=== PATIENT | female | born 1930 | race Caucasian/White ===

== ENCOUNTER → 2016-07-25 | Outpatient (REF) | payer MEDICARE, OTHER ==
[~2016-07-25] MED LIST: ASPI1TAB PO; ATOR40TA PO; CENTTAB16 PO; COUM2.5T11 PO; FISH100049 PO; FLEEENE4 PR; FURO20TA2 PO; LEVO125T3 PO; MILKSUS PO; MIRA3350 PO; OSTETAB3 PO; SENO8.6T2 PO; SERT-138 PO; SYMB16INH INH; TYLE325T5 PO; ULTR50TA PO; VALS160T PO; ZOFR20TA PO
[2016-07-25 12:08] LABS: MEAN CORPUSCULAR HEMOGLOBIN 32.8 pg (27.0-33.0); MEAN CORPUSCULAR HGB CONC 33.1 g/dl (32.0-36.5); MEAN CORPUSCULAR VOLUME 99.1 fl (80.0-96.0); RED CELL DISTRIBUTION WIDTH 11.5 % (11.5-14.5); WHITE BLOOD COUNT 5.9 K/mm3 (4.0-10.0)
[2016-07-25 12:58] LABS: ALBUMIN 3.6 GM/DL (3.2-5.2); ALBUMIN/GLOBULIN RATIO 1.24 (1.00-1.93); BILIRUBIN,TOTAL 0.5 MG/DL (0.2-1.0); CREATININE FOR GFR 1.46 MG/DL (0.55-1.02); GLOMERULAR FILTRATION RATE 36.2 (>32); POTASSIUM SERUM 4.8 MEQ/L (3.5-5.1); TOTAL PROTEIN 6.5 GM/DL (6.4-8.2)
== END ==
LOC: M SFHCPLAZ 08:04
PROVIDERS: ATTEND Internal Medicine
DX: R73.01 Impaired fasting glucose (principal); I10 Essential (primary) hypertension; Z51.81 Encounter for therapeutic drug level monitoring; Z79.899 Other long term (current) drug therapy

== ENCOUNTER → 2016-12-06 | Outpatient (REF) | payer MEDICARE, OTHER | LOC: M SFHCPLAZ 12:23 | PROVIDERS: ATTEND Nurse Practitioner Adult Health | DX: E03.9 Hypothyroidism, unspecified (principal) | CPT/HCPCS: 84443; G0463 ==

== ENCOUNTER → 2017-01-24 | Outpatient (REF) | payer MEDICARE, OTHER ==
[~2017-01-24] MED LIST changes: -ATOR40TA PO; +ATOR40TA75 PO; -COUM2.5T11 PO; +COUM2.5T17 PO; -LEVO125T3 PO; +LEVO125T4 PO; -SENO8.6T2 PO; +SENO8.6T5 PO; -ULTR50TA PO; +ULTR50TA8 PO
[2017-01-24 11:07] LABS: MEAN CORPUSCULAR VOLUME 99.9 fl (80.0-96.0)
[2017-01-24 11:41] LABS: ALBUMIN 3.6 GM/DL (3.2-5.2); ALBUMIN/GLOBULIN RATIO 1.16 (1.00-1.93); BILIRUBIN,TOTAL 0.7 MG/DL (0.2-1.0); CALCIUM LEVEL 9.1 MG/DL (8.8-10.2); CREATININE FOR GFR 1.47 MG/DL (0.55-1.02); POTASSIUM SERUM 4.6 MEQ/L (3.5-5.1); TOTAL PROTEIN 6.7 GM/DL (6.4-8.2)
== END ==
LOC: M SFHCPLAZ 08:14
PROVIDERS: ATTEND Internal Medicine
DX: Z86.718 Personal history of other venous thrombosis and embolism (principal); I10 Essential (primary) hypertension; E78.00 Pure hypercholesterolemia, unspecified; E03.9 Hypothyroidism, unspecified

== ENCOUNTER → 2017-07-25 | Outpatient (REF) | payer MEDICARE, OTHER ==
[2017-07-25 14:16] LABS: ALBUMIN 3.7 GM/DL (3.2-5.2); ALBUMIN/GLOBULIN RATIO 1.23 (1.00-1.93); ALKALINE PHOSPHATASE 73 U/L (45-117); ALT/SGPT 20 U/L (12-78); ANION GAP 6 MEQ/L (8-16); AST/SGOT 20 U/L (7-37); BILIRUBIN,TOTAL 0.5 MG/DL (0.2-1.0); BLOOD UREA NITROGEN 25 MG/DL (7-18); CALCIUM LEVEL 8.9 MG/DL (8.8-10.2); CARBON DIOXIDE LEVEL 28 MEQ/L (21-32); CHLORIDE LEVEL 109 MEQ/L (98-107); CREATININE FOR GFR 1.41 MG/DL (0.55-1.02); GLOMERULAR FILTRATION RATE 37.6 (>32); GLUCOSE, FASTING 93 MG/DL (83-110); MAGNESIUM LEVEL 1.8 MG/DL (1.8-2.4); POTASSIUM SERUM 4.5 MEQ/L (3.5-5.1); SODIUM LEVEL 143 MEQ/L (136-145); THYROID STIMULATING HORMONE 0.758 uIU/ML (0.358-3.740); TOTAL PROTEIN 6.7 GM/DL (6.4-8.2)
[2017-07-25 14:17] LABS: PTH INTACT 58.1 PG/ML (14.0-72.0)
== END ==
LOC: M SFHCPLAZ 10:06
DX: N18.3 Chronic kidney disease, stage 3 (moderate) (principal); E03.9 Hypothyroidism, unspecified
CPT/HCPCS: 83735

== ENCOUNTER → 2017-11-19 | Outpatient (CLI) | payer MEDICARE, OTHER | LOC: M WHC 10:37 | DX: R93.5 Abnormal findings on diagnostic imaging of other abdominal regions, including retroperitoneum (principal) | CPT/HCPCS: 76700 ==

== ENCOUNTER → 2018-01-24 | Outpatient (REF) | payer MEDICARE, OTHER ==
[2018-01-24 11:59] LABS: HEMATOCRIT 35.3 % (36.0-47.0); HEMOGLOBIN 11.7 g/dl (12.0-15.5); MEAN CORPUSCULAR HEMOGLOBIN 32.8 pg (27.0-33.0); MEAN CORPUSCULAR HGB CONC 33.1 g/dl (32.0-36.5); MEAN CORPUSCULAR VOLUME 98.9 fl (80.0-96.0); PLATELET COUNT, AUTOMATED 227 10^3/uL (150-450); RED BLOOD COUNT 3.57 10^6/uL (4.00-5.40); RED CELL DISTRIBUTION WIDTH 12.4 % (11.5-14.5); WHITE BLOOD COUNT 6.4 10^3/uL (4.0-10.0)
[2018-01-24 12:19] LABS: PTH INTACT 89.3 PG/ML (18.5-88.0)
[2018-01-24 12:26] LABS: ALBUMIN 3.5 GM/DL (3.2-5.2); ALBUMIN/GLOBULIN RATIO 1.09 (1.00-1.93); ALKALINE PHOSPHATASE 76 U/L (45-117); ALT/SGPT 20 U/L (12-78); ANION GAP 10 MEQ/L (8-16); AST/SGOT 17 U/L (7-37); BILIRUBIN,TOTAL 0.8 MG/DL (0.2-1.0); BLOOD UREA NITROGEN 41 MG/DL (7-18); CALCIUM LEVEL 8.8 MG/DL (8.8-10.2); CARBON DIOXIDE LEVEL 26 MEQ/L (21-32); CHLORIDE LEVEL 110 MEQ/L (98-107); CHOLESTEROL LEVEL 147 MG/DL (<200); CHOLESTEROL RISK RATIO 3.418 (<5); CREATININE FOR GFR 2.04 MG/DL (0.55-1.30); GLOMERULAR FILTRATION RATE 24.6 (>32); GLUCOSE, FASTING 96 MG/DL (70-100); HDL CHOLESTEROL 43 MG/DL (>40); LDL CHOLESTEROL 77.8 MG/DL (<100); MAGNESIUM LEVEL 1.9 MG/DL (1.8-2.4); NON-HDL-C 104 MG/DL; POTASSIUM SERUM 4.7 MEQ/L (3.5-5.1); SODIUM LEVEL 146 MEQ/L (136-145); TOTAL PROTEIN 6.7 GM/DL (6.4-8.2); TRIGLYCERIDES LEVEL 131 MG/DL (<150)
== END ==
LOC: M SFHCPLAZ 08:55
DX: Z00.00 Encounter for general adult medical examination without abnormal findings (principal); N18.3 Chronic kidney disease, stage 3 (moderate); I12.9 Hypertensive chronic kidney disease with stage 1 through stage 4 chronic kidney disease, or unspecified chronic kidney disease; E78.00 Pure hypercholesterolemia, unspecified
CPT/HCPCS: 83735

== ENCOUNTER → 2018-02-11 | Outpatient (CLI) | payer MEDICARE, OTHER ==
[2018-02-11 19:06] LABS: ANION GAP 9 MEQ/L (8-16); BLOOD UREA NITROGEN 24 MG/DL (7-18); CALCIUM LEVEL 8.7 MG/DL (8.8-10.2); CARBON DIOXIDE LEVEL 27 MEQ/L (21-32); CHLORIDE LEVEL 111 MEQ/L (98-107); CREATININE FOR GFR 1.65 MG/DL (0.55-1.30); GLOMERULAR FILTRATION RATE 31.4 (>32); GLUCOSE, FASTING 98 MG/DL (70-100); POTASSIUM SERUM 4.3 MEQ/L (3.5-5.1); SODIUM LEVEL 147 MEQ/L (136-145)
== END ==
LOC: M SMT 11:38
DX: I10 Essential (primary) hypertension (principal)
CPT/HCPCS: 80048

== ENCOUNTER → 2018-07-31 | Outpatient (REF) | payer MEDICARE, OTHER ==
[~2018-07-31] MED LIST changes: +MILK120011 PO; -MILKSUS PO; -ZOFR20TA PO; +ZOFR4TAB16 PO
[2018-07-31 12:19] LABS: HEMATOCRIT 36.1 % (36.0-47.0); HEMOGLOBIN 11.5 g/dl (12.0-15.5); MEAN CORPUSCULAR HEMOGLOBIN 31.7 pg (27.0-33.0); MEAN CORPUSCULAR HGB CONC 31.9 g/dl (32.0-36.5); MEAN CORPUSCULAR VOLUME 99.4 fl (80.0-96.0); PLATELET COUNT, AUTOMATED 216 10^3/uL (150-450); RED BLOOD COUNT 3.63 10^6/uL (4.00-5.40); WHITE BLOOD COUNT 5.9 10^3/uL (4.0-10.0)
[2018-07-31 13:01] LABS: ALBUMIN 3.5 GM/DL (3.2-5.2); BILIRUBIN,TOTAL 0.6 MG/DL (0.2-1.0); CREATININE FOR GFR 1.62 MG/DL (0.55-1.30); MAGNESIUM LEVEL 1.6 MG/DL (1.8-2.4); POTASSIUM SERUM 4.6 MEQ/L (3.5-5.1); PTH INTACT 73.2 PG/ML (18.5-88.0); THYROID STIMULATING HORMONE 1.84 uIU/ML (0.358-3.740); TOTAL PROTEIN 6.3 GM/DL (6.4-8.2)
== END ==
LOC: M SFHCPLAZ 08:54
PROVIDERS: ATTEND Internal Medicine
DX: N18.3 Chronic kidney disease, stage 3 (moderate) (principal); I12.9 Hypertensive chronic kidney disease with stage 1 through stage 4 chronic kidney disease, or unspecified chronic kidney disease; E03.9 Hypothyroidism, unspecified

== ENCOUNTER → 2019-02-12 | Outpatient (REF) | payer MEDICARE, OTHER ==
[~2019-02-12] MED LIST changes: -ASPI1TAB PO; +ASPI81TA26 PO
== END ==
LOC: M SFHCPLAZ 10:24
PROVIDERS: ATTEND Internal Medicine
DX: Z53.9 Procedure and treatment not carried out, unspecified reason (principal); N18.3 Chronic kidney disease, stage 3 (moderate); I12.9 Hypertensive chronic kidney disease with stage 1 through stage 4 chronic kidney disease, or unspecified chronic kidney disease; E78.00 Pure hypercholesterolemia, unspecified

== ENCOUNTER 2019-05-16 08:50 | Inpatient (IN) | payer MEDICARE, OTHER ==
[~2019-05-16] VITALS: Ht 162.6 cm; Wt 75.4 kg
[2019-05-16] MEDS: PANTOPRAZOLE 40MG TAB (PROTONIX) PO SCH (09:00)
[2019-05-16] MEDS: ATORVASTATIN 20 MG TAB PO SCH (09:00)
[2019-05-16] MEDS: ENOXAPARIN 30 MG/0.3 ML SYR (J1650) SC SCH (09:00)
[2019-05-16] MEDS: ARIPiprazole 10 MG TAB PO SCH (09:00)
[2019-05-16] MEDS ORDERED: ARIP1TAB PO (09:03)
[2019-05-16] MEDS ORDERED: CARB25TA9 PO (09:03)
[2019-05-16] MEDS ORDERED: ZOLO100T PO (09:03)
[2019-05-16] MEDS ORDERED: PANT40TA3 PO (09:03)
[2019-05-16 09:29] LABS: VENOUS BASE EXCESS -2.2 (-2.0-2.0); VENOUS HCO3 24.3 MEQ/L (23.0-27.0); VENOUS O2 SATURATION 79.8 % (60.0-80.0); VENOUS PARTIAL PRESSURE CO2 48.1 mmHg (38.0-50.0); VENOUS PARTIAL PRESSURE O2 47.2 mmHg (30.0-50.0); VENOUS PH 7.321 UNITS (7.330-7.430); VENOUS STANDARD HCO3 22.3 MEQ/L; VENOUS TOTAL CO2 25.8 MEQ/L (24.0-28.0)
[2019-05-16 09:35] LABS: BASO % 0.1 % (0.0-1.0); EOS # 0.1 10^3/uL (0.0-0.5); EOS % 0.5 % (0.0-3.0); HEMATOCRIT 38.6 % (36.0-47.0); HEMOGLOBIN 12.2 g/dl (12.0-15.5); LYMPH # 3.9 10^3/uL (1.5-5.0); LYMPH % 24.8 % (24.0-44.0); MEAN CORPUSCULAR HEMOGLOBIN 32.4 pg (27.0-33.0); MEAN CORPUSCULAR HGB CONC 31.6 g/dl (32.0-36.5); MEAN CORPUSCULAR VOLUME 102.7 fl (80.0-96.0); MONO # 0.3 10^3/uL (0.0-0.8); MONO % 1.7 % (0.0-5.0); NEUTROPHILS # 11.3 10^3/uL (1.5-8.5); NEUTROPHILS % 72.5 % (36.0-66.0); PLATELET COUNT, AUTOMATED 246 10^3/uL (150-450); RED BLOOD COUNT 3.76 10^6/uL (4.00-5.40); WHITE BLOOD COUNT 15.5 10^3/uL (4.0-10.0)
--- NOTE | 2019-05-16 09:54 | REP ---
CT brain: 05/16/2019. New indication: Syncope. Comparison: None. Technique: Unenhanced axial images of the brain were obtained from skull base to vertex. Findings: There is no acute intracranial hemorrhage, acute cortical infarction, mass effect or hydrocephalous. Visualized paranasal sinuses and mastoid air cells are clear. Diffuse age-related volume loss is present. There are a few patchy areas of hypoattenuation within the cerebral hemisphere white matter most consistent with chronic small vessel disease. Impression: No acute intracranial process. Electronically Signed by Ajith Mcbride DO 05/16/2019 09:46 A
[2019-05-16] MEDS ORDERED: NS 2,270 ML in IV 1 EA IV ONE (10:00)
[2019-05-16] MEDS ORDERED: cefTRIAXone SOD 2 GM in D5W MINI-BAG PLUS 50 ML IV ONE (10:00)
[2019-05-16 10:08] LABS: BLOOD UREA NITROGEN 24 MG/DL (7-18); CALCIUM LEVEL 9.2 MG/DL (8.8-10.2); CARBON DIOXIDE LEVEL 26 MEQ/L (21-32); CHLORIDE LEVEL 107 MEQ/L (98-107); CK-MB VALUE MASS 4.4 NG/ML (<3.6); CPK CREATINE PHOSPHOKINASE 432 U/L (26-192); CREATININE FOR GFR 1.71 MG/DL (0.55-1.30); FREE T4 1.43 NG/DL (0.76-1.46); GLUCOSE, FASTING 155 MG/DL (70-100); MAGNESIUM LEVEL 1.4 MG/DL (1.8-2.4); MB/CK RELATIVE INDEX 1.02 (< OR =4); POTASSIUM SERUM 4.1 MEQ/L (3.5-5.1); SODIUM LEVEL 144 MEQ/L (136-145); TROPONIN I < 0.02 NG/ML (< 0.10)
--- NOTE | 2019-05-16 10:14 | REP ---
CHEST, SINGLE VIEW: There is no evidence of acute infiltrate. No pleural effusion is seen. The heart is normal in size. The mediastinal silhouette is unremarkable. The visualized osseous structures are intact. Calcified granulomas seen in the right base. There are degenerative changes of the spine. IMPRESSION: No acute pulmonary disease. Electronically Signed by Doemnic Deluca MD 05/17/2019 11:04 A
[2019-05-16] MEDS ORDERED: MAG SULF 1GM/100ML (MAG RUN) 1 GM in IV 1 EA IV ONE (11:15)
[2019-05-16] MEDS ORDERED: SYMB80INH INH (11:21)
[2019-05-16] MEDS ORDERED: LEVO112T25 PO (11:21)
[2019-05-16] MEDS ORDERED: [UNRECOGNIZED DRUG - CODE] PO (11:21)
[2019-05-16] MEDS ORDERED: VENTAER INH (11:21)
[2019-05-16] MEDS ORDERED: FLUC200T2 PO (11:21)
--- NOTE | 2019-05-16 11:40 | HPEPDOC ---
[facility] Medical History & Physical Date of Admission May 16, 2019 Date of Service: May 16, 2019 History and Physical CHIEF COMPLAINT: Not feeling well HISTORY OF PRESENT ILLNESS: Patient is 89F with PMH Hypothyroidism, HTN, Depression brought in by family to the ER with complaints of near-syncope vs. syncope this morning. Patient is somewhat difficult of hearing, history is obtained with help of family members. Patient reports that she did not feel well briefly this morning and reported appeared to pass out very briefly and appeared nauseous and diaphoretic but returned back to normal quickly. She states that she have been feeling fine and only experienced that brief episode this morning. She currently denies any c omplaints including chest pain, SOB, dizziness, dysuria, abdominal pain, fever, chills. Patient was found to have leukocytosis WBC 15.5, tachycardic 102 and lactic acidosis 3.8. PAST MEDICAL HISTORY: Refer to [facility] PAST SURGICAL HISTORY: R. knee surgery Back surgery SOCIAL HISTORY: Denies tobacco, alcohol or illicit drug use. FAMILY HISTORY: Mother- CAD Daughter- melanoma ALLERGIES: Please see below. REVIEW OF SYSTEMS: 10 point review of system negative except as stated in [facility] HOME MEDICATIONS: Please see below. PHYSICAL EXAMINATION: General: No acute distress, Alert, elderly/weak Eyes: Normal sclera, EOMI, JONY HENT: Atraumatic, neck supple] Cardiovascular: Normal rate, normal rhythm. Pulmonary: Clear to auscultation b/l, no wheezing GI: Soft, nontender, nondistended Skin: Warm and dry Neuro: CN grossly intact. No focal deficits. Generalized weakness Psych: oriented x 3 LABORATORY DATA: See below. IMAGING: CT head- Findings: There is no acute intracranial hemorrhage, acute cortical infarction, mass effect or hydrocephalous. Visualized paranasal sinuses and mastoid air cells are clear. Diffuse age-related volume loss is present. There are a few patchy areas of hypoattenuation within the cerebral hemisphere white matter most consistent with chronic small vessel disease. Impression: No acute intracranial process. CXR- IMPRESSION: No acute pulmonary disease. MICROBIOLOGY: Please see below. ASSESSMENT AND PLAN: 1. Near syncope vs. syncope - Suspect 2/2 viral illness. - CT head with no acute changes, no focal deficits and patient appeared to be at her baseline. - No chest pain. troponin negative. TSH and T4 WNL. 2. SIRS w/ no known source - Presented with leukocytosis, tachycardia and lactic acidosis. - UA not suggestive of infection and patient has no urinary symptoms. - s/p 30 cc/kg IVF bolus and Rocephin in ER. - Clinically improved with resolution of tachycardia. - Continue to monitor and f/u blood cultures. - Low suspicion for bacterial infection. CXR clear, no abdominal pain suggestive of infectious process. 3. Hypothyroidism - c/w synthroid 4. HTN - Hold home medication in caution for possible development of hypotension from infection. - Unlikely but will resume tomorrow if BP remained stable overnight. 5. hx depression - resume home med Code status: Full code Dispo: Likely home once stable. PT eval and treat. Vital Signs Vital Signs Date Time Temp Pulse Resp B/P (MAP) Pulse Ox O2 Delivery O2 Flow Rate FiO2 05/16/19 10:20 90 95 05/16/19 09:28 120/58 (78) 05/16/19 09:15 97.5 16 Room Air Laboratory Data Labs 24H Laboratory Tests 2 05/16/19 09:18: Immature Granulocyte % (Auto) 0.4, Neutrophils (%) (Auto) 72.5H, Lymphocytes (%) (Auto) 24.8, Monocytes (%) (Auto) 1.7, Eosinophils (%) (Auto) 0.5, Basophils (%) (Auto) 0.1, Neutrophils # (Auto) 11.3H, Lymphocytes # (Auto) 3.9, Monocytes # (Auto) 0.3, Eosinophils # (Auto) 0.1, Basophils # (Auto) 0.0, Nucleated Red Blood Cells % (auto) 0.0, Blood Gas Bicarbonate Standard 22.3, Venous Blood pH 7 .321L, Venous Blood Partial Pressure CO2 48.1, Venous Blood Partial Pressure O2 47.2, Venous Blood Total Carbon Dioxide 25.8, Venous Blood HCO3 24.3, Venous Blood Oxygen Saturation 79.8, Venous Blood Base Excess -2.2L, Anion Gap 11, Glomerular Filtration Rate 30.0L, Lactic Acid Level 3.8*H, Calcium Level 9.2, Magnesium Level 1.4L, Total Creatine Kinase 432H, Creatine Kinase MB 4.4H, Creatine Kinase MB Relative Index 1.02, Troponin I < 0.02, Thyroid Stimulating Hormone (TSH) 1.170, Free Thyroxine 1.43 10/25/19 10:14: Urine Color YELLOW, Urine Appearance CLEAR, Urine pH 6.0, Urine Specific [place] 1.012, Urine Protein NEGATIVE, Urine Glucose (UA) NEGATIVE, Urine Ketones N EGATIVE, Urine Blood 1+H, Urine Nitrite NEGATIVE, Urine Bilirubin NEGATIVE, Urine Urobilinogen 0.2, Urine Leukocyte Esterase NEGATIVE, Urine WBC (Auto) 2, Urine RBC (Auto) 4H, Urine Hyaline Casts (Auto) 58, Urine Bacteria (Auto) NEGATIVE, Urine Squamous Epithelial Cells 0, Urine Mucus (Auto) SMALL, Urine Sperm (Auto) CBC/BMP Laboratory Tests 05/16/19 09:18 Microbiology Microbiology 05/16/19 Respiratory Virus Panel (PCR) ([facility]), Received Pending 05/16/19 Blood Culture, Received Pending 05/16/19 Blood Culture, Received Pending Home Medications Scheduled Aripiprazole (Aripiprazole) 10 Mg Tablet, 10 MG PO DAILY Atorvastatin Calcium (Atorvastatin Calcium) 40 Mg Tab, 40 MG PO DAILY Budesonide/Formoterol (Symbicort 80-4.5 Mcg Inhaler) 6.9 Gm Hfa.aer.ad, 2 PUFF INH BID Carbidopa/Levodopa (Sinemet 10-100 mg Tablet) 1 Each Tablet, 1 TAB PO TID TAKES AT 0800, 1400, AND 2000 Fluconazole (Fluconazole) 200 Mg Tablet, 200 MG PO QMONTH Levothyroxine Sodium (Levoxyl) 112 Mcg Tablet, 112 MCG PO DAILY Pantoprazole Sodium (Pantoprazole Sodium) 40 Mg Tablet.dr, 40 MG PO DAILY Sertraline Hcl (Zoloft) 100 Mg Tablet, 100 MG PO DAILY Valsartan/Hydrochlorothiazide (Valsartan-Hctz 160-12.5 mg Tab) 1 Tab Tab, 1 TAB PO DAILY Scheduled PRN Albuterol Sulfate (Ventolin Hfa) 18 Gm Hfa.aer.ad, 2 PUFF INH Q6H PRN for SHORTNESS OF BREATH Allergies Coded Allergies: No Known Allergies (Verified , 01/26/03) A-FIB/CHADSVASC A-FIB History Current/History of A-Fib/PAF?: No WILMER RODRIGUES MD May 16, 2019 11:40
[2019-05-16] MEDS ORDERED: ACETAMINOPHEN TAB 650MG DOSE (2X325MG) PO PRN (11:45)
[2019-05-16] MEDS ORDERED: VALSARTAN 80 MG TAB (DIOVAN) PO ONE (12:00)
[2019-05-16] MEDS ORDERED: ALBUTEROL 90 MCG/ACT 8GM HFA INHALER INH PRN (12:00)
[2019-05-16 13:26] LABS: HEMOGLOBIN A1c 5.5 %
[2019-05-16 14:15] VITALS: BP 148/67
[2019-05-16] MEDS ORDERED: SLF 3 ML SYR IV PRN (14:45)
[2019-05-16 16:00] VITALS: BP 157/71
[2019-05-16 20:00] VITALS: BP 144/80
[2019-05-16] MEDS: SINEMET 10-100 MG TAB PO SCH (21:11)
[2019-05-16] MEDS: SLF 3 ML SYR IV SCH (21:11)
--- NOTE | 2019-05-16 21:28 | ECGEPIP ---
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
[2019-05-17] VITALS: BP 146/68
[2019-05-17 04:00] VITALS: BP 146/70
[2019-05-17 06:01] LABS: HEMATOCRIT 32.2 % (36.0-47.0); HEMOGLOBIN 10.3 g/dl (12.0-15.5); MEAN CORPUSCULAR HEMOGLOBIN 32.5 pg (27.0-33.0); MEAN CORPUSCULAR VOLUME 101.6 fl (80.0-96.0); PLATELET COUNT, AUTOMATED 188 10^3/uL (150-450); RED BLOOD COUNT 3.17 10^6/uL (4.00-5.40); WHITE BLOOD COUNT 9.4 10^3/uL (4.0-10.0)
[2019-05-17] MEDS: LEVOTHYROXINE 112MCG TABLET (0.112MG) PO SCH (06:12)
[2019-05-17] MEDS: SLF 3 ML SYR IV SCH ×3 (06:12→21:51)
[2019-05-17 06:27] LABS: CALCIUM LEVEL 8.6 MG/DL (8.8-10.2); CREATININE FOR GFR 1.34 MG/DL (0.55-1.30); GLOMERULAR FILTRATION RATE 39.7 (>32); POTASSIUM SERUM 4.2 MEQ/L (3.5-5.1)
[2019-05-17 07:24] LABS: MAGNESIUM LEVEL 1.7 MG/DL (1.8-2.4)
[2019-05-17 08:00] VITALS: BP 165/70
[2019-05-17] MEDS: PANTOPRAZOLE 40MG TAB (PROTONIX) PO SCH (08:24)
[2019-05-17] MEDS: SINEMET 10-100 MG TAB PO SCH ×3 (08:24→20:10)
[2019-05-17] MEDS: ARIPiprazole 10 MG TAB PO SCH (08:24)
[2019-05-17] MEDS: ATORVASTATIN 20 MG TAB PO SCH (08:25)
[2019-05-17] MEDS: SERTRALINE 100 MG TAB PO SCH (08:25)
[2019-05-17] MEDS: ENOXAPARIN 30 MG/0.3 ML SYR (J1650) SC SCH (08:25)
[2019-05-17] MEDS ORDERED: MAG SULF 1GM/100ML (MAG RUN) 1 GM in IV 1 EA IV ONE (10:00)
--- NOTE | 2019-05-17 11:45 | IPNPDOC ---
Date Seen The patient was seen on 05/17/19. Progress Note SUBJECTIVE: Patient offered no complaints this morning and stated she feels well. However, had an episode of nausea and threw up some of her food after breakfast but reported feeling well after that. Afebrile overnight. Leukocytosis resolved WBC 15->9.4. There was a concern for R. facial swelling yesterday but noted very slight asymmetry but no tenderness or significant erythema on exam. OBJECTIVE PHYSICAL EXAMINATION: VITAL SIGNS: Please see below. General: No acute distress, Alert, elderly/weak Eyes: Normal sclera, EOMI, JONY HENT: Atraumatic, neck supple Cardiovascular: Normal rate, normal rhythm. Pulmonary: Clear to auscultation b/l, no wheezing GI: Soft, nontender, nondistended Skin: Warm and dry Neuro: CN grossly intact. No focal deficits. Generalized weakness Psych: oriented x 3 LABORATORY DATA, IMAGING STUDIES, MICROBIOLOGY: Please see below. ASSESSMENT AND PLAN: 1. Near syncope vs. syncope - Suspect 2/2 viral illness. - CT head with no acute changes, no focal deficits and patient appeared to be at her baseline. - No chest pain. troponin negative. TSH and T4 WNL. 2. SIRS w/ no known source - Presented with leukocytosis, tachycardia and lactic acidosis. resolved. - UA not suggestive of infection and patient has no urinary symptoms. - s/p 30 cc/kg IVF bolus and Rocephin in ER. - Clinically improved with resolution of tachycardia. - Continue to monitor today. f/u blood cultures, currently NTD. If becomes positive, will need to look for occult source of infection. - Low suspicion for bacterial infection. CXR clear, no abdominal pain suggestive of infectious process. Keep a low threshold for broad spectrum antibiotic initiation. - Would keep patient until blood cultures 3. Hypothyroidism - c/w synthroid 4. HTN - Hold home medication in caution for possible development of hypotension from infection. - Unlikely but will resume tomorrow if BP remained stable overnight. 5. hx depression - resume home med Code status: Full code Dispo: Likely home once stable. PT eval and treat. VS, I&O, 24H, Fishbone Vital Signs/I&O Vital Signs Date Time Temp Pulse Resp B/P (MAP) Pulse Ox O2 Delivery O2 Flow Rate FiO2 05/17/19 08:00 97.8 78 18 165/70 (101) 92 Room Air I&O- Last 24 Hours up to 6 AM 05/17/19 06:00 Intake Total 2600 ml Output Total 0 ml Balance 2600 ml Laboratory Data 24H LABS Laboratory Tests 2 05/16/19 14:06: Lactic Acid Followup at 4 Hours 2.3*H 05/17/19 05:25: Nucleated Red Blood Cells % (auto) 0.0, Anion Gap 6L, Glomerular Filtration Rate 39.7, Calcium Level 8.6L, Magnesium Level 1.7L 05/17/19 07:23: Lactic Acid Level 1.7 CBC/BMP Laboratory Tests 05/17/19 05:25 Microbiology Microbiology 05/16/19 Respiratory Virus Panel (PCR) ([facility]) - Final, Complete 05/16/19 Blood Culture - Preliminary, Resulted No growth after 24 hours . All specim... 05/16/19 Blood Culture - Preliminary, Resulted No growth after 24 hours . All specim... WILMER RODRIGUES MD May 17, 2019 11:45
[2019-05-17 12:00] VITALS: BP 155/69
[2019-05-17 16:00] VITALS: BP 135/60
[2019-05-17 20:00] VITALS: BP 130/62
[2019-05-18] VITALS: BP 128/68
[2019-05-18 04:00] VITALS: BP 150/86
[2019-05-18 05:48] LABS: HEMATOCRIT 30.5 % (36.0-47.0); HEMOGLOBIN 9.8 g/dl (12.0-15.5); MEAN CORPUSCULAR HEMOGLOBIN 32.7 pg (27.0-33.0); MEAN CORPUSCULAR HGB CONC 32.1 g/dl (32.0-36.5); MEAN CORPUSCULAR VOLUME 101.7 fl (80.0-96.0); PLATELET COUNT, AUTOMATED 176 10^3/uL (150-450); WHITE BLOOD COUNT 8.5 10^3/uL (4.0-10.0)
[2019-05-18] MEDS: SLF 3 ML SYR IV SCH ×2 (06:00→13:25)
[2019-05-18 06:11] LABS: CALCIUM LEVEL 8.6 MG/DL (8.8-10.2); CREATININE FOR GFR 1.39 MG/DL (0.55-1.30); GLOMERULAR FILTRATION RATE 38.1 (>32); MAGNESIUM LEVEL 1.8 MG/DL (1.8-2.4); POTASSIUM SERUM 4.5 MEQ/L (3.5-5.1)
[2019-05-18] MEDS: LEVOTHYROXINE 112MCG TABLET (0.112MG) PO SCH (06:21)
[2019-05-18 08:00] VITALS: BP 124/58
[2019-05-18 08:46] VITALS: BP 124/58
[2019-05-18] MEDS: ENOXAPARIN 30 MG/0.3 ML SYR (J1650) SC SCH (08:46)
[2019-05-18] MEDS: ARIPiprazole 10 MG TAB PO SCH (08:46)
[2019-05-18] MEDS: SINEMET 10-100 MG TAB PO SCH ×2 (08:46→13:24)
[2019-05-18] MEDS: ATORVASTATIN 20 MG TAB PO SCH (08:47)
[2019-05-18] MEDS: SERTRALINE 100 MG TAB PO SCH (08:47)
[2019-05-18] MEDS: PANTOPRAZOLE 40MG TAB (PROTONIX) PO SCH (08:47)
[2019-05-18] MEDS ORDERED: VALSARTAN 80 MG TAB (DIOVAN) PO SCH (09:00)
[2019-05-18] MEDS ORDERED: MAG SULF 1GM/100ML (MAG RUN) 1 GM in IV 1 EA IV ONE (09:00)
[2019-05-18] MEDS ORDERED: hydroCHLOROthiazide 12.5 MG CAPSULE PO SCH (09:00)
[2019-05-18 12:00] VITALS: BP 138/68
[2019-05-18] MEDS ORDERED: MAGNESIUM OXIDE 400 MG TAB (MAG-OX) PO ONE (12:00)
--- NOTE | 2019-05-18 12:36 | DS.PDOC ---
Discharge Summary General Date of Admission May 16, 2019 at 11:33 Date of Discharge 05/18/2019 Attending Physician: ISAIAH CALERO MD Discharge Summary PROCEDURES PERFORMED DURING STAY: None. ADMITTING DIAGNOSES: 1. Acute kidney injury on chronic kidney disease. DISCHARGE DIAGNOSES: 1. Acute kidney injury on chronic kidney disease. COMPLICATIONS/CHIEF COMPLAINT: Lactic Acidosis Syncope. HISTORY OF PRESENT ILLNESS: 89-year-old female with past medical history of CK D hypertension and hypothyroidism was admitted for presyncope and acute kidney injury. Upon presentation to the emergency department, she had elevated lactate levels, and a jump and creatinine from her baseline. She was treated with IV hydration with significant improvement in her symptoms, along with renal function and lactate. She reports feeling well today, tolerating diet, was evaluated by physical therapy who recommended home services, reports has private services at home 5 days a week. She is clinically stable and back to baseline, stable for discharge home. Patient is agreeable with discharge planning, family also able to help the patient.. HOSPITAL COURSE: As above. DISCHARGE MEDICATIONS: Please see below. ALLERGIES: Please see below. PHYSICAL EXAMINATION: VITAL SIGNS: Please see below. GENERAL: No distress, frail HEENT: Normocephalic, atraumatic, moist mucous membranes NECK: Supple CARDIOVASCULAR EXAMINATION: S1, S2, no murmurs RESPIRATORY EXAMINATION: Clear to auscultation, no wheezing ABDOMINAL EXAMINATION: Soft, nontender, nondistended, positive bowel sounds EXTREMITIES: Range of motion intact SKIN: No rash NEUROLOGICAL EXAMINATION: Alert and oriented 3, no focal deficits PSYCHIATRIC EXAMINATION: Calm and cooperative LABORATORY DATA: Please see below. PROGNOSIS: Guarded ACTIVITY: As tolerated. DIET: Cardiac DISCHARGE PLAN: Patient will follow with PCP in 1-2 weeks DISPOSITION: . DISCHARGE INSTRUCTIONS: 1. As above. DISCHARGE CONDITION: Stable. TIME SPENT ON DISCHARGE: Greater than 32 minutes. Vital Signs/I&Os Vital Signs Date Time Temp Pulse Resp B/P (MAP) Pulse Ox O2 Delivery O2 Flow Rate FiO2 05/18/19 08:46 124/58 05/18/19 08:00 98.2 74 16 90 Room Air I&O- Last 24 Hours up to 6 AM 05/18/19 06:00 Intake Total 300 ml Output Total 100 ml Balance 200 ml Laboratory Data Labs 24H Laboratory Tests 2 05/18/19 05:10: Nucleated Red Blood Cells % (auto) 0.0, Anion Gap 4L, Glomerular Filtration Rate 38.1, Calcium Level 8.6L, Magnesium Level 1.8 CBC/BMP Laboratory Tests 05/18/19 05:10 Microbiology Microbiology 05/16/19 Respiratory Virus Panel (PCR) ([facility]) - Final, Complete 05/16/19 Blood Culture - Preliminary, Resulted No Growth after 48 hours. All Specime... 05/16/19 Blood Culture - Preliminary, Resulted No Growth after 48 hours. All Specime... Discharge Medications Scheduled Aripiprazole (Aripiprazole) 10 Mg Tablet, 10 MG PO DAILY, (Reported) Atorvastatin Calcium (Atorvastatin Calcium) 40 Mg Tab, 40 MG PO DAILY, (Reported) Budesonide/Formoterol (Symbicort 80-4.5 Mcg Inhaler) 6.9 Gm Hfa.aer.ad, 2 PUFF INH BID, (Reported) Carbidopa/Levodopa (Sinemet 10-100 mg Tablet) 1 Each Tablet, 1 TAB PO TID, (Reported) TAKES AT 0800, 1400, AND 2000 Fluconazole (Fluconazole) 200 Mg Tablet, 200 MG PO QMONTH, (Reported) Levothyroxine Sodium (Levoxyl) 112 Mcg Tablet, 112 MCG PO DAILY, (Reported) Pantoprazole Sodium (Pantoprazole Sodium) 40 Mg Tablet.dr, 40 MG PO DAILY, (Reported) Sertraline Hcl (Zoloft) 100 Mg Tablet, 100 MG PO DAILY, (Reported) Valsartan/Hydrochlorothiazide (Valsartan-Hctz 160-12.5 mg Tab) 1 Tab Tab, 1 TAB PO DAILY, (Reported) Scheduled PRN Albuterol Sulfate (Ventolin Hfa) 18 Gm Hfa.aer.ad, 2 PUFF INH Q6H PRN for SHORTNESS OF BREATH, (Reported) Allergies Coded Allergies: No Known Allergies (Verified , 01/26/03) ISAIAH CALERO MD May 18, 2019 12:36
== END 2019-05-18 13:37 | disposition home or self-care (01) | DRG 683 ==
LOC: EDBD 08:50 → M ED 08:50 → M ED INP 11:33 → M PCU 13:54
PROVIDERS: ADMIT Student in an Organized Health Care Education/Training Program; ATTEND Student in an Organized Health Care Education/Training Program
DX: N17.9 Acute kidney failure, unspecified (principal); E87.2 Acidosis; E03.9 Hypothyroidism, unspecified; Z79.899 Other long term (current) drug therapy; F32.9 Major depressive disorder, single episode, unspecified; D72.829 Elevated white blood cell count, unspecified; I10 Essential (primary) hypertension

== ENCOUNTER → 2019-10-29 | Outpatient (REF) | payer MEDICARE, OTHER ==
[~2019-10-29] MED LIST changes: +ARIP1TAB PO; +CARB25TA9 PO; +FLUC200T2 PO; +LEVO112T25 PO; +PANT40TA3 PO; +SYMB80INH INH; -VALS160T PO; +VALS160T2 PO; +VENTAER INH; +ZOLO100T PO; +[UNRECOGNIZED DRUG - CODE] PO
[2019-10-29 10:10] LABS: BASO % 0.3 % (0.0-1.0); EOS # 0.2 10^3/uL (0.0-0.5); EOS % 3.8 % (0.0-3.0); HEMOGLOBIN 10.3 g/dl (12.0-15.5); LYMPH # 2.4 10^3/uL (1.5-5.0); LYMPH % 41.9 % (24.0-44.0); MEAN CORPUSCULAR HEMOGLOBIN 32.8 pg (27.0-33.0); MEAN CORPUSCULAR HGB CONC 32.2 g/dl (32.0-36.5); MEAN CORPUSCULAR VOLUME 101.9 fl (80.0-96.0); MONO # 0.5 10^3/uL (0.0-0.8); MONO % 8.2 % (0.0-5.0); NEUTROPHILS # 2.6 10^3/uL (1.5-8.5); NEUTROPHILS % 45.6 % (36.0-66.0); PLATELET COUNT, AUTOMATED 216 10^3/uL (150-450); RED BLOOD COUNT 3.14 10^6/uL (4.00-5.40); WHITE BLOOD COUNT 5.7 10^3/uL (4.0-10.0)
[2019-10-29 10:40] LABS: BILIRUBIN,TOTAL 0.4 MG/DL (0.2-1.0); CALCIUM LEVEL 8.6 MG/DL (8.8-10.2); CREATININE FOR GFR 1.54 MG/DL (0.55-1.30); GLOMERULAR FILTRATION RATE 33.8 (>32); POTASSIUM SERUM 5.4 MEQ/L (3.5-5.1); THYROID STIMULATING HORMONE 3.25 uIU/ML (0.358-3.740); TOTAL PROTEIN 5.9 GM/DL (6.4-8.2)
[2019-10-29 10:43] LABS: PTH INTACT 58.3 PG/ML (18.5-88.0)
== END ==
PROVIDERS: ATTEND Internal Medicine
DX: N18.3 Chronic kidney disease, stage 3 (moderate) (principal); E03.9 Hypothyroidism, unspecified; I12.9 Hypertensive chronic kidney disease with stage 1 through stage 4 chronic kidney disease, or unspecified chronic kidney disease; M81.0 Age-related osteoporosis without current pathological fracture

== ENCOUNTER → 2020-02-23 | Outpatient (REF) | payer MEDICARE, OTHER ==
[~2020-02-23] MED LIST changes: +PANT40TA29 PO; -PANT40TA3 PO
[2020-05-05 13:13] LABS: HEMATOCRIT 33.1 % (36.0-47.0); HEMOGLOBIN 10.7 g/dl (12.0-15.5); MEAN CORPUSCULAR HGB CONC 32.3 g/dl (32.0-36.5); MEAN CORPUSCULAR VOLUME 102.2 fl (80.0-96.0); PLATELET COUNT, AUTOMATED 230 10^3/uL (150-450); RED BLOOD COUNT 3.24 10^6/uL (4.00-5.40); WHITE BLOOD COUNT 6.8 10^3/uL (4.0-10.0)
[2020-05-18 09:31] LABS: ALBUMIN 3.4 GM/DL (3.2-5.2); BILIRUBIN,TOTAL 0.6 MG/DL (0.2-1.0); CALCIUM LEVEL 9.1 MG/DL (8.8-10.2); CREATININE FOR GFR 1.62 MG/DL (0.55-1.30); GLOMERULAR FILTRATION RATE 31.8 (>32); MAGNESIUM LEVEL 2.1 MG/DL (1.8-2.4); POTASSIUM SERUM 5.2 MEQ/L (3.5-5.1); TOTAL PROTEIN 6.3 GM/DL (6.4-8.2)
== END ==
PROVIDERS: ATTEND Internal Medicine
DX: I12.9 Hypertensive chronic kidney disease with stage 1 through stage 4 chronic kidney disease, or unspecified chronic kidney disease (principal); N18.3 Chronic kidney disease, stage 3 (moderate); Z86.718 Personal history of other venous thrombosis and embolism

== ENCOUNTER → 2020-07-02 | Outpatient (REF) | payer MEDICARE, OTHER, MEDICAID ==
[~2020-07-02] MED LIST changes: +ACET650T15 PO; +DICL1GEL3 TOP; +MAGN1TAB39 PO; +OMEG10002 PO
== END ==
PROVIDERS: ATTEND Internal Medicine
DX: Z20.828 Contact with and (suspected) exposure to other viral communicable diseases (principal)

== ENCOUNTER → 2020-07-07 | Outpatient (REF) | payer MEDICARE, OTHER, MEDICAID ==
[2020-07-07 16:42] LABS: INFLUENZA A AMPLIFICATION NEGATIVE (NEGATIVE); INFLUENZA B AMPLIFICATION NEGATIVE (NEGATIVE)
== END ==
PROVIDERS: ATTEND Internal Medicine
DX: Z20.828 Contact with and (suspected) exposure to other viral communicable diseases (principal)

== ENCOUNTER 2020-07-09 12:17 | Inpatient (IN) | payer MEDICARE, OTHER, MEDICAID ==
[~2020-07-09] VITALS: Ht 162.6 cm; Wt 81.9 kg
[~2020-07-09 12:17] MED LIST changes: -ACET650T15 PO; -DICL1GEL3 TOP; -MAGN1TAB39 PO; -OMEG10002 PO
--- NOTE | 2020-07-09 14:01 | REP ---
INDICATION: Coronavirus workup. COMPARISON: 05/16/2019. TECHNIQUE: Single AP view of the chest performed portably with the patient upright. FINDINGS: The lung dawson are clear. Cardiac size is normal. The darby, mediastinum and skeletal structures are unremarkable. IMPRESSION: Essentially negative portable chest <Electronically signed by Domenic Whittaker > 07/09/20 [id number]
[2020-07-09 15:04] LABS: BASO % 0.2 % (0.0-1.0); HEMATOCRIT 34.8 % (36.0-47.0); HEMOGLOBIN 10.8 g/dl (12.0-15.5); LYMPH # 1.6 10^3/uL (1.5-5.0); LYMPH % 25.3 % (24.0-44.0); MEAN CORPUSCULAR HEMOGLOBIN 32.8 pg (27.0-33.0); MEAN CORPUSCULAR VOLUME 105.8 fl (80.0-96.0); MONO # 0.9 10^3/uL (0.0-0.8); MONO % 13.9 % (0.0-5.0); NEUTROPHILS # 3.8 10^3/uL (1.5-8.5); NEUTROPHILS % 60.3 % (36.0-66.0); PLATELET COUNT, AUTOMATED 199 10^3/uL (150-450); RED BLOOD COUNT 3.29 10^6/uL (4.00-5.40); WHITE BLOOD COUNT 6.3 10^3/uL (4.0-10.0)
[2020-07-09 15:25] LABS: ALBUMIN 3.3 GM/DL (3.2-5.2); ALT/SGPT 14 U/L (12-78); BILIRUBIN,TOTAL 0.2 MG/DL (0.2-1.0); BLOOD UREA NITROGEN 34 MG/DL (7-18); C REACTIVE PROTEIN QUANTITATIV 2.95 MG/DL (0.00-0.30); CALCIUM LEVEL 8.6 MG/DL (8.8-10.2); CARBON DIOXIDE LEVEL 25 MEQ/L (21-32); CHLORIDE LEVEL 106 MEQ/L (98-107); CPK CREATINE PHOSPHOKINASE 880 U/L (26-192); CREATININE FOR GFR 2.01 MG/DL (0.55-1.30); FERRITIN 116 NG/ML (8-252); GLOMERULAR FILTRATION RATE 24.8 (>32); GLUCOSE, FASTING 85 MG/DL (70-100); LDH LACTATE DEHYDROGENASE 191 U/L (84-246); MB/CK RELATIVE INDEX 0.91 (< OR =4); POTASSIUM SERUM 5.7 MEQ/L (3.5-5.1); SODIUM LEVEL 136 MEQ/L (136-145); TOTAL PROTEIN 6.6 GM/DL (6.4-8.2); TROPONIN I < 0.02 NG/ML (< 0.10)
[2020-07-09 15:28] LABS: D-DIMER QUANT 713.56 ng/ml (<500)
[2020-07-09] MEDS ORDERED: PATIROMER SORBITEX CALCIUM 8.4 GM POWDER PACKET (VELTASSA) PO ONE (17:15)
[2020-07-09] MEDS ORDERED: IPRATROPIUM 0.5MG/ALBUTEROL 2.5MG INH SOL UD 3ML (DUONEB) NEB PRN (17:30)
[2020-07-09] MEDS ORDERED: DICL1GEL3 TOP (17:38)
[2020-07-09] MEDS ORDERED: ASPI81TA26 PO (17:38)
[2020-07-09] MEDS ORDERED: ACET650T15 PO (17:38)
[2020-07-09] MEDS ORDERED: MAGN1TAB39 PO (17:38)
[2020-07-09] MEDS ORDERED: OMEG10002 PO (17:38)
[2020-07-09 17:50] LABS: INR 1.01; PROTHROMBIN TIME 13.5 SECONDS (12.5-14.3)
[2020-07-09 17:51] LABS: PARTIAL THROMBOPLASTIN TIME 37.2 SECONDS (24.2-38.5)
[2020-07-09] MEDS: NS 1,000 ML IV SCH (17:59)
[2020-07-09] MEDS: dexameTHASONE 4 MG/ML 1ML VIAL (J1100 PER 1MG) IV SCH (18:00)
[2020-07-09] MEDS ORDERED: PILL CUTTER 1 EACH XX PRN (18:00)
--- NOTE | 2020-07-09 19:40 | HPEPDOC ---
General Date of Admission Jul 09, 2020 at 17:02 Date of Service: Jul 09, 2020 Attending Physician: MEREDITH FERRELL DO Chief Complaint The patient is a 89-year-old female admitted with a reason for visit of Covid- 19/Hypoxia. Source: Patient History of Present Illness Mrs. Hooper is an 89 year old female from [facility] assisted living who is here for fatigue and exertional dyspnea. For the past few days, she and her have not felt well. On 07/07/2020, both her and her tested positive for COVID. Since then, her symptoms of cough and dyspnea have not improved. Dyspnea is worse with exertion. Today, she tried to walk, but rapidly got short of breath. In the ED, she saturated at 92% at room air at rest. With activity, she desaturates down to the low 80s. Vitals have been stable here and no documented fevers. CXR negative. No leukocytosis, but D-dimer and CRP are elevated. She also has acute renal failure which may be secondary to poor oral intake. Patient will be admitted for COVID PNA and MARISSA Home Medications Scheduled Acetaminophen (Acetaminophen ER) 650 Mg Tablet.er, 1,300 MG PO BID, (Reported) Aripiprazole (Aripiprazole) 10 Mg Tablet, 10 MG PO DAILY, (Reported) Aspirin (Aspirin EC) 81 Mg Tablet.dr, 81 MG PO DAILY, (Reported) Atorvastatin Calcium (Atorvastatin Calcium) 40 Mg Tab, 40 MG PO DAILY, (Reported) Budesonide/Formoterol (Symbicort 80-4.5 Mcg Inhaler) 6.9 Gm Hfa.aer.ad, 2 PUFF INH BID, (Reported) Carbidopa/Levodopa (Sinemet 10-100 mg Tablet) 1 Each Tablet, 1.5 TAB PO TID, (Reported) TAKES AT 0800, 1400, AND 2000 Levothyroxine Sodium (Levoxyl) 112 Mcg Tablet, 112 MCG PO DAILY, (Reported) Magnesium Chloride (Magnesium Chloride) 64 Mg Tablet.dr, 64 MG PO DAILY, (Reported) [place]-3/Dha/Epa/Fish Oil (Fish Oil 1,000 mg Softgel) 1 Each Capsule, 2,000 M PO DAILY, (Reported) Sertraline Hcl (Zoloft) 100 Mg Tablet, 100 MG PO DAILY, (Reported) Valsartan/Hydrochlorothiazide (Valsartan-Hctz 160-12.5 mg Tab) 1 Tab Tab, 1 TAB PO DAILY, (Reported) Scheduled PRN Albuterol Sulfate (Ventolin Hfa) 18 Gm Hfa.aer.ad, 2 PUFF INH Q6H PRN for SHORTNESS OF BREATH, (Reported) Diclofenac Sodium (Diclofenac Sodium) 1% 100GM Gel..gram., 1 APPLIC TOP BID PRN for PAIN, (Reported) APPLY TO AFFCETED AREAS Allergies Coded Allergies: No Known Allergies (Verified , 01/26/03) Past Medical History Medical History 1. Hypothyroidism 2. Hypertension 3. CKD stage 3 4. Hypercholesterolemia 5. Osteoporosis 6. Osteoarthritis 7. Depression 8. Glaucoma 9. Asthma Surgical History 1. Rectovaginal fistula repair 2. MARTY with BSO for fibroids 3. Lumbar laminectomy 4. Right cataract extraction 5. Left cataract extraction 6. ORIF, left hip fracture 7. Right total knee replacement Family History Father: Past away at 65, [place] Mother: Past away at 96, had dementia, DM, prior CVA, CAD, HTN Social History * Smoker: Denies Alcohol: Denies Drugs: denies A-FIB/CHADSVASC A-FIB History Current/History of A-Fib/PAF?: No Review of Systems Constitutional: Reports: Malaise, Weakness Eyes: Denies: Vision change ENT: Denies: Sore Throat Skin: Denies: Rash Pulmonary: Reports: Dyspnea, Cough Cardiovascular: Denies: Chest Pain Gastrointestinal: Denies: Nausea, Abdominal Pain, Diarrhea Genitourinary: Denies: Dysuria Hematologic: Denies: Bruising Neurological: Reports: Weakness Physical Examination General Exam: Positive: Cooperative, Mild Distress Eye Exam: Positive: EOMI; Negative: Sclera icteric ENT Exam: Positive: Tongue Midline Neck Exam: Positive: Supple Chest Exam: Positive: Diminished Heart Exam: Positive: Rate Normal, Regular Rhythm Abdomen Exam: Positive: Normal bowel sounds, Soft; Negative: Tenderness Extremity Exam: Positive: Edema (mild bilateral) Neuro Exam: Positive: Cranial Nerves 3-12 NL Psych Exam: Positive: Mood NL Vital Signs Vital Signs Date Time Temp Pulse Resp B/P (MAP) Pulse Ox O2 Delivery O2 Flow Rate FiO2 07/09/20 18:15 86 18 148/71 (96) 91 Room Air 07/09/20 12:38 2.0 07/09/20 12:29 99.0 Laboratory Data Labs 24H Laboratory Tests 2 07/09/20 14:43: Prothrombin Time 13.5, Prothromb Time International Ratio 1.01, Activated P artial Thromboplast Time 37.2, D-Dimer, Quantitative 713.56H, Anion Gap 5L, Glomerular Filtration Rate 24.8L, Lactic Acid Level 1.4, Calcium Level 8.6L, Ferritin 116, Total Bilirubin 0.2, Aspartate Amino Transf (AST/SGOT) 54H, Alanine Aminotransferase (ALT/SGPT) 14, Alkaline Phosphatase 56, Lactate Dehydrogenase 191, Total Creatine Kinase 880H, Creatine Kinase MB 8.0H, Creatine Kinase MB Relative Index 0.91, Troponin I < 0.02, C-Reactive Protein, Quantitative 2.95H, Total Protein 6.6, Albumin 3.3, Albumin/Globulin Ratio 1.0L 07/09/20 14:52: Immature Granulocyte % (Auto) 0.3, Neutrophils (%) (Auto) 60.3, Lymphocytes (%) (Auto) 25.3, Monocytes (%) (Auto) 13.9H, Eosinophils (%) (Auto) 0.0, Basophils (%) (Auto) 0.2, Neutrophils # (Auto) 3.8, Lymphocytes # (Auto) 1.6, Monocytes # (Auto) 0.9H, Eosinophils # (Auto) 0.0, Basophils # (Auto) 0.0, Nucleated Red Blood Cells % (auto) 0.0 CBC/BMP Laboratory Tests 07/09/20 14:43 07/09/20 14:52 Assessment/Plan Mrs. Hooper is an 89 year old female from [facility] assisted living who is here with COVID PNA and MARISSA on CKD. She does not require oxygen at rest. With exertion, she desaturates to the low 80s. She is not a candidate for remdesivir. Will follow inflammatory markers while here. Otherwise, she has MARISSA on CKD. This most likely secondary to poor oral intake. Will start patient on IVF and provide supportive care. Monitor creatinine level Plan / VTE VTE Prophylaxis Ordered?: Yes Plan Plan 1. COVID PNA -Oxygen required with ambulation -Supportive care -Decadron 2. MARISSA on CKD -Last creatinine 1.62 -Creatinine on admission 2.01 -Most likely pre-renal in nature -Avoid nephrotoxins -IVF 3. COPD -Stable -Continue Budesonide/Formoterol -Duonebs PRN 4. Hypertension -Continue HCTZ and Valsartan 5. DVT ppx -Heparin MEREDITH FERRELL DO Jul 09, 2020 19:40
[2020-07-09 19:49] VITALS: BP 155/67
[2020-07-09] MEDS: ATORVASTATIN 20 MG TAB PO SCH (20:32)
[2020-07-09 21:03] LABS: C REACTIVE PROTEIN QUANTITATIV 3.14 MG/DL (0.00-0.30); CALCIUM LEVEL 8.9 MG/DL (8.8-10.2); CREATININE FOR GFR 1.87 MG/DL (0.55-1.30); POTASSIUM SERUM 5.5 MEQ/L (3.5-5.1)
[2020-07-09] MEDS: SINEMET 25-100 MG TAB PO SCH (21:32)
[2020-07-09] MEDS: SYMBICORT 160/4.5MCG INHALER 6GM INH SCH (21:33)
[2020-07-10 04:00] VITALS: BP 133/64
[2020-07-10] MEDS: LEVOTHYROXINE 112MCG TABLET (0.112MG) PO SCH (05:48)
[2020-07-10] MEDS: NS 1,000 ML IV SCH ×2 (05:49→21:02)
[2020-07-10 07:34] LABS: HEMOGLOBIN 10.3 g/dl (12.0-15.5); LYMPH % 23.6 % (24.0-44.0); MEAN CORPUSCULAR HEMOGLOBIN 33.1 pg (27.0-33.0); MEAN CORPUSCULAR HGB CONC 31.2 g/dl (32.0-36.5); MEAN CORPUSCULAR VOLUME 106.1 fl (80.0-96.0); MONO # 0.3 10^3/uL (0.0-0.8); MONO % 7.5 % (0.0-5.0); NEUTROPHILS % 68.4 % (36.0-66.0); PLATELET COUNT, AUTOMATED 197 10^3/uL (150-450); RED BLOOD COUNT 3.11 10^6/uL (4.00-5.40); WHITE BLOOD COUNT 4.4 10^3/uL (4.0-10.0)
[2020-07-10 08:03] LABS: CALCIUM LEVEL 8.3 MG/DL (8.8-10.2); CREATININE FOR GFR 1.53 MG/DL (0.55-1.30); POTASSIUM SERUM 5.7 MEQ/L (3.5-5.1)
[2020-07-10] MEDS: SYMBICORT 160/4.5MCG INHALER 6GM INH SCH ×2 (08:45→21:08)
[2020-07-10] MEDS: ARIPiprazole 10 MG TAB PO SCH (09:28)
[2020-07-10] MEDS: SINEMET 25-100 MG TAB PO SCH ×3 (09:28→21:03)
[2020-07-10] MEDS: SERTRALINE 100 MG TAB PO SCH (09:29)
[2020-07-10] MEDS: ASPIRIN 81 MG ENTERIC TAB PO SCH (09:29)
[2020-07-10] MEDS: hydroCHLOROthiazide 12.5 MG CAPSULE PO SCH (09:29)
[2020-07-10] MEDS: dexameTHASONE 4 MG/ML 1ML VIAL (J1100 PER 1MG) IV SCH (09:29)
[2020-07-10] MEDS: VALSARTAN 80 MG TAB (DIOVAN) PO SCH (09:29)
[2020-07-10] MEDS: HEPARIN SOD (PORCINE) 5000UNITS/ML 1ML VIAL/SYRINGE SQ SCH ×2 (09:30→21:02)
[2020-07-10 12:00] VITALS: BP 128/59
[2020-07-10] MEDS ORDERED: PATIROMER SORBITEX CALCIUM 8.4 GM POWDER PACKET (VELTASSA) PO ONE (13:00)
--- NOTE | 2020-07-10 17:44 | IPNPDOC ---
Subjective Date Seen The patient was seen on 07/10/20. Subjective Chief Complaint/HPI Mrs. Hooper is an 89 year old female from [facility] assisted living who is here for fatigue and exertional dyspnea. Early this morning, she started to require 1L of NC. Otherwise, she did not do well with physical therapy. She stood from bed with 2 person assist and was not able to take steps. Otherwise, when I saw the patient, she was resting in bed. Denies chest pain or abdominal pain. Has dyspnea and cough. Objective Physical Examination General Exam: Positive: Cooperative, Mild Distress Eye Exam: Positive: EOMI; Negative: Sclera icteric ENT Exam: Positive: Tongue Midline Neck Exam: Positive: Supple Chest Exam: Positive: Diminished Heart Exam: Positive: Rate Normal, Regular Rhythm Abdomen Exam: Positive: Normal bowel sounds, Soft; Negative: Tenderness Extremity Exam: Positive: Edema (mild bilateral) Neuro Exam: Positive: Cranial Nerves 3-12 NL Psych Exam: Positive: Mood NL Assessment /Plan Assessment Mrs. Hooper is an 89 year old female from [facility] assisted living who is here with COVID PNA and MARISSA on CKD. She does not require oxygen at rest. With exertion, she desaturates to the low 80s. She is not a candidate for remdesivir. Will follow inflammatory markers while here. Otherwise, she has MARISSA on CKD. This most likely secondary to poor oral intake. Will start patient on IVF and provide supportive care. Monitor creatinine level Plan/VTE VTE Prophylaxis Ordered?: Yes Plan 1. COVID PNA -1L of NC now required at rest -Too weak to ambulate at this time -Supportive care -Decadron 2. MARISSA on CKD -Last creatinine 1.62 -Creatinine on admission 2.01 -Most likely pre-renal in nature -Avoid nephrotoxins -IVF 3. Hyperkalemia -May be secondary to MARISSA -Will give Patiromer and recheck later in the day 4. COPD -Stable -Continue Budesonide/Formoterol -Duonebs PRN 5. Hypertension -Continue HCTZ and Valsartan 6. DVT ppx -Heparin VS, I&O, 24H, Fishbone Vital Signs/I&O Vital Signs Date Time Temp Pulse Resp B/P (MAP) Pulse Ox O2 Delivery O2 Flow Rate FiO2 07/10/20 12:00 98.1 58 17 128/59 (82) 95 Nasal Cannula 1.0 I&O- Last 24 Hours up to 6 AM 07/10/20 06:00 Intake Total 840 ml Balance 840 ml Laboratory Data 24H LABS Laboratory Tests 2 07/09/20 20:12: Anion Gap 7L, Glomerular Filtration Rate 27.0L, Calcium Level 8.9, Lactate De hydrogenase 182, C-Reactive Protein, Quantitative 3.14H, EC-Qxj-B-Type Natriuretic Peptide 351, Procalcitonin 0.18 07/10/20 06:42: Anion Gap 6L, Glomerular Filtration Rate 34.0, Calcium Level 8.3L, Immature Granulocyte % (Auto) 0.5, Neutrophils (%) (Auto) 68.4H, Lymphocytes (%) (Auto) 23.6L, Monocytes (%) (Auto) 7.5H, Eosinophils (%) (Auto) 0.0, Basophils (%) (Auto) 0.0, Neutrophils # (Auto) 3.0, Lymphocytes # (Auto) 1.0L, Monocytes # (Auto) 0.3, Eosinophils # (Auto) 0.0, Basophils # (Auto) 0.0, Nucleated Red Blood Cells % (auto) 0.0, Fibrinogen 353, Ferritin 127 CBC/BMP Laboratory Tests 07/09/20 20:12 07/10/20 06:42 MEREDITH FERRELL DO Jul 10, 2020 17:44
[2020-07-10 20:00] VITALS: BP 136/69
[2020-07-10 21:02] LABS: CALCIUM LEVEL 8.5 MG/DL (8.8-10.2); CREATININE FOR GFR 1.56 MG/DL (0.55-1.30); GLOMERULAR FILTRATION RATE 33.3 (>32); POTASSIUM SERUM 5.2 MEQ/L (3.5-5.1)
[2020-07-10] MEDS: ATORVASTATIN 20 MG TAB PO SCH (21:03)
[2020-07-11] MEDS: ACETAMINOPHEN TAB 650MG DOSE (2X325MG) PO PRN ×3 (03:09→22:00)
[2020-07-11] MEDS: LEVOTHYROXINE 112MCG TABLET (0.112MG) PO SCH (05:47)
[2020-07-11] MEDS: SYMBICORT 160/4.5MCG INHALER 6GM INH SCH ×2 (08:00→19:48)
[2020-07-11] MEDS: ARIPiprazole 10 MG TAB PO SCH (09:05)
[2020-07-11] MEDS: dexameTHASONE 4 MG/ML 1ML VIAL (J1100 PER 1MG) IV SCH (09:05)
[2020-07-11] MEDS: SERTRALINE 100 MG TAB PO SCH (09:05)
[2020-07-11] MEDS: SINEMET 25-100 MG TAB PO SCH ×3 (09:06→20:40)
[2020-07-11] MEDS: hydroCHLOROthiazide 12.5 MG CAPSULE PO SCH (09:09)
[2020-07-11] MEDS: ASPIRIN 81 MG ENTERIC TAB PO SCH (09:09)
[2020-07-11] MEDS: VALSARTAN 80 MG TAB (DIOVAN) PO SCH (09:09)
[2020-07-11] MEDS: HEPARIN SOD (PORCINE) 5000UNITS/ML 1ML VIAL/SYRINGE SQ SCH ×2 (09:09→20:40)
[2020-07-11] MEDS: NS 1,000 ML IV SCH (09:10)
[2020-07-11 09:30] LABS: BASO % 0.1 % (0.0-1.0); HEMATOCRIT 31.9 % (36.0-47.0); HEMOGLOBIN 9.9 g/dl (12.0-15.5); LYMPH # 2.1 10^3/uL (1.5-5.0); MEAN CORPUSCULAR HEMOGLOBIN 32.7 pg (27.0-33.0); MEAN CORPUSCULAR VOLUME 105.3 fl (80.0-96.0); MONO # 0.6 10^3/uL (0.0-0.8); MONO % 7.5 % (0.0-5.0); NEUTROPHILS # 4.6 10^3/uL (1.5-8.5); PLATELET COUNT, AUTOMATED 203 10^3/uL (150-450); RED BLOOD COUNT 3.03 10^6/uL (4.00-5.40); WHITE BLOOD COUNT 7.3 10^3/uL (4.0-10.0)
[2020-07-11 10:02] LABS: CALCIUM LEVEL 8.3 MG/DL (8.8-10.2); CREATININE FOR GFR 1.54 MG/DL (0.55-1.30); GLOMERULAR FILTRATION RATE 33.8 (>32)
--- NOTE | 2020-07-11 12:32 | IPNPDOC ---
Subjective Date Seen The patient was seen on 07/11/20. Subjective Chief Complaint/HPI Mrs. Hooper is an 89 year old female from [facility] assisted living who is here for fatigue and exertional dyspnea. No events overnight. She was weaned off of oxygen today. In the room, she told me she was feeing better. Denies chest pain, or abdominal pain. Objective Physical Examination General Exam: Positive: Cooperative, Mild Distress Eye Exam: Positive: EOMI; Negative: Sclera icteric ENT Exam: Positive: Tongue Midline Neck Exam: Positive: Supple Chest Exam: Positive: Diminished Heart Exam: Positive: Rate Normal, Regular Rhythm Abdomen Exam: Positive: Normal bowel sounds, Soft; Negative: Tenderness Extremity Exam: Positive: Edema (mild bilateral) Neuro Exam: Positive: Cranial Nerves 3-12 NL Psych Exam: Positive: Mood NL Assessment /Plan Assessment Mrs. Hooper is an 89 year old female from [facility] assisted living who is here with COVID PNA and MARISSA on CKD. She does not require oxygen at rest. With exertion, she desaturates to the low 80s. She is not a candidate for remdesivir. Otherwise, she has MARISSA on CKD secondary to poor oral intake. Renal function back at baseline now. She may need rehab as she need to be independent at assisted living. Plan/VTE VTE Prophylaxis Ordered?: Yes Plan 1. COVID PNA -Weaned off of oxygen -Supportive care -Taper down steroids. Prednisone 40 tomorrow, then Prednisone 20 the day after. 2. MARISSA on CKD -Last creatinine 1.62 -Creatinine on admission 2.01 -Most likely pre-renal in nature -Avoid nephrotoxins -Resolved and at baseline 3. Hyperkalemia -May be secondary to MARISSA -At baseline, mildly elevated 4. COPD -Stable -Continue Budesonide/Formoterol -Duonebs PRN 5. Hypertension -Continue HCTZ and Valsartan 6. DVT ppx -Heparin Disposition: May need rehab before returning to [facility] assisted living. Made ALC today VS, I&O, 24H, Fishbone Vital Signs/I&O Vital Signs Date Time Temp Pulse Resp B/P (MAP) Pulse Ox O2 Delivery O2 Flow Rate FiO2 07/11/20 09:09 146/66 07/11/20 04:00 98.2 57 18 96 Nasal Cannula 1.0 I&O- Last 24 Hours up to 6 AM 07/11/20 06:00 Intake Total 920 ml Balance 920 ml Laboratory Data 24H LABS Laboratory Tests 2 07/10/20 20:30: Anion Gap 10, Glomerular Filtration Rate 33.3, Calcium Level 8.5L 07/11/20 08:23: Anion Gap 7L, Glomerular Filtration Rate 33.8, Calcium Level 8.3L, Immature Granulocyte % (Auto) 0.4, Neutrophils (%) (Auto) 63.0, Lymphocytes (%) (Auto) 29.0, Monocytes (%) (Auto) 7.5H, Eosinophils (%) (Auto) 0.0, Basophils (%) (Aut o) 0.1, Neutrophils # (Auto) 4.6, Lymphocytes # (Auto) 2.1, Monocytes # (Auto) 0.6, Eosinophils # (Auto) 0.0, Basophils # (Auto) 0.0, Nucleated Red Blood Cells % (auto) 0.0, Fibrinogen 353, Ferritin 132 CBC/BMP Laboratory Tests 07/10/20 20:30 07/11/20 08:23 MEREDITH FERRELL DO Jul 11, 2020 12:32
[2020-07-11] MEDS: ATORVASTATIN 20 MG TAB PO SCH (20:40)
[2020-07-12 04:00] VITALS: BP 110/64
[2020-07-12] MEDS: LEVOTHYROXINE 112MCG TABLET (0.112MG) PO SCH (05:18)
[2020-07-12 06:56] LABS: HEMATOCRIT 31.9 % (36.0-47.0); HEMOGLOBIN 9.9 g/dl (12.0-15.5); LYMPH % 26.3 % (24.0-44.0); MEAN CORPUSCULAR HEMOGLOBIN 32.8 pg (27.0-33.0); MEAN CORPUSCULAR VOLUME 105.6 fl (80.0-96.0); MONO # 0.5 10^3/uL (0.0-0.8); MONO % 6.5 % (0.0-5.0); NEUTROPHILS # 5.1 10^3/uL (1.5-8.5); NEUTROPHILS % 66.9 % (36.0-66.0); PLATELET COUNT, AUTOMATED 205 10^3/uL (150-450); RED BLOOD COUNT 3.02 10^6/uL (4.00-5.40); WHITE BLOOD COUNT 7.6 10^3/uL (4.0-10.0)
[2020-07-12 07:13] LABS: D-DIMER QUANT 325.13 ng/ml (<500)
[2020-07-12 07:18] LABS: C REACTIVE PROTEIN QUANTITATIV 0.87 MG/DL (0.00-0.30); CALCIUM LEVEL 8.7 MG/DL (8.8-10.2); CREATININE FOR GFR 1.54 MG/DL (0.55-1.30); GLOMERULAR FILTRATION RATE 33.8 (>32); POTASSIUM SERUM 5.1 MEQ/L (3.5-5.1)
[2020-07-12] MEDS: SYMBICORT 160/4.5MCG INHALER 6GM INH SCH ×2 (07:50→20:01)
[2020-07-12 08:51] VITALS: BP 139/62
[2020-07-12] MEDS: ASPIRIN 81 MG ENTERIC TAB PO SCH (08:54)
[2020-07-12] MEDS: SINEMET 25-100 MG TAB PO SCH ×3 (08:54→20:00)
[2020-07-12] MEDS: ARIPiprazole 10 MG TAB PO SCH (08:54)
[2020-07-12] MEDS: HEPARIN SOD (PORCINE) 5000UNITS/ML 1ML VIAL/SYRINGE SQ SCH ×2 (08:54→20:00)
[2020-07-12] MEDS: SERTRALINE 100 MG TAB PO SCH (08:55)
[2020-07-12] MEDS: hydroCHLOROthiazide 12.5 MG CAPSULE PO SCH (08:55)
[2020-07-12] MEDS ORDERED: predniSONE 20 MG TAB PO SCH (09:00)
[2020-07-12] MEDS: VALSARTAN 80 MG TAB (DIOVAN) PO SCH (09:02)
[2020-07-12 15:11] VITALS: BP 139/94
[2020-07-12] MEDS: ATORVASTATIN 20 MG TAB PO SCH (20:00)
[2020-07-12] MEDS: ACETAMINOPHEN TAB 650MG DOSE (2X325MG) PO PRN (20:14)
[2020-07-13 03:57] VITALS: BP 131/88
[2020-07-13] MEDS: LEVOTHYROXINE 112MCG TABLET (0.112MG) PO SCH (05:40)
[2020-07-13] MEDS: SYMBICORT 160/4.5MCG INHALER 6GM INH SCH ×2 (07:54→21:20)
[2020-07-13] MEDS: SERTRALINE 100 MG TAB PO SCH (08:42)
[2020-07-13] MEDS: SINEMET 25-100 MG TAB PO SCH ×3 (08:42→20:44)
[2020-07-13] MEDS: ARIPiprazole 10 MG TAB PO SCH (08:42)
[2020-07-13] MEDS: hydroCHLOROthiazide 12.5 MG CAPSULE PO SCH (08:43)
[2020-07-13] MEDS: ASPIRIN 81 MG ENTERIC TAB PO SCH (08:43)
[2020-07-13] MEDS: VALSARTAN 80 MG TAB (DIOVAN) PO SCH (08:43)
[2020-07-13] MEDS: HEPARIN SOD (PORCINE) 5000UNITS/ML 1ML VIAL/SYRINGE SQ SCH ×2 (08:43→20:41)
[2020-07-13 08:44] VITALS: BP 138/64
[2020-07-13] MEDS ORDERED: predniSONE 20 MG TAB PO ONE (09:00)
--- NOTE | 2020-07-13 19:46 | IPNPDOC ---
Date Seen The patient was seen on 07/13/20. Progress Note SUBJECTIVE: 89-year-old female with a history of COPD, hypertension, CKD, admitted from [facility] for management of covid-19 pneumonia. Presently saturating well on RA. ALC status, pending return to [facility]. SpO2 remains appropriate at rest. OBJECTIVE PHYSICAL EXAMINATION: VITAL SIGNS: please see below General: NAD, comfortable HEENT: PERRLA, EOMI, sclerae clear Neck: supple, normal ROM, no JVD Respiratory: lungs CTAB, no wheeze, no rales, no crackles CVS: RRR, normal S1, S2, no murmurs Abdo: soft, no masses, no hepatosplenomegaly, BS+, no rebound tenderness Extremities: no edema, pulses 2+ MSK: no joint deformities, normal ROM Neuro: no focal neuro deficits, moving all 4 extremities, CN2-12 intact. Strength 5/5 in all 4 extremities. No nystagmus. Psych: calm, cooperative, AAO x 3 LABORATORY DATA, IMAGING STUDIES, MICROBIOLOGY: Please see below. DVT prophylaxis ordered?: Y 1. COVID PNA -Weaned off of oxygen, now 93% on RA. -Supportive care -Taper down steroids 2. MARISSA on CKD -Last creatinine 1.52 -Creatinine on admission 2.01 -Most likely pre-renal in nature -Avoid nephrotoxins -Resolved and at baseline 3. Hyperkalemia -May be secondary to MARISSA -At baseline, mildly elevated 4. COPD -Stable -Continue Budesonide/Formoterol -Duonebs PRN 5. Hypertension -Continue HCTZ and Valsartan 6. DVT ppx -Heparin Disposition: May need rehab before returning to [facility] assisted living per PT assessment. ALC status. VS, I&O, 24H, Fishbone Vital Signs/I&O Vital Signs Date Time Temp Pulse Resp B/P (MAP) Pulse Ox O2 Delivery O2 Flow Rate FiO2 07/13/20 08:44 84 19 138/64 (88) 93 Room Air 07/13/20 03:57 96.5 07/12/20 04:00 2.0 I&O- Last 24 Hours up to 6 AM 07/13/20 06:00 Intake Total 960 ml Balance 960 ml KAMI KHANNA MD Jul 13, 2020 19:46
[2020-07-13] MEDS: ATORVASTATIN 20 MG TAB PO SCH (20:42)
[2020-07-13] MEDS: ACETAMINOPHEN TAB 650MG DOSE (2X325MG) PO PRN (21:59)
[2020-07-13 22:00] VITALS: BP 145/73
[2020-07-14 04:13] VITALS: BP 139/71
[2020-07-14] MEDS: LEVOTHYROXINE 112MCG TABLET (0.112MG) PO SCH (05:49)
[2020-07-14] MEDS: SYMBICORT 160/4.5MCG INHALER 6GM INH SCH ×2 (08:20→20:00)
[2020-07-14] MEDS ORDERED: predniSONE 10 MG TAB PO ONE (09:00)
[2020-07-14] MEDS: ASPIRIN 81 MG ENTERIC TAB PO SCH (09:52)
[2020-07-14] MEDS: SERTRALINE 100 MG TAB PO SCH (09:52)
[2020-07-14] MEDS: SINEMET 25-100 MG TAB PO SCH ×3 (09:52→21:08)
[2020-07-14] MEDS: ARIPiprazole 10 MG TAB PO SCH (09:52)
[2020-07-14] MEDS: VALSARTAN 80 MG TAB (DIOVAN) PO SCH (09:53)
[2020-07-14] MEDS: hydroCHLOROthiazide 12.5 MG CAPSULE PO SCH (09:53)
[2020-07-14] MEDS: HEPARIN SOD (PORCINE) 5000UNITS/ML 1ML VIAL/SYRINGE SQ SCH ×2 (09:53→21:08)
[2020-07-14] MEDS: ATORVASTATIN 20 MG TAB PO SCH (21:08)
[2020-07-15 05:00] VITALS: BP 130/58
[2020-07-15] MEDS: LEVOTHYROXINE 112MCG TABLET (0.112MG) PO SCH (06:04)
[2020-07-15] MEDS: SYMBICORT 160/4.5MCG INHALER 6GM INH SCH ×2 (07:41→20:09)
[2020-07-15] MEDS: ARIPiprazole 10 MG TAB PO SCH (09:17)
[2020-07-15] MEDS: SINEMET 25-100 MG TAB PO SCH ×3 (09:17→20:59)
[2020-07-15] MEDS: ASPIRIN 81 MG ENTERIC TAB PO SCH (09:17)
[2020-07-15] MEDS: hydroCHLOROthiazide 12.5 MG CAPSULE PO SCH (09:17)
[2020-07-15] MEDS: VALSARTAN 80 MG TAB (DIOVAN) PO SCH (09:17)
[2020-07-15] MEDS: SERTRALINE 100 MG TAB PO SCH (09:17)
[2020-07-15] MEDS: HEPARIN SOD (PORCINE) 5000UNITS/ML 1ML VIAL/SYRINGE SQ SCH ×2 (09:17→20:59)
--- NOTE | 2020-07-15 15:12 | IPNPDOC ---
Date Seen The patient was seen on 07/15/20. Progress Note SUBJECTIVE: 89-year-old female with a history of COPD, hypertension, CKD, admitted from [facility] for management of covid-19 pneumonia. Presently saturating well on RA. ALC status, pending return to [facility]. SpO2 remains appropriate at rest. Appears tired, ongoing PT. OBJECTIVE PHYSICAL EXAMINATION: VITAL SIGNS: please see below General: NAD, comfortable HEENT: PERRLA, EOMI, sclerae clear Neck: supple, normal ROM, no JVD Respiratory: lungs CTAB, no wheeze, no rales, no crackles CVS: RRR, normal S1, S2, no murmurs Abdo: soft, no masses, no hepatosplenomegaly, BS+, no rebound tenderness Extremities: no edema, pulses 2+ MSK: no joint deformities, normal ROM Neuro: no focal neuro deficits, moving all 4 extremities, CN2-12 intact. Strength 5/5 in all 4 extremities. No nystagmus. Psych: calm, cooperative, AAO x 3 LABORATORY DATA, IMAGING STUDIES, MICROBIOLOGY: Please see below. DVT prophylaxis ordered?: Y 1. COVID PNA -Weaned off of oxygen, now 93% on RA. -Supportive care -Tapered down steroids 2. MARISSA on CKD -Last creatinine 1.52 -Creatinine on admission 2.01 -Most likely pre-renal in nature -Avoid nephrotoxins -Resolved and at baseline 3. Hyperkalemia -May be secondary to MARISSA -At baseline, mildly elevated 4. COPD -Stable -Continue Budesonide/Formoterol -Duonebs PRN 5. Hypertension -Continue HCTZ and Valsartan 6. DVT ppx -Heparin Disposition: May need rehab before returning to [facility] assisted living per PT assessment. PT ongoing. ALC status. VS, I&O, 24H, Fishbone Vital Signs/I&O Vital Signs Date Time Temp Pulse Resp B/P (MAP) Pulse Ox O2 Delivery O2 Flow Rate FiO2 07/15/20 05:00 98.7 83 19 130/58 (82) 90 Room Air 07/12/20 04:00 2.0 I&O- Last 24 Hours up to 6 AM 07/15/20 06:00 Intake Total 200 ml Output Total 0 ml Balance 200 ml KAMI KHANNA MD Jul 15, 2020 15:12
[2020-07-15] MEDS: ATORVASTATIN 20 MG TAB PO SCH (20:59)
[2020-07-16] MEDS: LEVOTHYROXINE 112MCG TABLET (0.112MG) PO SCH (06:19)
[2020-07-16] MEDS: FUROSEMIDE 20MG/2ML VIAL (J1940) IV SCH ×2 (09:00→11:18)
[2020-07-16] MEDS: SYMBICORT 160/4.5MCG INHALER 6GM INH SCH ×2 (09:01→20:38)
[2020-07-16] MEDS: ARIPiprazole 10 MG TAB PO SCH (09:34)
[2020-07-16] MEDS: HEPARIN SOD (PORCINE) 5000UNITS/ML 1ML VIAL/SYRINGE SQ SCH ×2 (09:34→19:44)
[2020-07-16] MEDS: SERTRALINE 100 MG TAB PO SCH (09:34)
[2020-07-16] MEDS: VALSARTAN 80 MG TAB (DIOVAN) PO SCH (09:35)
[2020-07-16] MEDS: hydroCHLOROthiazide 12.5 MG CAPSULE PO SCH (09:35)
[2020-07-16] MEDS: ASPIRIN 81 MG ENTERIC TAB PO SCH (09:35)
[2020-07-16] MEDS: SINEMET 25-100 MG TAB PO SCH ×3 (09:35→19:44)
--- NOTE | 2020-07-16 10:35 | IPNPDOC ---
Date Seen The patient was seen on 07/16/20. Progress Note SUBJECTIVE: 89-year-old female with a history of COPD, hypertension, CKD, admitted from [facility] for management of covid-19 pneumonia. Presently saturating borderline appropriately on RA, 90%. Appears tired, deconditioned. Somewhat confused although I suspect reduced hearing plays a component. ALC status, pending return to [facility]. OBJECTIVE PHYSICAL EXAMINATION: VITAL SIGNS: please see below General: NAD, comfortable HEENT: PERRLA, EOMI, sclerae clear Neck: supple, normal ROM, no JVD Respiratory: crackles at lung bases, L > R. Poor inspiratory effort. CVS: RRR, normal S1, S2, no murmurs Abdo: soft, no masses, no hepatosplenomegaly, BS+, no rebound tenderness Extremities: no edema, pulses 2+ MSK: no joint deformities, normal ROM Neuro: no focal neuro deficits, moving all 4 extremities, CN2-12 intact. Strength 5/5 in all 4 extremities. No nystagmus. Psych: calm, cooperative, AAO x 2 LABORATORY DATA, IMAGING STUDIES, MICROBIOLOGY: Please see below. DVT prophylaxis ordered?: Y 1. COVID PNA - Weaned off of oxygen, now 90 on RA. - Supportive care - incentive spirometer, acapella - given crackles, will provide gentle diuresis lasix 20 mg BID IV. - combivent - Tapered down steroids 2. MARISSA on CKD -Last creatinine 1.52 -Creatinine on admission 2.01 -Most likely pre-renal in nature -Avoid nephrotoxins -Resolved and at baseline 3. Hyperkalemia -May be secondary to MARISSA -At baseline, mildly elevated 4. COPD -Stable -Continue Budesonide/Formoterol -Duonebs PRN 5. Hypertension -Continue HCTZ and Valsartan 6. DVT ppx -Heparin Disposition: May need rehab before returning to [facility] assisted living per PT assessment. PT ongoing. ALC status. VS, I&O, 24H, Fishbone Vital Signs/I&O Vital Signs Date Time Temp Pulse Resp B/P (MAP) Pulse Ox O2 Delivery O2 Flow Rate FiO2 07/16/20 09:35 130/58 07/16/20 04:00 96.0 92 20 88 Room Air 07/12/20 04:00 2.0 I&O- Last 24 Hours up to 6 AM 07/16/20 05:59 Intake Total 240 ml Output Total 0 ml Balance 240 ml KAMI KHANNA MD Jul 16, 2020 10:35
[2020-07-16] MEDS: FUROSEMIDE 40 MG TAB PO SCH ×2 (12:31→15:38)
[2020-07-16] MEDS: ATORVASTATIN 20 MG TAB PO SCH (19:44)
[2020-07-17 04:00] VITALS: BP 146/78
[2020-07-17] MEDS: LEVOTHYROXINE 112MCG TABLET (0.112MG) PO SCH (06:32)
[2020-07-17] MEDS: SYMBICORT 160/4.5MCG INHALER 6GM INH SCH ×2 (08:00→20:18)
[2020-07-17] MEDS: HEPARIN SOD (PORCINE) 5000UNITS/ML 1ML VIAL/SYRINGE SQ SCH ×2 (10:16→20:54)
[2020-07-17] MEDS: ARIPiprazole 10 MG TAB PO SCH (10:16)
[2020-07-17] MEDS: ASPIRIN 81 MG ENTERIC TAB PO SCH (10:16)
[2020-07-17] MEDS: SERTRALINE 100 MG TAB PO SCH (10:16)
[2020-07-17] MEDS: hydroCHLOROthiazide 12.5 MG CAPSULE PO SCH (10:16)
[2020-07-17] MEDS: VALSARTAN 80 MG TAB (DIOVAN) PO SCH (10:17)
[2020-07-17] MEDS: FUROSEMIDE 40 MG TAB PO SCH ×2 (10:17→17:32)
[2020-07-17] MEDS: SINEMET 25-100 MG TAB PO SCH ×3 (10:19→20:55)
[2020-07-17 20:00] VITALS: BP 125/96
[2020-07-17] MEDS: ATORVASTATIN 20 MG TAB PO SCH (20:54)
[2020-07-18] VITALS (9 sets, daily range): BP systolic 100–126; BP diastolic 51–60
[2020-07-18] MEDS: LEVOTHYROXINE 112MCG TABLET (0.112MG) PO SCH (05:49)
[2020-07-18] MEDS: SYMBICORT 160/4.5MCG INHALER 6GM INH SCH ×2 (07:47→20:05)
[2020-07-18] MEDS: SINEMET 25-100 MG TAB PO SCH ×3 (08:15→20:25)
[2020-07-18] MEDS: FUROSEMIDE 40 MG TAB PO SCH (08:16)
[2020-07-18] MEDS: VALSARTAN 80 MG TAB (DIOVAN) PO SCH (08:16)
[2020-07-18] MEDS: ASPIRIN 81 MG ENTERIC TAB PO SCH (08:16)
[2020-07-18] MEDS: ARIPiprazole 10 MG TAB PO SCH (08:16)
[2020-07-18] MEDS: SERTRALINE 100 MG TAB PO SCH (08:16)
[2020-07-18] MEDS: hydroCHLOROthiazide 12.5 MG CAPSULE PO SCH (08:16)
[2020-07-18] MEDS: HEPARIN SOD (PORCINE) 5000UNITS/ML 1ML VIAL/SYRINGE SQ SCH (08:17)
[2020-07-18] MEDS: ACETAMINOPHEN TAB 650MG DOSE (2X325MG) PO PRN (08:17)
[2020-07-18 08:58] LABS: BASO % 0.2 % (0.0-1.0); HEMATOCRIT 34.4 % (36.0-47.0); HEMOGLOBIN 10.9 g/dl (12.0-15.5); LYMPH # 0.9 10^3/uL (1.5-5.0); LYMPH % 13.7 % (24.0-44.0); MEAN CORPUSCULAR HEMOGLOBIN 32.2 pg (27.0-33.0); MEAN CORPUSCULAR HGB CONC 31.7 g/dl (32.0-36.5); MEAN CORPUSCULAR VOLUME 101.8 fl (80.0-96.0); MONO # 0.5 10^3/uL (0.0-0.8); MONO % 7.1 % (0.0-5.0); NEUTROPHILS % 77.6 % (36.0-66.0); PLATELET COUNT, AUTOMATED 215 10^3/uL (150-450); RED BLOOD COUNT 3.38 10^6/uL (4.00-5.40); WHITE BLOOD COUNT 6.4 10^3/uL (4.0-10.0)
[2020-07-18 09:20] LABS: INR 1.07; PARTIAL THROMBOPLASTIN TIME 33.3 SECONDS (24.2-38.5); PROTHROMBIN TIME 14.1 SECONDS (12.5-14.3)
[2020-07-18 09:22] LABS: ALBUMIN 2.8 GM/DL (3.2-5.2); ALT/SGPT 11 U/L (12-78); BILIRUBIN,TOTAL 0.5 MG/DL (0.2-1.0); BLOOD UREA NITROGEN 73 MG/DL (7-18); C REACTIVE PROTEIN QUANTITATIV 7.03 MG/DL (0.00-0.30); CALCIUM LEVEL 8.1 MG/DL (8.8-10.2); CARBON DIOXIDE LEVEL 24 MEQ/L (21-32); CHLORIDE LEVEL 101 MEQ/L (98-107); CREATININE FOR GFR 2.52 MG/DL (0.55-1.30); GLOMERULAR FILTRATION RATE 19.1 (>32); GLUCOSE, FASTING 103 MG/DL (70-100); LDH LACTATE DEHYDROGENASE 307 U/L (84-246); MAGNESIUM LEVEL 1.8 MG/DL (1.8-2.4); NT-PRO BNP 322 PG/ML (<450); POTASSIUM SERUM 4.3 MEQ/L (3.5-5.1); SODIUM LEVEL 136 MEQ/L (136-145); TOTAL PROTEIN 6.3 GM/DL (6.4-8.2)
[2020-07-18 09:25] LABS: D-DIMER QUANT 899.36 ng/ml (<500)
[2020-07-18] MEDS: NS 1,000 ML IV SCH ×2 (11:30→20:25)
--- NOTE | 2020-07-18 11:43 | IPNPDOC ---
Date Seen The patient was seen on 07/18/20. Progress Note SUBJECTIVE: 89-year-old female with a history of COPD, hypertension, CKD, admitted from [facility] for management of covid-19 pneumonia. Overnight became more hypoxic to 80s, placed on 5L NC now 90%. Patient is more lethargic today. Answers yes/no questions. Oriented to person and place. Febrile overnight T 100.7. OBJECTIVE PHYSICAL EXAMINATION: VITAL SIGNS: please see below General: NAD, comfortable HEENT: PERRLA, EOMI, sclerae clear Neck: supple, normal ROM, no JVD Respiratory: crackles at lung bases, L > R. Poor inspiratory effort. CVS: RRR, normal S1, S2, no murmurs Abdo: soft, no masses, no hepatosplenomegaly, BS+, no rebound tenderness Extremities: no edema, pulses 2+ MSK: no joint deformities, normal ROM Neuro: no focal neuro deficits, moving all 4 extremities, CN2-12 intact. Stre ngth 5/5 in all 4 extremities. No nystagmus. Psych: calm, cooperative, AAO x 2 LABORATORY DATA, IMAGING STUDIES, MICROBIOLOGY: Please see below. DVT prophylaxis ordered?: Y #. COVID PNA - hypoxic, 90% on 5L - Febrile 100.7 - D dimer, CRP elevated. Suspect PE - resume dexamethasone 6 mg IV daily - obtain CXR to assess for consolidation. - d/w Dr. Ramos, full dose (renal) AC with lovenox, started 1mg/kg q24h - Transfer to ICU, start CPAP for improved lung recruitment - monitor inflammatory markers #. MARISSA on CKD - Cr Cl 20. - Cr 2.6 - stop lasix, HCTZ - insert IV, NS 70 cc/hr #. Hyperkalemia - resolved -May be secondary to MARISSA -At baseline, mildly elevated #. COPD -Stable -Continue Budesonide/Formoterol -Duonebs PRN #. Hypertension -Continue HCTZ and Valsartan #. DVT ppx - on therapeutic lovenox Disposition: change back from ALC to inpatient given worsening renal function, suspected onset of PE. I spoke to her son and [id number] Kalpesh and Haydee Noel and updated them as to the change in Mrs. Hooper's status. I answered all questions in detail. Will continue to update family. Haydee Hooper cell [phone] if Kalpesh is unavailable. VS, I&O, 24H, Fishbone Vital Signs/I&O Vital Signs Date Time Temp Pulse Resp B/P (MAP) Pulse Ox O2 Delivery O2 Flow Rate FiO2 07/18/20 08:16 120/59 07/18/20 08:00 100.7 89 118 90 Nasal Cannula 5.0 I&O- Last 24 Hours up to 6 AM 07/18/20 06:00 Intake Total 150 ml Output Total 600 ml Balance -450 ml Laboratory Data 24H LABS Laboratory Tests 2 07/18/20 07:52: Immature Granulocyte % (Auto) 1.4, Neutrophils (%) (Auto) 77.6H, Lymphocytes (%) (Auto) 13.7L, Monocytes (%) (Auto) 7.1H, Eosinophils (%) (Auto) 0.0, Basophils (%) (Auto) 0.2, Neutrophils # (Auto) 5.0, Lymphocytes # (Auto) 0.9L, Monocytes # (Auto) 0.5, Eosinophils # (Auto) 0.0, Basophils # (Auto) 0.0, Nucleated Red Blood Cells % (auto) 0.0, Prothrombin Time 14.1H, Prothromb Time International Ratio 1.07, Activated Partial Thromboplast Time 33.3, Fibrinogen 593H, D-Dimer, Quantitative 899.36H, Anion Gap 11, Glomerular Filtration Rate 19.1L, Calcium Level 8.1L, Magnesium Level 1.8, Total Bilirubin 0.5, Aspartate Amino Transf (AST/SGOT) 37, Alanine Aminotransferase (ALT/SGPT) 11L, Alkaline Phosphatase 53, Lactate Dehydrogenase 307H, C-Reactive Protein, Quantitative 7.03H, YS-Aoy-M-Type Natriuretic Peptide 322, Total Protein 6.3L, Albumin 2.8L, Albumin/Globulin Ratio 0.8L CBC/BMP Laboratory Tests 07/18/20 07:52 KAMI KHANNA MD Jul 18, 2020 11:43
[2020-07-18 12:20] LABS: TROPONIN I < 0.02 NG/ML (< 0.10)
[2020-07-18] MEDS: dexameTHASONE 4 MG/ML 1ML VIAL (J1100 PER 1MG) IV SCH (12:40)
[2020-07-18] MEDS: ENOXAPARIN 80MG/0.8ML SYRINGE (J1650 PER 10MG) SC SCH (12:40)
--- NOTE | 2020-07-18 14:08 | REP ---
INDICATION: hypoxia COMPARISON: 07/09/2020 TECHNIQUE: Portable AP view of the chest FINDINGS: The mediastinum and cardiac silhouette are stable and within normal limits for portable technique. Subtle left basilar airspace disease cannot be excluded and should be correlated with auscultation and physical examination. IMPRESSION: Subtle left basilar airspace disease cannot be excluded. <Electronically signed by Demetrio Coburn > 07/18/20 1401
[2020-07-18] MEDS: ATORVASTATIN 20 MG TAB PO SCH (20:25)
[2020-07-19] VITALS (24 sets, daily range): BP systolic 98–150; BP diastolic 48–88
[2020-07-19 05:10] LABS: BASO % 0.1 % (0.0-1.0); HEMATOCRIT 32.2 % (36.0-47.0); HEMOGLOBIN 10.8 g/dl (12.0-15.5); LYMPH % 9.1 % (24.0-44.0); MEAN CORPUSCULAR HEMOGLOBIN 33.9 pg (27.0-33.0); MEAN CORPUSCULAR HGB CONC 33.5 g/dl (32.0-36.5); MEAN CORPUSCULAR VOLUME 100.9 fl (80.0-96.0); MONO # 0.5 10^3/uL (0.0-0.8); MONO % 4.5 % (0.0-5.0); NEUTROPHILS # 9.2 10^3/uL (1.5-8.5); NEUTROPHILS % 85.4 % (36.0-66.0); PLATELET COUNT, AUTOMATED 210 10^3/uL (150-450); RED BLOOD COUNT 3.19 10^6/uL (4.00-5.40); WHITE BLOOD COUNT 10.8 10^3/uL (4.0-10.0)
[2020-07-19] MEDS: LEVOTHYROXINE 112MCG TABLET (0.112MG) PO SCH (05:13)
[2020-07-19 05:22] LABS: INR 1.03; PROTHROMBIN TIME 13.7 SECONDS (12.5-14.3)
[2020-07-19 05:37] LABS: D-DIMER QUANT 970.53 ng/ml (<500)
[2020-07-19 05:48] LABS: ALBUMIN 2.5 GM/DL (3.2-5.2); BILIRUBIN,TOTAL 0.4 MG/DL (0.2-1.0); C REACTIVE PROTEIN QUANTITATIV 7.07 MG/DL (0.00-0.30); CALCIUM LEVEL 7.8 MG/DL (8.8-10.2); CREATININE FOR GFR 2.43 MG/DL (0.55-1.30); GLOMERULAR FILTRATION RATE 19.9 (>32); MAGNESIUM LEVEL 1.8 MG/DL (1.8-2.4); POTASSIUM SERUM 4.6 MEQ/L (3.5-5.1)
[2020-07-19] MEDS: SINEMET 25-100 MG TAB PO SCH ×3 (08:30→20:48)
[2020-07-19] MEDS: dexameTHASONE 4 MG/ML 1ML VIAL (J1100 PER 1MG) IV SCH (08:30)
[2020-07-19] MEDS: ENOXAPARIN 80MG/0.8ML SYRINGE (J1650 PER 10MG) SC SCH (08:30)
[2020-07-19] MEDS: ASPIRIN 81 MG ENTERIC TAB PO SCH (08:30)
[2020-07-19] MEDS: NS 1,000 ML IV SCH ×2 (08:31→20:48)
[2020-07-19] MEDS: ARIPiprazole 10 MG TAB PO SCH (08:31)
[2020-07-19] MEDS: SERTRALINE 100 MG TAB PO SCH (08:31)
[2020-07-19] MEDS: SYMBICORT 160/4.5MCG INHALER 6GM INH SCH ×2 (08:35→19:33)
--- NOTE | 2020-07-19 08:49 | IPNPDOC ---
Date Seen The patient was seen on 07/19/20. Progress Note SUBJECTIVE: 89-year-old female with a history of COPD, hypertension, CKD, admitted from [facility] for management of covid-19 pneumonia. Transfered to ICU for CPAP to assist with lung aeration. Tolerated CPAP well. Satting at 94% on 3LPM. Patient appears slightly more alert today, she is alert to person place and time, and is able to recall to me her son's name. She denies any chest pain, SOB, fevers, chills, n/v/d. OBJECTIVE PHYSICAL EXAMINATION: VITAL SIGNS: please see below General: NAD, comfortable HEENT: PERRLA, EOMI, sclerae clear Neck: supple, normal ROM, no JVD Respiratory: crackles at lung bases, L > R. Poor inspiratory effort. CVS: RRR, normal S1, S2, no murmurs Abdo: soft, no masses, no hepatosplenomegaly, BS+, no rebound tenderness Skin: no evidence for skin breakdown on lower back/sacrum. Otherwise warm, dry. Extremities: no edema, pulses 2+ MSK: no joint deformities, normal ROM Neuro: no focal neuro deficits, moving all 4 extremities, CN2-12 intact. Strength 5/5 in all 4 extremities. No nystagmus. Psych: calm, cooperative, AAO x 2 LABORATORY DATA, IMAGING STUDIES, MICROBIOLOGY: Please see below. DVT prophylaxis ordered?: Y #. COVID PNA - oxygenation improved on CPAP - D dimer, CRP elevated. Suspect PE - resume dexamethasone 6 mg IV daily - obtain CXR to assess for consolidation. - d/w Dr. Ramos, full dose (renal) AC with lovenox, started 1mg/kg q24h - Transfer to ICU, tolerating CPAP well - monitor inflammatory markers #. MARISSA on CKD - Cr Cl 20. - Cr 2.6 - stop lasix, HCTZ - insert IV, NS 70 cc/hr - Cr slowly improving #. Hyperkalemia - resolved -May be secondary to MARISSA -At baseline, mildly elevated #. COPD -Stable -Continue Budesonide/Formoterol -Duonebs PRN #. Hypertension -Continue HCTZ and Valsartan #. DVT ppx - on therapeutic lovenox Disposition: change back from ALC to inpatient given worsening renal function, suspected onset of PE. I spoke to her son and [id number] Kalpesh and Haydee Noel and updated them as to the change in Mrs. Hooper's status. I answered all questions in detail. Will continue to update family. Haydee Hooper cell [phone] if Kalpesh is unavailable. VS, I&O, 24H, Fishbone Vital Signs/I&O Vital Signs Date Time Temp Pulse Resp B/P (MAP) Pulse Ox O2 Delivery O2 Flow Rate FiO2 07/19/20 04:00 40 07/19/20 04:00 98.1 66 18 137/64 (88) 94 NIPPV (BIPAP/CPAP) 07/18/20 17:01 3.0 I&O- Last 24 Hours up to 6 AM 07/19/20 05:59 Intake Total 1585 ml Output Total 1000 ml Balance 585 ml Laboratory Data 24H LABS Laboratory Tests 2 07/18/20 13:03: Urine Color YELLOW, Urine Appearance CLEAR, Urine pH 5.0, Urine Specific [place] 1.009, Urine Protein NEGATIVE, Urine Glucose (UA) NEGATIVE, Urine Ketones NEGATIVE, Urine Blood NEGATIVE, Urine Nitrite NEGATIVE, Urine Bilirubin NEGATIVE, Urine Urobilinogen 0.2, Urine Leukocyte Esterase NEGATIVE, Urine WBC (Auto) 0, Urine RBC (Auto) 0, Urine Hyaline Casts (Auto) 0, Urine Bacteria (Auto) NEGATIVE, Urine Squamous Epithelial Cells 0, Urine Sperm (Auto) 07/19/20 05:02: Immature Granulocyte % (Auto) 0.9, Neutrophils (%) (Auto) 85.4H, Lymphocytes (%) (Auto) 9.1L, Monocytes (%) (Auto) 4.5, Eosinophils (%) (Auto) 0.0, Basophils (%) (Auto) 0.1, Neutrophils # (Auto) 9.2H, Lymphocytes # (Auto) 1.0L, Monocytes # (Auto) 0.5, Eosinophils # (Auto) 0.0, Basophils # (Auto) 0.0, Nucleated Red Blood Cells % (auto) 0.4H, Prothrombin Time 13.7, Prothromb Time International Ratio 1.03, Activated Partial Thromboplast Time 200.0*H, Fibrinogen 546H, D- Dimer, Quantitative 970.53H, Anion Gap 11, Glomerular Filtration Rate 19.9L, Calcium Level 7.8L, Magnesium Level 1.8, Ferritin 582H, Total Bilirubin 0.4, Aspartate Amino Transf (AST/SGOT) 63H, Alanine Aminotransferase (ALT/SGPT) 11L, Alkaline Phosphatase 45, C-Reactive Protein, Quantitative 7.07H, Total Protein 6.0L, Albumin 2.5L, Albumin/Globulin Ratio 0.7L 07/19/20 06:35: Activated Partial Thromboplast Time 48.3H CBC/BMP Laboratory Tests 07/19/20 05:02 Microbiology Microbiology 07/18/20 Blood Culture, Received Pending 07/18/20 Blood Culture, Received Pending KAMI KHANNA MD Jul 19, 2020 08:49
[2020-07-19] MEDS: ACETAMINOPHEN TAB 650MG DOSE (2X325MG) PO PRN ×2 (12:43→20:49)
[2020-07-19] MEDS: ATORVASTATIN 20 MG TAB PO SCH (20:49)
[2020-07-20] VITALS (12 sets, daily range): BP systolic 97–143; BP diastolic 46–62
[2020-07-20] MEDS: LEVOTHYROXINE 112MCG TABLET (0.112MG) PO SCH (05:01)
[2020-07-20 05:18] LABS: HEMATOCRIT 26.9 % (36.0-47.0); LYMPH # 0.9 10^3/uL (1.5-5.0); LYMPH % 9.6 % (24.0-44.0); MEAN CORPUSCULAR HEMOGLOBIN 32.9 pg (27.0-33.0); MEAN CORPUSCULAR HGB CONC 31.2 g/dl (32.0-36.5); MEAN CORPUSCULAR VOLUME 105.5 fl (80.0-96.0); MONO # 0.2 10^3/uL (0.0-0.8); MONO % 2.7 % (0.0-5.0); NEUTROPHILS # 7.7 10^3/uL (1.5-8.5); NEUTROPHILS % 86.8 % (36.0-66.0); PLATELET COUNT, AUTOMATED 204 10^3/uL (150-450); RED BLOOD COUNT 2.55 10^6/uL (4.00-5.40); WHITE BLOOD COUNT 8.9 10^3/uL (4.0-10.0)
[2020-07-20 05:23] LABS: HEMOGLOBIN 8.4 g/dl (12.0-15.5)
[2020-07-20 05:50] LABS: ALBUMIN 2.1 GM/DL (3.2-5.2); BILIRUBIN,TOTAL 0.4 MG/DL (0.2-1.0); CALCIUM LEVEL 7.4 MG/DL (8.8-10.2); CREATININE FOR GFR 1.73 MG/DL (0.55-1.30); GLOMERULAR FILTRATION RATE 29.5 (>32); MAGNESIUM LEVEL 1.7 MG/DL (1.8-2.4); POTASSIUM SERUM 4.2 MEQ/L (3.5-5.1); TOTAL PROTEIN 4.9 GM/DL (6.4-8.2)
[2020-07-20] MEDS: NS 1,000 ML IV SCH ×2 (08:57→20:30)
[2020-07-20 08:58] LABS: C REACTIVE PROTEIN QUANTITATIV 7.24 MG/DL (0.00-0.30)
[2020-07-20] MEDS: SYMBICORT 160/4.5MCG INHALER 6GM INH SCH ×2 (09:00→20:27)
[2020-07-20] MEDS: VALSARTAN 80 MG TAB (DIOVAN) PO SCH (09:00)
[2020-07-20] MEDS: ARIPiprazole 10 MG TAB PO SCH (09:05)
[2020-07-20] MEDS: ASPIRIN 81 MG ENTERIC TAB PO SCH (09:05)
[2020-07-20] MEDS: ENOXAPARIN 80MG/0.8ML SYRINGE (J1650 PER 10MG) SC SCH (09:05)
[2020-07-20] MEDS: SINEMET 25-100 MG TAB PO SCH ×3 (09:05→20:27)
[2020-07-20] MEDS: SERTRALINE 100 MG TAB PO SCH (09:05)
[2020-07-20] MEDS: dexameTHASONE 4 MG/ML 1ML VIAL (J1100 PER 1MG) IV SCH (09:06)
[2020-07-20] MEDS ORDERED: BISACODYL 10 MG SUPP PR PRN (09:45)
[2020-07-20] MEDS ORDERED: MOM 30ML SUSPENSION UDC PO PRN (09:45)
[2020-07-20] MEDS ORDERED: MIRALAX *UNIT DOSE* 17GM PACKET PO PRN (09:45)
[2020-07-20] MEDS ORDERED: PANTOPRAZOLE 40MG TAB (PROTONIX) PO ONE (11:00)
--- NOTE | 2020-07-20 11:00 | IPNPDOC ---
Text Note Date of Service The patient was seen on 07/20/20. NOTE Subjective: Patient is an 89-year-old female with a PMHx of COPD, HTN, CKD3, who presented from [facility] for shortness of breath after she was found to have tested positive for COVID19. Patient was originally admitted on 07/09 and will decompensated on 07/18, requiring CPAP. Patient was seen and examined at the bedside. Currently patient is oriented to person and place but not to time. She denies any chest pain, palpitations, vomiting, abdominal pain, diarrhea, or urinary discomfort. Objective: Vitals (See below) General: Lying in bed, appears comfortable, Awake / Alert, Oriented to person / place HEENT: NC, AT CVS: +S1S2 Lungs: Poor inspiratory effort bilaterally, no appreciable wheezing, rhonchi or crackles Abdomen: Soft, ND, NT Extremities: - Edema, - Calf tenderness Assessment and plan: Acute hypoxic respiratory failure - likely 2/2 COVID19 - Patient appears to be clinically improved - Patient is still on supplemental oxygen via nasal cannula at 3 L; s/p CPAP use while in ICU - has remained off for >24 hours - COVID19 positive on 07/12 - Inflammatory markers continue to remain elevated; will continue to trend - CXR 07/18: Subtle left basilar airspace disease cannot be excluded. - Will check procalcitonin - c/w Dexamethasone (Day#3) - s/p CPAP; c/w supplemental oxygen MARISSA on CKD - possibly 2/2 dehydration / urinary retention - Cr baseline of 1.3-1.5 - Cr has been trending down - Will hold Lasix / HCTZ - c/w gentle IV fluid hydration Urinary retention - Patient had Vigil catheter placed yesterday with 1000 cc of urine output - c/w Bladder scans - Will start bowel regimen s/p Hyperkalemia Chronic COPD - c/w Dexamethasone; will transition to Prednisone taper within 24-48 hours - c/w inhaled therapy ordered HTN - BP well controlled - Will hold Furosemide / HCTZ - Will c/w Valsartan (with holding parameters) Parkinsonism - c/w Carbidopa / Levodopa Hypothyroidism - c/w Levothyroxine DLP - c/w Atorvastatin Mood disorder - c/w Aripiprazole and Sertraline GI prophylaxis - Will start Protonix DVT prophylaxis - c/w Lovenox (therapeutic dosing) Disposition: - Awaiting clinical improvement - Family: Haydee Hooper; VS,Fishbone, I+O VS, Fishbone, I+O Laboratory Tests 07/20/20 04:52 Vital Signs Date Time Temp Pulse Resp B/P (MAP) Pulse Ox O2 Delivery O2 Flow Rate FiO2 07/20/20 09:00 110/56 07/20/20 08:00 100.0 55 18 94 Nasal Cannula 3.0 07/19/20 15:00 40 I&O- Last 24 Hours up to 6 AM 07/20/20 06:00 Intake Total 2340 ml Output Total 2200 ml Balance 140 ml PAVEL PEGUERO MD Jul 20, 2020 11:00
[2020-07-20] MEDS: SENOKOT S TAB PO PRN (20:27)
[2020-07-20] MEDS: ACETAMINOPHEN TAB 650MG DOSE (2X325MG) PO PRN (20:28)
[2020-07-20] MEDS: ATORVASTATIN 20 MG TAB PO SCH (20:28)
[2020-07-21] VITALS: BP 108/67
[2020-07-21 04:00] VITALS: BP 137/58
[2020-07-21] MEDS: LEVOTHYROXINE 112MCG TABLET (0.112MG) PO SCH (05:32)
[2020-07-21 05:35] LABS: BASO % 0.1 % (0.0-1.0); HEMATOCRIT 25.8 % (36.0-47.0); HEMOGLOBIN 8.2 g/dl (12.0-15.5); MEAN CORPUSCULAR HEMOGLOBIN 32.5 pg (27.0-33.0); MEAN CORPUSCULAR HGB CONC 31.8 g/dl (32.0-36.5); MEAN CORPUSCULAR VOLUME 102.4 fl (80.0-96.0); MONO # 0.3 10^3/uL (0.0-0.8); NEUTROPHILS # 5.9 10^3/uL (1.5-8.5); NEUTROPHILS % 81.1 % (36.0-66.0); PLATELET COUNT, AUTOMATED 211 10^3/uL (150-450); RED BLOOD COUNT 2.52 10^6/uL (4.00-5.40); WHITE BLOOD COUNT 7.3 10^3/uL (4.0-10.0)
[2020-07-21 06:07] LABS: BILIRUBIN,TOTAL 0.3 MG/DL (0.2-1.0); CALCIUM LEVEL 7.6 MG/DL (8.8-10.2); CREATININE FOR GFR 1.58 MG/DL (0.55-1.30); GLOMERULAR FILTRATION RATE 32.8 (>32); MAGNESIUM LEVEL 1.8 MG/DL (1.8-2.4); POTASSIUM SERUM 4.5 MEQ/L (3.5-5.1); TOTAL PROTEIN 4.9 GM/DL (6.4-8.2)
[2020-07-21 07:22] LABS: C REACTIVE PROTEIN QUANTITATIV 6.77 MG/DL (0.00-0.30)
[2020-07-21] MEDS: SYMBICORT 160/4.5MCG INHALER 6GM INH SCH ×2 (08:10→20:43)
[2020-07-21 08:11] VITALS: BP 136/57
[2020-07-21] MEDS: dexameTHASONE 4 MG/ML 1ML VIAL (J1100 PER 1MG) IV SCH (08:11)
[2020-07-21] MEDS: ENOXAPARIN 80MG/0.8ML SYRINGE (J1650 PER 10MG) SC SCH (08:11)
[2020-07-21] MEDS: PANTOPRAZOLE 40MG TAB (PROTONIX) PO SCH (08:12)
[2020-07-21] MEDS: SINEMET 25-100 MG TAB PO SCH ×3 (08:12→21:59)
[2020-07-21] MEDS: ASPIRIN 81 MG ENTERIC TAB PO SCH (08:12)
[2020-07-21] MEDS: ARIPiprazole 10 MG TAB PO SCH (08:12)
[2020-07-21] MEDS: SERTRALINE 100 MG TAB PO SCH (08:12)
[2020-07-21] MEDS: NS 1,000 ML IV SCH (08:13)
[2020-07-21 12:00] VITALS: BP 158/64
--- NOTE | 2020-07-21 12:18 | IPNPDOC ---
Text Note Date of Service The patient was seen on 07/21/20. NOTE Subjective: Patient is an 89-year-old female with a PMHx of COPD, HTN, CKD3, who presented from [facility] for shortness of breath after she was found to have tested positive for COVID19. Patient was originally admitted on 07/09 and will decompensated on 07/18, requiring CPAP. Patient was seen and examined at the bedside. Patient is oriented to person and place. Patient reports the year is 2010. Patient denies any chest pain, palpitations, nausea, vomiting, or belly pain. Patient has not yet had a bowel movement overnight. Objective: Vitals (See below) General: Patient is laying in bed, appears to be comfortable, awake and alert, oriented to person and place HEENT: NC, AT CVS: +S1S2 Lungs: Air entry is fair bilaterally without any appreciated, rhonchi, crackles or wheezing Abdomen: Soft, nondistended and nontender Extremities: Lower extremities do not reveal any pitting edema, - Calf tenderness Assessment and plan: Acute hypoxic respiratory failure - likely 2/2 COVID19 - Continues clinical improvement - Remains on very minimal oxygen; currently on 2L via NC - s/p CPAP use while in ICU - has remained off for >24 hours - COVID19 positive on 07/12 - Inflammatory markers have been improving - CXR 07/18: Subtle left basilar airspace disease cannot be excluded. - Procalcitonin remains relatively normal - c/w Dexamethasone (Day#4) - s/p CPAP; c/w supplemental oxygen MARISSA on CKD - possibly 2/2 dehydration / urinary retention - Cr baseline of 1.3-1.5 - Cr has been trending down - Will continue to hold Lasix / HCTZ - c/w gentle IV fluid hydration Urinary retention - Patient had Vigil catheter placed yesterday with 1000 cc of urine output - c/w Bladder scans - Will c/w bowel regimen; awaiting bowel movement s/p Hyperkalemia Chronic COPD - c/w Dexamethasone; will transition to Prednisone taper within 24-48 hours - c/w inhaled therapy ordered HTN - BP well controlled - Will hold Furosemide / HCTZ - c/w Valsartan (with holding parameters) Parkinsonism - c/w Carbidopa / Levodopa Hypothyroidism - c/w Levothyroxine DLP - c/w Atorvastatin Mood disorder - c/w Aripiprazole and Sertraline GI prophylaxis - Will c/w Protonix DVT prophylaxis - c/w Lovenox (therapeutic dosing) Disposition: - Will be placed at [facility] on Sunday07/26/2019 - Family: Haydee Hooper; Cell - [phone] VS,Fishbone, I+O VS, Fishbone, I+O Laboratory Tests 07/21/20 05:22 Vital Signs Date Time Temp Pulse Resp B/P (MAP) Pulse Ox O2 Delivery O2 Flow Rate FiO2 07/21/20 08:11 98.2 59 16 136/57 (83) 92 Nasal Cannula 2.0 07/19/20 15:00 40 I&O- Last 24 Hours up to 6 AM 07/21/20 05:59 Intake Total 2620 ml Output Total 1900 ml Balance 720 ml PAVEL PEGUERO MD Jul 21, 2020 12:18
[2020-07-21] MEDS: VALSARTAN 80 MG TAB (DIOVAN) PO SCH (12:30)
[2020-07-21 16:00] VITALS: BP 148/75
[2020-07-21 20:00] VITALS: BP 145/69
[2020-07-21] MEDS: ACETAMINOPHEN TAB 650MG DOSE (2X325MG) PO PRN (21:59)
[2020-07-21] MEDS: SENOKOT S TAB PO PRN (21:59)
[2020-07-21] MEDS: ATORVASTATIN 20 MG TAB PO SCH (22:00)
[2020-07-22] VITALS (8 sets, daily range): BP systolic 141–178; BP diastolic 63–73; O2SAT 93
[2020-07-22 05:00] LABS: HEMATOCRIT 26.9 % (36.0-47.0); HEMOGLOBIN 8.6 g/dl (12.0-15.5); LYMPH # 1.2 10^3/uL (1.5-5.0); LYMPH % 19.6 % (24.0-44.0); MEAN CORPUSCULAR HEMOGLOBIN 33.5 pg (27.0-33.0); MEAN CORPUSCULAR VOLUME 104.7 fl (80.0-96.0); MONO # 0.3 10^3/uL (0.0-0.8); MONO % 4.8 % (0.0-5.0); NEUTROPHILS # 4.7 10^3/uL (1.5-8.5); NEUTROPHILS % 74.3 % (36.0-66.0); PLATELET COUNT, AUTOMATED 229 10^3/uL (150-450); RED BLOOD COUNT 2.57 10^6/uL (4.00-5.40); WHITE BLOOD COUNT 6.3 10^3/uL (4.0-10.0)
[2020-07-22 05:29] LABS: ALBUMIN 2.2 GM/DL (3.2-5.2); BILIRUBIN,TOTAL 0.4 MG/DL (0.2-1.0); CALCIUM LEVEL 7.8 MG/DL (8.8-10.2); CREATININE FOR GFR 1.44 MG/DL (0.55-1.30); GLOMERULAR FILTRATION RATE 36.5 (>32); MAGNESIUM LEVEL 1.8 MG/DL (1.8-2.4); POTASSIUM SERUM 4.4 MEQ/L (3.5-5.1); TOTAL PROTEIN 4.9 GM/DL (6.4-8.2)
[2020-07-22] MEDS: SYMBICORT 160/4.5MCG INHALER 6GM INH SCH ×2 (07:15→20:01)
[2020-07-22] MEDS: LEVOTHYROXINE 112MCG TABLET (0.112MG) PO SCH (07:15)
[2020-07-22 08:14] LABS: C REACTIVE PROTEIN QUANTITATIV 3.93 MG/DL (0.00-0.30)
[2020-07-22] MEDS: SINEMET 25-100 MG TAB PO SCH ×3 (08:16→20:18)
[2020-07-22] MEDS: PANTOPRAZOLE 40MG TAB (PROTONIX) PO SCH (08:17)
[2020-07-22] MEDS: ARIPiprazole 10 MG TAB PO SCH (08:17)
[2020-07-22] MEDS: SERTRALINE 100 MG TAB PO SCH (08:17)
[2020-07-22] MEDS: VALSARTAN 80 MG TAB (DIOVAN) PO SCH (08:17)
[2020-07-22] MEDS: dexameTHASONE 4 MG/ML 1ML VIAL (J1100 PER 1MG) IV SCH (08:18)
[2020-07-22] MEDS: ENOXAPARIN 80MG/0.8ML SYRINGE (J1650 PER 10MG) SC SCH (08:18)
[2020-07-22] MEDS: ASPIRIN 81 MG ENTERIC TAB PO SCH (09:12)
--- NOTE | 2020-07-22 13:27 | IPNPDOC ---
Text Note Date of Service The patient was seen on 07/22/20. NOTE Subjective: Patient is an 89-year-old female with a PMHx of COPD, HTN, CKD3, who presented from [facility] for shortness of breath after she was found to have tested positive for COVID19. Patient was originally admitted on 07/09 and will decompensated on 07/18, requiring CPAP. Patient was seen and examined at the bedside. Patient is pleasant and cooperati ve, able to answer my questions appropriately. She denies any significant chest pain, shortness of breath or palpitations. Has not experience any nausea, vomiting, abdominal pain or diarrhea. Objective: Vitals (See below) General: Sitting up in bed, does not appear to be in any acute distress, comfortable, is awake, alert and oriented 2 HEENT: NC, AT CVS: +S1S2 Lungs: There appears to be fair air entry bilaterally without any evidence of rhonchi, crackles or wheezing Abdomen: Abdomen remains soft without any distention or tenderness Extremities: No edema noted in lower extremities, - Calf tenderness Assessment and plan: Acute hypoxic respiratory failure - likely 2/2 COVID19 - Denies any significant short of breath, cough or chest pain - Patient continues to require support with Eloxatin currently down to 1 L nasal cannula - s/p CPAP use while in ICU - has remained off for >24 hours - COVID19 positive on 07/12 - Inflammatory markers continue to be downtrending - CXR 07/18: Subtle left basilar airspace disease cannot be excluded. - Procalcitonin remains relatively normal - Will DC Dexamethasone (Day#5) and will start Prednisone taper on discharge - s/p CPAP; c/w supplemental oxygen Deconditioning - Patient lives at [facility] at baseline - Will continue with physical therapy and outpatient therapy - Patient is scheduled to go to [facility] for additional rehabilitation on Sunday s/p MARISSA on CKD - possibly 2/2 dehydration / urinary retention - Cr baseline of 1.3-1.5 - Cr has been trending down - Will continue to hold HCTZ - s/p gentle IV fluid hydration - Will resume Lasix within 24 hours Urinary retention - Patient had Vigil catheter placed yesterday with 1000 cc of urine output - c/w Bladder scans - Will c/w bowel regimen; patient has had 2 bowel movements yesterday and 2 bowel movements overnight s/p Hyperkalemia Chronic COPD - c/w inhaled therapy ordered - Will transition to Prednisone taper in AM HTN - BP well controlled - Will hold Furosemide / HCTZ today - c/w Valsartan (with holding parameters) Parkinsonism - c/w Carbidopa / Levodopa Hypothyroidism - c/w Levothyroxine DLP - c/w Atorvastatin Mood disorder - c/w Aripiprazole and Sertraline GI prophylaxis - c/w Protonix DVT prophylaxis - c/w Lovenox (therapeutic dosing) Disposition: - Will be placed at [facility] on Sunday07/26/2019 - Family: Haydee Hooper; Cell - [phone] VS,Yessi, I+O VS, Dillane, I+O Laboratory Tests 07/22/20 04:27 Vital Signs Date Time Temp Pulse Resp B/P (MAP) Pulse Ox O2 Delivery O2 Flow Rate FiO2 07/22/20 12:18 98.3 64 18 141/66 (91) 92 Nasal Cannula 1.0 07/19/20 15:00 40 I&O- Last 24 Hours up to 6 AM 07/22/20 06:00 Intake Total 1280 ml Output Total 1050 ml Balance 230 ml PAVEL PEGUERO MD Jul 22, 2020 13:27
[2020-07-22] MEDS: ATORVASTATIN 20 MG TAB PO SCH (20:18)
[2020-07-23 04:00] VITALS: BP 156/68
[2020-07-23] MEDS: LEVOTHYROXINE 112MCG TABLET (0.112MG) PO SCH (06:22)
[2020-07-23] MEDS: SYMBICORT 160/4.5MCG INHALER 6GM INH SCH ×2 (07:27→20:45)
[2020-07-23 08:08] LABS: BASO % 0.1 % (0.0-1.0); EOS % 0.1 % (0.0-3.0); HEMATOCRIT 28.2 % (36.0-47.0); LYMPH # 1.6 10^3/uL (1.5-5.0); LYMPH % 19.3 % (24.0-44.0); MEAN CORPUSCULAR HEMOGLOBIN 33.2 pg (27.0-33.0); MEAN CORPUSCULAR HGB CONC 31.9 g/dl (32.0-36.5); MEAN CORPUSCULAR VOLUME 104.1 fl (80.0-96.0); MONO # 0.3 10^3/uL (0.0-0.8); MONO % 4.1 % (0.0-5.0); NEUTROPHILS # 6.1 10^3/uL (1.5-8.5); NEUTROPHILS % 75.2 % (36.0-66.0); PLATELET COUNT, AUTOMATED 250 10^3/uL (150-450); RED BLOOD COUNT 2.71 10^6/uL (4.00-5.40); WHITE BLOOD COUNT 8.1 10^3/uL (4.0-10.0)
[2020-07-23 08:39] LABS: CREATININE FOR GFR 1.25 MG/DL (0.55-1.30); POTASSIUM SERUM 4.5 MEQ/L (3.5-5.1)
[2020-07-23 08:40] LABS: ALBUMIN 2.3 GM/DL (3.2-5.2); BILIRUBIN,TOTAL 0.4 MG/DL (0.2-1.0); C REACTIVE PROTEIN QUANTITATIV 2.13 MG/DL (0.00-0.30); CALCIUM LEVEL 8.3 MG/DL (8.8-10.2); MAGNESIUM LEVEL 1.7 MG/DL (1.8-2.4); TOTAL PROTEIN 5.1 GM/DL (6.4-8.2)
[2020-07-23 10:00] VITALS: BP 154/90
[2020-07-23] MEDS: ARIPiprazole 10 MG TAB PO SCH (10:02)
[2020-07-23] MEDS: PANTOPRAZOLE 40MG TAB (PROTONIX) PO SCH (10:02)
[2020-07-23] MEDS: ASPIRIN 81 MG ENTERIC TAB PO SCH (10:02)
[2020-07-23] MEDS: SINEMET 25-100 MG TAB PO SCH ×3 (10:03→22:35)
[2020-07-23] MEDS: SERTRALINE 100 MG TAB PO SCH (10:03)
[2020-07-23] MEDS: VALSARTAN 80 MG TAB (DIOVAN) PO SCH (10:03)
[2020-07-23] MEDS: predniSONE 10 MG TAB PO SCH (10:03)
[2020-07-23] MEDS: ENOXAPARIN 80MG/0.8ML SYRINGE (J1650 PER 10MG) SC SCH (10:04)
[2020-07-23] MEDS ORDERED: MAG SULF 1GM/100ML (MAG RUN) 1 GM in IV 1 EA IV ONE (11:00)
[2020-07-23] MEDS ORDERED: hydroCHLOROthiazide 12.5 MG CAPSULE PO ONE (11:00)
--- NOTE | 2020-07-23 12:12 | IPNPDOC ---
Text Note Date of Service The patient was seen on 07/23/20. NOTE Subjective: Patient is an 89-year-old female with a PMHx of COPD, HTN, CKD3, who presented from [facility] for shortness of breath after she was found to have tested positive for COVID19. Patient was originally admitted on 07/09 and will decompensated on 07/18, requiring CPAP. Patient was seen and examined at the bedside. She remains oriented to person and place. She denies any chest pain, shortness of breath, palpitations. Has not experience any nausea, vomiting, abdominal pain or diarrhea Objective: Vitals (See below) General: Laying in bed and appears to be comfortable without any distress, is awake, alert and oriented to person, place, not to time HEENT: NC, AT CVS: +S1S2 Lungs: Air entry is fair bilaterally without any auscultated rhonchi, crackles or wheezing Abdomen: Soft without any distention or tenderness Extremities: Lower tremors are without any edema, no calf tenderness Assessment and plan: Acute hypoxic respiratory failure - likely 2/2 COVID19 - She denies any significant shortness of breath or cough - Continue to titrate down on supplemental oxygen via nasal cannula - s/p CPAP use while in ICU - has remained off for >24 hours - COVID19 positive on 07/12 - Inflammatory markers have been improving - CXR 07/18: Subtle left basilar airspace disease cannot be excluded. - Procalcitonin remains relatively normal - c/w Prednisone taper; s/p Dexamethasone (5 day course) - s/p CPAP; c/w supplemental oxygen Deconditioning - Patient lives at [facility] at baseline - Will continue with physical therapy and outpatient therapy - Patient is scheduled to go to [facility] for additional rehabilitation on Sunday s/p MARISSA on CKD - possibly 2/2 dehydration / urinary retention - Cr baseline of 1.3-1.5 - Cr has been trending down - Will resume HCTZ - s/p gentle IV fluid hydration Urinary retention - Patient had Vigil catheter placed yesterday with 1000 cc of urine output - c/w Bladder scans - Will c/w bowel regimen; patient has had 2 bowel movements yesterday and 2 bowel movements overnight s/p Hyperkalemia Chronic COPD - c/w inhaled therapy ordered - Will transition to Prednisone taper in AM HTN - BP mildly elevated this morning - Will resume HCTZ today - c/w Valsartan (with holding parameters) Parkinsonism - c/w Carbidopa / Levodopa Hypothyroidism - c/w Levothyroxine DLP - c/w Atorvastatin Mood disorder - c/w Aripiprazole and Sertraline GI prophylaxis - c/w Protonix DVT prophylaxis - c/w Lovenox (therapeutic dosing) Disposition: - Will be placed at [facility] on Sunday07/26/2019 - Will transition to ALC status today - Family: Haydee Hooper; Cell - [phone] VS,Fishbone, I+O VS, Fishbone, I+O Laboratory Tests 07/23/20 07:56 Vital Signs Date Time Temp Pulse Resp B/P (MAP) Pulse Ox O2 Delivery O2 Flow Rate FiO2 07/23/20 10:03 156/68 07/23/20 10:00 98.4 60 16 91 Nasal Cannula 3.0 07/19/20 15:00 40 I&O- Last 24 Hours up to 6 AM 07/23/20 06:00 Intake Total 525 ml Output Total 1710 ml Balance -1185 ml PAVEL PEGUERO MD Jul 23, 2020 12:12
[2020-07-23] MEDS: ATORVASTATIN 20 MG TAB PO SCH (22:30)
[2020-07-24 06:00] VITALS: BP 136/63
[2020-07-24] MEDS: LEVOTHYROXINE 112MCG TABLET (0.112MG) PO SCH (06:54)
[2020-07-24 07:13] LABS: BASO % 0.1 % (0.0-1.0); HEMATOCRIT 28.5 % (36.0-47.0); HEMOGLOBIN 8.9 g/dl (12.0-15.5); LYMPH # 1.3 10^3/uL (1.5-5.0); LYMPH % 17.1 % (24.0-44.0); MEAN CORPUSCULAR HEMOGLOBIN 32.6 pg (27.0-33.0); MEAN CORPUSCULAR HGB CONC 31.2 g/dl (32.0-36.5); MEAN CORPUSCULAR VOLUME 104.4 fl (80.0-96.0); MONO # 0.4 10^3/uL (0.0-0.8); MONO % 5.1 % (0.0-5.0); NEUTROPHILS # 5.7 10^3/uL (1.5-8.5); NEUTROPHILS % 76.5 % (36.0-66.0); PLATELET COUNT, AUTOMATED 278 10^3/uL (150-450); RED BLOOD COUNT 2.73 10^6/uL (4.00-5.40); WHITE BLOOD COUNT 7.4 10^3/uL (4.0-10.0)
[2020-07-24 07:45] LABS: ALBUMIN 2.4 GM/DL (3.2-5.2); BILIRUBIN,TOTAL 0.5 MG/DL (0.2-1.0); CALCIUM LEVEL 8.6 MG/DL (8.8-10.2); CREATININE FOR GFR 1.3 MG/DL (0.55-1.30); GLOMERULAR FILTRATION RATE 41.1 (>32); MAGNESIUM LEVEL 1.9 MG/DL (1.8-2.4); POTASSIUM SERUM 4.6 MEQ/L (3.5-5.1); TOTAL PROTEIN 5.4 GM/DL (6.4-8.2)
[2020-07-24] MEDS: SINEMET 25-100 MG TAB PO SCH ×3 (08:00→20:57)
[2020-07-24] MEDS: SYMBICORT 160/4.5MCG INHALER 6GM INH SCH ×2 (09:11→20:25)
[2020-07-24] MEDS: PANTOPRAZOLE 40MG TAB (PROTONIX) PO SCH (11:09)
[2020-07-24] MEDS: ARIPiprazole 10 MG TAB PO SCH (11:09)
[2020-07-24] MEDS: predniSONE 10 MG TAB PO SCH (11:09)
[2020-07-24] MEDS: hydroCHLOROthiazide 12.5 MG CAPSULE PO SCH (11:09)
[2020-07-24] MEDS: SERTRALINE 100 MG TAB PO SCH (11:10)
[2020-07-24] MEDS: ENOXAPARIN 80MG/0.8ML SYRINGE (J1650 PER 10MG) SC SCH (11:10)
[2020-07-24] MEDS: ASPIRIN 81 MG ENTERIC TAB PO SCH (11:10)
[2020-07-24] MEDS: VALSARTAN 80 MG TAB (DIOVAN) PO SCH (11:10)
[2020-07-24] MEDS: ATORVASTATIN 20 MG TAB PO SCH (20:57)
[2020-07-25 06:00] VITALS: BP 116/54
[2020-07-25 06:22] LABS: BASO % 0.1 % (0.0-1.0); HEMATOCRIT 27.8 % (36.0-47.0); HEMOGLOBIN 8.9 g/dl (12.0-15.5); LYMPH # 1.3 10^3/uL (1.5-5.0); LYMPH % 16.6 % (24.0-44.0); MEAN CORPUSCULAR HEMOGLOBIN 33.2 pg (27.0-33.0); MEAN CORPUSCULAR VOLUME 103.7 fl (80.0-96.0); MONO # 0.4 10^3/uL (0.0-0.8); MONO % 5.5 % (0.0-5.0); NEUTROPHILS % 76.5 % (36.0-66.0); PLATELET COUNT, AUTOMATED 301 10^3/uL (150-450); RED BLOOD COUNT 2.68 10^6/uL (4.00-5.40); WHITE BLOOD COUNT 7.8 10^3/uL (4.0-10.0)
[2020-07-25] MEDS: LEVOTHYROXINE 112MCG TABLET (0.112MG) PO SCH (06:30)
[2020-07-25 07:00] LABS: ALBUMIN 2.4 GM/DL (3.2-5.2); BILIRUBIN,TOTAL 0.5 MG/DL (0.2-1.0); CALCIUM LEVEL 8.4 MG/DL (8.8-10.2); CREATININE FOR GFR 1.52 MG/DL (0.55-1.30); GLOMERULAR FILTRATION RATE 34.3 (>32); MAGNESIUM LEVEL 1.9 MG/DL (1.8-2.4); POTASSIUM SERUM 4.4 MEQ/L (3.5-5.1); TOTAL PROTEIN 5.6 GM/DL (6.4-8.2)
[2020-07-25] MEDS: SINEMET 25-100 MG TAB PO SCH ×3 (08:30→19:48)
[2020-07-25] MEDS: hydroCHLOROthiazide 12.5 MG CAPSULE PO SCH (09:00)
[2020-07-25] MEDS: VALSARTAN 80 MG TAB (DIOVAN) PO SCH (09:00)
[2020-07-25] MEDS: predniSONE 10 MG TAB PO SCH (09:00)
[2020-07-25] MEDS: ARIPiprazole 10 MG TAB PO SCH (09:00)
[2020-07-25] MEDS: SERTRALINE 100 MG TAB PO SCH (09:00)
[2020-07-25] MEDS: ENOXAPARIN 80MG/0.8ML SYRINGE (J1650 PER 10MG) SC SCH (09:00)
[2020-07-25] MEDS: PANTOPRAZOLE 40MG TAB (PROTONIX) PO SCH (09:00)
[2020-07-25] MEDS: ASPIRIN 81 MG ENTERIC TAB PO SCH (09:00)
[2020-07-25] MEDS: SYMBICORT 160/4.5MCG INHALER 6GM INH SCH ×2 (09:36→19:03)
[2020-07-25] MEDS: ATORVASTATIN 20 MG TAB PO SCH (19:48)
[2020-07-26 06:42] VITALS: BP 107/52
[2020-07-26] MEDS: LEVOTHYROXINE 112MCG TABLET (0.112MG) PO SCH (06:45)
[2020-07-26] MEDS: SYMBICORT 160/4.5MCG INHALER 6GM INH SCH ×2 (07:50→20:49)
[2020-07-26 07:56] LABS: BASO % 0.1 % (0.0-1.0); EOS % 0.2 % (0.0-3.0); HEMATOCRIT 28.9 % (36.0-47.0); HEMOGLOBIN 9.2 g/dl (12.0-15.5); LYMPH # 1.6 10^3/uL (1.5-5.0); LYMPH % 18.3 % (24.0-44.0); MEAN CORPUSCULAR HEMOGLOBIN 33.2 pg (27.0-33.0); MEAN CORPUSCULAR HGB CONC 31.8 g/dl (32.0-36.5); MEAN CORPUSCULAR VOLUME 104.3 fl (80.0-96.0); MONO # 0.5 10^3/uL (0.0-0.8); MONO % 5.3 % (0.0-5.0); NEUTROPHILS # 6.3 10^3/uL (1.5-8.5); NEUTROPHILS % 74.7 % (36.0-66.0); PLATELET COUNT, AUTOMATED 316 10^3/uL (150-450); RED BLOOD COUNT 2.77 10^6/uL (4.00-5.40); WHITE BLOOD COUNT 8.5 10^3/uL (4.0-10.0)
[2020-07-26 08:08] LABS: INR 1.13; PROTHROMBIN TIME 14.8 SECONDS (12.5-14.3)
[2020-07-26 08:09] LABS: PARTIAL THROMBOPLASTIN TIME 34.3 SECONDS (24.2-38.5)
[2020-07-26 08:11] LABS: D-DIMER QUANT 461.6 ng/ml (<500)
[2020-07-26 08:19] LABS: ALBUMIN 2.4 GM/DL (3.2-5.2); BILIRUBIN,DIRECT 0.1 MG/DL (0.0-0.2); BILIRUBIN,TOTAL 0.5 MG/DL (0.2-1.0); C REACTIVE PROTEIN QUANTITATIV 1.19 MG/DL (0.00-0.30); CALCIUM LEVEL 8.7 MG/DL (8.8-10.2); CREATININE FOR GFR 1.73 MG/DL (0.55-1.30); GLOMERULAR FILTRATION RATE 29.5 (>32); MAGNESIUM LEVEL 2.1 MG/DL (1.8-2.4); POTASSIUM SERUM 4.1 MEQ/L (3.5-5.1)
[2020-07-26] MEDS: ENOXAPARIN 80MG/0.8ML SYRINGE (J1650 PER 10MG) SC SCH (08:23)
[2020-07-26] MEDS: predniSONE 10 MG TAB PO SCH (08:23)
[2020-07-26] MEDS: ARIPiprazole 10 MG TAB PO SCH (08:24)
[2020-07-26] MEDS: ASPIRIN 81 MG ENTERIC TAB PO SCH (08:24)
[2020-07-26] MEDS: SINEMET 25-100 MG TAB PO SCH ×3 (08:24→20:04)
[2020-07-26 08:25] VITALS: BP 107/52
[2020-07-26] MEDS: PANTOPRAZOLE 40MG TAB (PROTONIX) PO SCH (08:25)
[2020-07-26] MEDS: SERTRALINE 100 MG TAB PO SCH (08:25)
[2020-07-26] MEDS: VALSARTAN 80 MG TAB (DIOVAN) PO SCH (08:25)
[2020-07-26] MEDS: hydroCHLOROthiazide 12.5 MG CAPSULE PO SCH (08:26)
[2020-07-26] MEDS ORDERED: NS 250 ML IV SCH (09:15)
[2020-07-26 14:41] LABS: CALCIUM LEVEL 8.7 MG/DL (8.8-10.2); CREATININE FOR GFR 1.76 MG/DL (0.55-1.30); GLOMERULAR FILTRATION RATE 28.9 (>32); POTASSIUM SERUM 4.5 MEQ/L (3.5-5.1)
--- NOTE | 2020-07-26 15:28 | REP ---
INDICATION: Leukocytosis COMPARISON: 07/18/2020 TECHNIQUE: Portable AP view of the chest FINDINGS: Mediastinum and cardiac silhouette are stable. Chronic changes are again noted with significant superimposed bilateral airspace disease. No definite effusion. No pneumothorax. Skeletal structures are stable. IMPRESSION: Superimposed bilateral airspace disease. Differential diagnosis includes multifocal pneumonia and COVID-19 pulmonary disease. <Electronically signed by Demetrio Coburn > 07/26/20 1522
--- NOTE | 2020-07-26 16:00 | IPNPDOC ---
Text Note Date of Service The patient was seen on 07/26/20. NOTE Subjective: -Stable hypoxemia, remains on 3L NC -afebrile, no new coughing, increased sputum, chest pain, palpitations Objective: Vitals: See below General: NAD, laying in bed, asking to be adjusted because she is sliding down and her current positioning hurts her back. HEENT: NC, AT, MMM, EOMI CVS: RRR, +S1S2 Lungs: Air entry is fair bilaterally without any auscultated rhonchi, wheezing at this time. has trace bibasilar crackles Abdomen: Soft without any distention or tenderness Extremities: No edema bilaterally, WWP, in pressure booties Neuro: AOx3, CN3-12 intact, speech without dysarthria Psych: AOx3 Labs: Reviewed WBC 8.3 Hgb 9.5 Cr 1.51 Imaging: CXR 07/09: Essentially negative portable chest CXR 07/18: Subtle left basilar airspace disease cannot be excluded. CXR 07/26: Superimposed bilateral airspace disease. Differential diagnosis includes multifocal pneumonia and COVID-19 pulmonary disease. Assessment and plan: Acute hypoxic respiratory failure -2/2 recent COVID19 PNA, unlikely to have bacterial PNA at this time - Continue to titrate down on supplemental oxygen via nasal cannula - s/p CPAP use while in ICU - has remained off for >24 hours - COVID19 positive on 07/12 - Inflammatory markers continue to improve - Imaging noted - Procalcitonin wnl --> will trend - c/w Prednisone taper as scheduled; s/p Dexamethasone 5 days - continue supplemental O2 - DC Levaquin given negative procal, no leukocytosis and no worsening hypoxemia at this time, with imaging c/w recent covid without interval imaging since 07/18 which is the day she decompensated - incentive spirometry Deconditioning - Patient lives at [facility] at baseline - PT and OT - Patient was scheduled to go to [facility] for additional rehabilitation but declined for complexity of medical history by accepting provider MARISSA on CKD - possibly 2/2 dehydration / urinary retention. Resolved after gentle hydration - Cr baseline of 1.3-1.5 - Cont holding home HCTZ Urinary retention - Patient had Byrne catheter placed with 1000 cc of urine output on 07/25 --> will start flomax now an d will plan to dc byrne tomorrow w/ PVRs Chronic COPD - c/w inhaled therapy ordered - on pred taper (See above for corticosteroids) HTN - c/w Valsartan (with holding parameters) Parkinsonism - c/w Carbidopa / Levodopa Hypothyroidism - c/w Levothyroxine DLP - c/w Atorvastatin Mood disorder - c/w Aripiprazole and Sertraline GI prophylaxis - c/w Protonix DVT prophylaxis - c/w Lovenox (therapeutic dosing) Disposition: - Transfer to regular med/surg floor - Family: Haydee Hooper; Cell - [phone] VS,Luis Manuelbone, I+O VS, Luis Manuelbone, I+O Laboratory Tests 07/26/20 07:31 07/26/20 12:53 Vital Signs Date Time Temp Pulse Resp B/P (MAP) Pulse Ox O2 Delivery O2 Flow Rate FiO2 07/26/20 08:25 107/52 07/26/20 06:42 96.0 71 16 94 Nasal Cannula 3.0 I&O- Last 24 Hours up to 6 AM 07/26/20 06:00 Intake Total 240 ml Output Total 750 ml Balance -510 ml PAVEL PEGUERO MD Jul 26, 2020 16:00 ARJUN MOREL MD Jul 27, 2020 14:12
[2020-07-26] MEDS ORDERED: NS 1,000 ML IV ONE (16:15)
[2020-07-26] MEDS ORDERED: LevoFLOXacin IV 500 MG in IV 1 EA IV SCH (18:00)
[2020-07-26 19:36] VITALS: BP 117/63
[2020-07-26] MEDS: ATORVASTATIN 20 MG TAB PO SCH (20:04)
[2020-07-27 03:43] VITALS: BP 120/62
[2020-07-27] MEDS: LEVOTHYROXINE 112MCG TABLET (0.112MG) PO SCH (06:39)
[2020-07-27 07:47] LABS: BASO % 0.1 % (0.0-1.0); EOS % 0.4 % (0.0-3.0); HEMATOCRIT 29.1 % (36.0-47.0); HEMOGLOBIN 9.5 g/dl (12.0-15.5); LYMPH # 1.7 10^3/uL (1.5-5.0); LYMPH % 20.2 % (24.0-44.0); MEAN CORPUSCULAR HEMOGLOBIN 33.9 pg (27.0-33.0); MEAN CORPUSCULAR HGB CONC 32.6 g/dl (32.0-36.5); MEAN CORPUSCULAR VOLUME 103.9 fl (80.0-96.0); MONO # 0.5 10^3/uL (0.0-0.8); MONO % 6.2 % (0.0-5.0); PLATELET COUNT, AUTOMATED 312 10^3/uL (150-450); WHITE BLOOD COUNT 8.3 10^3/uL (4.0-10.0)
[2020-07-27 07:55] LABS: INR 1.12; PROTHROMBIN TIME 14.7 SECONDS (12.5-14.3)
[2020-07-27 07:56] LABS: ALBUMIN 2.5 GM/DL (3.2-5.2); BILIRUBIN,DIRECT 0.1 MG/DL (0.0-0.2); BILIRUBIN,TOTAL 0.5 MG/DL (0.2-1.0); C REACTIVE PROTEIN QUANTITATIV 0.97 MG/DL (0.00-0.30); CREATININE FOR GFR 1.51 MG/DL (0.55-1.30); GLOMERULAR FILTRATION RATE 34.5 (>32); MAGNESIUM LEVEL 2.1 MG/DL (1.8-2.4); PARTIAL THROMBOPLASTIN TIME 33.5 SECONDS (24.2-38.5); POTASSIUM SERUM 4.3 MEQ/L (3.5-5.1); TOTAL PROTEIN 5.5 GM/DL (6.4-8.2)
[2020-07-27 07:59] LABS: D-DIMER QUANT 408.15 ng/ml (<500)
[2020-07-27] MEDS: SYMBICORT 160/4.5MCG INHALER 6GM INH SCH ×2 (08:40→20:57)
[2020-07-27] MEDS: SERTRALINE 100 MG TAB PO SCH (09:47)
[2020-07-27] MEDS: predniSONE 10 MG TAB PO SCH (09:47)
[2020-07-27] MEDS: PANTOPRAZOLE 40MG TAB (PROTONIX) PO SCH (09:47)
[2020-07-27] MEDS: ASPIRIN 81 MG ENTERIC TAB PO SCH (09:47)
[2020-07-27] MEDS: ARIPiprazole 10 MG TAB PO SCH (09:47)
[2020-07-27] MEDS: SINEMET 25-100 MG TAB PO SCH ×3 (09:47→20:56)
[2020-07-27] MEDS: ENOXAPARIN 80MG/0.8ML SYRINGE (J1650 PER 10MG) SC SCH (09:47)
[2020-07-27] MEDS: TAMSULOSIN 0.4 MG CAP PO SCH (14:34)
--- NOTE | 2020-07-27 15:23 | IPNPDOC ---
Text Note Date of Service The patient was seen on 07/27/20. NOTE Subjective: -Stable hypoxemia, remains on 3L NC -afebrile, no new coughing, increased sputum, chest pain, palpitations Objective: Vitals: See below General: NAD, laying in bed, asking to be adjusted because she is sliding down and her current positioning hurts her back. HEENT: NC, AT, MMM, EOMI CVS: RRR, +S1S2 Lungs: Air entry is fair bilaterally without any auscultated rhonchi, wheezing at this time. has trace bibasilar crackles Abdomen: Soft without any distention or tenderness Extremities: No edema bilaterally, WWP, in pressure booties Neuro: AOx3, CN3-12 intact, speech without dysarthria Psych: AOx3 Labs: Reviewed WBC 8.3 Hgb 9.5 Cr 1.51 Imaging: CXR 07/09: Essentially negative portable chest CXR 07/18: Subtle left basilar airspace disease cannot be excluded. CXR 07/26: Superimposed bilateral airspace disease. Differential diagnosis includes multifocal pneumonia and COVID-19 pulmonary disease. Assessment and plan: Acute hypoxic respiratory failure -2/2 recent COVID19 PNA, unlikely to have bacterial PNA at this time - Continue to titrate down on supplemental oxygen via nasal cannula - s/p CPAP use while in ICU - has remained off for >24 hours - COVID19 positive on 07/12 - Inflammatory markers continue to improve - Imaging noted - Procalcitonin wnl --> will trend - c/w Prednisone taper as scheduled; s/p Dexamethasone 5 days - continue supplemental O2 - DC Levaquin given negative procal, no leukocytosis and no worsening hypoxemia at this time, with imaging c/w recent covid without interval imaging since 07/18 which is the day she decompensated - incentive spirometry Deconditioning - Patient lives at [facility] at baseline - PT and OT - Patient was scheduled to go to [facility] for additional rehabilitation but declined for complexity of medical history by accepting provider MARISSA on CKD - possibly 2/2 dehydration / urinary retention. Resolved after gentle hydration - Cr baseline of 1.3-1.5 - Cont holding home HCTZ Urinary retention - Patient had Byrne catheter placed with 1000 cc of urine output on 07/25 --> will start flomax now an d will plan to dc byrne tomorrow w/ PVRs Chronic COPD - c/w inhaled therapy ordered - on pred taper (See above for corticosteroids) HTN - c/w Valsartan (with holding parameters) Parkinsonism - c/w Carbidopa / Levodopa Hypothyroidism - c/w Levothyroxine DLP - c/w Atorvastatin Mood disorder - c/w Aripiprazole and Sertraline GI prophylaxis - c/w Protonix DVT prophylaxis - c/w Lovenox (therapeutic dosing) Disposition: - Transfer to regular med/surg floor - Family: Haydee Hooper; Cell - [phone] VS,Yessi, I+O VS, Dillane, I+O Laboratory Tests 07/27/20 06:39 Vital Signs Date Time Temp Pulse Resp B/P (MAP) Pulse Ox O2 Delivery O2 Flow Rate FiO2 07/27/20 09:00 3.0 07/27/20 03:43 96.9 75 18 120/62 (81) 93 Nasal Cannula I&O- Last 24 Hours up to 6 AM 07/27/20 06:00 Intake Total 360 ml Output Total 700 ml Balance -340 ml ARJUN MOREL MD Jul 27, 2020 15:23
[2020-07-27] MEDS ORDERED: FLOM0.4C39 PO (15:30)
[2020-07-27 16:00] VITALS: BP 105/59
[2020-07-27] MEDS: ACETAMINOPHEN TAB 650MG DOSE (2X325MG) PO PRN ×2 (16:33→20:57)
[2020-07-27 20:09] VITALS: BP 119/64
[2020-07-27] MEDS: ATORVASTATIN 20 MG TAB PO SCH (20:56)
[2020-07-28] MEDS: LEVOTHYROXINE 112MCG TABLET (0.112MG) PO SCH (06:16)
[2020-07-28 06:20] VITALS: BP 128/61
[2020-07-28] MEDS: SYMBICORT 160/4.5MCG INHALER 6GM INH SCH (07:17)
[2020-07-28 07:46] LABS: BASO % 0.1 % (0.0-1.0); EOS % 0.1 % (0.0-3.0); HEMATOCRIT 29.8 % (36.0-47.0); LYMPH # 1.4 10^3/uL (1.5-5.0); LYMPH % 18.8 % (24.0-44.0); MEAN CORPUSCULAR HEMOGLOBIN 32.3 pg (27.0-33.0); MEAN CORPUSCULAR HGB CONC 30.2 g/dl (32.0-36.5); MEAN CORPUSCULAR VOLUME 106.8 fl (80.0-96.0); MONO # 0.5 10^3/uL (0.0-0.8); MONO % 6.1 % (0.0-5.0); NEUTROPHILS # 5.4 10^3/uL (1.5-8.5); NEUTROPHILS % 73.7 % (36.0-66.0); PLATELET COUNT, AUTOMATED 340 10^3/uL (150-450); RED BLOOD COUNT 2.79 10^6/uL (4.00-5.40); WHITE BLOOD COUNT 7.4 10^3/uL (4.0-10.0)
--- NOTE | 2020-07-28 07:47 | DS.PDOC ---
Discharge Summary General Date of Admission Jul 09, 2020 at 17:02 Date of Discharge 07/28/2020 Attending Physician: ARJUN MOREL MD Discharge Summary PROCEDURES PERFORMED DURING STAY: None ADMITTING DIAGNOSES: 1. Covid-19 PNA 2. Hypoxemic respiratory failure DISCHARGE DIAGNOSES: Covid-19 PNA Hypoxemic respiratory failure MARISSA on CKD3 Hypothyroidism Hypertension CKD stage 3 Hypercholesterolemia Osteoporosis Osteoarthritis Depression Glaucoma Asthma COMPLICATIONS/CHIEF COMPLAINT: Covid-19/Hypoxia. HISTORY OF PRESENT ILLNESS: 89 year old W resident of [facility] assisted living who was brought into the [facility] ED for fatigue and exertional dyspnea over a few days. On 07/07/2020, both her and her tested positive for COVID. Since then, her symptoms of cough and dyspnea had not improved and actually worsened. On the day of admission, she tried to walk, but rapidly got short of breath. HOSPITAL COURSE: In the ED, she saturated at 92% at room air at rest. With activity, she desaturates down to the low 80s. Vitals were otherwise stable without documented fevers. CXR was stable from prior without acute pathology at presentation, without leukocytosis, but D-dimer and CRP were elevated. She also had acute on chronic renal failure likely secondary to poor oral intake. She was admitted for COVID PNA and MARISSA. She did relatively well but clinically decompensated with worsening hypoxemia on 07/18 08/24 and required CPAP, dexamethasone that was eventually transitioned to prednisone and she stabilized on 2-3L nasal canula. By 07/23/2020 she was clinically stable and placed on ALC. Her course was further c/b MARISSA returning her to an acute patient that was noted on that resolved with gentle hydration and urinary retention after discontinuation of a byrne catheter that had been placed during acute illness. The byrne was replaced and she was started on flomax on 07/27 with goal to trial discontinuation on 07/29/2020. Of note, on 07/26/2020 she had an interval CXR that showed patchy multifocal patchy consolidations that are characteristic of covid-PNA, without new leukocytosis, stable hypoxemia and negative procalcitonin so all antibiotics that were empirically started on 07/26/2020 were discontinued on 07/27/2020 and she remained stable. Given the recent illness, her course was also c/b physical deconditioning and she is now being discharged to [facility] for rehabilitation. DISCHARGE MEDICATIONS: Please see below. ALLERGIES: Please see below. PHYSICAL EXAMINATION ON DISCHARGE: VITAL SIGNS: Please see below. General: NAD HEENT: NC, AT, MMM, EOMI CVS: RRR, +S1S2 Lungs: Bibasilar posterior lower lung field crackles, without any auscultated rhonchi, wheezing at this time. Abdomen: Obese, normoactive bowel sounds, soft without any distention or tenderness Extremities: No edema bilaterally, WWP, in pressure booties Neuro: AOx3, CN3-12 intact, speech without dysarthria Psych: AOx3 LABORATORY DATA: Please see below. IMAGING: Imaging: CXR 07/09: Essentially negative portable chest CXR 07/18: Subtle left basilar airspace disease cannot be excluded. CXR 07/26: Superimposed bilateral airspace disease. Differential diagnosis includes multifocal pneumonia and COVID-19 pulmonary disease. PROGNOSIS: Good ACTIVITY: As tolerated DIET: 2g sodium, renal diet DISCHARGE PLAN: Anatoliy Fine DISPOSITION: [facility] DISCHARGE INSTRUCTIONS: 1. Has byrne --> started on flomax on 07/27/2020 --> would discontinue on 07/29/2020 with trial of void with PVRs 2. Has pressure blisters at heels --> using pressure booties while supine ITEMS TO FOLLOWUP ON ON OUTPATIENT: PCP per [facility] discharge instructions DISCHARGE CONDITION: Stable TIME SPENT ON DISCHARGE: 50 minutes. Vital Signs/I&Os Vital Signs Date Time Temp Pulse Resp B/P (MAP) Pulse Ox O2 Delivery O2 Flow Rate FiO2 07/28/20 06:20 98.2 72 17 128/61 (83) 92 Nasal Cannula 3.0 I&O- Last 24 Hours up to 6 AM 07/28/20 06:00 Intake Total 660 ml Output Total 800 ml Balance -140 ml Microbiology Microbiology 07/18/20 Blood Culture - Final, Complete NO GROWTH AFTER 5 DAYS 07/18/20 Blood Culture - Final, Complete NO GROWTH AFTER 5 DAYS Discharge Medications Scheduled Acetaminophen (Acetaminophen ER) 650 Mg Tablet.er, 1,300 MG PO BID, (Reported) Aripiprazole (Aripiprazole) 10 Mg Tablet, 10 MG PO DAILY, (Reported) Aspirin (Aspirin EC) 81 Mg Tablet.dr, 81 MG PO DAILY, (Reported) Atorvastatin Calcium (Atorvastatin Calcium) 40 Mg Tab, 40 MG PO DAILY, (Reported) Budesonide/Formoterol (Symbicort 80-4.5 Mcg Inhaler) 6.9 Gm Hfa.aer.ad, 2 PUFF INH BID, (Reported) Carbidopa/Levodopa (Sinemet 10-100 mg Tablet) 1 Each Tablet, 1.5 TAB PO TID, (Reported) TAKES AT 0800, 1400, AND 2000 Levothyroxine Sodium (Levoxyl) 112 Mcg Tablet, 112 MCG PO DAILY, (Reported) Magnesium Chloride (Magnesium Chloride) 64 Mg Tablet.dr, 64 MG PO DAILY, (Reported) [employer]-3/Dha/Epa/Fish Oil (Fish Oil 1,000 mg Softgel) 1 Each Capsule, 2,000 M PO DAILY, (Reported) Sertraline Hcl (Zoloft) 100 Mg Tablet, 100 MG PO DAILY, (Reported) Tamsulosin HCl (Flomax) 0.4 Mg Capsule, 0.4 MG PO DAILY Valsartan/Hydrochlorothiazide (Valsartan-Hctz 160-12.5 mg Tab) 1 Tab Tab, 1 TAB PO DAILY, (Reported) Scheduled PRN Albuterol Sulfate (Ventolin Hfa) 18 Gm Hfa.aer.ad, 2 PUFF INH Q6H PRN for SHORTNESS OF BREATH, (Reported) Diclofenac Sodium (Diclofenac Sodium) 1% 100GM Gel..gram., 1 APPLIC TOP BID PRN for PAIN, (Reported) APPLY TO AFFCETED AREAS Allergies Coded Allergies: No Known Allergies (Verified , 01/26/03) ARJUN MOREL MD Jul 28, 2020 07:47
[2020-07-28] MEDS: PANTOPRAZOLE 40MG TAB (PROTONIX) PO SCH (08:02)
[2020-07-28] MEDS: SERTRALINE 100 MG TAB PO SCH (08:02)
[2020-07-28] MEDS: TAMSULOSIN 0.4 MG CAP PO SCH (08:02)
[2020-07-28] MEDS: ASPIRIN 81 MG ENTERIC TAB PO SCH (08:02)
[2020-07-28] MEDS: SINEMET 25-100 MG TAB PO SCH (08:02)
[2020-07-28] MEDS: ARIPiprazole 10 MG TAB PO SCH (08:03)
[2020-07-28] MEDS: ENOXAPARIN 80MG/0.8ML SYRINGE (J1650 PER 10MG) SC SCH (08:03)
[2020-07-28 08:11] LABS: INR 1.2; PROTHROMBIN TIME 15.5 SECONDS (12.5-14.3)
[2020-07-28 08:12] LABS: PARTIAL THROMBOPLASTIN TIME 34.9 SECONDS (24.2-38.5)
[2020-07-28 08:15] LABS: ALBUMIN 2.6 GM/DL (3.2-5.2); BILIRUBIN,DIRECT 0.1 MG/DL (0.0-0.2); BILIRUBIN,TOTAL 0.5 MG/DL (0.2-1.0); C REACTIVE PROTEIN QUANTITATIV 0.91 MG/DL (0.00-0.30); CALCIUM LEVEL 8.6 MG/DL (8.8-10.2); CREATININE FOR GFR 1.48 MG/DL (0.55-1.30); GLOMERULAR FILTRATION RATE 35.4 (>32); MAGNESIUM LEVEL 2.1 MG/DL (1.8-2.4); POTASSIUM SERUM 4.7 MEQ/L (3.5-5.1); TOTAL PROTEIN 5.6 GM/DL (6.4-8.2)
[2020-07-28 08:16] LABS: D-DIMER QUANT 305.13 ng/ml (<500)
== END 2020-07-28 13:54 | DRG 177 ==
LOC: M ED 12:17 → M ED INP 17:02 → ENRESERV 19:20 → M 4MAIN 19:48 → M ICU 07-18 14:05 → M 4MAIN 07-22 23:37
PROVIDERS: ADMIT Internal Medicine; ATTEND Internal Medicine
DX: U07.1 COVID-19 (principal); I26.99 Other pulmonary embolism without acute cor pulmonale; J96.01 Acute respiratory failure with hypoxia; J44.0 Chronic obstructive pulmonary disease with (acute) lower respiratory infection; N17.9 Acute kidney failure, unspecified; N18.30 Chronic kidney disease, stage 3 unspecified; E03.9 Hypothyroidism, unspecified; I12.9 Hypertensive chronic kidney disease with stage 1 through stage 4 chronic kidney disease, or unspecified chronic kidney disease; E78.00 Pure hypercholesterolemia, unspecified; M81.0 Age-related osteoporosis without current pathological fracture; F32.9 Major depressive disorder, single episode, unspecified; Z79.82 Long term (current) use of aspirin; Z79.899 Other long term (current) drug therapy; E87.5 Hyperkalemia; R31.9 Hematuria, unspecified; G20 Parkinson's disease

== ENCOUNTER → 2020-08-23 | Outpatient (REF) ==
[~2020-08-23] MED LIST changes: +ACET650T15 PO; +DICL1GEL3 TOP; +FLOM0.4C39 PO; +MAGN1TAB39 PO; +OMEG10002 PO
[2020-08-23 21:29] LABS: APPEARANCE, URINE CLEAR (CLEAR); BACTERIA, URINE AUTO NEGATIVE (NEGATIVE); BILIRUBIN, URINE AUTO NEGATIVE (NEGATIVE); BLOOD, URINE BLOOD NEGATIVE (NEGATIVE); COLOR, URINE COLORLESS (YELLOW); GLUCOSE, URINE (UA) AUTO NEGATIVE (NEGATIVE); KETONE, URINE AUTO NEGATIVE (NEGATIVE); LEUKOCYTE ESTERASE, URINE AUTO NEGATIVE (NEGATIVE); NITRITE, URINE AUTO NEGATIVE (NEGATIVE); PROTEIN, URINE AUTO NEGATIVE (NEGATIVE); RBC, URINE AUTO 0 /HPF (0-3); SQUAMOUS EPITHELIAL CELL UR AU 0 /HPF (0-6); UROBILINOGEN, URINE AUTO 0.2 mg/dL (0.0-2.0); WBC, URINE AUTO 0 /HPF (0-3)
== END ==
PROVIDERS: ATTEND Internal Medicine
DX: R31.9 Hematuria, unspecified (principal)

== ENCOUNTER → 2020-08-24 | Outpatient (REF) | PROVIDERS: ATTEND Internal Medicine | DX: K92.2 Gastrointestinal hemorrhage, unspecified (principal) ==

== ENCOUNTER → 2020-08-24 | Outpatient (REF) ==
[2020-08-24 08:37] LABS: HEMOGLOBIN 9.2 g/dl (12.0-15.5); MEAN CORPUSCULAR HGB CONC 30.7 g/dl (32.0-36.5); PLATELET COUNT, AUTOMATED 260 10^3/uL (150-450); RED BLOOD COUNT 2.97 10^6/uL (4.00-5.40); WHITE BLOOD COUNT 7.1 10^3/uL (4.0-10.0)
[2020-08-24 08:57] LABS: CALCIUM LEVEL 8.7 MG/DL (8.8-10.2); CREATININE FOR GFR 1.59 MG/DL (0.55-1.30); GLOMERULAR FILTRATION RATE 32.5 (>32); POTASSIUM SERUM 4.7 MEQ/L (3.5-5.1)
== END ==
PROVIDERS: ATTEND Internal Medicine
DX: R31.9 Hematuria, unspecified (principal)

== ENCOUNTER → 2020-08-25 | Outpatient (REF) | PROVIDERS: ATTEND Internal Medicine | DX: Z20.822 Contact with and (suspected) exposure to COVID-19 (principal) ==

== ENCOUNTER → 2020-09-01 | Outpatient (REF) | payer MEDICAID, MEDICARE, OTHER ==
[2020-09-01 09:39] LABS: HEMATOCRIT 31.7 % (36.0-47.0); HEMOGLOBIN 9.9 g/dl (12.0-15.5); MEAN CORPUSCULAR HEMOGLOBIN 31.7 pg (27.0-33.0); MEAN CORPUSCULAR HGB CONC 31.2 g/dl (32.0-36.5); MEAN CORPUSCULAR VOLUME 101.6 fl (80.0-96.0); PLATELET COUNT, AUTOMATED 304 10^3/uL (150-450); RED BLOOD COUNT 3.12 10^6/uL (4.00-5.40)
[2020-09-01 10:23] LABS: CALCIUM LEVEL 9.4 MG/DL (8.8-10.2); CREATININE FOR GFR 1.48 MG/DL (0.55-1.30); GLOMERULAR FILTRATION RATE 35.4 (>32); POTASSIUM SERUM 4.2 MEQ/L (3.5-5.1)
== END ==
PROVIDERS: ATTEND Internal Medicine
DX: Z20.822 Contact with and (suspected) exposure to COVID-19 (principal)

== ENCOUNTER → 2020-09-07 | Outpatient (REF) ==
[2020-09-07 11:27] LABS: HEMATOCRIT 32.3 % (36.0-47.0); MEAN CORPUSCULAR HEMOGLOBIN 30.9 pg (27.0-33.0); MEAN CORPUSCULAR VOLUME 99.7 fl (80.0-96.0); PLATELET COUNT, AUTOMATED 301 10^3/uL (150-450); RED BLOOD COUNT 3.24 10^6/uL (4.00-5.40); WHITE BLOOD COUNT 8.3 10^3/uL (4.0-10.0)
[2020-09-07 12:03] LABS: CALCIUM LEVEL 10.9 MG/DL (8.8-10.2); CREATININE FOR GFR 1.71 MG/DL (0.55-1.30); GLOMERULAR FILTRATION RATE 29.9 (>32); POTASSIUM SERUM 3.9 MEQ/L (3.5-5.1)
== END ==
PROVIDERS: ATTEND Internal Medicine
DX: K92.2 Gastrointestinal hemorrhage, unspecified (principal)

== ENCOUNTER → 2020-09-08 | Outpatient (REF) ==
[2020-09-08 11:51] LABS: CALCIUM LEVEL 10.6 MG/DL (8.8-10.2); CREATININE FOR GFR 1.73 MG/DL (0.55-1.30); GLOMERULAR FILTRATION RATE 29.5 (>32); POTASSIUM SERUM 3.9 MEQ/L (3.5-5.1)
== END ==
PROVIDERS: ATTEND Internal Medicine
DX: N18.30 Chronic kidney disease, stage 3 unspecified (principal)

== ENCOUNTER → 2020-09-08 | Outpatient (REF) | PROVIDERS: ATTEND Internal Medicine | DX: Z20.822 Contact with and (suspected) exposure to COVID-19 (principal) ==

== ENCOUNTER → 2020-09-09 | Outpatient (CLI) | payer MEDICARE, OTHER, MEDICAID ==
[~2020-09-09] MED LIST changes: +ACET-907 PO; +ASPI81CH33 PO; +BISA10SU4 PR; +CARA1TAB6 PO; +ENEMENE PR; +MOM30SS PO; +PANT-23 PO
--- NOTE | 2020-09-09 13:44 | REP ---
INDICATION: CKD IV. COMPARISON: None. TECHNIQUE: Urinary tract sonography. FINDINGS: Vigil catheter is visualized within the empty urinary bladder. Exam quality is inhibited in general by patient body habitus and relative immobility issues.. Renal cortical echogenicity pattern is isoechoic with liver consistent with some degree of medical renal disease. No mass, hydronephrosis, cyst or calculus is seen on either side.. . The right kidney measures 9.0 x 4.4 x 4.9 cm. Left renal dimensions are 8.0 x 3.6 x 4.4 cm. IMPRESSION: Increased renal cortical echogenicity consistent with some degree of medical renal disease. No evidence of hydronephrosis or mass. Exam quality inhibited some degree by patient body habitus and immobility.. <Electronically signed by Steven Cole > 09/09/20 [id number]
== END ==
LOC: M WHC 12:01
PROVIDERS: ATTEND Physician Assistant
DX: N18.4 Chronic kidney disease, stage 4 (severe) (principal)

== ENCOUNTER → 2020-09-09 | Outpatient (REF) ==
[~2020-09-09] MED LIST changes: -ACET-907 PO; -ASPI81CH33 PO; -BISA10SU4 PR; -CARA1TAB6 PO; -ENEMENE PR; -MOM30SS PO; -PANT-23 PO
[2020-09-09 09:57] LABS: CALCIUM LEVEL 9.8 MG/DL (8.8-10.2); CREATININE FOR GFR 1.68 MG/DL (0.55-1.30); GLOMERULAR FILTRATION RATE 30.5 (>32); POTASSIUM SERUM 4.2 MEQ/L (3.5-5.1)
== END ==
PROVIDERS: ATTEND Internal Medicine
DX: N18.9 Chronic kidney disease, unspecified (principal)

== ENCOUNTER → 2020-09-13 | Outpatient (REF) ==
[~2020-09-13] MED LIST changes: +ACET-907 PO; +ASPI81CH33 PO; +BISA10SU4 PR; +ENEMENE PR; +MOM30SS PO; +PANT-23 PO
[2020-09-13 12:19] LABS: CALCIUM LEVEL 10.8 MG/DL (8.8-10.2); CREATININE FOR GFR 2.03 MG/DL (0.55-1.30); GLOMERULAR FILTRATION RATE 24.5 (>32); POTASSIUM SERUM 4.4 MEQ/L (3.5-5.1)
== END ==
PROVIDERS: ATTEND Internal Medicine
DX: N18.9 Chronic kidney disease, unspecified (principal)

== ENCOUNTER 2020-09-14 13:29 | Inpatient (IN) | payer MEDICARE, OTHER, MEDICAID ==
[~2020-09-14 13:29] MED LIST changes: -ACET-907 PO; -ASPI81CH33 PO; -BISA10SU4 PR; -ENEMENE PR; -MOM30SS PO; -PANT-23 PO
--- OUTSIDE RECORDS SUMMARY | 2020-09-14 14:05 | CCD ---
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 This was most recently checked in 10/2019 and was 84 mg/dL. It has been higher in the past. No pharmacotherapy is indicated. 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 She is no longer on Lasix therapy; the latter was added in June 2012 because of edema and because an echocardiogram in December 2011 revealed some diastolic dysfunction and elevated CVP. However, because of the decline in her renal function as of December 2014, she had been taken off daily Lasix unless she develops significant edema or a weight gain. Problem Osteoporosis M81.0 Active 68829104 She had a hip fracture on August 01, 2012 which was surgically repaired. She had been on Actonel since 2012 but apparently is no longer taking that. Her most recent bone density study in September 2016 was unremarkable except for a T score -1.5 in the right femur. Vitamin D level was 28 in 10/2019. Problem Personal history of venous thrombosis and embolism Z86.718 Active 700849547 Postoperative to her hip repair, she was noted to have pulmonary emboli and she was therapeutically anticoagulated for 6 months. She stopped Coumadin in about January 2013. She did take Coumadin again for DVT prophylaxis after her right knee replacement but is off that now. Problem Depression F32.9 Active 402032609 She remains on Zoloft 100 mg daily, and Abilify 10 mg daily (latter started in 2017). Her symptoms are palliated. Problem Dyspnea on exertion R06.09 Active 64598236 Pul monary emboli were identified on a CT scan of her chest after orthopedic surgery in July 2012, and followup CT scans in October and February 2013 demonstrated calcified granulomas. She had stable PFTs as recently as April 2019; she was last seen by her industrial tech instructor in 10/2019. Her industrial tech instructor feels that she probably has mild asthma. She is on Symbicort therapy. I am sure that some of her dyspnea is related to deconditioning. Problem Chronic kidney disease, stage 3 (moderate) N18.3 Active 626427020 Her baseline GFR is in the 30 to 40 range since June 2015. In January 2018 her creatinine had risen to 2.04 with a GFR 25, but it has since improved; her creatinine was 1.41 with a GFR of 33 in May 2019, 1.54 with a GFR of 34 in 10/2019. She had acute kidney injury with mild lactic acidosis in April 2019 and this resolved with hydration. PTH level remains within acceptable as of 10/2019, at 58, without cacitriol. Problem Osteoarthritis M19.90 Active 019323920 Arthrit is is reasonably controlled with glucosamine, fish oil, and scheduled Tylenol, except for left knee pain; she has degenerative arthritis of her left knee which is treated with intermittent cortisone injections. She had her right knee replaced in January 2015 and is really a poor candidate for left knee replacement. She has not required resumption of a nonsteroidal anti-inflammatory drug and I would discourage that she take any nonsteroidals. Problem Glaucoma H40.9 Active 07129220 She is no long er on Lumigan. Problem Pain in left knee M25.562 Active 06683132 This is an ongoing complaint and has been treated by orthopedics. I do not feel she is a candidate for left knee replacement surgery at this time, given her comorbidities. 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 daily. Problem Hypercholesterolemia E78.00 Active 40965579 Li pids are reasonably controlled on her Lipitor and fish oil therapy, when last assessed in January 2019. Problem Uncomplicated asthma, unspecified asthma severity J45.909 Active 187737855 Treated by the industrial tech instructor. Problem Nausea R11.0 Active 937934837 Her complaint of nausea is not associated with any alarm symptoms such as weight loss, vomiting. I do agree that probably anxiety is playing a role. We adjusted her antidepressant therapy as of January 2018. Perhaps her SSRI is playing a role and the dose was reduced; she is encouraged to take her Abilify. Problem Parkinsonism, unspecified Parkinsonism type G20 Active 22793604 She has features of parkinsonism, and is losing mobility, is more unsteady, has more tremors. She was started on low-dose Sinemet therapy in January 2019 and had a dose increase as of May 2019, and again in July 2019 at which time it was recommended she take 25/100, 1-1/2 pills 3 times a day. ALLERGIES No Known Allergies ENCOUNTERS from 1930 to 2020-07-12 Encounter Location Date Provider Diagnosis [address] [address] Jun, [facility] IMMUNIZATIONS Vaccine Route Administration Date Status Influenza (Pharmacy Given) Unknown May 01, 2018 Admin istered Influenza (18 yrs & older) Flublok Unknown Apr 19, 2020 Administered Influenza (High Dose 65 & up) Unknown Apr 26, 2017 Ad ministered Influenza (High Dose 65 & up) Unknown May 09, 2016 Ad ministered Zoster 0.65mL (Zostavax) Unknown Jun 12, 2016 Adminis tered Pneumococcal Adult 0.5mL (Pneumovax 23) Unknown December 28, 1999 Administered Pneumococcal 0.5mL (Prevnar 13) IM Intramuscular Jul 13, 2015 Administered TD Adult 0.5mL (Tetanus) Unknown Jul 08, 2004 Adminis tered Influenza (6mo & up) Fluzone Unknown Apr 15, 2014 Adm inistered SOCIAL HISTORY Tobacco Use: Social History Observation Description Date Details (start date - stop date) Never Smoker Sex Assigned At : Social History Observation Description Sex Assigned At Unknown Audit Question Answer Notes Total Score: 0 Interpretation: Alcohol Education Domestic Violence: Question Answer Notes Status: Sexual Hx: Question Answer Notes Had sex in the last 12 months (vaginal, oral, or anal)? No Have you ever had an STD? No Drug and Alcohol Question Answer Notes Total Score: 0 Interpretation: No problems reported Alcohol Screening: Question Answer Notes Did you have a drink containing alcohol in the past year? No Points 0 Interpretation Negative BMI Care Goal Follow-Up Question Answer Notes Above Normal BMI Follow-Up Weight monitoring Tobacco Use: Question Answer Notes Are you a: never smoker never smoker REASON FOR REFERRAL No Information VITAL SIGNS No information MEDICATIONS Medication SIG (Take, Route, Frequency, Duration) Notes Start Da te End Date Status Sinemet 25-100 MG 1 and 1/2 tablet Orally Thre e times a day at 8AM, 2PM, 8PM for 30 day(s) Jan, Active Nystatin 174033 UNIT/GM 1 application under breasts and abdominal folds Externally Twice a day and as needed for excoriation for 30 days May, Active Nizoral 2 % 5 ml Externally Shampoo hair three times a week for 30 Days Oct, Active Multivitamin Adults 50+ 1 1 tab Orally once daily for 30 Days Active Lipitor 40 MG 1 tablet Orally Once a day for 30 Days Active Nystatin 469934 UNIT/GM 1 application under breasts and abdominal folds Externally Three times a day until healed for 15 days Jul, Active Magnesium Chloride-Calcium 64-112 MG 1 tab Orally once daily for 30 D ays Active Lift Chair as directed DX: M19.90 Daily Use for 365 days 2 Jun, Active Fluconazole 200 MG 1 tablet Orally once daily for 2 days for 2 d ays Jul, Active ProAir HFA 108 (90 Base) MCG/ACT 2 puffs Inhalation ev selina 6 hours as needed for cough Aug, Active Zoloft 100 mg 1 tablet Orally Once a day for 30 Days Active Diovan HCT 160-12.5 MG 1 tablet Orally Once a day for 30 Days Active Rolling Walker 1 with seat and brakes DX: M19 .90, R06.09 Daily use for 99 months Apr, Active Fish Oil 1000 MG 2 capsule Orally Once a day for 30 Days Active Synthroid 112 MCG 1 tablet on an empty stomach in the morning Orally Once a day for 30 Days Active Aspirin 81 MG 1 tablet Orally Once a day for 30 Days Active Diflucan 200 MG 1 tablet Orally monthly for 2 days Feb, Active Symbicort 160-4.5 MCG/ACT 2 puffs Inhalation Twice a day Active Abilify 10 MG 1 tablet Orally Once a day for 30 Days Active PROCEDURES No Information RESULTS No Results REASON FOR VISIT Low O2, COVID + MEDICAL (GENERAL) HISTORY Type Description Date Medical History Hypothyroidism Medical History Hypertension with renal disease Medical History Elevated fasting glucose Medical History Hypercholesterolemia Medical History Personal history of venous thrombosis an d embolism Medical History Osteoporosis Medical History Osteoarthritis Medical History Depression Medical History Chronic kidney disease, stage 3 (moderat e) Medical History Dyspnea on exertion Medical History Glaucoma Medical History Uncomplicated asthma, unspecified asthma severity Surgical History rectovaginal fistula repair 1954 Surgical History MARTY with BSO for fibroids 1975 Surgical History lumbar laminectomy 1992 Surgical History colonoscopy 10/2004 Surgical History right cataract extraction 03/2005 Surgical History left cataract extraction 01/2005 Surgical History ORIF, left hip fracture 07/2012 Surgical History right total knee replacement 01/2015 Hospitalization History for reasons above 02/23/15 Hospitalization History [facility], syncope, kidney injury? 9 Goals Section No Information Health Concerns No Information MEDICAL EQUIPMENT No Information MENTAL STATUS No Information FUNCTIONAL STATUS No Information ASSESSMENTS No Information PLAN OF TREATMENT Medication Medication Name Sig Start Date Stop Date Multivitamin Adults 50+ 1 1 tab Orally once daily for 30 Days Synthroid 112 MCG 1 tablet on an empty stomach in the morning Orally Once a day for 30 Days Zoloft 100 mg 1 tablet Orally Once a day for 30 Days Magnesium Chloride-Calcium 64-112 MG 1 tab Orally once daily for 30 Days Diovan HCT 160-12.5 MG 1 tablet Orally Once a day for 30 Days Lipitor 40 MG 1 tablet Orally Once a day for 30 Days Sinemet 25-100 MG 1 and 1/2 tablet Orally Thre e times a day at 8AM, 2PM, 8PM for 30 day(s) Jan, Fish Oil 1000 MG 2 capsule Orally Once a day for 30 Days Aspirin 81 MG 1 tablet Orally Once a day for 30 Days Nystatin 844147 UNIT/GM 1 application under breasts and abdominal folds Externally Twice a day and as needed for excoriation for 30 days May, Abilify 10 MG 1 tablet Orally Once a day for 30 Days Next Appt Details Provider Name:Magdy Mukherjee, 2020-11-10 02 :30:00 PM, [address] [place], [address], Insurance Providers Payer Name Payer Address Payer Phone Insured Name Patient Relati onship to Insured Coverage Start Date Coverage End Date [facility] [address] [id number] [facility] [id number] PAWEL HOOPER self MEDICARE Part A and B [address] [facility] [id number] PAWEL HOOPER self MEDICAID [facility] [address] [facility] [id number] [phone] PAWEL HOOPER self
--- OUTSIDE RECORDS SUMMARY | 2020-09-14 14:06 | CCD ---
Author Author [facility] Organization [facility] Address Unknown Phone Unavailable Care Team Providers Care Meter Installer Name Role Phone Mike THOMAS MD Unavailable Unavailable Mike THOMAS MD Unavailable Unavailable Mike THOMAS MD Unavailable Unavailable Mike THOMAS MD Unavailable Unavailable Mike THOMAS MD Unavailable Unavailable Mike THOMAS MD Unavailable Unavailable FEDOROW, CHRISTIANO Unavailable Unavailable RAY, LILI Unavailable Unavailable RAY, LILI Unavailable Unavailable RAY, LILI Unavailable Unavailable RAY, LILI Unavailable Unavailable RAY, LILI Unavailable Unavailable RAY, LILI Unavailable Unavailable RAY, LILI Unavailable Unavailable RAY, LILI Unavailable Unavailable RAY, LILI Unavailable Unavailable RAY, LILI Unavailable Unavailable RAY, LILI Unavailable Unavailable RAY, LILI Unavailable Unavailable RAY, LILI Unavailable Unavailable Erich Fernández MD Unavailable Unavailable Erich Fernández MD Unavailable Unavailable Erich Fernández MD Unavailable Unavailable Erich Fernández MD Unavailable Unavailable Erich Fernández MD Unavailable Unavailable Erich Fernández MD Unavailable Unavailable Erich Fernández MD Unavailable Unavailable Erich Fernández MD Unavailable Unavailable Erich Fernández MD Unavailable Unavailable Vaneenenaam, Erich Mcfarland MD Unavailable Unavailable Vaneenenaam, Erich Mcfarland MD Unavailable Unavailable Vaneenenaam, Erich Mcfarland MD Unavailable Unavailable Vaneenenaam, Erich Mcfarland MD Unavailable Unavailable Vaneenenaam, Erich Mcfarland MD Unavailable Unavailable Vaneenenaam, Erich Mcfarland MD Unavailable Unavailable Vaneenenaam, Erich Mcfarland MD Unavailable Unavailable Vaneenenaam, Erich Mcfarland MD Unavailable Unavailable Vaneenenaam, Erich Mcfarland MD Unavailable Unavailable Vaneenenaam, Erich Mcfarland MD Unavailable Unavailable Vaneenenaam, Erich Mcfarland MD Unavailable Unavailable Vaneenenaam, Erich Mcfarland MD Unavailable Unavailable Vaneenenaam, Erich Mcfarland MD Unavailable Unavailable Vaneenenaam, Erich Mcfarland MD Unavailable Unavailable Vaneenenaam, Erich Mcfarland MD Unavailable Unavailable Vaneenenaam, Erich Mcfarland MD Unavailable Unavailable Vaneenenaam, Erich Mcfarland MD Unavailable Unavailable Vaneenenaam, Erich Mcfarland MD Unavailable Unavailable Vaneenenaam, Erich Mcfarland MD Unavailable Unavailable Vaneenenaam, Erich Mcfarland MD Unavailable Unavailable Vaneenenaam, Erich Mcfarland MD Unavailable Unavailable Vaneenenaam, Erich Mcfarland MD Unavailable Unavailable Vaneenenaam, Erich Mcfarland MD Unavailable Unavailable Vaneenenaam, Erich Mcfarland MD Unavailable Unavailable Vaneenenaam, Erich Mcfarland MD Unavailable Unavailable Vaneenenaam, Erich Mcfarland MD Unavailable Unavailable Vaneenenaam, Erich Mcfarland MD Unavailable Unavailable Vaneenenaam, Erich Mcfarland MD Unavailable Unavailable Vaneenenaam, Erich Mcfarland MD Unavailable Unavailable Vaneenenaam, Erich Mcfarland MD Unavailable Unavailable Vaneenenaam, Erich Mcfarland MD Unavailable Unavailable Vaneenenaam, Erich Mcfarland MD Unavailable Unavailable Vaneenenaam, Erich Mcfarland MD Unavailable Unavailable PAM, ANY TEMPLE MEAT CUTTER-R Unavailable Unavailable DR BRIELLE RODRIGUES [facility] Unavailable Unavailable Re-disclosure Warning The records that you are about to access may contain information from federally-assisted alcohol or drug abuse programs. If such information is present, then the following federally mandated warning applies: This information has been disclosed to you from records protected by federal confidentiality rules (42 CFR part 2). The federal rules prohibit you from making any further disclosure of this information unless further disclosure is expressly permitted by the written consent of the person to whom it pertains or as otherwise permitted by 42 CFR part 2. A general authorization for the release of medical or other information is NOT sufficient for this purpose. The Federal rules restrict any use of the information to criminally investigate or prosecute any alcohol or drug abuse patient.The records that you are about to access may contain highly sensitive health information, the redisclosure of which is protected by Article 27-F of the [facility] Public Health law. If you continue you may have access to information: Regarding HIV / AIDS; Provided by facilities licensed or operated by the [facility] Office of Mental Health; or Provided by the [facility] Office for People With Developmental Disabilities. If such information is present, then the following [facility] mandated warning applies: This information has been disclosed to you from confidential records which are protected by state law. State law prohibits you from making any further disclosure of this information without the specific written consent of the person to whom it pertains, or as otherwise permitted by law. Any unauthorized further disclosure in violation of state law may result in a fine or mcfp sentence or both. A general authorization for the release of medical or other information is NOT sufficient authorization for further disc losure. Allergies and Adverse Reactions Type Description Substance Reaction Status Data Source(s ) Miscellaneous allergy No Known Drug Allergies No Known Drug Allergies [facility] Miscellaneous allergy No Known Environmental Allergies No Kn own Environmental Allergies [facility] Miscellaneous allergy No Known Food Allergies No Known Food Allergies [facility] Family History Family Member Name Family Member Gender Family Member Status Date o f Status Description Data Source(s) Unknown Male Problem [facility] ([facility] () Unknown Female Problem MEDENT ([facility]) Unknown Female Problem MEDENT ([facility]) Unknown Female Problem MEDENT ([facility]) Encounters Encounter Providers Location Date Indications Data Source(s ) Outpatient Attender: CHRISTIANO Pitts tter: CHRISTIANO Partidaerrer: ANY OROZCO TEMPLE MEAT CUTTER-RConsultant: LILI PLATA 08/13/2020 04:43:00 PM EST - 08/13/2020 05:43:00 PM EST Consultation [facility] Consultation Patient discharged. Inpatient Attender: DR WILMER Gamboa er: DR GUILLEN TRANReferrer: DR GUILLEN TRANConsultant: DR GUILLEN TRANConsultant: LILI PLATA [id number] 07/23 01:56:00 PM EST - 08/18/2020 01:25:00 PM EST SWING BED [facility] SWING BED Patient discharged. Inpatient Attender: DR WILMER RODRIGUESAdmcaden er: DR GUILLEN TRANReferrer: DR GUILLEN TRANConsultant: LILI PLATA [id number] 08/06/2020 03:02:00 PM EST - 08/09/2020 02:07:00 PM EST GI BLEED [facility] GI BLEED Patient discharged. Inpatient Attender: DR WILMER Randolph er: JUANJO THOAMS MDAdmitter: DR GUILLEN TRANReferrer: DR GUILLEN TRANConsultant: LILI PLATA [id number] 2020 03:17:00 PM EST - 08/06/2020 03:00:00 PM EST SWING BED [facility] SWING BED Patient discharged. Unknown [address] [facility] [address] 07/09/2020 12:00:00 AM EST eCW1 ([facility]) Unknown [address] [facility] [place] [address] 06/28/2020 12:00:00 AM EST eCW1 ([facility]) Unknown [address] [facility] [place] [address] 05/31/2020 12:00:00 AM EST eCW1 ([facility]) Unknown [address] [facility] [address] 05/31/2020 12:00:00 AM EST eCW1 ([facility]) Outpatient [address] [facility] [place] [address] 05/10/2020 12:00:00 AM EDT eCW1 ([facility]) Outpatient Attender: Erich Fernández MD Physical Therap y 05/07/2020 02:00:00 PM EDT MEDENT ([facility]) Unknown [address] [facility] [place] [address] 04/26/2020 12:00:00 AM EDT eCW1 ([facility]) [facility] [place] [address] [facility] [place] [address] 02/24/2020 12:00:00 AM EDT eCW1 ([facility]) [facility] [address] [facility] [address] 12/18/2019 12:00:00 AM EDT eCW1 ([facility]) [facility] [address] [place] [address], [place] [address] 11/14/2019 12:00:00 AM EDT eCW1 ([facility]) [facility] [address] [place] [address], [place] [address] 11/12/2019 12:00:00 AM EDT eCW1 ([facility]) [facility] [address] [place] [address], [place] [address] 08/06/2019 12:00:00 AM EST eCW1 ([facility]) [facility] [address] [place] [address], [place] [address] 07/30/2019 12:00:00 AM EST eCW1 ([facility]) [address] [address] 07/30/2019 12:00:00 AM EST eCW1 ([facility]) Immunizations Vaccine Date Status Description Data Source(s) INFLUENZA VIRUS VACCINE QUADRIVAL SPLIT 2019-(65 YR UP)/PF 05/06/2020 12:00:00 AM EDT completed [facility] influenza, recombinant, quadrIvalent,injectable, prese rvative free 04/19/2020 04:04:00 PM EDT completed eCW1 ([facility]) influenza, recombinant, quadrIvalent,injectable, prese rvative free 04/19/2020 04:04:00 PM EDT completed eCW1 ([facility]) influenza, recombinant, quadrIvalent,injectable, prese rvative free 04/19/2020 04:04:00 PM EDT completed eCW1 ([facility]) influenza, recombinant, quadrIvalent,injectable, prese rvative free 04/19/2020 04:04:00 PM EDT completed eCW1 ([facility]) influenza, recombinant, quadrIvalent,injectable, prese rvative free 04/19/2020 04:04:00 PM EDT completed eCW1 ([facility]) Medications Medication Brand Name Start Date Product Form Dose Route Admi nistrative Instructions Pharmacy Instructions Status Indications Reaction Description Data Source(s) Nystatin 100 UNT/MG Topical Powder Nystatin 675196 UNI T/GM Nystatin 916837 UNIT/GM 05/31/2020 12:00:00 AM EST active Nystatin 973073 UNIT/GM eCW1 ([facility]) Nystatin 100 UNT/MG Topical Powder Nystatin 615494 UNI T/GM Nystatin 075761 UNIT/GM 05/31/2020 12:00:00 AM EST active Nystatin 797187 UNIT/GM eCW1 ([facility]) Nystatin 100 UNT/MG Topical Powder Nystatin 301317 UNI T/GM Nystatin 919507 UNIT/GM 05/31/2020 12:00:00 AM EST active Nystatin 027233 UNIT/GM eCW1 ([facility]) Nystatin 100 UNT/MG Topical Powder Nystatin 167701 UNI T/GM Nystatin 613873 UNIT/GM 05/31/2020 12:00:00 AM EST active Nystatin 734695 UNIT/GM eCW1 ([facility]) 200 mg 03/30/2020 12:00:00 AM EDT tablet 5 TAKE ONE TABLET BY MOUTH EVERY DAY FOR 5 DAYS TAKE ONE TABLET BY MOUTH EVERY DAY FOR 5 DAYS SOLD: 03/30/2020 [facility] Nizoral 2 % UNK 11/14/2019 12:00:00 AM EDT 5.0 {ml} active Nizoral 2 % eCW1 ([facility]) Nizoral 2 % UNK 11/14/2019 12:00:00 AM EDT 5.0 {ml} active Nizoral 2 % eCW1 ([facility]) Nizoral 2 % UNK 11/14/2019 12:00:00 AM EDT 5.0 {ml} active Nizoral 2 % eCW1 ([facility]) Nizoral 2 % UNK 11/14/2019 12:00:00 AM EDT 5.0 {ml} active Nizoral 2 % eCW1 ([facility]) Nizoral 2 % UNK 11/14/2019 12:00:00 AM EDT 5.0 {ml} active Nizoral 2 % eCW1 ([facility]) Nizoral 2 % UNK 11/14/2019 12:00:00 AM EDT 5.0 {ml} active Nizoral 2 % eCW1 ([facility]) Nystatin 100 UNT/MG Topical Powder Nystatin 994847 UNI T/GM Nystatin 063622 UNIT/GM 08/06/2019 12:00:00 AM EST active Nystatin 753931 UNIT/GM eCW1 ([facility]) Fluconazole 200 MG Oral Tablet Fluconazole 200 MG 08/06/2019 12:00: 00 AM EST 1.0 {tablet} active Fluconazole 200 MG eCW1 ([facility]) Nystatin 100 UNT/MG Topical Powder Nystatin 348101 UNI T/GM Nystatin 766233 UNIT/GM 08/06/2019 12:00:00 AM EST active Nystatin 242998 UNIT/GM eCW1 ([facility]) Fluconazole 200 MG Oral Tablet Fluconazole 200 MG 08/06/2019 12:00: 00 AM EST 1.0 {tablet} active Fluconazole 200 MG eCW1 ([facility]) Fluconazole 200 MG Oral Tablet Fluconazole 200 MG 08/06/2019 12:00: 00 AM EST 1.0 {tablet} active Fluconazole 200 MG eCW1 ([facility]) Nystatin 100 UNT/MG Topical Powder Nystatin 007338 UNI T/GM Nystatin 851205 UNIT/GM 08/06/2019 12:00:00 AM EST active Nystatin 616301 UNIT/GM eCW1 ([facility]) Nystatin 100 UNT/MG Topical Powder Nystatin 379087 UNI T/GM Nystatin 410227 UNIT/GM 08/06/2019 12:00:00 AM EST active 1 application under breasts and abdominal folds eCW1 ([facility]) Nystatin 100 UNT/MG Topical Powder Nystatin 531326 UNI T/GM Nystatin 400432 UNIT/GM 08/06/2019 12:00:00 AM EST active Nystatin 354611 UNIT/GM eCW1 ([facility]) Fluconazole 200 MG Oral Tablet Fluconazole 200 MG 08/06/2019 12:00: 00 AM EST 1.0 {tablet} active Fluconazole 200 MG eCW1 ([facility]) Fluconazole 200 MG Oral Tablet Fluconazole 200 MG 08/06/2019 12:00: 00 AM EST 1.0 {tablet} active Fluconazole 200 MG eCW1 ([facility]) Nystatin 100 UNT/MG Topical Powder Nystatin 886178 UNI T/GM Nystatin 852286 UNIT/GM 08/06/2019 12:00:00 AM EST active Nystatin 922985 UNIT/GM eCW1 ([facility]) Fluconazole 200 MG Oral Tablet Fluconazole 200 MG 08/06/2019 12:00: 00 AM EST 1.0 {tablet} active Fluconazole 200 MG eCW1 ([facility]) Fluconazole 200 MG Oral Tablet Fluconazole 200 MG 08/06/2019 12:00: 00 AM EST active 1 tablet eCW1 ([facility]) Fluconazole 200 MG Oral Tablet Fluconazole 200 MG 08/06/2019 12:00: 00 AM EST active 1 tablet eCW1 ([facility]) Nystatin 100 UNT/MG Topical Powder Nystatin 801266 UNI T/GM Nystatin 097139 UNIT/GM 08/06/2019 12:00:00 AM EST active Nystatin 974565 UNIT/GM eCW1 ([facility]) Nystatin 100 UNT/MG Topical Powder Nystatin 082844 UNI T/GM Nystatin 989343 UNIT/GM 08/06/2019 12:00:00 AM EST active 1 application under breasts and abdominal folds eCW1 ([facility]) Polyethylene Glycol 400 4 MG/ML / Propyl sakina glycol 3 MG/ML Ophthalmic Solution [Systane] Systane 0.4-0.3 % Systane 0.4-0.3 % 07/30/2019 12:00:00 AM EST active 1 drop in both eyes eCW1 ([facility]) 160-12.5 mg 03/19/2019 12:00:00 AM EDT tablet 90 TAKE ONE TABLET BY MOUTH EVERY DAY TAKE ONE TABLET BY MOUTH EVERY DAY SOLD: 07/24/2019 [facility] 160-12.5 mg 03/19/2019 12:00:00 AM EDT tablet 90 TAKE ONE TABLET BY MOUTH EVERY DAY TAKE ONE TABLET BY MOUTH EVERY DAY SOLD: 07/18/2019 [facility] Insurance Providers Payer name Policy type / Coverage type Policy ID Covered alliance party ID Covered alliance party's relationship to goldsmith Policy Goldsmith Plan Information EMEDNY [id number] SP [id number] MEDICARE [id number] SP [id number] R [facility] [id number] SP [id number] [employer] [id number] SP [id number] UMR-OP [id number] undefined [id number] MEDICARE -SWING BED [id number] undefined [id number] MEDICARE-OP [id number] undefined [id number] MEDICARE-IP [id number] undefined [id number] EMEDNY [id number] SP [id number] POM[employer] [id number] SP [id number] ANSI-Commercial [id number] ANSI-Medicare Part B [id number] ANSI-Commercial [id number] ANSI-Commercial [id number] ANSI-Commercial [id number] ANSI-Medicare Part B [id number] ANSI-Medicare Part B [id number] ANSI-Commercial [id number] ANSI-Commercial [id number] ANSI-Medicare Part B [id number] ANSI-Commercial [id number] ANSI-Commercial [id number] ANSI-Commercial [id number] ANSI-Commercial [id number] ANSI-Medicare Part B [id number] ANSI-Medicare Part B [id number] ANSI-Commercial [id number] ANSI-Commercial [id number] Umr (pr) Medigap Part B [id number] Self [id number] Medicare [place] Medicare Primary [id number] Self [id number] [place] Medicare Primary [id number] Self [id number] Umr Commercial [id number] Self [id number] [place] Medigap Part B [id number] Self [id number] Umr (pr) Medigap Part B [id number] Self [id number] Medicare [place] Primary [id number] Self [id number] ANSI-Medicare Part B [id number] ANSI-Commercial [id number] ANSI-Commercial [id number] MEDICARE [id number] SP [id number] A Umr (pr) Medigap Part B [id number] Self [id number] Medicare [place] Medicare Primary [id number] Self [id number] [place]/[facility] Medicare Primary [id number] Self [id number] ANSI-Medicare Part B [id number] ANSI-Commercial [id number] ANSI-Commercial [id number] Umr (pr) Medigap Part B [id number] Self [id number] Medicare [place] Medicare Primary [id number] Self [id number] Umr (pr) Medigap Part B [id number] Self [id number] [place] Primary [id number] Self [id number] [employer]OM[employer] PPO O [id number] S [id number] MEDICARE C [id number] S [id number] A [place] (pr) Medigap Part B [id number] Self [id number] Medicare [place] Primary [id number] Self [id number] [employer] Commercial [id number] Self [id number] Medicare - NGS Medicare Primary [id number] Self [id number] [employer] (pr) Medigap Part B [id number] Self [id number] Medicare [place] Medicare Primary [id number] Self [id number] [place] (pr) Medigap Part B [id number] Self [id number] Medicare [place] Medicare Primary [id number] Self [id number] [place] (pr) Medigap Part B [id number] Self [id number] Medicare [place] Medicare Primary [id number] Self [id number] [employer]OMCO PPO O [id number] S [id number] [place] (pr) Medigap Part B Self [place] Primary Self MEDICARE [id number] SP [id number] A [employer]OMCO [id number] SP [id number] POMCO PPO S [id number] S [id number] A Problems, Conditions, and Diagnoses Code Display Name Description Problem Type Effective Dates Data Source(s) Z78.9 242595002 Medical orders for l mohini-sustaining treatment (MOLST) form in chart Problem 07/30/2019 12:00:00 AM EST eCW1 ([facility]) Z78.9 [id number] Medical orders for l mohini-sustaining treatment (MOLST) form in chart Problem 07/30/2019 12:00:00 AM EST eCW1 ([facility]) F4321 Adjustment disorder with depressed mood Adjustment disorder with depressed mood Diagnosis 08/13/2020 04:43:00 PM EST [facility] R339 Retention of urine, unspecified Retention of urine, un specified Diagnosis 08/09/2020 01:56:00 PM [facility] I10 Essential (primary) hypertension Essential (primary) h ypertension Diagnosis 08/09/2020 01:56:00 PM [facility] E039 Hypothyroidism, unspecified Hypothyroidism, unspecifie d Diagnosis 08/09/2020 01:56:00 PM [facility] N1830 Chronic kidney disease, stage 3 unspecif ied Chronic kidney disease, stage 3 unspecified Diagnosis 08/09/2020 01:56:00 PM [facility] J449 Chronic obstructive pulmonary disease, u nspecified Chronic obstructive pulmonary disease, unspecified Diagnosis 08/09/2020 01:56:00 PM [facility] G20 Parkinson's disease Parkinson's disease Diagnosis 0 08/09/2020 01:56:00 PM [facility] 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) Diagnosis 08/09/2020 01:56:00 PM [facility] Z8616 PERSONAL HISTORY OF COVID-19 PERSONAL HISTORY OF COVID -19 Diagnosis 08/09/2020 01:56:00 PM [facility] R5381 Other malaise Other malaise Diagnosis 08/09/2020 01:56:00 PM [facility] K922 Gastrointestinal hemorrhage, unspecified Gastrointestinal hemorrhage, unspecified Diagnosis 08/09/2020 01:56:00 PM [facility] Z5189 Encounter for other specified aftercare Encounter for other specified aftercare Diagnosis 08/09/2020 01:56:00 PM [facility] R195 Other fecal abnormalities Other fecal abnormalities Di agnosis 07/28/2020 03:17:00 PM [facility] N179 Acute kidney failure, unspecified Acute kidney f ailure, unspecified Diagnosis 07/28/2020 03:17:00 PM [facility] N1831 Chronic kidney disease, stage 3a Chronic kidney disease, stage 3a Diagnosis 07/28/2020 03:17:00 PM [facility] J1281 Pneumonia due to SARS-associated coronav irus Pneumonia due to SARS- associated coronavirus Diagnosis 07/28/2020 03:17:00 PM [facility] Surgeries/Procedures Procedure Description Date Indications Data Source(s) Transfusion of Nonautologous Red Blood C ells into Peripheral Vein, Percutaneous Approach Transfusion of Nonautologous Red Blood C ells into Peripheral Vein, Percutaneous Approach 08/06/2020 12:00:00 AM EST [facility] ARTHROCENTESIS ASPIR&/INJECTION MAJOR JT/BURSA 12:00:00 AM EDT MEDENT ([facility]) Office Visit, Est Pt., Level 4 PC 11/12/2019 12:00:00 AM EDT eCW1 ([facility]) Office Visit, Est Pt., Level 2 FC 11/12/2019 12:00:00 AM EDT eCW1 ([facility]) REMOVE IMPACTED EAR WAX UNI 11/12/2019 12:00:00 AM EDT eCW1 ([facility]) ARTHROCENTESIS ASPIR&/INJECTION MAJOR JT/BURSA 12:00:00 AM EST MEDENT ([facility]) Annual wellness visit, includes a person alized prevention plan of service (pps), subsequent visit 07/30/2019 12:00:00 AM EST eCW 1 ([facility]) Results ID Date Data Source [id number] 09/08/2020 01:00:00 PM EST [facility] Name Value Range Interpretation Code Description Data Sasha rce(s) Supporting Document(s) SARS coronavirus 2 RNA Not Detected [facility] [place] This lab was ordered by [facility] and reported by [facility]. ID Date Data Source [id number] 09/01/2020 01:00:00 PM EST [facility] Name Value Range Interpretation Code Description Data Sasah rce(s) Supporting Document(s) SARS coronavirus 2 RNA Not Detected [facility] [place] This lab was ordered by [facility] and reported by [facility]. ID Date Data Source [id number] 08/25/2020 11:30:00 AM EST [facility] Name Value Range Interpretation Code Description Data Sasha rce(s) Supporting Document(s) SARS coronavirus 2 RNA Not Detected [facility] [place] This lab was ordered by [facility] and reported by [facility]. ID Date Data Source [id number] 08/18/2020 10:01:33 AM EST [facility] Name Value Range Interpretation Code Description Data Sasha rce(s) Supporting Document(s) Discharge Note [facility] QNKOZs9cLaAMSrjpzO0UJBYoOO5xlxg4BDchT8PvTGHoeyLwTWKyK2hxTJXUUSARNCKeiK0iVNFbTkaY vYm tPZHkRJJUcXwGdCpJwK4swqxm1sKW1EQMxIarjFL2FtCc7WILdD5WuEVBtRFOra1MtXw1+OdB1eyFecL l7rC3ZP1XHAAmC71dvSw4oHWQocLsnsSRq8bNWbwqBp3HivgyNSXHgQHGQIVzJEKKYE32LWWUIEtDBOL kewc9zh3IkHa3hPduJ62/ZrfmxtVVb+2f7/Bdxa0RT sAWei6k7zwsIlVjgsmUBAEyZqRZA2kj53dVPxaVXdGyBT3mWOSdVQz5VZrN36vPNpbYqCV+Z06FFOfhx 6wjWc8+Rhiannon+2Qixr7Y4/Haiecvf6/1xuIhTSiuJtSeOnAbVZyjVx57kGOcQWpvALxh7ZFTFCAv2tWu8 [file] n7QGya7aGc0viBc7+BUSINESS OFFICE ASSISTANT/Od79unQVDOmKNznUV7256Lyi/z/dC+3xsd3o3kQBlzVyOfezl7JZuongYZrI [file] I3DAH9VmO8Sj0LNUVjW5o8WAEsLpw+GctihHCjrZtiXPBCVxw9JKADIGZJX0RM ID Date Data Source [id number] 08/16/2020 01:15:00 PM EST [facility] Name Value Range Interpretation Code Description Data Sasha rce(s) Supporting Document(s) RESP PROFILE RP2.1 NASAL PCR [facility] \\BLDo\\RESPIRATORY PROFILE NASAL PHARYNGEAL BY PCR\\BLDx\\ \\BLDo\\DETECTED _NONE \\BLDx\\ 08/16/20.1437.KJV. \\BLDo\\EQUIVOCAL _NONE \\BLDx\\ 08/16/20.1437.KJV. VIRUSES ADENOVIRUS NOT DETECTED NORMAL: NOT DETECTED [facility] CORONAVIRUS 229E NOT DETECTED NORMAL: NOT DETECTED [facility] CORONAVIRUS HKU1 NOT DETECTED NORMAL: NOT DETECTED [facility] CORONAVIRUS NL63 NOT DETECTED NORMAL: NOT DETECTED [facility] CORONAVIRUS OC43 NOT DETECTED NORMAL: NOT DETECTED [facility] [id number] NOT DETECTED NORMAL: NOT DETECTED [facility] REPORT TO DEPARTMENT OF HEAL TH HUMAN METAPNEUMO NOT DETECTED NORMAL: NOT DETECTED [facility] HUMAN RHINO/ENTERO NOT DETECTED NORMAL: NOT DETECTED [facility] NOT DETECTEDNOT DETECTEDNOT DETECTEDNOT DETECTED PARAINFLUENZA V3 NOT DETECTED NORMAL: NOT DETECTED [facility] NOT DETECTED RSV NOT DETECTED NORMAL: NOT DETECTED [facility] BACTERIANOT DET ECTEDNOT DETECTEDNOT DETECTEDNOT DETECTED TESTING PERFORMED USING THE R[employer] People RP2.1 MULTIPLEXED NUCLEIC ACID TEST. THIS TEST HAS NOT BEEN FDA CLEARED OR APPROVED; THIS TEST HAS BEEN AUTHORIZED BY FDA UNDER AN EUA FOR USE BY AUTHORIZED LABORATORIES; THIS TEST HAS BEEN AUTHORIZED ONLY FOR THE DETECTION AND DIFFERENTATION OF NUCLEI ACID OF SARS-CoV-2 FROM MULTIPLE RESPIRATORY VIRAL AND BACTERIAL ORGANIMS; AND THIS TEST IS ONLY AUTHORIZED FOR THE DURATION OF THE DECLARATION THAT CIRCUMSTANCES EXIST JUSTIFYING THE AUTHORIZATION OF EMERGENCY USE OF IN VITRO DIAGNOSTIC TESTS FOR THE DETECTION AND/OR DIAGNOSIS OF COVID-19 UNDER SECTION 564(b)(1) OF THE ACT, 21 U.S.C. 360bbb-3(b) (1), UNLESS THE AUTHORIZATION IS TERMINATED OR REVOKED SOONER. ID Date Data Source [id number] 08/16/2020 06:50:00 AM EST [facility] Name Value Range Interpretation Code Description Data Sasha rce(s) Supporting Document(s) BASIC METABOLIC PANEL [facility] BASIC METABOLIC PANEL Sodium [Moles/volume] in Serum or Plasma 141 mEq/L 136 - 145 [facility] Potassium [Moles/volume] in Serum or Plasma 5.0 mEq/L 3.5 - 5.1 [facility] Chloride [Moles/volume] in Serum or Plasma 106 mEq/L 98 - 107 [facility] Carbon dioxide, total [Moles/volume] in Serum or Plasma 25.2 mEq /L 21.0 - 32.0 [facility] Glucose [Mass/volume] in Serum or Plasma 97 mg/dL 70 - 100 [facility] Urea nitrogen [Mass/volume] in Serum or Plasma 47 mg/dL 7 - 18 Above high normal [facility] CREATININE SERUM 1.95 mg/dL 0.55 - 1.02 Above high normal [facility] AGE 89 yrs [facility] l HEIGHT 64.00 INCHES [facility] ital eGFR NON-AFR AMR 24 [facility] eGFR AFR AMR 29 [facility] ital BUN/CREAT 24 6 - 25 [facility] l Calcium [Mass/volume] in Serum or Plasma 8.6 mg/dL 8.8 - 10.2 Below low normal [facility] ANION GAP 10 7 - 15 [facility] l Estimated GFR reference r lobo: > 60 mL/min/1.73m >18 years: Calculated using IDMS traceable MDRD Study Equation <18 years: Calculated using IDMS traceable Bedside Ridley Equation ID Date Data Source [id number] 08/16/2020 06:50:00 AM EST [facility] Name Value Range Interpretation Code Description Data Sasha rce(s) Supporting Document(s) [facility] Leukocytes [#/volume] in Blood by Automated count 7.6 K/uL 4.0 - 10 .0 [facility] Erythrocytes [#/volume] in Blood by Automated count 2.88 M/uL 4.00 - 5.40 Below low normal [facility] Hemoglobin [Mass/volume] in Blood 9.2 g/dL 12.0 - 15.5 Below low no rmal [facility] Hematocrit [Volume Fraction] of Blood by Automated count 29.5 % 36.0 - 44.5 Below low normal [facility] Erythrocyte mean corpuscular volume [Entitic volume] b y Automated count 102.4 fL 80.0 - 96.0 Above high normal [facility] Erythrocyte mean corpuscular hemoglobin [Entitic mass] by Automated count 31.9 pg 26.0 - 34.0 [facility] Erythrocyte mean corpuscular hemoglobin concentration [Mass/volume] by Automated count 31.2 g/dL 32.0 - 36.0 Below low normal [facility] tammy Erythrocyte distribution width [Ratio] by Automated count 14.4 % 11.6 - 14.8 [facility] Platelets [#/volume] in Blood by Automated count 270 K/uL 150 - 450 [facility] Platelet mean volume [Entitic volume] in Blood by Automated count 9.3 fL 7.1 - 10.4 [facility] Neutrophils [#/volume] in Blood by Automated count 4.99 K/uL 1.70 - 7.70 [facility] Lymphocytes [#/volume] in Blood by Automated count 1.63 K/uL 1.50 - 6.00 [facility] Monocytes [#/volume] in Blood by Automated count 0.65 K/uL 0.00 - 1. 00 [facility] Eosinophils [#/volume] in Blood by Automated count 0.17 K/uL 0.00 - 0.30 [facility] Basophils [#/volume] in Blood by Automated count 0.02 K/uL 0.00 - 0. 10 [facility] 0.12 Urinalysis macro (dipstick) panel - Urine 0.000 10^3/uL 0.000 - 0.012 [facility] Neutrophils/100 leukocytes in Blood by Automated count 65.8 % 42. 2 - 75.2 [facility] Lymphocytes/100 leukocytes in Blood by Automated count 21.5 % 15. 0 - 41.0 [facility] Monocytes/100 leukocytes in Blood by Automated count 8.6 % 0.0 - 12.0 [facility] Eosinophils/100 leukocytes in Blood by Automated count 2.2 % 0.0 - 7.0 [facility] 0.31.60 NRBC 0.0 % [facility] NOT INDICATED [facility] RBC MORPH NOT INDICATED [facility] pital ID Date Data Source [id number] 08/10/2020 08:32:00 PM EST [facility] Name Value Range Interpretation Code Description Data Sasha rce(s) Supporting Document(s) Progress Note [facility] pital ABCVDl4uBeJNAmfwcY5LDWRvGK3tjql1FJwfU9YtCMSpllVnQXDxN2pvWMCXNDPTFMTbvU0jGEGwHrvM vYm pGALiYHUHhNhGkDaHnK0usshw1dDU1COLlCtxqSQ8VaGc7ZNIiP0FhUAMoPZZcr5FkVe3+CpK2jzRgqO y4tJ5FQ1HGBFoA37vkXv1lYLWdgVijbUOh4iTZtgeNt7XyrykAMWLmZWOBCEmRJQPHC15ZHIOOZnMDOF obao2an6UnMv1bBfyD81/ZrfmxtVVb+2f7/Kkfw9BE zYGxr1u1olrQpGhejgMFGRhBuAYK7xo87wXOtqFPaEwPX1pNJUqFEd9BVdQ52zTXnyHjAY+S84TAMewd 6wjWc8+Rhiannon+9Cekn8N9/Haiecvf6/5nbGsUBjsRuPrSiUxGAcjAd03nBFxTOzjHOfv4EZYSHOr7rDz5 [file] l0WPqf8yFv1wsAr0+BUSINESS OFFICE ASSISTANT/Ag69lxZSPIsIWdcAK0005Dkv/z/dC+5rfd1h8fZTzmNqVfaqs0JGsmbtGIcH [file] MDAwMDAgbiAKMDAwMDAwMzcwOSAwMDAwMCBuIAowMD KiFQWlGzP6PDMrIMJyDW0fOoViYYNuCbN3OlKcWAHpKPOywuPNYPBuBGVfFptyTKByCHXeSVAqJQipHD GsKBIfYQafCLAvYQIkEC3mGbDvTHAzNDM9CEruWVFkYLBhuuNYWRFaSQYdKTS6GHPlKVOmHIBtYMnfXH UpHMHlTizcJENyFFKhAU9iHrGkUYEzLfD7FLtaSVHe GVZjjhTFIGWxYRNnIRezRBAkFJKgHIPtOPcjFJIuPSHlKCL0DFCaWHFqDK5uCqQzGEXyYbGfUWdpAECe KNVyzuYCnDRkiDnshfx3GYpcYP2Ar770FQHfIHTSAyOsH0kcXa7jSECrPMPFOGQzUYCsFvxYPNHJWaO3 DMZ2CLN7ECdlB0XgFLYITITHHAX4Dey1AR7wYSEQEs Q1RwU4QeZbQEimPUO4QGSaFdYnB5UyBPI6OrCVVm7XGVXiR1p2VSOaDOe+ZvgijOZigRjfTWNBUrA3Dp ZFUMCFM8FR ID Date Data Source [id number] 08/10/2020 12:07:53 PM EST [facility] Name Value Range Interpretation Code Description Data Sasha rce(s) Supporting Document(s) Admission Note [facility] ULDTXq2aOsRTMlgyrB6CTQHrNI5rehn0CPugC4PkSDTybqYgUALkR2ltVSABSKVPFGYrkD4jQYPrOugB vYm nYKRaEXRQvGzFbJsBjC5eqdjq9eAV1ZXUtKmabNP2QxHn3OXCjS8RuKBOtMBCkn4XoYi8+XpN7pgEasJ q3jN8KN7EUIQwS95wdFf7mHZVhcSjrgJMr5wCEvefIx3CczbePUZOvBSTDPGzYCYXJH88FKDTGBuLDNC ozqy3nr6BpGk8sRmxR00/ZrfmxtVVb+2f7/Grng2NI oRHpb2w7cffTnXktklZEVGlEmXJC2jx49aUBmxKJuKzXT8qELGmIVh5JHyI70yJKbfQnGI+K85GXVvys 6wjWc8+Rhiannon+9Jrlv6W4/Haiecvf6/1qoToBWcqSxNgQkJtFOicWp13eVMtPFnyFDhl8ERUFAWh8xGp9 [file] c7IRpv1eHp3hmTr9+BUSINESS OFFICE ASSISTANT/Zu86ovQVWCiKLztLT0303Uiz/z/dC+9whb5c0vFVfvOqYoeex8IPaenkDWlC [file] AwMDAgbiAKMDAwMDAwMjcwMiAwMDAwMCBuIAowMDAw LJNmEaPdOTSbSHLrKI5sPbPsZPRpHRS0IOIgQCHzYTCglaQFFYZbVECgHxiaGTCbVNTjRTCiAThwHXMw ULZyWPW2THJsBTIpNT6uClHhETFhZsH3NDCeMYZvZBDvdeFMKQQuRIApAgpgPXWkWTPwCDKhCQxbWWDx XFTvCPrrVPUgSYJtBW2gDtWlEYYkBYB6TOneNIIgUP WhfuELYYBvGOFvZYQ7KZKqCSGsLXYqTMdwIXLoHZVsFobzLUMpITYlRJ2hTdArFVRxFtIbNJIsSVFyIC VaipINHGIsTWDhJCCiXAFjGXEgAXWuSWccBMByUVUeMcT6ANJvKYYsOR1pPmNlTEZrXnZqLZDpAYRxMD AgbiAKMDAwMDAyNjYwMyAwMDAwMCBuIAowMDAwMDI0 OJE6NMKbSUUsQH2vCjVjTUCbZwM3VRQcKRKgWCWjwcWSKEImSYYpPVL2EdYlKJKlNIDkSVvhTJGiNWE1 Tdt3JOGrIZLxLP2tVcJbIQCzDuubSvZxNSGzEHHteqZHCKSeHRYdWFd4IBUaZXQvFGFnCIvaKGTjNBC0 Enr0MNWsKQYyKW0yNxWzUGAjYiV8KbnvAQAiGOMbtj ZKDPAzDGMkNNT5FoTcFLEfSBVjXAipYGQiDCBlZey8KDYxZCQkGT6kOxRzSCFgCbQ2DYUfXOKsBQDthb XBfTRxcDswong2LOecJD0Gl530MNTjPNNXReTnF3rsTp7xHDFvWQNBJSEcBPHjPcyDPqR6HJQtXdwQII XBQJBiRhF3OGNPATcNXLJyKZONCM8yBNPRGoPIHKM1 T4NOB8GQFKBOCEnfAuY6BGQkVVYmNLGGAi9DJJBbI0g5VIVjMux+DhtklCSubTlyGUXUTvA0YtNARWLS T0YK ID Date Data Source [id number] 08/10/2020 11:35:00 AM EST [facility] Name Value Range Interpretation Code Description Data Sasha rce(s) Supporting Document(s) SARS coronavirus 2 RNA Not Detected [facility] This lab was ordered by [facility] and reported by [facility]. ID Date Data Source [id number] 08/10/2020 11:35:00 AM EST [facility] Name Value Range Interpretation Code Description Data Sasha rce(s) Supporting Document(s) [facility] _S[facility] CoV2 WJX_MEGZ-BdM-2, NAAReport ed: 08/11/2020 20:05 Status=F RESULT FLAG RANGE UNITS SC --SARS-CoV-2, AZRA Not Detected Not Detected [facility] 08/11/20.2005.rfl.COMPLETE.LCTRThis nucleic acid amplification test was developed and its performancecharacteristics determined by [employer]. Nucleic acidamplification tests include RT-PCR and TMA. This test has not beenFDA cleared or approved. This test has been authorized by FDA underan Emergency Use Authorization (EUA). This test is only authorizedfor the duration of time the declaration that circumstances existjustifying the authorization of the emergency use of in vitrodiagnostic tests for detection of SARS-CoV-2 virus and/or diagnosisof COVID-19 infection under section 564(b)(1) of the Act, 21 U.S.C.360bbb-3(b) (1), unless the authorization is terminated or revokedsooner.When diagnostic testing is negative, the possibility of a falsenegative result should be considered in the context of a patient'srecent exposures and the presence of clinical signs and symptomsconsistent with COVID- 19. An individual without symptoms of COVID-19and who is not shedding SARS-CoV-2 virus would expect to have anegative (not detected) result in this assay.NO MATCH FOUND IN SITE CODE REF TABLE FOR [employer] ID Date Data Source [id number] 08/09/2020 01:05:53 PM EST [facility] Name Value Range Interpretation Code Description Data Sasha rce(s) Supporting Document(s) Discharge Note [facility] spital HKDMNk6zAmCALhhjrM5VZHMfQB9quks7ADreS8XzRDPsqtJdUXQpI2znZBJINCJRXZClnQ6uGPBuBtrM vYm eSKCuXTYVnVxBfGhKhF5xpzdi3iNX1UWIuCoceQF9RlJg5FBXdB6MtIIZkISFan3SwEp9+JtV8lmOopH i0dK7UW5DEXNoB17qpMg4qTHJviHsplWAv0oCBvplNd0JgqzuSRNVgDXDZAMsWPQQIW37WFZDCPfRKVP egrp8sh7GhCl9nWlkY15/ZrfmxtVVb+2f7/Zwlw3TV xNVjz6q4fpsTtFvdwlSJFXgEgPAO6jx29qEEtpUBuCzZN3xNDWiGVc3WSbJ41zSKomKtPB+H29RAJaqn 6wjWc8+Rhiannon+7Oaoz2M4/Haiecvf6/5zaKfIEcxIeWfQsYlJRmqJb38gLPjHQxwIGql3RRFXVGj9wRi6 [file] r2UQyx7qAp9hcIb8+BUSINESS OFFICE ASSISTANT/Xx75jlYNROrVYigFP2701Har/z/dC+1tuw1h4sKUanUxGgyqv3ZDxrxgIChC [file] NjEgMDAwMDAgbiAKMDAwMDAwMDAxNSAwMDAwMCBuIA xuFVHiBBVyWVK8YWMhWHVzKB7kArSiQRYzGIO0TBYmVCFrJDBrgrWXIMGtHZZpGtftKqWkBJUiFPAnMV eiQWBnXFYcOeA3AUEdTHKoUT4fWwHiZZRiRKY2BVelNNZfIIUvviESXPPcSVVrEDjkHzDbDLVpZVIoUR zhLVPaNVU1ASG5JJZpVEKsWK4qMbVpZRGzYKV4Inxr RLDjASXfsjYJTQAyNSEaUxj8FCZlZJZqAXNlRNtsIZEgIQCtBAd6CGFyOARdHT9dUrRsTPNbIqEtHVxa GRBdQIOjkoHIMWVqWZEuYOV8BTRfVDYyPJKbDElvDIPuUOHiAroiCZGzFVBgWM4tMhYoFKHfLtP7DqHl MDAwMDAgbiAKMDAwMDAyMTkwNSAwMDAwMCBuIAowMD GwAVU8XQY1DMGyDVSlCU1wXgNcCVKbRjK7NQtkGKHsNAXdmnOLTTOtLMHdYDfoVDUkCCMfSJBdVHiiHR VbGHN5KRI9VQGeUSMwQY7kEeIqVZUlYwwiLIOmQGJrBZHoguDWUSAeTZGzVeW5NeNaOYYdWGAlFTeaPD EhCBM4MbH3XTPsPFRuMP0fZeDhEQpfLAZAWAuAOQSr Ne8uxLEtCITkTuyrDN2UoxOoRNKqWVTPYtTuT7kAXFc0SZjUO4IXJcN8QWDQTrIvWRQ8TDXGMzHfPxAW QkYxQzA+RIayRZL6UHBYKkg6JMD2MQN5AfKCKRSNGzMWOXJPLoDGWB7pUdNmO5GaqoWxQbdPRm9Jt5Lh osQ4fwCqRwH3IJI0LsHvZL5YUe== ID Date Data Source [id number] 08/09/2020 08:00:00 AM EST [facility] Name Value Range Interpretation Code Description Data Sasha rce(s) Supporting Document(s) BASIC METABOLIC PANEL [facility] BASIC METABOLIC PANEL Sodium [Moles/volume] in Serum or Plasma 142 mEq/L 136 - 145 [facility] Potassium [Moles/volume] in Serum or Plasma 4.8 mEq/L 3.5 - 5.1 [facility] Chloride [Moles/volume] in Serum or Plasma 107 mEq/L 98 - 107 [facility] Carbon dioxide, total [Moles/volume] in Serum or Plasma 25.1 mEq /L 21.0 - 32.0 [facility] Glucose [Mass/volume] in Serum or Plasma 94 mg/dL 70 - 100 [facility] Urea nitrogen [Mass/volume] in Serum or Plasma 47 mg/dL 7 - 18 Above high normal [facility] CREATININE SERUM 1.62 mg/dL 0.55 - 1.02 Above high normal [facility] AGE 89 yrs [facility] l HEIGHT 64.00 INCHES [facility] ital eGFR NON-AFR AMR 30 [facility] eGFR AFR AMR 36 [facility] ital BUN/CREAT 29 6 - 25 Above high normal [facility] Calcium [Mass/volume] in Serum or Plasma 9.1 mg/dL 8.8 - 10.2 [facility] ANION GAP 10 7 - 15 [facility] l Estimated GFR reference r lobo: > 60 mL/min/1.73m >18 years: Calculated using IDMS traceable MDRD Study Equation <18 years: Calculated using IDMS traceable Bedside Ridley Equation ID Date Data Source [id number] 08/09/2020 08:00:00 AM EST [facility] Name Value Range Interpretation Code Description Data Sasha rce(s) Supporting Document(s) CBC [facility] l COMPLETE BLOOD COUNT Leukocytes [#/volume] in Blood by Automated count 6.8 K/uL 4.0 - 10 .0 [facility] Erythrocytes [#/volume] in Blood by Automated count 3.40 M/uL 4.00 - 5.40 Below low normal [facility] Hemoglobin [Mass/volume] in Blood 10.9 g/dL 12.0 - 15.5 Below low no rmal [facility] Hematocrit [Volume Fraction] of Blood by Automated count 34.8 % 36.0 - 44.5 Below low normal [facility] Erythrocyte mean corpuscular volume [Entitic volume] b y Automated count 102.4 fL 80.0 - 96.0 Above high normal [facility] Erythrocyte mean corpuscular hemoglobin [Entitic mass] by Automated count 32.1 pg 26.0 - 34.0 [facility] Erythrocyte mean corpuscular hemoglobin concentration [Mass/volume] by Automated count 31.3 g/dL 32.0 - 36.0 [facility] Erythrocyte distribution width [Ratio] by Automated count 15.5 % 11.6 - 14.8 Above high normal [facility] Platelets [#/volume] in Blood by Automated count 260 K/uL 150 - 450 [facility] Platelet mean volume [Entitic volume] in Blood by Automated count 9.1 fL 7.1 - 10.4 [facility] Neutrophils [#/volume] in Blood by Automated count 4.63 K/uL 1.70 - 7.70 [facility] Lymphocytes [#/volume] in Blood by Automated count 1.34 K/uL 1.50 - 6.00 Below low normal [facility] Monocytes [#/volume] in Blood by Automated count 0.64 K/uL 0.00 - 1. 00 [facility] Eosinophils [#/volume] in Blood by Automated count 0.12 K/uL 0.00 - 0.30 [facility] Basophils [#/volume] in Blood by Automated count 0.02 K/uL 0.00 - 0. 10 [facility] 0.07 Urinalysis macro (dipstick) panel - Urine 0.000 10^3/uL 0.000 - 0.012 [facility] Neutrophils/100 leukocytes in Blood by Automated count 67.9 % 42. 2 - 75.2 [facility] Lymphocytes/100 leukocytes in Blood by Automated count 19.6 % 15. 0 - 41.0 [facility] Monocytes/100 leukocytes in Blood by Automated count 9.4 % 0.0 - 12.0 [facility] Eosinophils/100 leukocytes in Blood by Automated count 1.8 % 0.0 - 7.0 [facility] 0.31.00 NRBC 0.0 % [facility] l MANUAL DIFF NOT INDICATED [facility] RBC MORPH NOT INDICATED [facility] ID Date Data Source [id number] 08/09/2020 02:55:00 AM EST [facility] Name Value Range Interpretation Code Description Data Sasha rce(s) Supporting Document(s) OCCULT BLOOD FECES 3 CARDs [facility] OCCULT BLOOD STOOL CARD 1POSITIVE { COLLECTION DATE CARD 2POSITIVE{ COLLECTION DATE CARD 3POSITIVE{ COLLECTION DATE ID Date Data Source [id number] 08/08/2020 06:34:20 PM EST [facility] Name Value Range Interpretation Code Description Data Sasha rce(s) Supporting Document(s) Progress Note [facility] pital OGPYVh5nNvKJVihliL1ODFJtEC3nldn2GJktL3YqRQBfsbVlUKJaK9eeUWYEWHJQLDBmdA2bIHLcLyvB vYm yZPAeYSKKdJdAfQyDlE7ygooi6yMI9XKAgApahMQ7MyNl2NXLpZ6ZnUQDkDBJed5PeNp0+DqY7ieJdeQ w0mO1UC9EYGKiO20mgUf3qVVBwvBfyyIBv0rTVyfzAn7XgwxdOAVNzGKOWHRvOLXMJT97FVLHUIrZUKR ahcn5pb1BpPh5sBfsG43/ZrfmxtVVb+2f7/Cacd3XD rOTwo0v5lweVeUxivcZCZQgEwONV3xx11vONwkNRxJlFR7eVSRpDFc1VFcL87nNYqfRxGU+V29TIYbic 6wjWc8+Rhiannon+3Btsp4G8/Haiecvf6/2tmTnOXvfLvYwFbSwVVeqCw82uWAfMYwoRJei4ZYDFAMc1sWm4 [file] g7GNba3qMu4etVs0+BUSINESS OFFICE ASSISTANT/Qa53ygRUAUxCVqyUE7239Oax/z/dC+4rrf2m8wAGsiJiCitkr5NHtsnuQPnY [file] TXioMP4LuXleSZM8Zv4+EwD3TSO6rIGjOhvnHTQ6FIybGEGOHea= ID Date Data Source [id number] 08/08/2020 08:45:00 AM EST [facility] Name Value Range Interpretation Code Description Data Sasha rce(s) Supporting Document(s) CBC [facility] l COMPLETE BLOOD COUNT Leukocytes [#/volume] in Blood by Automated count 7.2 K/uL 4.0 - 10 .0 [facility] Erythrocytes [#/volume] in Blood by Automated count 3.38 M/uL 4.00 - 5.40 Below low normal [facility] Hemoglobin [Mass/volume] in Blood 10.9 g/dL 12.0 - 15.5 Below low no rmal [facility] Hematocrit [Volume Fraction] of Blood by Automated count 33.9 % 36.0 - 44.5 Below low normal [facility] Erythrocyte mean corpuscular volume [Entitic volume] b y Automated count 100.3 fL 80.0 - 96.0 Above high normal [facility] Erythrocyte mean corpuscular hemoglobin [Entitic mass] by Automated count 32.2 pg 26.0 - 34.0 [facility] Erythrocyte mean corpuscular hemoglobin concentration [Mass/volume] by Automated count 32.2 g/dL 32.0 - 36.0 [facility] Erythrocyte distribution width [Ratio] by Automated count 16.1 % 11.6 - 14.8 Above high normal [facility] Platelets [#/volume] in Blood by Automated count 253 K/uL 150 - 450 [facility] Platelet mean volume [Entitic volume] in Blood by Automated count 9.4 fL 7.1 - 10.4 [facility] Neutrophils [#/volume] in Blood by Automated count 5.16 K/uL 1.70 - 7.70 [facility] Lymphocytes [#/volume] in Blood by Automated count 1.36 K/uL 1.50 - 6.00 Below low normal [facility] Monocytes [#/volume] in Blood by Automated count 0.44 K/uL 0.00 - 1. 00 [facility] Eosinophils [#/volume] in Blood by Automated count 0.13 K/uL 0.00 - 0.30 [facility] Basophils [#/volume] in Blood by Automated count 0.02 K/uL 0.00 - 0. 10 [facility] 0.10 Urinalysis macro (dipstick) panel - Urine 0.000 10^3/uL 0.000 - 0.012 [facility] Neutrophils/100 leukocytes in Blood by Automated count 71.5 % 42. 2 - 75.2 [facility] Lymphocytes/100 leukocytes in Blood by Automated count 18.9 % 15. 0 - 41.0 [facility] Monocytes/100 leukocytes in Blood by Automated count 6.1 % 0.0 - 12.0 [facility] Eosinophils/100 leukocytes in Blood by Automated count 1.8 % 0.0 - 7.0 [facility] 0.31.40 NRBC 0.0 % [facility] MANUAL DIFF NOT INDICATED [facility] RBC MORPH NOT INDICATED [facility] ID Date Data Source [id number] 08/07/2020 06:21:50 PM EST [facility] Name Value Range Interpretation Code Description Data Sasha rce(s) Supporting Document(s) Progress Note [facility] pital GZPDPs5lVwIFIwazdE2KYMKfMJ9muvu5LFpfY7HyVWAxdsKuIIDhU2fyRUQGUIIHLRNwcG8lZVXrLadK vYm rTENeBYYFuDeKwLdLfD9hgtxn7eAW5AUBwEbeeRP3UyHd0DPWnF6JsCLFuPZZcn8IbIj9+IrR7qjIdvF s5gB3AU4IOQZqG95muAb9xGHUuzGbuyMYq0jKMluiKw6YebblPQCQaSTALXDxZHHFTI18RCQHYIhBLIQ ubxh0pk3FeCb2uQicE80/ZrfmxtVVb+2f7/Hznc8PT kQRoz9b0dibVtXtporZRPGwYtIEV1ax85gVZfvMYxLlET2nGHLkGWp2FTfQ57iFXhsBoWZ+U07EUIcuc 6wjWc8+Rhiannon+5Btsq2J4/Haiecvf6/8tnMoBVguQoZySzGnPVdiUb08bYJuJFkmUYby5BZDTRLk1fAr0 [file] q4HWmq6gQo5txUe5+BUSINESS OFFICE ASSISTANT/Jg37ggXFNZxIQtoVF2488Gij/z/dC+4wmk7j0kGWuhMtZvttt4OUvorfEJnK [file] QrJbVA8DEw== ID Date Data Source [id number] 08/07/2020 07:45:00 AM EST [facility] Name Value Range Interpretation Code Description Data Sasha rce(s) Supporting Document(s) BASIC METABOLIC PANEL [facility] BASIC METABOLIC PANEL Sodium [Moles/volume] in Serum or Plasma 140 mEq/L 136 - 145 [facility] Potassium [Moles/volume] in Serum or Plasma 5.0 mEq/L 3.5 - 5.1 [facility] Chloride [Moles/volume] in Serum or Plasma 107 mEq/L 98 - 107 [facility] Carbon dioxide, total [Moles/volume] in Serum or Plasma 22.1 mEq /L 21.0 - 32.0 [facility] Glucose [Mass/volume] in Serum or Plasma 108 mg/dL 70 - 100 Above high normal [facility] Urea nitrogen [Mass/volume] in Serum or Plasma 66 mg/dL 7 - 18 Above upper panic limits [facility] CALLED TO: Chanel EDEN @ [phone] [facility] REP/VERIFIED REPEATED TO CONFIRM [facility] 1.74 mg/dL 0.55 - 1.02 Above high normal [facility] AGE 89 yrs [facility] l HEIGHT 64.00 INCHES [facility] ital eGFR NON-AFR AMR 28 [facility] eGFR AFR AMR 33 [facility] BUN/CREAT 38 6 - 25 Above high normal [facility] Calcium [Mass/volume] in Serum or Plasma 8.6 mg/dL 8.8 - 10.2 Below low normal [facility] ANION GAP 11 7 - 15 [facility] l Estimated GFR reference r lobo: > 60 mL/min/1.73m >18 years: Calculated using IDMS traceable MDRD Study Equation <18 years: Calculated using IDMS traceable Bedside [place] Equation ID Date Data Source [id number] 08/07/2020 07:45:00 AM EST [facility] Name Value Range Interpretation Code Description Data Sasha rce(s) Supporting Document(s) CBC [facility] l COMPLETE BLOOD COUNT Leukocytes [#/volume] in Blood by Automated count 6.9 K/uL 4.0 - 10 .0 [facility] Erythrocytes [#/volume] in Blood by Automated count 2.89 M/uL 4.00 - 5.40 Below low normal [facility] Hemoglobin [Mass/volume] in Blood 9.4 g/dL 12.0 - 15.5 Below low no rmal [facility] Hematocrit [Volume Fraction] of Blood by Automated count 28.6 % 36.0 - 44.5 Below low normal [facility] Erythrocyte mean corpuscular volume [Entitic volume] by Auto mated count 99.0 fL 80.0 - 96.0 Above high normal [facility] Erythrocyte mean corpuscular hemoglobin [Entitic mass] by Automated count 32.5 pg 26.0 - 34.0 [facility] Erythrocyte mean corpuscular hemoglobin concentration [Mass/volume] by Automated count 32.9 g/dL 32.0 - 36.0 [facility] Erythrocyte distribution width [Ratio] by Automated count 17.4 % 11.6 - 14.8 Above high normal [facility] Platelets [#/volume] in Blood by Automated count 226 K/uL 150 - 450 [facility] Platelet mean volume [Entitic volume] in Blood by Automated count 9.5 fL 7.1 - 10.4 [facility] Neutrophils [#/volume] in Blood by Automated count 4.74 K/uL 1.70 - 7.70 [facility] Lymphocytes [#/volume] in Blood by Automated count 1.24 K/uL 1.50 - 6.00 Below low normal [facility] Monocytes [#/volume] in Blood by Automated count 0.66 K/uL 0.00 - 1. 00 [facility] Eosinophils [#/volume] in Blood by Automated count 0.12 K/uL 0.00 - 0.30 [facility] Basophils [#/volume] in Blood by Automated count 0.02 K/uL 0.00 - 0. 10 [facility] 0.15 Urinalysis macro (dipstick) panel - Urine 0.000 10^3/uL 0.000 - 0.012 [facility] Neutrophils/100 leukocytes in Blood by Automated count 68.4 % 42. 2 - 75.2 [facility] Lymphocytes/100 leukocytes in Blood by Automated count 17.9 % 15. 0 - 41.0 [facility] Monocytes/100 leukocytes in Blood by Automated count 9.5 % 0.0 - 12.0 [facility] Eosinophils/100 leukocytes in Blood by Automated count 1.7 % 0.0 - 7.0 [facility] 0.32.20 NR[facility] 0.[facility] % [facility] RBC MORPH NOT INDICATED [facility] ID Date Data Source [id number] 08/06/2020 07:08:46 PM EST [facility] Name Value Range Interpretation Code Description Data Sasha rce(s) Supporting Document(s) Admission Note [facility] AOQECq3yCzUBZxszsA2HQAOzXX8ictx2KShgD7IiQFVwitWeMCOqP2crMQXFBVBGARAwzX2uHUCkGsvS vYm uWCUeZHOGyDjLaSkKuO6nktad0iSX7NVQwCltjFD0OdYj0VQJrA0DmDEYrLLNoh3QgHt9+BaV2gaCpfX i4jX8GD4QECTfP39wkPu0cSRAllIsxlSCx6xLZatlIs6NjlehQYCWhCVCWMQbVZECVD63ETLZLUlSMQP lfib9no5ZfXs0hPkrD60/ZrfmxtVVb+2f7/Wyit9NX nHEok4k1suvUzZosguFBGMxRwATH2ec53eLCgvNExEpWN1dVZCfIYc4VKoX18cZXgtPtWJ+C66AYXzav 6wjWc8+Rhiannon+6Htke2L6/Haiecvf6/4hfXaQRhyJbOvCcPaMCzfDn55sNKyPWhvOUji0FRZTMAr8gPp7 [file] p2OAzy3vMh5egFm0+BUSINESS OFFICE ASSISTANT/Ck84wrYKLNlAZafIZ1182Yyc/z/dC+1zti1r1mUUqdZrYcpgl4UTwthjCNxK [file] NZRLVoPsD1bYECr9Hze6AGXoGxkSBWN3XqMOQUMAS3XKPOLUHGi5HsHkLLE+MVdzOQT6AuERBOF1BUKK JTXcVjKSXVV7R9CCJlNFQDU9Ue0fKgSrU9AqowYqBmoFGc9Va6BwvbI6toGdLeB3QJc7XxIdJF7LSt== ID Date Data Source [id number] 08/06/2020 08:27:00 AM EST [facility] Name Value Range Interpretation Code Description Data Sasha rce(s) Supporting Document(s) OCCULT BLOOD FECES 1 CARD [facility] OCCULT BLOOD STOOL OCCULT BLOOD POSITIVE NORMAL: NEGATIVE Abnormal (appli es to non-numeric results) [facility] { COLLECTION DATE [id number] ID Date Data Source [id number] 08/06/2020 07:00:00 AM EST [facility] Name Value Range Interpretation Code Description Data Sasha rce(s) Supporting Document(s) CBC [facility] l COMPLETE BLOOD COUNT Leukocytes [#/volume] in Blood by Automated count 6.6 K/uL 4.0 - 10 .0 [facility] Erythrocytes [#/volume] in Blood by Automated count 2.06 M/uL 4.00 - 5.40 Below low normal [facility] Hemoglobin [Mass/volume] in Blood 6.9 g/dL 12.0 - 15.5 Below l ower panic limits [facility] NORMA R. REP/VERIFIED 6.9 [facility] ital READ BACK YES [facility] l NORMA R.{ READ BACK: YES Hematocrit [Volume Fraction] of Blood by Automated count 22.2 % 36.0 - 44.5 Below low normal [facility] Erythrocyte mean corpuscular volume [Entitic volume] b y Automated count 107.8 fL 80.0 - 96.0 Above high normal [facility] Erythrocyte mean corpuscular hemoglobin [Entitic mass] by Automated count 33.5 pg 26.0 - 34.0 [facility] Erythrocyte mean corpuscular hemoglobin concentration [Mass/volume] by Automated count 31.1 g/dL 32.0 - 36.0 [facility] Erythrocyte distribution width [Ratio] by Automated count 12.8 % 11.6 - 14.8 [facility] Platelets [#/volume] in Blood by Automated count 225 K/uL 150 - 450 [facility] Platelet mean volume [Entitic volume] in Blood by Automated count 9.7 fL 7.1 - 10.4 [facility] Neutrophils [#/volume] in Blood by Automated count 4.53 K/uL 1.70 - 7.70 [facility] Lymphocytes [#/volume] in Blood by Automated count 1.28 K/uL 1.50 - 6.00 Below low normal [facility] Monocytes [#/volume] in Blood by Automated count 0.60 K/uL 0.00 - 1. 00 [facility] Eosinophils [#/volume] in Blood by Automated count 0.09 K/uL 0.00 - 0.30 [facility] Basophils [#/volume] in Blood by Automated count 0.00 K/uL 0.00 - 0. 10 [facility] 0.10 Urinalysis macro (dipstick) panel - Urine 0.000 10^3/uL 0.000 - 0.012 [facility] Neutrophils/100 leukocytes in Blood by Automated count 68.6 % 42. 2 - 75.2 [facility] Lymphocytes/100 leukocytes in Blood by Automated count 19.4 % 15. 0 - 41.0 [facility] Monocytes/100 leukocytes in Blood by Automated count 9.1 % 0.0 - 12.0 [facility] Eosinophils/100 leukocytes in Blood by Automated count 1.4 % 0.0 - 7.0 [facility] 0.01.50 NRBC 0.0 % [facility] l MANUAL DIFF NOT INDICATED [facility] RBC MORPH NOT INDICATED [facility] ID Date Data Source [id number] 08/06/2020 07:00:00 AM EST [facility] Name Value Range Interpretation Code Description Data Sasha rce(s) Supporting Document(s) BASIC METABOLIC PANEL [facility] BASIC METABOLIC PANEL Sodium [Moles/volume] in Serum or Plasma 138 mEq/L 136 - 145 [facility] Potassium [Moles/volume] in Serum or Plasma 4.7 mEq/L 3.5 - 5.1 [facility] Chloride [Moles/volume] in Serum or Plasma 104 mEq/L 98 - 107 [facility] Carbon dioxide, total [Moles/volume] in Serum or Plasma 21.5 mEq /L 21.0 - 32.0 [facility] Glucose [Mass/volume] in Serum or Plasma 108 mg/dL 70 - 100 Above high normal [facility] Urea nitrogen [Mass/volume] in Serum or Plasma 88 mg/dL 7 - 18 Above upper panic limits [facility] CALLED TO: [facility] 87 [facility] ital READ BACK YES [facility] l CREATININE SERUM 2.13 mg/dL 0.55 - 1.02 Above high normal [facility] AGE 89 yrs [facility] l HEIGHT 64.00 INCHES [facility] ital eGFR NON-AFR AMR 22 [facility] eGFR AFR AMR 26 [facility] ital BUN/CREAT 41 6 - 25 Above high normal [facility] Calcium [Mass/volume] in Serum or Plasma 8.8 mg/dL 8.8 - 10.2 [facility] ANION GAP 13 7 - 15 [facility] l Estimated GFR reference r lobo: > 60 mL/min/1.73m >18 years: Calculated using IDMS traceable MDRD Study Equation <18 years: Calculated using IDMS traceable [facility]side [facility] Equation ID Date Data Source [id number] 08/06/2020 06:50:00 AM EST [facility] Name Value Range Interpretation Code Description Data Sasha rce(s) Supporting Document(s) FOLIC ACID 20.6 ng/mL 8.6 - 58.9 [facility] ital Biotin can interfere with folic ac id results if taken 48 hours prior to specimen collection. ID Date Data Source [id number] 08/06/2020 06:50:00 AM [facility] Name Value Range Interpretation Code Description Data Sasha rce(s) Supporting Document(s) VITAMIN B12 511 pg/mL 193 - 986 [facility] tammy Biotin can interfere with Vitamin B12 results if taken 48 hours prior to specimen collection. Intrinsic Factor blocking antibodies are present in approximately half of pernicious anemia patients. If vitamin B12 test results are in conflict with the clinical diagnosis, the sample can be tested for intrinsic factor blocking antibodies. ID Date Data Source [id number] 08/06/2020 06:50:00 AM EST [facility] Name Value Range Interpretation Code Description Data Sasha rce(s) Supporting Document(s) CROSS MATCH ADDL UNITS [facility] UNIT NUMBER: _[id number] ____ 08/07/20.KJV. TRANSFUSED BY: _P._SANN 08/07/20.KJV. _T._ALLEN 08/07/20.KJV. TRANSFUSION DATE: _08/06/20 08/07/20.KJV. START TIME: 08/07/20.KJV. STOP TIME: _2314 08/07/20.KJV. VOLUME ADMINISTERED: _300mL 08/07/20.KJV. REACTION? _NONE_NOTED 08/07/20.KJV. UNIT ABO TYPE: _O 08/07/20.KJV. UNIT RH: _POSITIVE 08/07/20 .9.KJV. UNIT EXPIRATION: _08/11/20 08/07/20.KJV. COMPATIBILITY: _BY_K._VANBROCKLIN 08/07/20.KJV. PT TRANSFUSED PRBC [facility] pital ID Date Data Source [id number] 08/06/2020 06:50:00 AM EST [facility] Name Value Range Interpretation Code Description Data Sasha rce(s) Supporting Document(s) CROSSMATCH INITIAL [facility] PATIENT ABO TYPE: _O ____ 08/06/20.1135.[facility]. PATIENT RH TYPE: _POSITIVE 08/06/20.[facility]. PATIENT DIRECT ANJEL: _NEGATIVE 08/06/20.[facility]. PATIENT INDIRECT ANJEL: _NEGATIVE 08/06/20.[facility]. UNIT NUMBER: _[id number] 08/06/20.1135.[facility]. TRANSFUSED BY: _P._ROYCE 08/07/20. 3.KJV. _C._CLAK 08/07/20.752.KJV. TRANSFUSION DATE: _08/06/20 08/07/20.752.KJV. START TIME: _1540 08/07/20.752.KJV. STOP TIME: _1845 08/07/20.KJV. VOLUME ADMINISTERED: _280_mL 08/07/20.KJV. REACTION? _NONE_NOTED 08/07/20.KJV. UNIT ABO TYPE: _O 08/06/20.JC. UNIT RH: _POSITIVE 07/23.JC. UNIT EXPIRATION: _[id number] 08/06/20.[facility]. COMPATIBILITY: _BY_J._HALL 08/07/20.752.KJV. PT TRANSFUSED PRBC [facility] pital ID Date Data Source [id number] 08/06/2020 06:50:00 AM EST [facility] Name Value Range Interpretation Code Description Data Sasha rce(s) Supporting Document(s) FERRITIN 294 ng/mL 8 - 252 Above high normal [facility] ID Date Data Source [id number] 08/06/2020 06:50:00 AM EST [facility] Name Value Range Interpretation Code Description Data Sasha rce(s) Supporting Document(s) IRON AND TIBC PROFILE [facility] IRON PROFILE Iron [Mass/volume] in Serum or Plasma 34 ug/mL 50 - 170 Below low normal [facility] Iron binding capacity [Mass/volume] in Serum or Plasma 150 ug/dL 250 - 450 Below low normal [facility] IRON SAT 23 % [facility] ID Date Data Source [id number] 07/31/2020 07:22:20 AM EST [facility] Name Value Range Interpretation Code Description Data Sasha rce(s) Supporting Document(s) Admission Note [facility] Kevin hoff LPYCCr6gUeIDIejlnI3FEUItZR4lnzp6KEoyN6NbPZRzboXaYYDcR5azITCULBWMPFVgsP1hXJWfNdaV vYm hFMAhFLGNiLwSzXyKyJ7pbfhn0fJR9QRPpBzcyNC4WkEg2LXSdE5FtNFVqHTOfv9PdOm8+QlA8thEmmT y7gR6EB0OUJLiO53qoWa1zNZHoeCtcuDZj8iVNkdeAc4XcaqbWYQAuFVHYMXtCFDFND72VJWXVPjDMRJ nlhm4ga3ZuJt6oLtfP51/ZrfmxtVVb+2f7/Xqus3IN zMKvm0f3mafLwVobtcFNEGoQsGHP9fm89sUVuuBExXqBG9lGVPvTXh0OEcP03zLBypVbRQ+C78ISUnma 6wjWc8+Rhiannon+8Dzkb1N3/Haiecvf6/3heEyUNwbLvCoSnOiLRnnWv89hTCcHGkoBNou1LUADFXh5iOe2 [file] d5DGle2jKj7fmCj4+BUSINESS OFFICE ASSISTANT/Kb35rsEYDWzDTwyDW5582Ilv/z/dC+6ain9y6aFDkqMtGnngd8AUvrxrHDlB [file] K1WUZRAIslKOdRCWH5MknuSYR+JTfjAQ9ScPasOSNhYq4+LxH6OGH7yWOyZdetMDE8VWngPDPHSkf= ID Date Data Source [id number] 07/30/2020 02:38:35 PM EST [facility] Name Value Range Interpretation Code Description Data Sasha rce(s) Supporting Document(s) Provider Note [facility] YLXZZq6gTfIUJyphhI6FWRWgJY9ftzr3YCnsD4SwVCBqktWiQMOxT8dlCHJFZMSEKJTiqY6gCLDnPddC vYm yFDPrZPQNhQlAbCsEvN3agats6yQO1OKYkGpndIY1SbJr8OKZrH7VcJWNcPTFxa4NeCy7+UgD8fdPamG f0fL0HV0EQIVaO90kpLn1pFLEtoVorgRZb6mUZbmwEe7UqjfbEJNLjRJCMLYmYGYDFJ60TUAKPLbMEGF lhqv8yz3RkHj1aGioI51/ZrfmxtVVb+2f7/Iaqu9DT aKUzq2k4kksUuAuufrRPDDzAmTRI2co56sLBzhJWfOgKI2yYVFmNPj2ICoY13wJUxyQjUZ+S66BAPwbi 6wjWc8+Rhiannon+6Glap4H9/Haiecvf6/2tpQuBKnzOmBuIpTzQBpmQq93iPZwUZdqQTpv8QOADNCf5uHs1 [file] e9LMuj6lTm6atPf4+BUSINESS OFFICE ASSISTANT/Gr44gdBQXRaPKmoFV5684Lrd/z/dC+7ueb3d5bXElxGjOaqah6ONwpluOGxM [file] OkKATj5Bg5YednN4saYvKyBmJRqbQuAkDA2ZVu== ID Date Data Source [id number] 07/29/2020 06:10:38 PM EST [facility] Name Value Range Interpretation Code Description Data Sasha rce(s) Supporting Document(s) Provider Note [facility] pital XHFJIm6dKiLUIhzovX8DZANbCJ8nppt6HDlzB4WoTKJaujZqWTRbY4axYQDVCRLYPXDsuW0iCHVsVlnA vYm qCMSuOTUCuFaUvXwRlB0agpgr2jZM5SJIrJgyaGB3XaHh0UKPbD4DhYUWsUAZsl0RiCw5+FlM2yzPvtU j1hU4IR1IHWHkX80prLr8xQHTmpKisrVOj8tNItkdXm7TpjitPIRKcPHKVXZcMPJITI58KKCXYTzYOAO mrbv0bt1VyMc3zMecE35/ZrfmxtVVb+2f7/Cwoo7TU yPXbk9u2vviZlRthqwFWJGlZsLIS8fw53bSKqqYUqFrBD5jFDCzTHu9DAvW71xCFuyHvFD+T53TXQurb 6wjWc8+Rhiannon+2Umvg0F7/Haiecvf6/5nqXjKOjiEgBxNjZdELhxJp11uLXnTAidDHgg6SFTFVGf8mKv0 [file] l8TTwr4qSc3kfFh7+BUSINESS OFFICE ASSISTANT/Vw13pgSZZRvLHjwJP4842Yje/z/dC+9hjc7j3oXAegNyZyyni2HLsrqoUAjZ [file] 9Hb9KbulZ0ylEaTwKfTXkrQmQnTS0ILx== ID Date Data Source [id number] 07/29/2020 09:30:00 AM EST [facility] Name Value Range Interpretation Code Description Data Sasha rce(s) Supporting Document(s) URINALYSIS ROUTINE wMICRO RFLX TO CX [facility] URINALYSIS W/REFLEX CULTURE REFERENCE RANGES SOURCE Random [facility] COLOR Yellow Colorless-Ro [facility] ospital CLARITY Clear Normal: Clear [facility] pital LEUK EST Negative Negative - Trace [facility] NITRITE Negative Normal: Negative [facility] UROBILINOGEN Negative Negative - Trace [facility] PROTEIN TRACE Negative - Trace [facility] pH 6.0 5.0 - 8.0 [facility] l BLOOD 3+ Negative - Trace Abnormal (applies to non-numer ic results) [facility] SPEC GRAVITY 1.025 1.000 - 1.030 [facility] KETONE Negative Negative - Trace [facility] BILIRUBIN Negative Normal: Negative [facility] GLUCOSE Negative Normal: Negative [facility] MICROSCOPIC See Below [facility] tammy WBC 3 - 5 None Seen - 5/hpf [facility] RBC 30 - 50 None Seen - 5/hpf Abnormal (applies to non-nume frances results) [facility] EPITHELIAL See Below NORMAL: None Seen [facility] SQUAMOUS EPI MANY/hpf NORMAL: None Seen Abnormal (appl ies to non-numeric results) [facility] CONTAMINATION INDICATED, RE-C OLLECT CLEAN CATCH SAMPLE IF INFECTION SUSPECTED TRANS EPI NONE SEEN NORMAL: None Seen [facility] RENAL EPI NONE SEEN NORMAL: None Seen [facility] BACTERIA NONE SEEN NORMAL: None Seen [facility] MUCOUS NONE SEEN NORMAL: None Seen [facility] CASTS Not Indicated [facility] pital CRYSTALS Not Indicated [facility] pital CULTURE INDICATED? NO Normal: No [facility] ID Date Data Source [id number] 07/28/2020 05:25:00 PM EST [facility] Name Value Range Interpretation Code Description Data Sasha rce(s) Supporting Document(s) SARS RAPID AG Erin [facility] SARS RAPID Ag DESMOND [id number] NEGATIVE NORMAL: NEGATIVE [facility] REPORT TO [facility]PARTMENT OF [facility] LIMITATIONS: 1. Positive test results do not rule out co-infections with other pathogens, or differentiate between SARS-CoV and SARS-CoV-2. If differentiation is needed, consult with local public health dept. 2. Negative test results are not intended to rule in other non-SARS viral or bacterial infections. 3. Negative results, from patients with symptom onset beyond five days, should be treated as presumptive and confirmation with a molecular assay, if necessary for patient management may be performed. 4. This test has not been FDA cleared or approved; the test has been authorized by the FDA under an Emergency Use Authorization (EUA) for use by laboratories certified by CLIA that meet the requirements to perform moderate, high or waived complexity tests, This test is authorized for use at the Point of Care (POC), i.e., in patient care settings under a CLIA Certificate of Waiver, Certificate of Compliance, or Certificate of Accredidation. 5. This test has been authorized only for the detection of proteins from SARS-Co-2, not for any other viruses or pathogens. 6. This test is only authorized for the duration of the declaration that circumstances exist justifying the authorization of emergency use of in vitro diagnostic tests for detection and/or diagnosis of COVID-19 under Section 564(b)(1) of the Act, 21 U.S.C. ? 360bbb-3(b unless the authorization is terminated or revoked sooner. ID Date Data Source [id number] 07/28/2020 04:55:00 PM EST [facility] Name Value Range Interpretation Code Description Data Sasha rce(s) Supporting Document(s) BASIC METABOLIC PANEL [facility] BASIC METABOLIC PANEL Sodium [Moles/volume] in Serum or Plasma 142 mEq/L 136 - 145 [facility] Potassium [Moles/volume] in Serum or Plasma 4.4 mEq/L 3.5 - 5.1 [facility] Chloride [Moles/volume] in Serum or Plasma 109 mEq/L 98 - 107 Above high normal [facility] Carbon dioxide, total [Moles/volume] in Serum or Plasma 24.6 mEq /L 21.0 - 32.0 [facility] Glucose [Mass/volume] in Serum or Plasma 106 mg/dL 70 - 100 Above high normal [facility] Urea nitrogen [Mass/volume] in Serum or Plasma 55 mg/dL 7 - 18 Above upper panic limits [facility] CALLED TO: KANCHAN @ 0[address] [facility] spital REP/VERIFIED REPEATED TO CONFIRM [facility] READ BACK YES [facility] CREATININE SERUM 2.12 mg/dL 0.55 - 1.02 Above high normal [facility] AGE 89 yrs [facility] l eGFR NON-AFR AMR 22 [facility] eGFR AFR AMR 27 [facility] BUN/CREAT 26 6 - 25 Above high normal [facility] Calcium [Mass/volume] in Serum or Plasma 9.1 mg/dL 8.8 - 10.2 [facility] ANION GAP 8 7 - 15 [facility] Estimated GFR reference r lobo: > 60 mL/min/1.73m >18 years: Calculated using IDMS traceable MDRD Study Equation <18 years: Calculated using IDMS traceable [facility]side [place] Equation ID Date Data Source [id number] 07/28/2020 04:55:00 PM EST [facility] Name Value Range Interpretation Code Description Data Sasha rce(s) Supporting Document(s) CBC [facility] l COMPLETE BLOOD COUNT Leukocytes [#/volume] in Blood by Automated count 8.4 K/uL 4.0 - 10 .0 [facility] Erythrocytes [#/volume] in Blood by Automated count 2.83 M/uL 4.00 - 5.40 Below low normal [facility] Hemoglobin [Mass/volume] in Blood 9.5 g/dL 12.0 - 15.5 Below low no rmal [facility] Hematocrit [Volume Fraction] of Blood by Automated count 30.3 % 36.0 - 44.5 Below low normal [facility] Erythrocyte mean corpuscular volume [Entitic volume] b y Automated count 107.1 fL 80.0 - 96.0 Above high normal [facility] Erythrocyte mean corpuscular hemoglobin [Entitic mass] by Automated count 33.6 pg 26.0 - 34.0 [facility] Erythrocyte mean corpuscular hemoglobin concentration [Mass/volume] by Automated count 31.4 g/dL 32.0 - 36.0 Below low [facility] Erythrocyte distribution width [Ratio] by Automated count 12.1 % 11.6 - 14.8 [facility] Platelets [#/volume] in Blood by Automated count 325 K/uL 150 - 450 [facility] Platelet mean volume [Entitic volume] in Blood by Automated count 9.8 fL 7.1 - 10.4 [facility] Neutrophils [#/volume] in Blood by Automated count 6.54 K/uL 1.70 - 7.70 [facility] Lymphocytes [#/volume] in Blood by Automated count 1.21 K/uL 1.50 - 6.00 Below low normal [facility] Monocytes [#/volume] in Blood by Automated count 0.56 K/uL 0.00 - 1. 00 [facility] Eosinophils [#/volume] in Blood by Automated count 0.02 K/uL 0.00 - 0.30 [facility] Basophils [#/volume] in Blood by Automated count 0.01 K/uL 0.00 - 0. 10 [facility] 0.10 Urinalysis macro (dipstick) panel - Urine 0.000 10^3/uL 0.000 - 0.012 [facility] Neutrophils/100 leukocytes in Blood by Automated count 77.6 % 42.2 - 75.2 Above high normal [facility] Lymphocytes/100 leukocytes in Blood by Automated count 14.3 % 15.0 - 41.0 Below low normal [facility] Monocytes/100 leukocytes in Blood by Automated count 6.6 % 0.0 - 12.0 [facility] Eosinophils/100 leukocytes in Blood by Automated count 0.2 % 0.0 - 7.0 [facility] 0.11.20 NRBC 0.0 % [facility] MANUAL DIFF NOT INDICATED [facility] RBC MORPH NOT INDICATED [facility] ID Date Data Source [id number] 07/12/2020 12:59:00 PM EST [facility] Name Value Range Interpretation Code Description Data Sasha rce(s) Supporting Document(s) SARS coronavirus 2 RNA [Presence] in Res piratory specimen by AZRA with probe detection [facility] This lab was ordered by [facility] a nd reported by [facility]. ID Date Data Source [id number] 07/09/2020 12:00:00 AM EST [facility] Name Value Range Interpretation Code Description Data Sasha rce(s) Supporting Document(s) SARS-CoV2 Rapid Antigen [facility] This lab was ordered by [facility] and reported by [facility]. ID Date Data Source [id number] 07/07/2020 11:57:00 AM EST [facility] Name Value Range Interpretation Code Description Data Sasha rce(s) Supporting Document(s) SARS coronavirus 2 RNA [facility] This lab was ordered by [facility] and reported by [facility]. ID Date Data Source [id number] 07/02/2020 02:46:00 PM EST [facility] Name Value Range Interpretation Code Description Data Sasha rce(s) Supporting Document(s) SARS coronavirus 2 RNA [facility] This lab was ordered by [facility] and reported by [facility]. ID Date Data Source [id number] 01/08/2020 12:00:00 AM EDT [facility] Name Value Range Interpretation Code Description Data Sasha rce(s) Supporting Document(s) 2019-nCoV N XXX Ql AZRA N2 [facility] This lab was ordered by [facility] and reported by [facility]. Procedure Social History Code Duration Value Status Description Data Source(s ) Smoking 05/10/2020 12:00:00 AM EDT Never Smoker completed Never S moker eCW1 ([facility]) Smoking 05/10/2020 12:00:00 AM EDT Never Smoker completed Never S moker eCW1 ([facility]) Smoking 05/10/2020 12:00:00 AM EDT Never Smoker completed Never S moker eCW1 ([facility]) Smoking 05/10/2020 12:00:00 AM EDT Never Smoker completed Never S moker eCW1 ([facility]) Smoking 05/10/2020 12:00:00 AM EDT Never Smoker completed Never S moker eCW1 ([facility]) Smoking 11/12/2019 12:00:00 AM EDT Never Smoker completed Never S moker eCW1 ([facility], [facility]) Vital Signs ID Date Data Source UNK Name Value Range Interpretation Code Description Data Source(s) Diastolic blood pressure 60 mm[Hg] 60 mm[Hg] eCW1 ([facility]) Systolic blood pressure 110 mm[Hg] 110 mm[Hg] e CW1 ([facility], [facility]) Body temperature 97.6 [degF] 97.6 [degF] eCW1 ( [facility]) Respiratory rate 20 /min 20 /min eCW1 ([facility]) Heart rate 80 /min 80 /min eCW1 ([facility]) Body mass index (BMI) [Ratio] 31.41 kg/m2 31.41 kg/m2 W1 ([facility]) Body height 64 [in_i] 64 [in_i] eCW1 ([facility]) Body weight 183 [lb_av] 183 [lb_av] eCW1 ([facility]) Diastolic blood pressure 72 mm[Hg] 72 mm[Hg] eCW1 ([facility]) Systolic blood pressure 118 mm[Hg] 118 mm[Hg] e CW1 ([facility]) Body temperature 96.7 [degF] 96.7 [degF] eCW1 ( [facility]) Respiratory rate 18 /min 18 /min eCW1 ([facility]) Heart rate 100 /min 100 /min eCW1 ([facility]) Body mass index (BMI) [Ratio] 30.38 kg/m2 30.38 kg/m2 eCW1 ([facility]) Body height 64 [in_us] 64 [in_us] eCW1 ([facility]) Body weight Measured 177.0 [lb_av] 177.0 [lb_av ] W1 ([facility]) Body weight 77.112 kg 77.112 kg [facility] ([facility]) Body mass index (BMI) [Ratio] 31.1 kg/m2 31.1 k g/m2 [facility] ([facility]) Body weight 170.00 [lb_av] 170.00 [lb_av] MEDEN T ([facility]) Body height 62 [in_i] 62 [in_i] [facility] ([facility]) 5'2" Body temperature 97.8 [degF] 97.8 [degF] [facility] ([facility]) Oxygen saturation in Arterial blood by Pulse oximetry 89 % 89 % [facility] ([facility]) 92 ra Heart rate 90 /min 90 /min [facility] ([facility]) Diastolic blood pressure 70 mm[Hg] 70 mm[Hg] [facility] ([facility]) Systolic blood pressure 118 mm[Hg] 118 mm[Hg] [facility] Diastolic blood pressure 72 mm[Hg] 72 mm[Hg] eCW1 ([facility]) Systolic blood pressure 118 mm[Hg] 118 mm[Hg] e CW1 ([facility]) Body temperature 95.9 [degF] 95.9 [degF] eCW1 ( [facility]) Respiratory rate 18 /min 18 /min eCW1 ([facility]) Heart rate 97 /min 97 /min eCW1 ([facility]) Body mass index (BMI) [Ratio] 28.83 kg/m2 28.83 kg/m2 W1 ([facility]) Body height 64 [in_us] 64 [in_us] eCW1 ([facility]) Body weight Measured 168 [lb_av] 168 [lb_av] eC W1 ([facility]) Patient Treatment Plan of Care Planned Activity Planned Date Details Description Data Source (s) Nystatin 100 UNT/MG Topical Powder 05/31/2020 12:00:00 AM EST eCW1 ([facility]) Nystatin 100 UNT/MG Topical Powder 05/31/2020 12:00:00 AM EST eCW1 ([facility]) Nystatin 100 UNT/MG Topical Powder 05/31/2020 12:00:00 AM EST eCW1 ([facility]) Nystatin 100 UNT/MG Topical Powder 05/31/2020 12:00:00 AM EST eCW1 ([facility]) Nizoral 2 % 11/14/2019 12:00:00 AM EDT e CW1 ([facility]) Nystatin 100 UNT/MG Topical Powder 08/06/2019 12:00:00 AM EST eCW1 ([facility]) Fluconazole 200 MG Oral Tablet 08/06/2019 12:00:00 AM EST eCW1 ([facility]) Polyethylene Glycol 400 4 MG/ML / Propyl sakina glycol 3 MG/ML Ophthalmic Solution [Systane] 07/30/2019 12:00:00 AM EST eCW1 ([facility])
[2020-09-14] MEDS: NS 1,000 ML IV SCH ×2 (14:22→22:28)
[2020-09-14 14:25] LABS: BASO % 0.3 % (0.0-1.0); EOS # 0.2 10^3/uL (0.0-0.5); EOS % 2.9 % (0.0-3.0); HEMATOCRIT 31.3 % (36.0-47.0); HEMOGLOBIN 9.8 g/dl (12.0-15.5); LYMPH # 1.2 10^3/uL (1.5-5.0); LYMPH % 15.4 % (24.0-44.0); MEAN CORPUSCULAR HEMOGLOBIN 31.2 pg (27.0-33.0); MEAN CORPUSCULAR HGB CONC 31.3 g/dl (32.0-36.5); MEAN CORPUSCULAR VOLUME 99.7 fl (80.0-96.0); MONO # 0.5 10^3/uL (0.0-0.8); NEUTROPHILS # 5.6 10^3/uL (1.5-8.5); PLATELET COUNT, AUTOMATED 259 10^3/uL (150-450); RED BLOOD COUNT 3.14 10^6/uL (4.00-5.40); WHITE BLOOD COUNT 7.6 10^3/uL (4.0-10.0)
[2020-09-14 14:37] LABS: INR 1.06
[2020-09-14 14:56] LABS: ALBUMIN 2.6 GM/DL (3.2-5.2); ALT/SGPT 11 U/L (12-78); BILIRUBIN,DIRECT < 0.1 MG/DL (0.0-0.2); BILIRUBIN,TOTAL 0.2 MG/DL (0.2-1.0); BLOOD UREA NITROGEN 133 MG/DL (7-18); CALCIUM LEVEL 10.1 MG/DL (8.8-10.2); CARBON DIOXIDE LEVEL 27 MEQ/L (21-32); CHLORIDE LEVEL 106 MEQ/L (98-107); CREATININE FOR GFR 1.74 MG/DL (0.55-1.30); GLOMERULAR FILTRATION RATE 29.3 (>32); GLUCOSE, FASTING 142 MG/DL (70-100); LIPASE 219 U/L (73-393); PHOSPHORUS LEVEL 3.1 MG/DL (2.5-4.9); POTASSIUM SERUM 4.4 MEQ/L (3.5-5.1); SODIUM LEVEL 141 MEQ/L (136-145); TOTAL PROTEIN 5.8 GM/DL (6.4-8.2)
--- NOTE | 2020-09-14 15:51 | REP ---
INDICATION: Hx of COVID. COMPARISON: Comparison portable chest x-ray 26 July 2020. TECHNIQUE: Portable upright AP chest radiograph. FINDINGS: There is improved aeration of the lung dawson. The previously noted right upper lobe infiltrate is no longer apparent. The left base has cleared as well. Monitoring electrodes are seen. Oxygen delivery tubing is noted.. No acute bony abnormality. IMPRESSION: No acute disease. No infiltrate seen.. <Electronically signed by Steven Cole > 09/14/20 1800
[2020-09-14 16:10] LABS: VENOUS BASE EXCESS -1.5 (-2.0-2.0); VENOUS HCO3 24.9 MEQ/L (23.0-27.0); VENOUS O2 SATURATION 65.7 % (60.0-80.0); VENOUS PARTIAL PRESSURE CO2 50.2 mmHg (38.0-50.0); VENOUS PARTIAL PRESSURE O2 36.4 mmHg (30.0-50.0); VENOUS PH 7.314 UNITS (7.330-7.430); VENOUS STANDARD HCO3 22.7 MEQ/L; VENOUS TOTAL CO2 26.5 MEQ/L (24.0-28.0)
[2020-09-14] MEDS ORDERED: ACETAMINOPHEN TAB 650MG DOSE (2X325MG) PO PRN (16:15)
--- OUTSIDE RECORDS SUMMARY | 2020-09-14 16:15 | CCD ---
Author Author [facility] Organization [facility] Address Unknown Phone Unavailable Care Team Providers Care Color Control Supervisor Name Role Phone Mike THOMAS MD Unavailable [...] Erich Mcfarland MD Unavailable Unavailable PAM, ANY ACETALDEHYDE CONVERTER OPERATOR-R Unavailable Unavailable DR BRIELLE [facility]IGUES [facility] Unavailable Unavailable Re-disclosure Warning The records that [...] is protected by Article 27-F of the [facility] Public Health law. If you continue you may have access to information: Regarding HIV / AIDS; Provided by facilities licensed or operated by the [facility] Office of Mental Health; or Provided by the [facility] Office for People With Developmental Disabilities. If such information is present, then the following [facility] mandated warning applies: This information has been [...] law may result in a fine or usp sentence or both. A general authorization for the release of medical or other information is NOT sufficient authorization for further disc losure. Allergies and Adverse Reactions Type Description Substance Reaction Status Data Source(s ) Miscellaneous allergy No Known Drug Allergies No Known Drug Allergies [facility] Miscellaneous allergy No Known Environmental Allergies No Kn own Environmental Allergies [facility] Miscellaneous allergy No Known Food Allergies No Known Food Allergies [facility] Family History Family Member Name Family Member Gender Family Member Status Date o f Status Description Data Source(s) Unknown Male Problem MEDENT ([facility] () Unknown Female Problem MEDENT ([facility]) Unknown Female Problem MEDENT ([facility]) Unknown Female Problem MEDENT ([facility]) Encounters Encounter Providers Location Date Indications Data Source(s ) Outpatient Attender: CHRISTIANO Pitts tter: CHRISTIANO Partidaerrer: ANY OROZCO ACETALDEHYDE CONVERTER OPERATOR-RConsultant: LILI PLATA 08/13/2020 04:43:00 PM EST - 08/13/2020 05:43:00 PM EST Consultation [facility] Consultation Patient discharged. Inpatient Attender: DR WILMER Gamboa er: DR GUILLEN TRANReferrer: DR GUILLEN TRANConsultant: DR GUILLEN TRANConsultant: LILI PLATA [id number] 07/23 01:56:00 PM EST - 08/18/2020 01:25:00 PM EST SWING BED [facility] SWING BED Patient discharged. Inpatient Attender: DR WILMER RODRIGUESAdmcaden er: DR GUILLEN TRANReferrer: DR GUILLEN TRANConsultant: LILI PLATA [id number] 08/06/2020 03:02:00 PM EST - 08/09/2020 02:07:00 PM EST GI BLEED [facility] GI BLEED Patient discharged. Inpatient Attender: DR WILMER Randolph er: JUANJO THOMAS MDAdmitter: DR GUILLEN TRANReferrer: DR GUILLEN TRANConsultant: LILI PLATA [id number] 2020 03:17:00 PM EST - 08/06/2020 03:00:00 PM EST SWING BED [facility] SWING BED Patient discharged. [place] [address] [facility] [address] 07/09/2020 12:00:00 AM EST eCW1 ([facility]) [place] [address] [facility] [place] [address] 06/28/2020 12:00:00 AM EST eCW1 ([facility]) Unknown [address] [facility] [place] [address] 05/31/2020 12:00:00 AM EST eCW1 ([facility]) [place] [address] [facility] [address] 05/31/2020 12:00:00 AM EST eCW1 ([facility]) Outpatient [address] [facility] [place] [address] 05/10/2020 12:00:00 AM EDT eCW1 ([facility]) Outpatient Attender: Erich Fernández MD Physical Therap y 05/07/2020 02:00:00 PM EDT MEDENT ([facility]) Unknown [address] [facility] [place] [address] 04/26/2020 12:00:00 AM EDT eCW1 ([facility]) [facility] [place] [address] [facility] [place] [address] 02/24/2020 12:00:00 AM EDT eCW1 ([facility]) [facility] [address] [facility] [address] 12/18/2019 12:00:00 AM EDT eCW1 ([facility]) [facility] [address] [place] [address], [place] [address] 11/14/2019 12:00:00 AM EDT eCW1 ([facility]) [facility] [address] [place] [address], [place] [address] 11/12/2019 12:00:00 AM EDT eCW1 ([facility]) [facility] [address] [place] [address], [place] [address] 08/06/2019 12:00:00 AM EST eCW1 ([facility]) [facility] [address] [place] [address], [place] [address] 07/30/2019 12:00:00 AM EST eCW1 ([facility]) [address] [address] 07/30/2019 12:00:00 AM EST eCW1 ([facility]) Immunizations Vaccine Date Status Description Data Source(s) INFLUENZA VIRUS VACCINE QUADRIVAL SPLIT 2019-(65 YR UP)/PF 05/06/2020 12:00:00 AM EDT completed [facility] influenza, recombinant, quadrIvalent,injectable, prese rvative free 04/19/2020 04:04:00 PM EDT completed eCW1 ([facility]) influenza, recombinant, quadrIvalent,injectable, prese rvative free 04/19/2020 04:04:00 PM EDT completed eCW1 ([facility]) influenza, recombinant, quadrIvalent,injectable, prese rvative free 04/19/2020 04:04:00 PM EDT completed eCW1 ([facility]) influenza, recombinant, quadrIvalent,injectable, prese rvative free 04/19/2020 04:04:00 PM EDT completed eCW1 ([facility]) influenza, recombinant, quadrIvalent,injectable, prese rvative free 04/19/2020 04:04:00 PM EDT completed eCW1 ([facility]) Medications Medication Brand Name Start Date Product Form Dose Route Admi nistrative Instructions Pharmacy Instructions Status Indications Reaction Description Data Source(s) Nystatin 100 UNT/MG Topical Powder Nystatin 991255 UNI T/GM Nystatin 162506 UNIT/GM 05/31/2020 12:00:00 AM EST active Nystatin 207522 UNIT/GM eCW1 ([facility]) Nystatin 100 UNT/MG Topical Powder Nystatin 186329 UNI T/GM Nystatin 283235 UNIT/GM 05/31/2020 12:00:00 AM EST active Nystatin 937936 UNIT/GM eCW1 ([facility]) Nystatin 100 UNT/MG Topical Powder Nystatin 376451 UNI T/GM Nystatin 951384 UNIT/GM 05/31/2020 12:00:00 AM EST active Nystatin 541426 UNIT/GM eCW1 ([facility]) Nystatin 100 UNT/MG Topical Powder Nystatin 386368 UNI T/GM Nystatin 997524 UNIT/GM 05/31/2020 12:00:00 AM EST active Nystatin 146030 UNIT/GM eCW1 ([facility]) 200 mg 03/30/2020 12:00:00 AM EDT tablet 5 TAKE ONE TABLET BY MOUTH EVERY DAY FOR 5 DAYS TAKE ONE TABLET BY MOUTH EVERY DAY FOR 5 DAYS SOLD: 03/30/2020 [facility] Nizoral 2 % UNK 11/14/2019 12:00:00 AM EDT 5.0 {ml} active Nizoral 2 % eCW1 ([facility]) Nizoral 2 % UNK 11/14/2019 12:00:00 AM EDT 5.0 {ml} active Nizoral 2 % eCW1 ([facility]) Nizoral 2 % UNK 11/14/2019 12:00:00 AM EDT 5.0 {ml} active Nizoral 2 % eCW1 ([facility]) Nizoral 2 % UNK 11/14/2019 12:00:00 AM EDT 5.0 {ml} active Nizoral 2 % eCW1 ([facility]) Nizoral 2 % UNK 11/14/2019 12:00:00 AM EDT 5.0 {ml} active Nizoral 2 % eCW1 ([facility]) Nizoral 2 % UNK 11/14/2019 12:00:00 AM EDT 5.0 {ml} active Nizoral 2 % eCW1 ([facility]) Nystatin 100 UNT/MG Topical Powder Nystatin 941574 UNI T/GM Nystatin 758900 UNIT/GM 08/06/2019 12:00:00 AM EST active Nystatin 896976 UNIT/GM eCW1 ([facility]) Fluconazole 200 MG Oral Tablet Fluconazole 200 MG 08/06/2019 12:00: 00 AM EST 1.0 {tablet} active Fluconazole 200 MG eCW1 ([facility]) Nystatin 100 UNT/MG Topical Powder Nystatin 275282 UNI T/GM Nystatin 719369 UNIT/GM 08/06/2019 12:00:00 AM EST active Nystatin 056333 UNIT/GM eCW1 ([facility]) Fluconazole 200 MG Oral Tablet Fluconazole 200 MG 08/06/2019 12:00: 00 AM EST 1.0 {tablet} active Fluconazole 200 MG eCW1 ([facility]) Fluconazole 200 MG Oral Tablet Fluconazole 200 MG 08/06/2019 12:00: 00 AM EST 1.0 {tablet} active Fluconazole 200 MG eCW1 ([facility]) Nystatin 100 UNT/MG Topical Powder Nystatin 875526 UNI T/GM Nystatin 277692 UNIT/GM 08/06/2019 12:00:00 AM EST active Nystatin 286385 UNIT/GM eCW1 ([facility]) Nystatin 100 UNT/MG Topical Powder Nystatin 274513 UNI T/GM Nystatin 625029 UNIT/GM 08/06/2019 12:00:00 AM EST active 1 application under breasts and abdominal folds eCW1 ([facility]) Nystatin 100 UNT/MG Topical Powder Nystatin 957465 UNI T/GM Nystatin 502485 UNIT/GM 08/06/2019 12:00:00 AM EST active Nystatin 805916 UNIT/GM eCW1 ([facility]) Fluconazole 200 MG Oral Tablet Fluconazole 200 MG 08/06/2019 12:00: 00 AM EST 1.0 {tablet} active Fluconazole 200 MG eCW1 ([facility]) Fluconazole 200 MG Oral Tablet Fluconazole 200 MG 08/06/2019 12:00: 00 AM EST 1.0 {tablet} active Fluconazole 200 MG eCW1 ([facility]) Nystatin 100 UNT/MG Topical Powder Nystatin 405854 UNI T/GM Nystatin 183173 UNIT/GM 08/06/2019 12:00:00 AM EST active Nystatin 414548 UNIT/GM eCW1 ([facility]) Fluconazole 200 MG Oral Tablet Fluconazole 200 MG 08/06/2019 12:00: 00 AM EST 1.0 {tablet} active Fluconazole 200 MG eCW1 ([facility]) Fluconazole 200 MG Oral Tablet Fluconazole 200 MG 08/06/2019 12:00: 00 AM EST active 1 tablet eCW1 ([facility]) Fluconazole 200 MG Oral Tablet Fluconazole 200 MG 08/06/2019 12:00: 00 AM EST active 1 tablet eCW1 ([facility]) Nystatin 100 UNT/MG Topical Powder Nystatin 341462 UNI T/GM Nystatin 707706 UNIT/GM 08/06/2019 12:00:00 AM EST active Nystatin 316027 UNIT/GM eCW1 ([facility]) Nystatin 100 UNT/MG Topical Powder Nystatin 423790 UNI T/GM Nystatin 982636 UNIT/GM 08/06/2019 12:00:00 AM EST active 1 application under breasts and abdominal folds eCW1 ([facility]) Polyethylene Glycol 400 4 MG/ML / Propyl sakina glycol 3 MG/ML Ophthalmic Solution [Systane] Systane 0.4-0.3 % Systane 0.4-0.3 % 07/30/2019 12:00:00 AM EST active 1 drop in both eyes eCW1 ([facility]) 160-12.5 mg 03/19/2019 12:00:00 AM EDT tablet 90 TAKE ONE TABLET BY MOUTH EVERY DAY TAKE ONE TABLET BY MOUTH EVERY DAY SOLD: 07/24/2019 [facility] 160-12.5 mg 03/19/2019 12:00:00 AM EDT tablet 90 TAKE ONE TABLET BY MOUTH EVERY DAY TAKE ONE TABLET BY MOUTH EVERY DAY SOLD: 07/18/2019 [facility] Insurance Providers Payer name Policy type / Coverage type Policy ID Covered republican ID Covered republican's relationship to goldsmith Policy Goldsmith Plan Information EMEDNY [id number] SP [id number] MEDICARE [id number] SP [id number] R [facility] [id number] SP [id number] [place] [id number] SP [id number] UMR-OP [id number] undefined [id number] MEDICARE -SWING BED [id number] undefined [id number] MEDICARE-OP [id number] undefined [id number] MEDICARE-IP [id number] undefined [id number] EMEDNY [id number] SP [id number] POMCO [id number] SP [id number] ANSI-Commercial [id number] ANSI-Medicare Part B [id number] ANSI-Commercial [id number] ANSI-Commercial [id number] ANSI-Commercial [id number] ANSI-Medicare Part B [id number] ANSI-Medicare Part B [id number] ANSI-Commercial [id number] ANSI-Commercial [id number] ANSI-Medicare Part B [id number] ANSI-Commercial [id number] ANSI-Commercial [id number] ANSI-Commercial [id number] ANSI-Commercial [id number] ANSI-Medicare Part B [id number] ANSI-Medicare Part B [id number] ANSI-Commercial [id number] ANSI-Commercial [id number] Umr (pr) Medigap Part B [id number] Self [id number] Medicare [place] Medicare Primary [id number] Self [id number] [place] Medicare Primary [id number] Self [id number] Umr Commercial [id number] Self [id number] [place] Medigap Part B [id number] Self [id number] Umr (pr) Medigap Part B [id number] Self [id number] Medicare [place] Primary [id number] Self [id number] ANSI-Medicare Part B [id number] ANSI-Commercial [id number] ANSI-Commercial [id number] MEDICARE [id number] SP [id number] A Umr (pr) Medigap Part B [id number] Self [id number] Medicare [place] Medicare Primary [id number] Self [id number] Medicare [place]/[facility] Medicare Primary [id number] Self [id number] ANSI-Medicare Part B [id number] ANSI-Commercial [id number] ANSI-Commercial [id number] Umr (pr) Medigap Part B [id number] Self [id number] Medicare [place] Medicare Primary [id number] Self [id number] Umr (pr) Medigap Part B [id number] Self [id number] Medicare [place] Primary [id number] Self [id number] POMCO PPO O [id number] S [id number] MEDICARE C [id number] S [id number] A [place] (pr) Medigap Part B [id number] Self [id number] Medicare [place] Primary [id number] Self [id number] [place] Commercial [id number] Self [id number] Medicare - [place] Medicare Primary [id number] Self [id number] [place] (pr) Medigap Part B [id number] Self [id number] Medicare [place] Primary [id number] Self [id number] [place] (pr) Medigap Part B [id number] Self [id number] Medicare [place] Primary [id number] Self [id number] [place] (pr) Medigap Part B [id number] Self [id number] Medicare [place] Primary [id number] Self [id number] POMCO PPO O [id number] S [id number] [place] (pr) Medigap Part B Self [place] Primary Self MEDICARE [id number] SP [id number] POMCO [id number] SP [id number] POMCO PPO S [id number] S [id number] A Problems, Conditions, and Diagnoses Code Display Name Description Problem Type Effective Dates Data Source(s) Z78.9 [id number] Medical orders for l mohini-sustaining treatment (MOLST) form in chart Problem 07/30/2019 12:00:00 AM EST eCW1 ([facility]) Z78.9 [id number] Medical orders for l mohini-sustaining treatment (MOLST) form in chart Problem 07/30/2019 12:00:00 AM EST eCW1 ([facility]) F4321 Adjustment disorder with depressed mood Adjustment disorder with depressed mood Diagnosis 08/13/2020 04:43:00 PM EST [facility] R339 Retention of urine, unspecified Retention of urine, un specified Diagnosis 08/09/2020 01:56:00 PM [facility] I10 Essential (primary) hypertension Essential (primary) h ypertension Diagnosis 08/09/2020 01:56:00 PM [facility] E039 Hypothyroidism, unspecified Hypothyroidism, unspecifie d Diagnosis 08/09/2020 01:56:00 PM [facility] N1830 Chronic kidney disease, stage 3 unspecif ied Chronic kidney disease, stage 3 unspecified Diagnosis 08/09/2020 01:56:00 PM [facility] J449 Chronic obstructive pulmonary disease, u nspecified Chronic obstructive pulmonary disease, unspecified Diagnosis 08/09/2020 01:56:00 PM [facility] G20 Parkinson's disease Parkinson's disease Diagnosis 0 08/09/2020 01:56:00 PM [facility] 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) Diagnosis 08/09/2020 01:56:00 PM [facility] Z8616 PERSONAL HISTORY OF COVID-19 PERSONAL HISTORY OF COVID -19 Diagnosis 08/09/2020 01:56:00 PM [facility] R5381 Other malaise Other malaise Diagnosis 08/09/2020 01:56:00 PM [facility] K922 Gastrointestinal hemorrhage, unspecified Gastrointestinal hemorrhage, unspecified Diagnosis 08/09/2020 01:56:00 PM [facility] Z5189 Encounter for other specified aftercare Encounter for other specified aftercare Diagnosis 08/09/2020 01:56:00 PM [facility] R195 Other fecal abnormalities Other fecal abnormalities Di agnosis 07/28/2020 03:17:00 PM [facility] N179 Acute kidney failure, unspecified Acute kidney f ailure, unspecified Diagnosis 07/28/2020 03:17:00 PM [facility] N1831 Chronic kidney disease, stage 3a Chronic kidney disease, stage 3a Diagnosis 07/28/2020 03:17:00 PM [facility] J1281 Pneumonia due to SARS-associated coronav irus Pneumonia due to SARS- associated coronavirus Diagnosis 07/28/2020 03:17:00 PM [facility] Surgeries/Procedures Procedure Description Date Indications Data Source(s) Transfusion of Nonautologous Red Blood C ells into Peripheral Vein, Percutaneous Approach Transfusion of Nonautologous Red Blood C ells into Peripheral Vein, Percutaneous Approach 08/06/2020 12:00:00 AM EST [facility] ARTHROCENTESIS ASPIR&/INJECTION MAJOR JT/BURSA 12:00:00 AM EDT MEDENT ([facility]) Office Visit, Est Pt., Level 4 PC 11/12/2019 12:00:00 AM EDT eCW1 ([facility]) Office Visit, Est Pt., Level 2 FC 11/12/2019 12:00:00 AM EDT eCW1 ([facility]) REMOVE IMPACTED EAR WAX UNI 11/12/2019 12:00:00 AM EDT eCW1 ([facility]) ARTHROCENTESIS ASPIR&/INJECTION MAJOR JT/BURSA 12:00:00 AM EST MEDENT ([facility]) Annual wellness visit, includes a person alized prevention plan of service (pps), subsequent visit 07/30/2019 12:00:00 AM EST eCW 1 ([facility]) Results ID Date Data Source [id number] 09/08/2020 01:00:00 PM EST [facility] Name Value Range Interpretation Code Description Data Sasha rce(s) Supporting Document(s) SARS coronavirus 2 RNA Not Detected [facility] [place] This lab was ordered by [facility] and reported by [facility]. ID Date Data Source [id number] 09/01/2020 01:00:00 PM EST [facility] Name Value Range Interpretation Code Description Data Sasha rce(s) Supporting Document(s) SARS coronavirus 2 RNA Not Detected [facility] [place] This lab was ordered by [facility] and reported by [facility]. ID Date Data Source [id number] 08/25/2020 11:30:00 AM EST [facility] Name Value Range Interpretation Code Description Data Sasha rce(s) Supporting Document(s) SARS coronavirus 2 RNA Not Detected [facility] [place] This lab was ordered by [facility] and reported by [facility]. ID Date Data Source [id number] 08/18/2020 10:01:33 AM EST [facility] Name Value Range Interpretation Code Description Data Sasha rce(s) Supporting Document(s) Discharge Note Anatoliy hoff BGCWZl4tEdNJIieynP5YTJVsLB1bqfz0IRckJ0WdWPNxixYjFMBuA1fuQOORQMBZKWBaoJ1pSERhFtjV vYm bBFPrGUMZySvXbZfScJ4huodo4pUZ5XTVeCzwuGW3CvLr8UWXbS8IrPWRkCDLse9DaGm3+YlX3gbHnsB j0uR6YU5RLJBfQ13lrWc7wWFHukIroaHTi8gGWpxxLv7IuatoYMMFuSJNISFuWQUVHR68MZFWDVoDIAF cmit2nw7JxHo2nBxpK12/ZrfmxtVVb+2f7/Vsrg9MI tUOvj6w3lhdWaHikrjEBTKcKjDIS9oc20hSIjhUArGcEZ9fYHWbJQp2QGdW58gKQacUlNP+J31UCGpcl 6wjWc8+Rhiannon+5Vjyj7N7/Haiecvf6/9fbIpCSzdZjSgOsHcOWhkQc38uHGqNUgjKTwc3QFQIRXk5iUw0 [file] w3TSap7tIn9idPl8+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/Ne39koDUQQbPFkuBZ5946Jjz/z/dC+7usa7j2hNSuhUuRmsda5ZKtjplZYxY [file] A5UST6MqC0Kk6CQIClG8w8HUBkIoh+XhhwqYMbqWgqCSHTVzt9FMIZSWRXI9SH ID Date Data Source [id number] 08/16/2020 01:15:00 PM EST [facility] Name Value Range Interpretation Code Description Data Sasha rce(s) Supporting Document(s) RESP PROFILE RP2.1 NASAL PCR [facility] \\BLDo\\RESPIRATORY PROFILE NASAL PHARYNGEAL BY PCR\\BLDx\\ \\BLDo\\DETECTED _NONE \\BLDx\\ 08/16/20.1437.KJV. \\BLDo\\EQUIVOCAL _NONE \\BLDx\\ 08/16/20.1437.KJV. VIRUSES ADENOVIRUS NOT DETECTED NORMAL: NOT DETECTED [facility] CORONAVIRUS 229E NOT DETECTED NORMAL: NOT DETECTED [facility] CORONAVIRUS HKU1 NOT DETECTED NORMAL: NOT DETECTED [facility] CORONAVIRUS NL63 NOT DETECTED NORMAL: NOT DETECTED [facility] CORONAVIRUS OC43 NOT DETECTED NORMAL: NOT DETECTED [facility] 57705-7 NOT DETECTED NORMAL: NOT DETECTED [facility] REPORT TO DEPARTMENT OF HEAL TH HUMAN METAPNEUMO NOT DETECTED NORMAL: NOT DETECTED [facility] HUMAN RHINO/ENTERO NOT DETECTED NORMAL: NOT DETECTED [facility] NOT DETECTEDNOT DETECTEDNOT DETECTEDNOT DETECTED PARAINFLUENZA V3 NOT DETECTED NORMAL: NOT DETECTED [facility] NOT DETECTED RSV NOT DETECTED NORMAL: NOT DETECTED [facility] BACTERIANOT DET ECTEDNOT DETECTEDNOT DETECTEDNOT DETECTED TESTING PERFORMED USING THE [employer] RP2.1 MULTIPLEXED NUCLEIC ACID TEST. THIS TEST [...] OR REVOKED SOONER. ID Date Data Source [id number] 08/16/2020 06:50:00 AM EST [facility] Name Value Range Interpretation Code Description Data Sasha rce(s) Supporting Document(s) BASIC METABOLIC PANEL [facility] BASIC METABOLIC PANEL Sodium [Moles/volume] in Serum or Plasma 141 mEq/L 136 - 145 [facility] Potassium [Moles/volume] in Serum or Plasma 5.0 mEq/L 3.5 - 5.1 [facility] Chloride [Moles/volume] in Serum or Plasma 106 mEq/L 98 - 107 [facility] Carbon dioxide, total [Moles/volume] in Serum or Plasma 25.2 mEq /L 21.0 - 32.0 [facility] Glucose [Mass/volume] in Serum or Plasma 97 mg/dL 70 - 100 [facility] Urea nitrogen [Mass/volume] in Serum or Plasma 47 mg/dL 7 - 18 Above high normal [facility] CREATININE SERUM 1.95 mg/dL 0.55 - 1.02 Above high normal [facility] AGE 89 yrs [facility] l HEIGHT 64.00 INCHES [facility] eGFR NON-AFR AMR 24 [facility] eGFR AFR AMR 29 [facility] BUN/CREAT 24 6 - 25 [facility] l Calcium [Mass/volume] in Serum or Plasma 8.6 mg/dL 8.8 - 10.2 Below low normal [facility] ANION GAP 10 7 - 15 [facility] l Estimated GFR reference r lobo: > 60 mL/min/1.73m >18 years: Calculated using IDMS traceable MDRD Study Equation <18 years: Calculated using IDMS traceable Bedside [place] Equation ID Date Data Source [id number] 08/16/2020 06:50:00 AM EST [facility] Name Value Range Interpretation Code Description Data Sasha rce(s) Supporting Document(s) CBC [facility] COMPLETE BLO[facility] COUNT Leukocytes [#/volume] in Blood by Automated count 7.6 K/uL 4.0 - 10 .0 [facility] Erythrocytes [#/volume] in Blood by Automated count 2.88 M/uL 4.00 - 5.40 Below low normal [facility] Hemoglobin [Mass/volume] in Blood 9.2 g/dL 12.0 - 15.5 Below low no rmal [facility] Hematocrit [Volume Fraction] of Blood by Automated count 29.5 % 36.0 - 44.5 Below low normal [facility] Erythrocyte mean corpuscular volume [Entitic volume] b y Automated count 102.4 fL 80.0 - 96.0 Above high normal [facility] Erythrocyte mean corpuscular hemoglobin [Entitic mass] by Automated count 31.9 pg 26.0 - 34.0 [facility] Erythrocyte mean corpuscular hemoglobin concentration [Mass/volume] by Automated count 31.2 g/dL 32.0 - 36.0 Below low normal [facility] tammy Erythrocyte distribution width [Ratio] by Automated count 14.4 % 11.6 - 14.8 [facility] Platelets [#/volume] in Blood by Automated count 270 K/uL 150 - 450 [facility] Platelet mean volume [Entitic volume] in Blood by Automated count 9.3 fL 7.1 - 10.4 [facility] Neutrophils [#/volume] in Blood by Automated count 4.99 K/uL 1.70 - 7.70 [facility] Lymphocytes [#/volume] in Blood by Automated count 1.63 K/uL 1.50 - 6.00 [facility] Monocytes [#/volume] in Blood by Automated count 0.65 K/uL 0.00 - 1. 00 [facility] Eosinophils [#/volume] in Blood by Automated count 0.17 K/uL 0.00 - 0.30 [facility] Basophils [#/volume] in Blood by Automated count 0.02 K/uL 0.00 - 0. 10 [facility] 0.12 Urinalysis macro (dipstick) panel - Urine 0.000 10^3/uL 0.000 - 0.012 [facility] Neutrophils/100 leukocytes in Blood by Automated count 65.8 % 42. 2 - 75.2 [facility] Lymphocytes/100 leukocytes in Blood by Automated count 21.5 % 15. 0 - 41.0 [facility] Monocytes/100 leukocytes in Blood by Automated count 8.6 % 0.0 - 12.0 [facility] Eosinophils/100 leukocytes in Blood by Automated count 2.2 % 0.0 - 7.0 [facility] 0.31.60 NRBC 0.0 % [facility] NOT INDICATED [facility] RBC MORPH NOT INDICATED [facility] pital ID Date Data Source [id number] 08/10/2020 08:32:00 PM EST [facility] Name Value Range Interpretation Code Description Data Sasha rce(s) Supporting Document(s) Progress Note [facility] pital AFXMRs1iFgNEJbdpzH9HURAiPC8zdvr5DDhaB5SkNUVxowMrKZShQ6hwTAVIRXHWXHJbqG4eAKMpNmtP vYm lSSHkSAYVyQvOrRjIfL2wzcqv5nCZ6TZRhNdxcEP0UgTp9NAWmG6RlNAWvLTFke8VkTz2+NyC6qdOuhP f7nU2CT0XVFAiC73hwYe3uYCJleBknlQJp7bSSfltEk8VpddnPFWHxJMHCQIrCXBHXG65PAOEBPvVWAY kflq2pm9GfTd8cYowV53/ZrfmxtVVb+2f7/Ddth9WI yZZjt8r1chpJuKpjrpPAITwEhJYO8vb23uOYakYKkZxYM2mWKLhFPy7VWxE29tMYdcKkWK+S24RYSayx 6wjWc8+Rhiannon+6Mbrv5I6/Haiecvf6/4ioYfMDhtXcVlBaXuEUhgQy62wXXoUOnlYCpt2JKKPMJf5zMc1 [file] h1YPsa4rWp9kfCe6+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/Hr63haIPLSkIScbUX2783Nnn/z/dC+6hvh6t7oQVgxMiRnemg7PAkhgvJPpT [file] MDAwMDAgbiAKMDAwMDAwMzcwOSAwMDAwMCBuIAowMD GsTVQcDbB9YWNvVGYxOW4jZlRfQYTgYeD2BzYcZTTaAKNghmJXKQZnGAHnXovhYZKgUFZmOQQbBXrbHM BtTYIdSBezQQBnXWLhZY8hOjFbQUIaIRP1MMdlJCYxKBIckdJZNYAzPLHfHYQ2BEZeUBVkXDEvGKwaXE LbWVUdWdxuRZQbKEUbIV6iBiYlNOPcEaD4CNbmVBVc IDJaheDFBNPsSCZjIBlyAMIeBFYgPMVnHZzmYYPmWFVrAAY9JHLkBAFnSG5uScRyNIXaGwNeSYmuSAZd LLRnzyKDjBVaeGnsfef6GYmhZZ3Je650JRQfZJGUFpCyC1qdIt5dSOJlPZXCBTUnWUYyVzwROCUAXzU7 GRD7CWH4AOuiK6SeISETNQDLVIB9His4RJ5kKGZAMi L8NyI8HkReEIdrYEX2JSSuUfTyY3PiTGR4VhDIJf3KUDLeK2l3QRPhRFm+EhdyuOEsmAtxORWMVtL7Xi HIRUNLV6TB ID Date Data Source [id number] 08/10/2020 12:07:53 PM EST [facility] Name Value Range Interpretation Code Description Data Sasha rce(s) Supporting Document(s) Admission Note [facility] IVRHIm3oIuAAFyyccW5UOUAvRX4mswv3LFjxQ6NiWPFfamTwGQOwC9lnKFHWFEDTULCulU6uYECbPuqO vYm fRTCqKXFNjNnLiZkTyC2eljtt7fDX6JJUcCzghSR1JvMx6OADaX4OzEGBqBVWwh0ZsUd9+PoG4wcJlyH t4kP3CP5ULQInK80zqDz3tFGFenTsjzGQm7iHGrkmWq9ZhvglTHDKlZFINMIbRHFINJ41LZDRICoIEPV yxtc5dh6CgAz0lLvkB04/ZrfmxtVVb+2f7/Ilak2OV kBKla9k5rowIaZvxplBLMIuQwYCN6no56hYIhhUPlDqRP9rQQPuEGf3UEkD41cDPdsEtRZ+A33HITwhu 6wjWc8+Rhiannon+2Ffrt2G5/Haiecvf6/8xuZhEGfdKyEaJuWpHVrcUl73rFIoAEvkNEbo4XEJRGId6aAq1 [file] o9QJfa6dSt0fwEo0+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/Pa49wvGJRNkADfpUU5916Fcr/z/dC+2lmr2y2dZQjnYzMxphn6ZDtamaJDlX [file] AwMDAgbiAKMDAwMDAwMjcwMiAwMDAwMCBuIAowMDAw JWZzKdSlTBJqXMGcFY1mFvTcOPFnETK6QLEaONEuEGPclgWWZHMvLKOmShuxHQPkZZCzAWRqHFkgVJUz BWKsNBR4AGQmWOLdMZ8zLdJkFQFcAqH2IYFgXRMfKFBjfoLRBFXjXLFsCjukRSEeBKJwAGBzFHezNHEf BMPfXFyiQBBiTCWsVI5tEzGbCSXmBOT7DLgiVKBaMH NjcmVVDRFlIWLqVRL3LXDbKARzZRZlAVyiEQEhFYMuOmvsLEJkPRTfSJ2jEcIyIDExOtVfQZEaSXZpCY MuynSQBQWiMKZxBEUrPGXaXBCkUUGcJWsgCKWkATUyUnP9RXMhNZYtOR9lTlDkEPOvUfGgLLEeLWAdSU AgbiAKMDAwMDAyNjYwMyAwMDAwMCBuIAowMDAwMDI0 BIP0QADzFJKjJV0iHcGzTHIeXeB6LIClTPWaFQZrbnQDNZYdLCGvBMI0CmFvGRXrRWNdSBclOTUsIXS7 Jjv6DBEyRPZwHP5bYePgRONkRgifOzRzJENhGMCuscIHQZGzVPHqJHv0OWWnNEShDWVqPUnmUETmIQE7 She8YJYqGBMcEH8gXgOdPEChEfQ1HbaaDCVsJORssg ILAWEyTIGgGKM6WmRzOETuEEMaDAyrUFKmECYpXcn3NMHlYBZpHN1vDwDgNCTsIwA3JZLdWMPmWOGpio TJlGLvtLdxatm7XKqdFU1Yp818LPZjMXRRWhRuP3lrXh4xXTRzFCSMSNTzDUFbCpcRDzD0PPPyKryJZJ FLNSEkLjP3UOYELVqJOIZzPDYDPX4jJPJOZlEGAIU5 P9NRV5LTCITYLDyvIbM0PUBuKLDgGDDFBk2RWKShD1z2GGIhPoy+EtrpsACgmUzrOPXRWuV5ZuNENBAB T0YK ID Date Data Source [id number] 08/10/2020 11:35:00 AM EST [facility] Name Value Range Interpretation Code Description Data Sasha rce(s) Supporting Document(s) SARS coronavirus 2 RNA Not Detected [facility] This lab was ordered by [facility] and reported by [facility]. ID Date Data Source [id number] 08/10/2020 11:35:00 AM EST [facility] Name Value Range Interpretation Code Description Data Sasha rce(s) Supporting Document(s) [facility]2 [facility] _S[facility] CoV2 WRU_UJOZ-JbE-9, NAAReport ed: 08/11/2020 20:05 Status=F RESULT FLAG RANGE UNITS [place] --SARS-CoV-2, AZRA Not Detected Not Detected [facility] 08/11/[email or web address] nucleic acid amplification test was developed and its performancecharacteristics determined by [facility]. Nucleic acidamplification tests include RT-PCR and TMA. [...] TABLE FOR [facility] ID Date Data Source [id number] 08/09/2020 01:05:53 PM EST [facility] Name Value Range Interpretation Code Description Data Sasha rce(s) Supporting Document(s) Discharge Note [facility] spital VZKSJi0zEjOLMjlgxD9VORWjZT4nscf5RIycF4ZfSGGhbgKaYNCxR0atHMDYDELEQMEwnL5nJNUrJwtQ vYm xWLWbBHBQsZlRnKxPqY4pkkrs6iPX3YCLyTtdsSN9LyOh7XOCpL8YpWNIlLPRax5ZvRp0+JeA3wgXkyD y3wF5MD1WGSWpX52xeBp6wWMYrzTkhuFAn1cRZtcnRe6KeqnmKEXMtGNTPQVhURFTXQ91QREZGGzKQCX qygf5fc5KhRs3bWrxP54/ZrfmxtVVb+2f7/Dgke7CN vZOxk4p4wmeCnAuovkTLAXrXwPOP5jm05kEAtqUCkGcZI7yPFLfDZe5GPfQ43fGEkhLoAB+N14ZTLytu 6wjWc8+Rhiannon+7Queh1S2/Haiecvf6/9ukHdFWrdMwWoSmZfEKonCt23mZOiWTlxOKwn9GXCSNKh4zHr1 [file] j2TFfu7lZd0yxMj3+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/Mq85cbPMNGpYRzwIQ3641Fsp/z/dC+5ura1v5wWByvTzQuuem2ZHfhblLEhH [file] NjEgMDAwMDAgbiAKMDAwMDAwMDAxNSAwMDAwMCBuIA adLWSqLGSnJSI6MXKeOLYtZX0gNmDdLWHhQVM9XFHaBEAzUVGhqwBFYNBtSKAnBjmiNcPbCECqWENiGB xaTMJfHEQmRsX2ZAXyFHYsEY3vUfOhMTLeUCH1DVicBVEwCTCkgpVOGQIdOEFjDCypQbJzXLLcZSJwBO znZVViJAV9NPF7GBMhHHPxPA5aIvTkYFZtUUB3Szbw RLZfCDDtrrNVPGViBUBsTor2INWfQXVuUYEnFNnfWLKrYBPqRVp7HFFqOTLgYI9aMwGtZOCjVfZvNGpy HNIsWMTpsbKWBGGsFFRiBMD6ZZXiWRQkQNDwOBrgQOOyAITlFflvBEWhDOVzEF6pPlIrMWSfCkU4KmZa MDAwMDAgbiAKMDAwMDAyMTkwNSAwMDAwMCBuIAowMD DyQTA4PGY9BBDdKFFsEO8mVaBiDKGtSdP1BLdaOPTdEYAvzgEOOFOvFBHhWRezATSpQBQcMCSnTVjbCY SkRNK9GIR3FEYdNDJxII1iSjUwISEgVccvUJJaOBZbTZSzubMHSNYmDOLaDxR8KpSlKXJnALVaWOqyLJ UyUKN9ElQ6CPNtFDUsQY7oHiTeFLzcUDSRZHyEETTz Dl4crRQuPUQcCgynXL3IrzVkGXPqJIZEBzFsX7hEAMn7CNkVJ3TYWbY4MIRJVxUuGHX9OSNGFoFmMeBT QkYxQzA+GBbpTQH0OUWSFcd7WWI2MZU5YnKPKVTNVoVAYXBFUuVRIU5zKmEfZ1YyfqOzGjyYGr6Cn9Vm zeF9qtVmZkC6GAH8JyMpLP1GRm== ID Date Data Source [id number] 08/09/2020 08:00:00 AM EST [facility] Name Value Range Interpretation Code Description Data Sasha rce(s) Supporting Document(s) BASIC METABOLIC PANEL [facility] BASIC METABOLIC PANEL Sodium [Moles/volume] in Serum or Plasma 142 mEq/L 136 - 145 [facility] Potassium [Moles/volume] in Serum or Plasma 4.8 mEq/L 3.5 - 5.1 [facility] Chloride [Moles/volume] in Serum or Plasma 107 mEq/L 98 - 107 [facility] Carbon dioxide, total [Moles/volume] in Serum or Plasma 25.1 mEq /L 21.0 - 32.0 [facility] Glucose [Mass/volume] in Serum or Plasma 94 mg/dL 70 - 100 [facility] Urea nitrogen [Mass/volume] in Serum or Plasma 47 mg/dL 7 - 18 Above high normal [facility] CREATININE SERUM 1.62 mg/dL 0.55 - 1.02 Above high normal [facility] AGE 89 yrs [facility] l HEIGHT 64.00 INCHES [facility] eGFR NON-AFR AMR 30 [facility] eGFR AFR AMR 36 [facility] BUN/CREAT 29 6 - 25 Above high normal [facility] Calcium [Mass/volume] in Serum or Plasma 9.1 mg/dL 8.8 - 10.2 [facility] ANION GAP 10 7 - 15 [facility] l Estimated GFR reference r lobo: > 60 mL/min/1.73m >18 years: Calculated using IDMS traceable MDRD Study Equation <18 years: Calculated using IDMS traceable [facility] Equation ID Date Data Source [id number] 08/09/2020 08:00:00 AM EST [facility] Name Value Range Interpretation Code Description Data Sasha rce(s) Supporting Document(s) CBC [facility] l COMPLETE BLOOD COUNT Leukocytes [#/volume] in Blood by Automated count 6.8 K/uL 4.0 - 10 .0 [facility] Erythrocytes [#/volume] in Blood by Automated count 3.40 M/uL 4.00 - 5.40 Below low normal [facility] Hemoglobin [Mass/volume] in Blood 10.9 g/dL 12.0 - 15.5 Below low no rmal [facility] Hematocrit [Volume Fraction] of Blood by Automated count 34.8 % 36.0 - 44.5 Below low normal [facility] Erythrocyte mean corpuscular volume [Entitic volume] b y Automated count 102.4 fL 80.0 - 96.0 Above high normal [facility] Erythrocyte mean corpuscular hemoglobin [Entitic mass] by Automated count 32.1 pg 26.0 - 34.0 [facility] Erythrocyte mean corpuscular hemoglobin concentration [Mass/volume] by Automated count 31.3 g/dL 32.0 - 36.0 Below low normal [facility] tammy Erythrocyte distribution width [Ratio] by Automated count 15.5 % 11.6 - 14.8 Above high normal [facility] Platelets [#/volume] in Blood by Automated count 260 K/uL 150 - 450 [facility] Platelet mean volume [Entitic volume] in Blood by Automated count 9.1 fL 7.1 - 10.4 [facility] Neutrophils [#/volume] in Blood by Automated count 4.63 K/uL 1.70 - 7.70 [facility] Lymphocytes [#/volume] in Blood by Automated count 1.34 K/uL 1.50 - 6.00 Below low normal [facility] Monocytes [#/volume] in Blood by Automated count 0.64 K/uL 0.00 - 1. 00 [facility] Eosinophils [#/volume] in Blood by Automated count 0.12 K/uL 0.00 - 0.30 [facility] Basophils [#/volume] in Blood by Automated count 0.02 K/uL 0.00 - 0. 10 [facility] 0.07 Urinalysis macro (dipstick) panel - Urine 0.000 10^3/uL 0.000 - 0.012 [facility] Neutrophils/100 leukocytes in Blood by Automated count 67.9 % 42. 2 - 75.2 [facility] Lymphocytes/100 leukocytes in Blood by Automated count 19.6 % 15. 0 - 41.0 [facility] Monocytes/100 leukocytes in Blood by Automated count 9.4 % 0.0 - 12.0 [facility] Eosinophils/100 leukocytes in Blood by Automated count 1.8 % 0.0 - 7.0 [facility] 0.31.00 NRBC 0.0 % [facility] l MANUAL DIFF NOT INDICATED [facility] RBC MORPH NOT INDICATED [facility] ID Date Data Source [id number] 08/09/2020 02:55:00 AM EST [facility] Name Value Range Interpretation Code Description Data Sasha rce(s) Supporting Document(s) OCCULT BLOOD FECES 3 CARDs [facility] OCCULT BLOOD STOOL CARD 1POSITIVE { COLLECTION DATE CARD 2POSITIVE{ COLLECTION DATE CARD 3POSITIVE{ COLLECTION DATE ID Date Data Source [id number] 08/08/2020 06:34:20 PM EST [facility] Name Value Range Interpretation Code Description Data Sasha rce(s) Supporting Document(s) Progress Note [facility] pital EBNHJl7eGyEFNeumaU0DXSQnIX6vrhf9OVpxG3MgYIVehtOdWOWaM7blIEORUDRFZFKeeU7gWLAgSzgD vYm mIZLwMDEUcBtInIfJtM9ayrxv1uNI8LCAhMturDW4EfGk6DGHfF1LvSXNjBWGio7XqZu6+SyA1ipVphA g9zE5BE5LDPBiO07etPj0gUVOayQuynCVo0eQKewxVb6DtiacGDEGlJSMPAVkWZWRMR90DCDCXMbOKUT cbov8ab0AePx2kLeeD97/ZrfmxtVVb+2f7/Szly4OM fERua5m9dsjWfRlbaoCHRDoTsHKT8nl64nFXtdUVxKaRR7sVNRdOVx7OBtE60iOCfsLqMI+L93HGMrfg 6wjWc8+Rhiannon+1Vael4B9/Haiecvf6/7uiWtDNvuQlMxMfBgEEmuYh80iITsEWitOApf1PTRWFLm1jEf4 [file] t1UWbn7bJx8yiYe0+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/Gd16ffEKPNkAOlxJD5464Rxe/z/dC+5nbc1o6zUDkiIpKuwwk1EVrhioPYaB [file] INaoLH6AsPqrZOC0De5+KgU9SZE1dVUfAfxnUMX6CAvxKNPPKdo= ID Date Data Source [id number] 08/08/2020 08:45:00 AM EST [facility] Name Value Range Interpretation Code Description Data Sasha rce(s) Supporting Document(s) CBC [facility] l COMPLETE BLOOD COUNT Leukocytes [#/volume] in Blood by Automated count 7.2 K/uL 4.0 - 10 .0 [facility] Erythrocytes [#/volume] in Blood by Automated count 3.38 M/uL 4.00 - 5.40 Below low normal [facility] Hemoglobin [Mass/volume] in Blood 10.9 g/dL 12.0 - 15.5 Below low no rmal [facility] Hematocrit [Volume Fraction] of Blood by Automated count 33.9 % 36.0 - 44.5 Below low normal [facility] Erythrocyte mean corpuscular volume [Entitic volume] b y Automated count 100.3 fL 80.0 - 96.0 Above high normal [facility] Erythrocyte mean corpuscular hemoglobin [Entitic mass] by Automated count 32.2 pg 26.0 - 34.0 [facility] Erythrocyte mean corpuscular hemoglobin concentration [Mass/volume] by Automated count 32.2 g/dL 32.0 - 36.0 [facility] Erythrocyte distribution width [Ratio] by Automated count 16.1 % 11.6 - 14.8 Above high normal [facility] Platelets [#/volume] in Blood by Automated count 253 K/uL 150 - 450 [facility] Platelet mean volume [Entitic volume] in Blood by Automated count 9.4 fL 7.1 - 10.4 [facility] Neutrophils [#/volume] in Blood by Automated count 5.16 K/uL 1.70 - 7.70 [facility] Lymphocytes [#/volume] in Blood by Automated count 1.36 K/uL 1.50 - 6.00 Below low normal [facility] Monocytes [#/volume] in Blood by Automated count 0.44 K/uL 0.00 - 1. 00 [facility] Eosinophils [#/volume] in Blood by Automated count 0.13 K/uL 0.00 - 0.30 [facility] Basophils [#/volume] in Blood by Automated count 0.02 K/uL 0.00 - 0. 10 [facility] 0.10 Urinalysis macro (dipstick) panel - Urine 0.000 10^3/uL 0.000 - 0.012 [facility] Neutrophils/100 leukocytes in Blood by Automated count 71.5 % 42. 2 - 75.2 [facility] Lymphocytes/100 leukocytes in Blood by Automated count 18.9 % 15. 0 - 41.0 [facility] Monocytes/100 leukocytes in Blood by Automated count 6.1 % 0.0 - 12.0 [facility] Eosinophils/100 leukocytes in Blood by Automated count 1.8 % 0.0 - 7.0 [facility] 0.31.40 NRBC 0.0 % [facility] MANUAL DIFF NOT INDICATED [facility] RBC MORPH NOT INDICATED [facility] ID Date Data Source [id number] 08/07/2020 06:21:50 PM EST [facility] Name Value Range Interpretation Code Description Data Sasha rce(s) Supporting Document(s) Progress Note [facility] pital VJAKHj9iWoSJQxqycC5LCEZqQC4coaq9XVurR1XaYAKxeeRqLDNsW7pbSTLQASLWNFUxvV2gYFJmJykU vYm cJRLgWNROnJjHoWzPrB5omdcl5tGM4DFPfBnqwQX3IpIh0PVEsS5IrXFQxRDXaf4AyHp2+JfX7jlWjwJ b7aU3OD4TYUJeN35drXr2iYLSyePwitOHv0yYSeatEp5HivxpHJZNjTWYDLTeVTVISK12CQTXEEhAUZT cczr6xi1SeAc3aFzuA56/ZrfmxtVVb+2f7/Lljn9RL lQDwn0c7esxVfWnlnnDSPYpMpPGU3ol40oIQvzQIcLjPD4aTZSjBIg4TWxS60xPQjdQcTK+H88SDZmid 6wjWc8+Rhiannno+1Ruii9Q4/Haiecvf6/1rmQaAKvvQkMmVbTuPQkeRv54fSWyMXxmCXcj6BRAEIOe9xIu8 [file] y7WTwe9tKa2giMc7+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/Ly54xlGNHAvPOpzOH7242Plf/z/dC+3sie4w5qGWpdKsBsnpb6JRrwhpPKyN [file] WzAcHT4URv== ID Date Data Source [id number] 08/07/2020 07:45:00 AM EST [facility] Name Value Range Interpretation Code Description Data Sasha rce(s) Supporting Document(s) BASIC METABOLIC PANEL [facility] BASIC METABOLIC PANEL Sodium [Moles/volume] in Serum or Plasma 140 mEq/L 136 - 145 [facility] Potassium [Moles/volume] in Serum or Plasma 5.0 mEq/L 3.5 - 5.1 [facility] Chloride [Moles/volume] in Serum or Plasma 107 mEq/L 98 - 107 [facility] Carbon dioxide, total [Moles/volume] in Serum or Plasma 22.1 mEq /L 21.0 - 32.0 [facility] Glucose [Mass/volume] in Serum or Plasma 108 mg/dL 70 - 100 Above high normal [facility] Urea nitrogen [Mass/volume] in Serum or Plasma 66 mg/dL 7 - 18 Above upper panic limits [facility] CALLED TO: Chanel EDEN @ 0808 [facility] REP/VERIFIED REPEATED TO CONFIRM [facility] READ BACK YES [facility] CREATININE SERUM 1.74 mg/dL 0.55 - 1.02 Above high normal [facility] AGE 89 yrs [facility] l HEIGHT 64.00 INCHES [facility] eGFR NON-AFR AMR 28 [facility] eGFR AFR AMR 33 [facility] BUN/CREAT 38 6 - 25 Above high normal [facility] Calcium [Mass/volume] in Serum or Plasma 8.6 mg/dL 8.8 - 10.2 Below low normal [facility] ANION GAP 11 7 - 15 [facility] l Estimated GFR reference r lobo: > 60 mL/min/1.73m >18 years: Calculated using IDMS traceable MDRD Study Equation <18 years: Calculated using IDMS traceable [facility] Equation ID Date Data Source [id number] 08/07/2020 07:45:00 AM EST [facility] Name Value Range Interpretation Code Description Data Sasha rce(s) Supporting Document(s) CBC [facility] l COMPLETE BLOOD COUNT Leukocytes [#/volume] in Blood by Automated count 6.9 K/uL 4.0 - 10 .0 [facility] Erythrocytes [#/volume] in Blood by Automated count 2.89 M/uL 4.00 - 5.40 Below low normal [facility] Hemoglobin [Mass/volume] in Blood 9.4 g/dL 12.0 - 15.5 Below low no rmal [facility] Hematocrit [Volume Fraction] of Blood by Automated count 28.6 % 36.0 - 44.5 Below low normal [facility] Erythrocyte mean corpuscular volume [Entitic volume] by Auto mated count 99.0 fL 80.0 - 96.0 Above high normal [facility] Erythrocyte mean corpuscular hemoglobin [Entitic mass] by Automated count 32.5 pg 26.0 - 34.0 [facility] Erythrocyte mean corpuscular hemoglobin concentration [Mass/volume] by Automated count 32.9 g/dL 32.0 - 36.0 [facility] Erythrocyte distribution width [Ratio] by Automated count 17.4 % 11.6 - 14.8 Above high normal [facility] Platelets [#/volume] in Blood by Automated count 226 K/uL 150 - 450 [facility] Platelet mean volume [Entitic volume] in Blood by Automated count 9.5 fL 7.1 - 10.4 [facility] Neutrophils [#/volume] in Blood by Automated count 4.74 K/uL 1.70 - 7.70 [facility] Lymphocytes [#/volume] in Blood by Automated count 1.24 K/uL 1.50 - 6.00 Below low normal [facility] Monocytes [#/volume] in Blood by Automated count 0.66 K/uL 0.00 - 1. 00 [facility] Eosinophils [#/volume] in Blood by Automated count 0.12 K/uL 0.00 - 0.30 [facility] Basophils [#/volume] in Blood by Automated count 0.02 K/uL 0.00 - 0. 10 [facility] 0.15 Urinalysis macro (dipstick) panel - Urine 0.000 10^3/uL 0.000 - 0.012 [facility] Neutrophils/100 leukocytes in Blood by Automated count 68.4 % 42. 2 - 75.2 [facility] Lymphocytes/100 leukocytes in Blood by Automated count 17.9 % 15. 0 - 41.0 [facility] Monocytes/100 leukocytes in Blood by Automated count 9.5 % 0.0 - 12.0 [facility] Eosinophils/100 leukocytes in Blood by Automated count 1.7 % 0.0 - 7.0 [facility] 0.32.20 NRBC 0.0 % [facility] MANUAL DIFF NOT INDICATED [facility] RBC MORPH NOT INDICATED [facility] ID Date Data Source [id number] 08/06/2020 07:08:46 PM EST [facility] Name Value Range Interpretation Code Description Data Sasha rce(s) Supporting Document(s) Admission Note [facility] TIWNYh9hQvGWVuuasV5BHDXcNP7lyjn8IRabT6XxMTNxazIlYAZeZ3nwXOIXKCCNQYXwbD2cNFWtFebB vYm eVJSlZVNIvRmBdImNaI1ivgrs4sYK3YIRfJcslGZ0JqEq0WXGnI5QlEQHbLIWdf7YoGq7+LpZ6mmBdvM n0rF5SY1DPYXmJ28nnLb8rQRDeiUzvgLVc5lNYuniHy0JkqteFVNIhGQUJQHtXUAOIE63XGIBMMbWCAU ytpl2fw5BiGh4lTufY06/ZrfmxtVVb+2f7/Xqkq3OM nFBln8m1jaeVhDlrsdXBQRkWsVQC5gs45kDLhcMEpBsME5mTONbRYl3VEmR95nJArtUgEG+S82ZDNadr 6wjWc8+Rhiannon+8Wmdt1G8/Haiecvf6/3efZaLOsaRqWyBzLjAZseRi39kJNdZGipXDnm6ZIWAFQl3uAw3 [file] t6QBxa0lFk5mhSx6+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/Gu95etYYCMpSRrbGP0227Dpr/z/dC+0dvo9t4aLAuvSaBudtn0DDbezgYEqC [file] GAEEIfZdI7tLAKg7Nsd0KJEvRujMOVZ3TgCCWJHDK3STBDLUZQg5YiFeDLV+IPhjZLL9SeAIXIO1CWKX QAGsKiTARED1G2MFVkLUKKZ9Wp7zPcBhZ9ZljcHkFsaEWh1Jb9LbcfB8rcCwIlP5FLq7QpNfZH2BUv== ID Date Data Source [id number] 08/06/2020 08:27:00 AM EST [facility] Name Value Range Interpretation Code Description Data Sasha rce(s) Supporting Document(s) OCCULT BLOOD FECES 1 CARD [facility] OCCULT BLOOD STOOL OCCULT BLOOD POSITIVE NORMAL: NEGATIVE Abnormal (appli es to non-numeric results) [facility] { COLLECTION DATE [id number] ID Date Data Source [id number] 08/06/2020 07:00:00 AM EST [facility] Name Value Range Interpretation Code Description Data Sasha rce(s) Supporting Document(s) CBC [facility] l COMPLETE BLOOD COUNT Leukocytes [#/volume] in Blood by Automated count 6.6 K/uL 4.0 - 10 .0 [facility] Erythrocytes [#/volume] in Blood by Automated count 2.06 M/uL 4.00 - 5.40 Below low normal [facility] Hemoglobin [Mass/volume] in Blood 6.9 g/dL 12.0 - 15.5 Below l ower panic limits [facility] NORMA R. REP/VERIFIED 6.9 [facility] ital READ BACK YES [facility] l NORMA R.{ READ BACK: YES Hematocrit [Volume Fraction] of Blood by Automated count 22.2 % 36.0 - 44.5 Below low normal [facility] Erythrocyte mean corpuscular volume [Entitic volume] b y Automated count 107.8 fL 80.0 - 96.0 Above high normal [facility] Erythrocyte mean corpuscular hemoglobin [Entitic mass] by Automated count 33.5 pg 26.0 - 34.0 [facility] Erythrocyte mean corpuscular hemoglobin concentration [Mass/volume] by Automated count 31.1 g/dL 32.0 - 36.0 Below low normal [facility] Erythrocyte distribution width [Ratio] by Automated count 12.8 % 11.6 - 14.8 [facility] Platelets [#/volume] in Blood by Automated count 225 K/uL 150 - 450 [facility] Platelet mean volume [Entitic volume] in Blood by Automated count 9.7 fL 7.1 - 10.4 [facility] Neutrophils [#/volume] in Blood by Automated count 4.53 K/uL 1.70 - 7.70 [facility] Lymphocytes [#/volume] in Blood by Automated count 1.28 K/uL 1.50 - 6.00 Below low normal [facility] Monocytes [#/volume] in Blood by Automated count 0.60 K/uL 0.00 - 1. 00 [facility] Eosinophils [#/volume] in Blood by Automated count 0.09 K/uL 0.00 - 0.30 [facility] Basophils [#/volume] in Blood by Automated count 0.00 K/uL 0.00 - 0. 10 [facility] 0.10 Urinalysis macro (dipstick) panel - Urine 0.000 10^3/uL 0.000 - 0.012 [facility] Neutrophils/100 leukocytes in Blood by Automated count 68.6 % 42. 2 - 75.2 [facility] Lymphocytes/100 leukocytes in Blood by Automated count 19.4 % 15. 0 - 41.0 [facility] Monocytes/100 leukocytes in Blood by Automated count 9.1 % 0.0 - 12.0 [facility] Eosinophils/100 leukocytes in Blood by Automated count 1.4 % 0.0 - 7.0 [facility] 0.01.50 NRBC 0.0 % [facility] l MANUAL DIFF NOT INDICATED [facility] RBC MORPH NOT INDICATED [facility] ID Date Data Source [id number] 08/06/2020 07:00:00 AM EST [facility] Name Value Range Interpretation Code Description Data Sasha rce(s) Supporting Document(s) BASIC METABOLIC PANEL [facility] BASIC METABOLIC PANEL Sodium [Moles/volume] in Serum or Plasma 138 mEq/L 136 - 145 [facility] Potassium [Moles/volume] in Serum or Plasma 4.7 mEq/L 3.5 - 5.1 [facility] Chloride [Moles/volume] in Serum or Plasma 104 mEq/L 98 - 107 [facility] Carbon dioxide, total [Moles/volume] in Serum or Plasma 21.5 mEq /L 21.0 - 32.0 [facility] Glucose [Mass/volume] in Serum or Plasma 108 mg/dL 70 - 100 Above high normal [facility] Urea nitrogen [Mass/volume] in Serum or Plasma 88 mg/dL 7 - 18 Above upper panic limits [facility]: [facility] READ BACK YES [facility] l CREATININE SERUM 2.13 mg/dL 0.55 - 1.02 Above high normal [facility] AGE 89 yrs [facility] l HEIGHT 64.00 INCHES [facility] eGFR NON-AFR AMR 22 [facility] eGFR AFR AMR 26 [facility] BUN/CREAT 41 6 - 25 Above high normal [facility] Calcium [Mass/volume] in Serum or Plasma 8.8 mg/dL 8.8 - 10.2 [facility] ANION GAP 13 7 - 15 [facility] l Estimated GFR reference r olbo: > 60 mL/min/1.73m >18 years: Calculated using IDMS traceable MDRD Study Equation <18 years: Calculated using IDMS traceable [facility]side [facility] Equation ID Date Data Source [id number] 08/06/2020 06:50:00 AM EST [facility] Name Value Range Interpretation Code Description Data Sasha rce(s) Supporting Document(s) FOLIC ACID 20.6 ng/mL 8.6 - 58.9 [facility] ital Biotin can interfere with folic ac id results if taken 48 hours prior to specimen collection. ID Date Data Source [id number] 08/06/2020 06:50:00 AM [facility] Name Value Range Interpretation Code Description Data Sasha rce(s) Supporting Document(s) VITAMIN B12 511 pg/mL 193 - 986 [facility] tammy Biotin can interfere with Vitamin B12 results if taken 48 hours prior to specimen collection. Intrinsic Factor blocking antibodies are present in approximately half of pernicious anemia patients. If vitamin B12 test results are in conflict with the clinical diagnosis, the sample can be tested for intrinsic factor blocking antibodies. ID Date Data Source [id number] 08/06/2020 06:50:00 AM EST [facility] Name Value Range Interpretation Code Description Data Sasha rce(s) Supporting Document(s) CROSS MATCH ADDL UNITS [facility] UNIT NUMBER: _[id number] ____ 08/07/20.KJV. TRANSFUSED BY: _P._SANN 08/07/20.KJV. _T._ALLEN 08/07/20.KJV. TRANSFUSION DATE: _08/06/20 08/07/20.KJV. START TIME: 08/07/20.KJV. STOP TIME: _2314 08/07/20.KJV. VOLUME ADMINISTERED: _300mL 08/07/20.KJV. REACTION? _NONE_NOTED 08/07/20.KJV. UNIT ABO TYPE: _O 08/07/20.KJV. UNIT RH: _POSITIVE 08/07/20 .9.KJV. UNIT EXPIRATION: _08/11/20 08/07/20.KJV. COMPATIBILITY: _BY_K._VANBROCKLIN 08/07/20.KJV. PT TRANSFUSED PRBC [facility] pital ID Date Data Source [id number] 08/06/2020 06:50:00 AM EST [facility] Name Value Range Interpretation Code Description Data Sasha rce(s) Supporting Document(s) CROSSMATCH INITIAL [facility] PATIENT ABO TYPE: _O ____ 08/06/20.1135.[facility]. PATIENT RH TYPE: _POSITIVE 08/06/20.[facility]. PATIENT DIRECT ANJEL: _NEGATIVE 08/06/20.[facility]. PATIENT INDIRECT ANJEL: _NEGATIVE 08/06/20.[facility]. UNIT NUMBER: _[id number] 08/06/20.1135.[facility]. TRANSFUSED BY: _P._ROYCE 08/07/20. 3.KJV. _C._CLAK 08/07/20.752.KJV. TRANSFUSION DATE: _08/06/20 08/07/20.752.KJV. START TIME: _1540 08/07/20.752.KJV. STOP TIME: _1845 08/07/20.KJV. VOLUME ADMINISTERED: _280_mL 08/07/20.KJV. REACTION? _NONE_NOTED 08/07/20.KJV. UNIT ABO TYPE: _O 08/06/20.JC. UNIT RH: _POSITIVE 07/23.JC. UNIT EXPIRATION: _[id number] 08/06/20.[facility]. COMPATIBILITY: _BY_J._HALL 08/07/20.752.KJV. PT TRANSFUSED PRBC [facility] pital ID Date Data Source [id number] 08/06/2020 06:50:00 AM EST [facility] Name Value Range Interpretation Code Description Data Sasha rce(s) Supporting Document(s) FERRITIN 294 ng/mL 8 - 252 Above high normal [facility] ID Date Data Source [id number] 08/06/2020 06:50:00 AM EST [facility] Name Value Range Interpretation Code Description Data Sasha rce(s) Supporting Document(s) IRON AND TIBC PROFILE [facility] IRON PROFILE Iron [Mass/volume] in Serum or Plasma 34 ug/mL 50 - 170 Below low normal [facility] Iron binding capacity [Mass/volume] in Serum or Plasma 150 ug/dL 250 - 450 Below low normal [facility] IRON SAT [facility] ID Date Data Source [id number] 07/31/2020 07:22:20 AM EST [facility] Name Value Range Interpretation Code Description Data Sasha rce(s) Supporting Document(s) Admission Note [facility] Kevin hoff MGNCSd3yLkJQRcqunJ1WQUTjBB8pbst3XWzvF5IzHRVnmrFcBUOjF4mtNYAUATZITBSljL4hRDBaHodC vYm bTYCmFTMNpQsZwVlYsH7dyzmc8nXR0VTZsUlgePF4UkWm3EKCyW1VeUKFgATPps7VqNi8+LsW8xxCdfY e2kF3UV4YAIJqL52axUt1uTCYmeEhhgCKg8eGOoqnTz7WauaoXBTMlFDFJXFiXUQAAK27QGPKZIwCJAE fxvg7wb1NpRt3wCnrQ62/ZrfmxtVVb+2f7/Jxzw1UY sUThr3y0gxoXbQzpthLZFVjKnNJD9vj84iJBgrKQmKrJF2aTAXwTNn1RPrX32gGExmWhTJ+B82PWLpzr 6wjWc8+Rhiannon+7Icnz1D3/Haiecvf6/4ejWeVNouSiOxEaSuEDonVz61wLBrMSnjCGew2GQAYUKe6bAo5 4UFHyR7oqS+cUeHiu4c0IjWsb0/QikTLWrUAMX3vgW XsGGcZGWnotuNNsP3kjLuwvga1tReNS4JiE9eNrKM/pCbUq9UCO+SrPy8yU/95/FMvVPLqy/+vN/gf9x GcnW/14lKvFXI1as0e93uPKT0YVAP1Q20fVFLvZGX78e8GummJTJjxDFWVORw5wX169EbfRT/IgAakgD yADfkVWusZK3NIjGDntAAzmO7Rz48UGzJDNtGNiYWD bcOZFYRHiONCLnyFC3zYkoPj2GWEnMNyBoeL70TeeEA3UN7pcRLaDpaZDXZNRMJYobYXSCNHRaYWyRWR 3Hi3NR3MXKZOMXMuOKQXmsUSBYSPOC2GZ52VJ6J16Fv9AiaUQrLZ0Lj1U/QJRsBEmAbLwWqwHsyEbWF3 2A/eAkfBSXAWnA/dbnpnSqc47VugvO/DozAffgUvIg YXpOZvDXQ1JYsZKkRRWBPMAmpZbMfLKXRiYwGS1QJFKW9u+Si6hVznPpkVYdV2PBsjF9XnmEIsKOnaq3 HVyFPITmQ/4t8kRzmJ/VcoyDBE9geyaTauDJTMBwvCoUpLGnuS7HVGMFfe1O6AZbCQ6okVyVq2HP6Vvg YXo4+z08CU1iFwIrXoCzZAlivdAUXhiAMJEpCMD0R6 bgaFAnYNOp9kZGuHnEHTODeR8UOmyPQKBmmjhqP4u16BvvLJjuS4Wajux0chrEKuptR6bsA5NjyPQg6k iffDx+X26bserzls+Nn6ugYQZCldCyEnuKI3OCkJBtr2XYVCe8ZIOUrnVetyfcW6E81HIcVuBh+SSCQ1 ug5kyHQD8x3yYo4nTHK1MHTP9Tl0thISyyRgVHkPIq Uxo1HaAuCdbWk0s3yBObs+M23RlNlivwnEjesaJF4SGL51AjulOuWpUZCOGwAhJksBxuv4R6YX8VfCOZ Wjw6OafjHjAGGIkxy9JMN2K1TQdd65UIPR2QjmtJdyFh6T7rRrQOlktwKiGQ0yBpX+BSiID6DK5Y27jL oJ/Nj3vP3EFg8UXfCooT+iTWJEYklSRtJGkiNZKNku AWq1YDvn1BrTH6BFbdckpUGLZqkkTzhm+pd2Klk2DRvIyRcRujQggMthNOgFR9WNUwt4zKnw9RPmbLmp XCLhekiYiSu5idmSsQl2rXne/JwCVcFKIUahXOGSwkuGOMOWEc+oYTTyVcMjYZ0NVhXlPBbJp5NPzjlA 8nAgfV8z13YJxfKA0jb2hkezGmizUcawxJvAGTSyWM Dw0iBjS1qReteiwTn06wxTWrEb9F6Ms6Xg6C0hmMUhEBI0IyKlxNG4dHrlvbx469pSGsWl5Bs5Kis0TM 8H5MofN3lR98FjzMTs3qMcQ2mc5mqarXx15siz7sT1dZL4p3Qr38oavmia3RpA+6pvrB+v36g/YUAxcD PIM+gx+CBHs0VsAEB4VW7lqcF46CRh382ToLjlyS8a OSBnVrfk1fDyW/0eUgqMJ9zmuKLFVF1xdBPdW6KT9mtb9v1loTtvUx1MPvEA4ptqGgMfqv+q9GTNx0vf rS9ylxKjfQRTvAMDTxkrsHWmbwEIKqDMfe+bnZ8s8YM17JeOze1OMOVlf0vxn7eq2gRxcm7HhuOnpe1c umy2HTuUs8SFjqRAV2PR70Xd2IhDikIEE2iCqjAzv9 nbPYkSq2uWINubSkpXqoay95GlmdeFe195zcth25d51c3xHmgLAo/I597xcMpIjjiylFw3pTUYa2aTk0 ea7v9A7i/0wZ51oWk5Icyc+Uf4Mjgnsci8aGPOim56zvE/CX8N/1T/kwBjVToKz7HWdGViJKG/SC9oR9 VeGBksoXJvHDwLWMpNvJHyo99AFj+QWfgOmF1wCp+S rzLoZeqf3JpudhXaW994BecOHwnSCpM93Ad8ZXttbvIaCvSJHz36tXhCanEMv+h4bkuojzchFMRB9CiM ZdTBqLlo6+iK6PkY+0bjwKgzQzN6mAphOgZy14jcC+ApM1NQIJrhyDBxXXm/u/h6mT6TkmrTUMn1ELIf Y0tAQOjqWoPRoSC3F1H0+pEeTNVI/V57Iw3xeAbnB0 pA+rkMsQxuxmCmVua+wYljl9nK5lirIgVcobJM2veFTsO80isSVaD44cSy9+ynGj3k5gNdD0622D40ag r8AQow9uYh0hwIg6+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/Nb64yfEQVMmDPcrBF6237Ray/z/dC+8exm2j5fNTtwKnXeysk5UZnquvQAaR [file] B4ZSSHOUcgQLkLVIC5HficKVA+YToyFK0PgOdzSBVdAg6+PpM1KMQ5tSJjMpccRRL4SPrsFPPOIfs= ID Date Data Source [id number] 07/30/2020 02:38:35 PM EST [facility] Name Value Range Interpretation Code Description Data Sasha rce(s) Supporting Document(s) Provider Note [facility] RWFRPh3mAyDDMlmnlR5OIZLsBR5pfvt8JHfjQ5ZsRVWnqkSuKMIsU9orQGEAIDDUYIQdgR4dASBaWqzX vYm iIGSuUHVDzCjPuDySuM3cjuox6sKE9AEItRpbdCO2CyWv9JJIbT1YhARZbFUYjo3RgIp3+HaH7ptDtxJ r0uD8RQ0GTIGtI05itWn1kSXXjuWfrrSSr4yPWvauFa2UpxrcMWJBiUMOCHYrNQYKNG09PZJVIJxPNIT ssql4ko3TxNq5dTbkR32/ZrfmxtVVb+2f7/Ujiy1DN gBUmj2r5xhsPwIdntpYWKEqQdUGS9nm67mQAznCNfGfFA5qVBZmPMt7CXbH58jVUyjKsBI+I04KECatg 6wjWc8+Rhiannon+4Ggut6S6/Haiecvf6/0vyVnZZibHjKpTaWhTOkuZq56jBJoDTngMJmn2DGKCNXw5lDt7 [file] o7SIuu2jXu0niVr6+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/Ne18xhNBBSsVYvoDI4056Haw/z/dC+8dth9p6wPVptWsEbaak7OIarioAHcG [file] TqTSYn0Cq0UzpkQ7kuOuCaVnQHmbVtGlTR2EKf== ID Date Data Source [id number] 07/29/2020 06:10:38 PM EST [facility] Name Value Range Interpretation Code Description Data Sasha rce(s) Supporting Document(s) Provider Note [facility] pital GFVMQv1pFwZRYbuvkY7OKQRlRW3zzko2AHumJ7UrUFRbvsQyYDNkR6jkVDKSPLXYJRWkwF0aCRCrYkkL vYm xAFLaIUTCfDdQoVvFwX4djifi6eON4ULVtLrtmCC8MkBw2VIFbA8TvRDKuRCRst5SgRy0+CaT3tdAcpZ c7aU0QR5WBWTnM98dpCs4dBFXxwUqatBXp9cBFrsrHb7ViisxIXCNwEKBQEEjKRUQTZ68TUPHBGpYQNI hnlx9yd5FlFv9hHoiO03/ZrfmxtVVb+2f7/Kdid4QH cLNqk8q9zduBuWbromOWTAhFqJHH2fe79tKQjrATaKuBM8bMNMaYWs5IIjB00zCBhrYtEO+C33VFGnsf 6wjWc8+Rhiannon+8Ujtw7N1/Haiecvf6/2jpWnNNsgGlQeZvLbTSqyGq35bDZeWYztNOoq7ICWCTSp5bYr0 [file] e3FHff6hSo6xpFc0+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/Pi11veWFOJhXJvxPZ7724Lyz/z/dC+4ihr7i1sVDzdIhOtdce4DWmeteHWdU [file] 8Fh8LxovJ9mcQdRiEvJLeyFdJpYO7LWo== ID Date Data Source [id number] 07/29/2020 09:30:00 AM EST [facility] Name Value Range Interpretation Code Description Data Sasha rce(s) Supporting Document(s) URINALYSIS ROUTINE wMICRO RFLX TO CX [facility] URINALYSIS W/REFLEX CULTURE REFERENCE RANGES SOURCE [facility] COLOR Yellow Colorless-Or [facility] ospital CLARITY Clear Normal: Clear [facility] pital LEUK EST Negative Negative - Trace [facility] NITRITE Negative Normal: Negative [facility] UROBILINOGEN Negative Negative - Trace [facility] PROTEIN TRACE Negative - Trace [facility] pH 6.0 5.0 - 8.0 [facility] l BLOOD 3+ Negative - Trace Abnormal (applies to non-numer ic results) [facility] SPEC GRAVITY 1.025 1.000 - 1.030 [facility] KETONE Negative Negative - Trace [facility] BILIRUBIN Negative Normal: Negative [facility] GLUCOSE Negative Normal: Negative [facility] MICROSCOPIC See Below [facility] tammy WBC 3 - 5 None Seen - 5/hpf [facility] RBC 30 - 50 None Seen - 5/hpf Abnormal (applies to non-nume frances results) [facility] EPITHELIAL See Below NORMAL: None Seen [facility] SQUAMOUS EPI MANY/hpf NORMAL: None Seen Abnormal (appl ies to non-numeric results) [facility] CONTAMINATION INDICATED, RE-C OLLECT CLEAN CATCH SAMPLE IF INFECTION SUSPECTED TRANS EPI NONE SEEN NORMAL: None Seen [facility] RENAL EPI NONE SEEN NORMAL: None Seen [facility] BACTERIA NONE SEEN NORMAL: None Seen [facility] MUCOUS NONE SEEN NORMAL: None Seen [facility] CASTS Not Indicated [facility] pital CRYSTALS Not Indicated [facility] pital CULTURE INDICATED? NO Normal: No [facility] ID Date Data Source [id number] 07/28/2020 05:25:00 PM EST [facility] Name Value Range Interpretation Code Description Data Sasha rce(s) Supporting Document(s) SARS RAPID AG Erin [facility] SARS RAPID Ag DESMOND [id number] NEGATIVE NORMAL: NEGATIVE [facility] REPORT TO DEPARTMENT OF [facility] LIMITATIONS: 1. Positive test results do not [...] or revoked sooner. ID Date Data Source [id number] 07/28/2020 04:55:00 PM EST [facility] Name Value Range Interpretation Code Description Data Sasha rce(s) Supporting Document(s) BASIC METABOLIC PANEL [facility] BASIC METABOLIC PANEL Sodium [Moles/volume] in Serum or Plasma 142 mEq/L 136 - 145 [facility] Potassium [Moles/volume] in Serum or Plasma 4.4 mEq/L 3.5 - 5.1 [facility] Chloride [Moles/volume] in Serum or Plasma 109 mEq/L 98 - 107 Above high normal [facility] Carbon dioxide, total [Moles/volume] in Serum or Plasma 24.6 mEq /L 21.0 - 32.0 [facility] Glucose [Mass/volume] in Serum or Plasma 106 mg/dL 70 - 100 Above high normal [facility] Urea nitrogen [Mass/volume] in Serum or Plasma 55 mg/dL 7 - 18 Above upper panic limits [facility] CALLED TO: KANCHAN @ [phone] spital REP/VERIFIED REPEATED TO CONFIRM [facility] READ BACK YES [facility] CREATININE SERUM 2.12 mg/dL 0.55 - 1.02 Above high normal [facility] AGE 89 yrs [facility] l eGFR NON-AFR AMR 22 [facility] eGFR AFR AMR 27 [facility] BUN/CREAT 26 6 - 25 Above high normal [facility] Calcium [Mass/volume] in Serum or Plasma 9.1 mg/dL 8.8 - 10.2 [facility] ANION GAP 8 7 - 15 [facility] Estimated GFR reference r lobo: > 60 mL/min/1.73m >18 years: Calculated using IDMS traceable MDRD Study Equation <18 years: Calculated using IDMS traceable [facility] Equation ID Date Data Source [id number] 07/28/2020 04:55:00 PM EST [facility] Name Value Range Interpretation Code Description Data Sasha rce(s) Supporting Document(s) CBC [facility] l COMPLETE BLOOD COUNT Leukocytes [#/volume] in Blood by Automated count 8.4 K/uL 4.0 - 10 .0 [facility] Erythrocytes [#/volume] in Blood by Automated count 2.83 M/uL 4.00 - 5.40 Below low normal [facility] Hemoglobin [Mass/volume] in Blood 9.5 g/dL 12.0 - 15.5 Below low no rmal [facility] Hematocrit [Volume Fraction] of Blood by Automated count 30.3 % 36.0 - 44.5 Below low normal [facility] Erythrocyte mean corpuscular volume [Entitic volume] b y Automated count 107.1 fL 80.0 - 96.0 Above high normal [facility] Erythrocyte mean corpuscular hemoglobin [Entitic mass] by Automated count 33.6 pg 26.0 - 34.0 [facility] Erythrocyte mean corpuscular hemoglobin concentration [Mass/volume] by Automated count 31.4 g/dL 32.0 - 36.0 Below low normal [facility] tammy Erythrocyte distribution width [Ratio] by Automated count 12.1 % 11.6 - 14.8 [facility] Platelets [#/volume] in Blood by Automated count 325 K/uL 150 - 450 [facility] Platelet mean volume [Entitic volume] in Blood by Automated count 9.8 fL 7.1 - 10.4 [facility] Neutrophils [#/volume] in Blood by Automated count 6.54 K/uL 1.70 - 7.70 [facility] Lymphocytes [#/volume] in Blood by Automated count 1.21 K/uL 1.50 - 6.00 Below low normal [facility] Monocytes [#/volume] in Blood by Automated count 0.56 K/uL 0.00 - 1. 00 [facility] Eosinophils [#/volume] in Blood by Automated count 0.02 K/uL 0.00 - 0.30 [facility] Basophils [#/volume] in Blood by Automated count 0.01 K/uL 0.00 - 0. 10 [facility] 0.10 Urinalysis macro (dipstick) panel - Urine 0.000 10^3/uL 0.000 - 0.012 [facility] Neutrophils/100 leukocytes in Blood by Automated count 77.6 % 42.2 - 75.2 Above high normal [facility] Lymphocytes/100 leukocytes in Blood by Automated count 14.3 % 15.0 - 41.0 Below low normal [facility] Monocytes/100 leukocytes in Blood by Automated count 6.6 % 0.0 - 12.0 [facility] Eosinophils/100 leukocytes in Blood by Automated count 0.2 % 0.0 - 7.0 [facility] 0.11.20 NRBC 0.0 % [facility] MANUAL DIFF NOT INDICATED [facility] RBC MORPH NOT INDICATED [facility] ID Date Data Source [id number] 07/12/2020 12:59:00 PM EST [facility] Name Value Range Interpretation Code Description Data Sasha rce(s) Supporting Document(s) SARS coronavirus 2 RNA [Presence] in Res piratory specimen by AZRA with probe detection [facility] This lab was ordered by [facility] a nd reported by [facility]. ID Date Data Source [id number] 07/09/2020 12:00:00 AM EST [facility] Name Value Range Interpretation Code Description Data Sasha rce(s) Supporting Document(s) SARS-CoV2 Rapid Antigen [facility] This lab was ordered by [facility] and reported by [facility]. ID Date Data Source [id number] 07/07/2020 11:57:00 AM EST [facility] Name Value Range Interpretation Code Description Data Sasha rce(s) Supporting Document(s) SARS coronavirus 2 RNA [facility] This lab was ordered by [facility] and reported by [facility]. ID Date Data Source [id number] 07/02/2020 02:46:00 PM EST [facility] Name Value Range Interpretation Code Description Data Sasha rce(s) Supporting Document(s) SARS coronavirus 2 RNA [facility] This lab was ordered by [facility] and reported by [facility]. ID Date Data Source [id number] 01/08/2020 12:00:00 AM EDT [facility] Name Value Range Interpretation Code Description Data Sasha rce(s) Supporting Document(s) 2019-nCoV N XXX Ql AZRA N2 [facility] This lab was ordered by [facility] and reported by [facility]. Procedure Social History Code Duration Value Status Description Data Source(s ) Smoking 05/10/2020 12:00:00 AM EDT Never Smoker completed Never S moker eCW1 ([facility]) Smoking 05/10/2020 12:00:00 AM EDT Never Smoker completed Never S moker eCW1 ([facility]) Smoking 05/10/2020 12:00:00 AM EDT Never Smoker completed Never S moker eCW1 ([facility]) Smoking 05/10/2020 12:00:00 AM EDT Never Smoker completed Never S moker eCW1 ([facility]) Smoking 05/10/2020 12:00:00 AM EDT Never Smoker completed Never S moker eCW1 ([facility]) Smoking 11/12/2019 12:00:00 AM EDT Never Smoker completed Never S moker eCW1 ([facility]) Vital Signs ID Date Data Source UNK Name Value Range Interpretation Code Description Data Source(s) Diastolic blood pressure 60 mm[Hg] 60 mm[Hg] eCW1 ([facility]) Systolic blood pressure 110 mm[Hg] 110 mm[Hg] e CW1 ([facility]) Body temperature 97.6 [degF] 97.6 [degF] eCW1 ( [facility]) Respiratory rate 20 /min 20 /min eCW1 ([facility]) Heart rate 80 /min 80 /min eCW1 ([facility]) Body mass index (BMI) [Ratio] 31.41 kg/m2 31.41 kg/m2 W1 ([facility]) Body height 64 [in_i] 64 [in_i] eCW1 ([facility]) Body weight 183 [lb_av] 183 [lb_av] eCW1 ([facility]) Diastolic blood pressure 72 mm[Hg] 72 mm[Hg] eCW1 ([facility]) Systolic blood pressure 118 mm[Hg] 118 mm[Hg] e CW1 ([facility]) Body temperature 96.7 [degF] 96.7 [degF] eCW1 ( [facility]) Respiratory rate 18 /min 18 /min eCW1 ([facility]) Heart rate 100 /min 100 /min eCW1 ([facility]) Body mass index (BMI) [Ratio] 30.38 kg/m2 30.38 kg/m2 eCW1 ([facility]) Body height 64 [in_us] 64 [in_us] eCW1 ([facility]) Body weight Measured 177.0 [lb_av] 177.0 [lb_av ] W1 ([facility]) Body weight 77.112 kg 77.112 kg [facility] ([facility]) Body mass index (BMI) [Ratio] 31.1 kg/m2 31.1 k g/m2 [facility] ([facility]) Body weight 170.00 [lb_av] 170.00 [lb_av] MEDEN T ([facility]) Body height 62 [in_i] 62 [in_i] [facility] ([facility]) 5'2" Body temperature 97.8 [degF] 97.8 [degF] [facility] ([facility]) Oxygen saturation in Arterial blood by Pulse oximetry 89 % 89 % [facility] ([facility]) 92 ra Heart rate 90 /min 90 /min [facility] ([facility]) Diastolic blood pressure 70 mm[Hg] 70 mm[Hg] [facility] ([facility]) Systolic blood pressure 118 mm[Hg] 118 mm[Hg] [facility] Diastolic blood pressure 72 mm[Hg] 72 mm[Hg] eCW1 ([facility]) Systolic blood pressure 118 mm[Hg] 118 mm[Hg] e CW1 ([facility]) Body temperature 95.9 [degF] 95.9 [degF] eCW1 ( [facility]) Respiratory rate 18 /min 18 /min eCW1 ([facility]) Heart rate 97 /min 97 /min eCW1 ([facility]) Body mass index (BMI) [Ratio] 28.83 kg/m2 28.83 kg/m2 W1 ([facility]) Body height 64 [in_us] 64 [in_us] eCW1 ([facility]) Body weight Measured 168 [lb_av] 168 [lb_av] eC W1 ([facility]) Patient Treatment Plan of Care Planned Activity Planned Date Details Description Data Source (s) Nystatin 100 UNT/MG Topical Powder 05/31/2020 12:00:00 AM EST eCW1 ([facility]) Nystatin 100 UNT/MG Topical Powder 05/31/2020 12:00:00 AM EST eCW1 ([facility]) Nystatin 100 UNT/MG Topical Powder 05/31/2020 12:00:00 AM EST eCW1 ([facility]) Nystatin 100 UNT/MG Topical Powder 05/31/2020 12:00:00 AM EST eCW1 ([facility]) Nizoral 2 % 11/14/2019 12:00:00 AM EDT e CW1 ([facility]) Nystatin 100 UNT/MG Topical Powder 08/06/2019 12:00:00 AM EST eCW1 ([facility]) Fluconazole 200 MG Oral Tablet 08/06/2019 12:00:00 AM EST eCW1 ([facility]) Polyethylene Glycol 400 4 MG/ML / Propyl sakina glycol 3 MG/ML Ophthalmic Solution [Systane] 07/30/2019 12:00:00 AM EST eCW1 ([facility])
--- NOTE | 2020-09-14 16:24 | HPEPDOC ---
[facility] Medical History & Physical Date of Admission Sep 14, 2020 Date of Service: Sep 14, 2020 History and Physical Chief complaint: Who presented to [facility] for generalized weakness History of present illness: Patient is an 89-year-old female with a PMHx of COPD, HTN, CKD3 who presented to [facility] from [facility] area for generalized weakness. Upon arrival to emergency room, patient was found to have an elevated BUN and creatinine have been consistently worsening since her discharge in July. Currently patient denies any chest pain, shortness of breath or cough. Has not experience any nausea, vomiting, abdominal pain, constant pressure diarrhea. Patient has a Vigil catheter that remains in place. Patient denies any fevers or chills. She reports a poor appetite and is unsure of any changes in her weight. Patient has had a recent stay at [facility] for COVID19 infection from 07/09 to 07/28. Patient was transferred to [facility] where she remains there until she was transitioned to [facility]. Past Medical History: COVID19 positive (07/12/21) Urinary retention (Vigil remains in place) Chronic COPD HTN DLP Parkinsons CKD3 Mood disorder Past Surgical History: Rectovaginal fistula repair MARTY with BSO for fibroids Lumbar laminectomy Right cataract extraction Left cataract extraction ORIF, left hip fracture Right total knee replacement Allergies: See below Medications: See below Family History: - Mother with history of dementia, CVA - Father: with history of [place] Social History: - Denies the use of alcohol, tobacco or illicit drugs - Denies recent travel or sick contacts - Lives at [facility] skilled Review of Systems: 10 point review of systems complete, all negative otherwise stated in HPI Physical exam: - Vitals: BP [127/62], HR [87], RR [18], Sat [98%NC1L], Temp [96.6F] - General: Lying in bed, No acute distress, Speaking in full sentences, Awake / Alert - HEENT: NC, AT, PERRLA - CVS: RRR, +S1S2 - Lungs: Fair air entry bilaterally, No appreciable wheezing / rales / rhonchi - Abdomen: Soft, Non-distended, Non-tender - Extremities: 1+ pitting edema of ankles, No calf tenderness - Neuro: No focal motor or sensory deficit - Skin: No visible rashes Labs: See below Imaging: CXR 09/14: No acute disease. No infiltrate seen. EKG: See below Assessment and Plan: MARISSA on CKD3 - BUN / Cr baseline of 30-40 / 1.4-1.6 in the past - BUN significantly elevated - Will check renal us / urine electrolytes / urinalysis - Will stop nephrotoxic medications - Will start gentle IV fluid hydration Generalized weakness - possibly 2/2 post-viral infection - Patient has been ambulatory with walker in the past; however now has regressed and required continued support - No focal deficit - Will check Magnesium / CK - Will have PT / OT work with patient Leg swelling - Will check ECHO / Duplex US of LE COVID19 positive (07/12/21) - Has tested negative since then Urinary retention - Vigil remains in place since July discharge Chronic COPD - No evidence of exacerbation - c/w inhaled therapy as ordered HTN - BP well controlled - Will hold Valsartan / HCTZ for now (re: MARISSA) Parkinsons - c/w Aripiprazole, Levodopa / Carbidopa DLP - c/w Atorvastatin and ASA Mood disorder - c/w Sertraline and Aripiprazole DVT prophylaxis - Will start Heparin Vital Signs Vital Signs Date Time Temp Pulse Resp B/P (MAP) Pulse Ox O2 Delivery O2 Flow Rate FiO2 09/14/20 15:05 87 98 09/14/20 14:32 96.6 09/14/20 14:14 18 09/14/20 13:53 127/62 (83) Laboratory Data Labs 24H Laboratory Tests 2 09/14/20 14:16: Immature Granulocyte % (Auto) 0.4, Neutrophils (%) (Auto) 74.0H, Lymphocytes (%) (Auto) 15.4L, Monocytes (%) (Auto) 7.0, Eosinophils (%) (Auto) 2.9, Basophils (%) (Auto) 0.3, Neutrophils # (Auto) 5.6, Lymphocytes # (Auto) 1.2L, Monocytes # (Auto) 0.5, Eosinophils # (Auto) 0.2, Basophils # (Auto) 0.0, Nucleated Red Blood Cells % (auto) 0.0, Prothrombin Time 14.0, Prothromb Time International Ratio 1.06, Anion Gap 8, Glomerular Filtration Rate 29.3L, Calcium Level 10.1, Phosphorus Level 3.1, Total Bilirubin 0.2, Direct Bilirubin < 0.1, Aspartate Amino Transf (AST/SGOT) 14, Alanine Aminotransferase (ALT/SGPT) 11L, Alkaline Phosphatase 72, Total Protein 5.8L, Albumin 2.6L, Albumin/Globulin Ratio 0.8L, Lipase 219 09/14/20 15:54: Blood Gas Bicarbonate Standard 22.7, Venous Blood pH 7.314L, Venous Blood Partial Pressure CO2 50.2H, Venous Blood Partial Pressure O2 36.4, Venous Blood Total Carbon Dioxide 26.5, Venous Blood HCO3 24.9, Venous Blood Oxygen Saturation 65.7, Venous Blood Base Excess -1.5 CBC/BMP Laboratory Tests 09/14/20 14:16 Home Medications Scheduled Acetaminophen (Acetaminophen ER) 650 Mg Tablet.er, 1,300 MG PO BID Aripiprazole (Aripiprazole) 10 Mg Tablet, 10 MG PO DAILY Aspirin (Aspirin EC) 81 Mg Tablet.dr, 81 MG PO DAILY Atorvastatin Calcium (Atorvastatin Calcium) 40 Mg Tab, 40 MG PO DAILY Budesonide/Formoterol (Symbicort 80-4.5 Mcg Inhaler) 6.9 Gm Hfa.aer.ad, 2 PUFF INH BID Carbidopa/Levodopa (Sinemet 10-100 mg Tablet) 1 Each Tablet, 1.5 TAB PO TID TAKES AT 0800, 1400, AND 2000 Levothyroxine Sodium (Levoxyl) 112 Mcg Tablet, 112 MCG PO DAILY Magnesium Chloride (Magnesium Chloride) 64 Mg Tablet.dr, 64 MG PO DAILY [place]-3/Dha/Epa/Fish Oil (Fish Oil 1,000 mg Softgel) 1 Each Capsule, 2,000 M PO DAILY Sertraline Hcl (Zoloft) 100 Mg Tablet, 100 MG PO DAILY Tamsulosin HCl (Flomax) 0.4 Mg Capsule, 0.4 MG PO DAILY Valsartan/Hydrochlorothiazide (Valsartan-Hctz 160-12.5 mg Tab) 1 Tab Tab, 1 TAB PO DAILY Scheduled PRN Albuterol Sulfate (Ventolin Hfa) 18 Gm Hfa.aer.ad, 2 PUFF INH Q6H PRN for SHORTNESS OF BREATH Diclofenac Sodium (Diclofenac Sodium) 1% 100GM Gel..gram., 1 APPLIC TOP BID PRN for PAIN APPLY TO AFFCETED AREAS Allergies Coded Allergies: No Known Allergies (Verified , 09/14/20) PAVEL PEGUERO MD Sep 14, 2020 16:24
[2020-09-14] MEDS ORDERED: PANT-23 PO (16:26)
[2020-09-14] MEDS ORDERED: ENEMENE PR (16:26)
[2020-09-14] MEDS ORDERED: ASPI81CH33 PO (16:26)
[2020-09-14] MEDS ORDERED: ACET-907 PO (16:26)
[2020-09-14] MEDS ORDERED: SYMB16INH INH (16:26)
[2020-09-14] MEDS ORDERED: MOM30SS PO (16:26)
[2020-09-14] MEDS ORDERED: BISA10SU4 PR (16:26)
[2020-09-14] MEDS ORDERED: FLOM0.4C39 PO (16:26)
[2020-09-14 16:30] LABS: AMORPHOUS SEDIMENT SMALL (NEGATIVE); APPEARANCE, URINE CLOUDY (CLEAR); BACTERIA, URINE AUTO 1+ (NEGATIVE); BILIRUBIN, URINE AUTO NEGATIVE (NEGATIVE); BLOOD, URINE BLOOD NEGATIVE (NEGATIVE); COLOR, URINE YELLOW (YELLOW); GLUCOSE, URINE (UA) AUTO NEGATIVE (NEGATIVE); KETONE, URINE AUTO NEGATIVE (NEGATIVE); LEUKOCYTE ESTERASE, URINE AUTO 3+ (NEGATIVE); NITRITE, URINE AUTO NEGATIVE (NEGATIVE); PROTEIN, URINE AUTO 1+ mg/dL (NEGATIVE); RBC, URINE AUTO 5 /HPF (0-3); SPECIFIC GRAVITY URINE AUTO 1.016 (1.002-1.035); SQUAMOUS EPITHELIAL CELL UR AU 0 /HPF (0-6); TRIPLE PHOSPHATE CRYSTALS SMALL; UROBILINOGEN, URINE AUTO 0.2 mg/dL (0.0-2.0); WBC, URINE AUTO 5 /HPF (0-3)
[2020-09-14 16:34] LABS: MAGNESIUM LEVEL 1.6 MG/DL (1.8-2.4)
[2020-09-14 16:38] LABS: OSMOLALITY URINE 598 MOSM/KG (500-800)
[2020-09-14] MEDS ORDERED: FLEET ENEMA PR PRN (16:45)
[2020-09-14] MEDS ORDERED: MOM 30ML SUSPENSION UDC PO PRN (16:45)
[2020-09-14] MEDS ORDERED: BISACODYL 10 MG SUPP PR PRN (16:45)
[2020-09-14 16:46] LABS: CREATININE,RANDOM URINE 78.1 MG/DL; POTASSIUM RANDOM URINE 24.6 MEQ/L; SODIUM,RANDOM URINE 22 MEQ/L
--- NOTE | 2020-09-14 16:59 | ECGEPIP ---
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
--- NOTE | 2020-09-14 17:29 | REPVR ---
PROCEDURE INFORMATION: Exam: US Duplex Lower Extremity Veins, Bilateral Exam date and time: 09/14/2020 5:16 PM Age: 89 years old Clinical indication: Pain; Leg, lower; Bilateral; Additional info: Leg swelling TECHNIQUE: Imaging protocol: Real-time duplex ultrasound of the extremities with 2-D mercado scale, color Doppler flow and spectral waveform analysis with image documentation. Complete exam focused on the bilateral lower extremity veins. COMPARISON: No relevant prior studies available. FINDINGS: Right deep veins: Unremarkable. The common femoral, femoral, proximal profunda femoral and popliteal veins are patent without thrombus. Normal Doppler waveforms. Normal compressibility and/or augmentation response. Right superficial veins: Saphenofemoral junction is patent without thrombus. Left deep veins: Unremarkable. The common femoral, femoral, proximal profunda femoral and popliteal veins are patent without thrombus. Normal Doppler waveforms. Normal compressibility and/or augmentation response. Left superficial veins: Saphenofemoral junction is patent without thrombus. Soft tissues: Bilateral swelling. IMPRESSION: No evidence of deep vein thrombosis. Electronically signed by: Elliot Hodgson On 09/14/2020 17:29:14 PM
--- NOTE | 2020-09-14 18:09 | REPVR ---
PROCEDURE INFORMATION: Exam: US Retroperitoneal Limited, Kidneys Exam date and time: 09/14/2020 5:16 PM Age: 89 years old Clinical indication: Other: [place] TECHNIQUE: Imaging protocol: Real-time ultrasound of the retroperitoneum with image documentation. Examination was focused on the kidneys. COMPARISON: ABDOMEN COMPLETE US 11/19/2017 10:47 AM FINDINGS: Right kidney: The right kidney measures 9.3 cm in length by 5.1 cm in thickness and there is no evidence of hydronephrosis. Left kidney: The left kidney measures 9 cm in length by 5 cm in thickness and there is no evidence of hydronephrosis. Bladder: There is a Vigil catheter within the urinary bladder and therefore the urinary bladder cannot be evaluated. IMPRESSION: No evidence of hydronephrosis. Electronically signed by: Elliot Hodgson On 09/14/2020 18:09:09 PM
[2020-09-14 19:00] VITALS: BP 124/65
[2020-09-14] MEDS: MAG SULF 1GM/100ML (MAG RUN) 1 GM in IV 1 EA IV SCH ×2 (19:01→20:07)
[2020-09-14] MEDS: SINEMET 10-100 MG TAB PO SCH (20:56)
[2020-09-14 22:00] VITALS: BP 127/64
[2020-09-14] MEDS: SYMBICORT 160/4.5MCG INHALER 6GM INH SCH (22:00)
[2020-09-14] MEDS: HEPARIN SOD (PORCINE) 5000UNITS/ML 1ML VIAL/SYRINGE SC SCH (22:28)
[2020-09-15 06:00] VITALS: BP 128/68
[2020-09-15] MEDS: LEVOTHYROXINE 112MCG TABLET (0.112MG) PO SCH (06:30)
[2020-09-15] MEDS: HEPARIN SOD (PORCINE) 5000UNITS/ML 1ML VIAL/SYRINGE SC SCH ×3 (06:30→22:02)
[2020-09-15 06:34] LABS: BASO % 0.3 % (0.0-1.0); EOS # 0.7 10^3/uL (0.0-0.5); EOS % 11.4 % (0.0-3.0); HEMATOCRIT 25.2 % (36.0-47.0); HEMOGLOBIN 7.9 g/dl (12.0-15.5); LYMPH # 1.6 10^3/uL (1.5-5.0); LYMPH % 25.6 % (24.0-44.0); MEAN CORPUSCULAR HGB CONC 31.3 g/dl (32.0-36.5); MEAN CORPUSCULAR VOLUME 98.8 fl (80.0-96.0); MONO # 0.6 10^3/uL (0.0-0.8); MONO % 8.9 % (2.0-8.0); NEUTROPHILS # 3.3 10^3/uL (1.5-8.5); NEUTROPHILS % 53.2 % (36.0-66.0); PLATELET COUNT, AUTOMATED 224 10^3/uL (150-450); RED BLOOD COUNT 2.55 10^6/uL (4.00-5.40); WHITE BLOOD COUNT 6.2 10^3/uL (4.0-10.0)
[2020-09-15 06:54] LABS: MAGNESIUM LEVEL 2.2 MG/DL (1.8-2.4)
[2020-09-15 07:28] LABS: CALCIUM LEVEL 8.9 MG/DL (8.8-10.2); CREATININE FOR GFR 1.41 MG/DL (0.55-1.30); GLOMERULAR FILTRATION RATE 37.4 (>32)
[2020-09-15] MEDS: SYMBICORT 160/4.5MCG INHALER 6GM INH SCH ×2 (08:10→20:52)
[2020-09-15] MEDS: TAMSULOSIN 0.4 MG CAP PO SCH (08:27)
[2020-09-15] MEDS: SINEMET 10-100 MG TAB PO SCH ×3 (08:27→18:55)
[2020-09-15] MEDS: ASPIRIN 81 MG CHEW TABLET PO SCH (08:27)
[2020-09-15] MEDS: SERTRALINE 100 MG TAB PO SCH (08:27)
[2020-09-15] MEDS: ARIPiprazole 10 MG TAB PO SCH (08:27)
[2020-09-15] MEDS: PANTOPRAZOLE 40MG TAB (PROTONIX) PO SCH (08:27)
[2020-09-15] MEDS: ATORVASTATIN 20 MG TAB PO SCH (08:28)
--- NOTE | 2020-09-15 11:05 | IPNPDOC ---
Text Note Date of Service The patient was seen on 09/15/20. NOTE Subjective: Patient is an 89-year-old female with a PMHx of COPD, HTN, CKD3 who presented to [facility] from [facility] for generalized weakness. Upon arrival to ER, patient was found to have an elevated BUN and creatinine have been consistently worsening since her discharge in July. Patient has had a recent stay at [facility] for COVID19 infection from 07/09 to 07/28. Patient was transferred to [facility] where she remains there until she was transitioned to [facility]. Patient was admitted to hospital service for further evaluation and treatment of her acute kidney injury Patient was seen and examined at the bedside. Patient denies any problems overnight. Has not spent any chest pain, shortness of breath, palpitations, nausea, vomiting, abdominal pain or diarrhea. Patient has a Vigil catheter that remains in place. Objective: Vitals (See below) General: Lying in bed, appears comfortable, awake and alert HEENT: NC, AT CVS: +S1S2 Lungs: Fair air entry b/l, no appreciable wheezing, rhonchi or rales Abdomen: Soft, ND, NT Extremities: +1 edema bilaterally, - Calf tenderness Imaging: CXR 09/14: No acute disease. No infiltrate seen. Renal US 09/14: No evidence of hydronephrosis. Vascular US 09/14: No evidence of deep vein thrombosis. Assessment and plan: MARISSA on CKD3 - BUN / Cr baseline of 30-40 / 1.4-1.6 in the past - BUN and creatinine have been slowly improving - FENA 0.3% - Imaging noted above - Will stop nephrotoxic medications - c/w gentle IV fluid hydration Generalized weakness - possibly 2/2 post-viral infection - Patient has been ambulatory with walker in the past; however now has regressed and required continued support - No focal deficit - CK normal - will start PT / OT s/p Hypomagnesemia - Supplemented Leg swelling - Duplex US LE negative - ECHO pending COVID19 positive (07/12/21) - Has tested negative since then Urinary retention - Vigil remains in place since July discharge Chronic COPD - No evidence of exacerbation - c/w inhaled therapy as ordered HTN - BP well controlled - Will hold Valsartan / HCTZ for now (re: MARISSA) Parkinsons - c/w Aripiprazole, Levodopa / Carbidopa DLP - c/w Atorvastatin and ASA Mood disorder - c/w Sertraline and Aripiprazole DVT prophylaxis - c/w Heparin Disposition: - Anticipate discharge within 24 hours Yessi CADENA I+O Yessi CADENA I+O Laboratory Tests 09/14/20 14:16 09/15/20 06:10 Vital Signs Date Time Temp Pulse Resp B/P (MAP) Pulse Ox O2 Delivery O2 Flow Rate FiO2 09/15/20 06:00 98.2 78 18 128/68 (88) 96 Room Air 09/14/20 18:20 1.0 I&O- Last 24 Hours up to 6 AM 09/15/20 06:00 Intake Total 1793 ml Output Total 300 ml Balance 1493 ml PAVEL PEGUERO MD Sep 15, 2020 11:05
[2020-09-15] MEDS: NS 1,000 ML IV SCH ×2 (11:08→22:06)
[2020-09-15] MEDS ORDERED: NYSTATIN 100,000 UNITS/GM TOPICAL PWD 15 GM TOP PRN (13:50)
[2020-09-15 14:00] VITALS: BP 101/52
[2020-09-15 22:00] VITALS: BP 129/78
[2020-09-16 06:00] VITALS: BP 144/73
[2020-09-16] MEDS: LEVOTHYROXINE 112MCG TABLET (0.112MG) PO SCH (06:26)
[2020-09-16] MEDS: HEPARIN SOD (PORCINE) 5000UNITS/ML 1ML VIAL/SYRINGE SC SCH ×3 (06:26→21:32)
[2020-09-16 06:53] LABS: BASO % 0.3 % (0.0-1.0); EOS # 0.4 10^3/uL (0.0-0.5); EOS % 5.9 % (0.0-3.0); HEMATOCRIT 28.1 % (36.0-47.0); HEMOGLOBIN 8.4 g/dl (12.0-15.5); LYMPH # 1.1 10^3/uL (1.5-5.0); LYMPH % 15.6 % (24.0-44.0); MEAN CORPUSCULAR HEMOGLOBIN 30.1 pg (27.0-33.0); MEAN CORPUSCULAR HGB CONC 29.9 g/dl (32.0-36.5); MEAN CORPUSCULAR VOLUME 100.7 fl (80.0-96.0); MONO # 0.5 10^3/uL (0.0-0.8); MONO % 7.4 % (2.0-8.0); NEUTROPHILS # 4.9 10^3/uL (1.5-8.5); NEUTROPHILS % 70.4 % (36.0-66.0); PLATELET COUNT, AUTOMATED 239 10^3/uL (150-450); RED BLOOD COUNT 2.79 10^6/uL (4.00-5.40); WHITE BLOOD COUNT 6.9 10^3/uL (4.0-10.0)
[2020-09-16 07:07] LABS: CALCIUM LEVEL 8.4 MG/DL (8.8-10.2); CREATININE FOR GFR 1.18 MG/DL (0.55-1.30); GLOMERULAR FILTRATION RATE 45.9 (>32); MAGNESIUM LEVEL 1.7 MG/DL (1.8-2.4); POTASSIUM SERUM 4.4 MEQ/L (3.5-5.1)
[2020-09-16] MEDS: SYMBICORT 160/4.5MCG INHALER 6GM INH SCH ×2 (07:29→20:13)
[2020-09-16] MEDS: ARIPiprazole 10 MG TAB PO SCH (08:10)
[2020-09-16] MEDS: ASPIRIN 81 MG CHEW TABLET PO SCH (08:10)
[2020-09-16] MEDS: PANTOPRAZOLE 40MG TAB (PROTONIX) PO SCH (08:10)
[2020-09-16] MEDS: SINEMET 10-100 MG TAB PO SCH ×3 (08:10→18:03)
[2020-09-16] MEDS: TAMSULOSIN 0.4 MG CAP PO SCH (08:11)
[2020-09-16] MEDS: SERTRALINE 100 MG TAB PO SCH (08:11)
[2020-09-16] MEDS: ATORVASTATIN 20 MG TAB PO SCH (08:11)
[2020-09-16] MEDS ORDERED: CARA1TAB6 PO (09:52)
[2020-09-16 10:22] LABS: PERCENT SATURATION 22.9 % (13.2-45.0)
[2020-09-16 10:29] LABS: FOLATE 14.1 NG/ML (>5.4)
[2020-09-16] MEDS ORDERED: MAG SULF 1GM/100ML (MAG RUN) 1 GM in IV 1 EA IV ONE (11:00)
--- NOTE | 2020-09-16 11:30 | DS.PDOC ---
Discharge Summary General Date of Admission Sep 14, 2020 at 16:07 Date of Discharge 09/16/2020 Discharge Summary PROCEDURES PERFORMED DURING STAY: [None]. ADMITTING DIAGNOSES / DISCHARGE DIAGNOSES: MARISSA on CKD3 Macrocytic anemia Generalized weakness - possibly 2/2 post-viral infection s/p Hypomagnesemia Leg swelling COVID19 positive (07/12/21) Urinary retention Chronic COPD HTN Parkinsons DLP Mood disorder DVT prophylaxis COMPLICATIONS/CHIEF COMPLAINT: MARISSA HISTORY OF PRESENT ILLNESS: Patient is an 89-year-old female with a PMHx of COPD, HTN, CKD3 who presented to [facility] from [facility] for generalized weakness. Upon arrival to ER, patient was found to have an elevated BUN and creatinine have been consistently worsening since her discharge in July. Patient has had a recent stay at [facility] for COVID19 infection from 07/09 to 07/28. Patient was transferred to [facility] where she remains there until she was transitioned to [facility]. Patient was admitted to hospital service for further evaluation and treatment of her acute kidney injury HOSPITAL COURSE: MARISSA on CKD3 - BUN / Cr baseline of 30-40 / 1.4-1.6 in the past - BUN disproportionately elevated compared to creatinine suggesting the possibility of GI bleed - FENA 0.3% - Imaging noted above - Will avoid nephrotoxic medications - s/p gentle IV fluid hydration - Will have outpatient follow-up with nephrology and primary care provider within the next 7 days Macrocytic anemia - Patient had reported GI bleed at [facility] - At that time it was decided that EGD and colonoscopy would be deferred given her age and comorbidities, at the family's request - Currently patient feels well but has remained stable - Occult stool positive - Anemia workup noted - Discussed possibility of EGD and colonoscopy with family again today; after discussion family would like to defer procedures and continue with medical management alone at this time - Will add Carafate in addition to her existing Protonix - Will have outpatient follow-up with gastroenterology Generalized weakness - possibly 2/2 post-viral infection - Patient has been ambulatory with walker in the past; however now has regressed and required continued support - No focal deficit - CK normal - c/w PT / OT s/p Hypomagnesemia - Supplemented Leg swelling - Duplex US LE negative - ECHO complete; report pending COVID19 positive (07/12/21) - Has tested negative since then Urinary retention - Vigil remains in place - Has been replaced Chronic COPD - No evidence of exacerbation - c/w inhaled therapy as ordered HTN - BP well controlled without medications - Will hold Valsartan / HCTZ for now (re: MARISSA) Parkinsons - c/w Aripiprazole, Levodopa / Carbidopa DLP - c/w Atorvastatin and ASA Mood disorder - c/w Sertraline and Aripiprazole DVT prophylaxis - c/w Heparin DISCHARGE MEDICATIONS: Please see below. ALLERGIES: Please see below. PHYSICAL EXAMINATION ON DISCHARGE: Vitals (See below) General: Lying in bed, appears comfortable, AAOx3 HEENT: NC, AT CVS: +S1S2 Lungs: Fair air entry b/l, no appreciable wheezing, rhonchi or rales Abdomen: Soft, ND, NT, Obese Extremities: 1+ edema at ankles, - Calf tenderness LABORATORY DATA: Please see below. IMAGING: CXR 09/14: No acute disease. No infiltrate seen. Renal US 09/14: No evidence of hydronephrosis. Vascular US 09/14: No evidence of deep vein thrombosis. ACTIVITY: [As tolerated]. DISCHARGE PLAN: [facility] skilled DISPOSITION: Follow up with PCP within 7 days Will have outpatient follow-up with nephrology and gastroenterology within the next 7 days Remain compliant with treatment plan and medications Return to the ER if you experience any problems CODE STATUS: DNR / DNI Limited medical interventions DISCHARGE CONDITION: [Stable]. TIME SPENT ON DISCHARGE: 35 minutes Vital Signs/I&Os Vital Signs Date Time Temp Pulse Resp B/P (MAP) Pulse Ox O2 Delivery O2 Flow Rate FiO2 09/16/20 06:00 98.2 86 18 144/73 (96) 96 Nasal Cannula 1.0 I&O- Last 24 Hours up to 6 AM 09/16/20 06:00 Intake Total 640 ml Output Total 985 ml Balance -345 ml Laboratory Data Labs 24H Laboratory Tests 2 09/16/20 06:14: Immature Granulocyte % (Auto) 0.4, Neutrophils (%) (Auto) 70.4H, Lymphocytes (%) (Auto) 15.6L, Monocytes (%) (Auto) 7.4, Eosinophils (%) (Auto) 5.9H, Basophils (%) (Auto) 0.3, Neutrophils # (Auto) 4.9, Lymphocytes # (Auto) 1.1L, Monocytes # (Auto) 0.5, Eosinophils # (Auto) 0.4, Basophils # (Auto) 0.0, Reticulocyte # (auto) 56.6, Nucleated Red Blood Cells % (auto) 0.0, Percent Reticulocyte Count 2.1H, Reticulocyte Hemoglobin Equivalent 34.6, Anion Gap 7L, Glomerular Filtration Rate 45.9, Calcium Level 8.4L, Magnesium Level 1.7L, Iron Level 38L, Total Iron Binding Capacity 166L, Transferrin % Saturation 22.9, Ferritin 200, Vitamin B12 Level 334, Folate 14.1 09/16/20 10:49: CBC/BMP Laboratory Tests 09/16/20 06:14 Microbiology Microbiology 09/15/20 Stool Occult Blood (SERENITY) - Final, Complete Discharge Medications Scheduled Aripiprazole (Aripiprazole) 10 Mg Tablet, 10 MG PO DAILY, (Reported) Aspirin (Aspirin) 81 Mg Tab.chew, 81 MG PO DAILY, (Reported) Atorvastatin Calcium (Atorvastatin Calcium) 40 Mg Tab, 40 MG PO DAILY, (Reported) Budesonide/Formoterol (Symbicort 160-4.5 Mcg Inhaler) 6 Gm Hfa.aer.ad, 1 PUFF INH BID, (Reported) PER MCC MAR, 1 PUFF BID Carbidopa/Levodopa (Sinemet 10-100 mg Tablet) 1 Each Tablet, 1 TAB PO TID, (Reported) TAKES AT 0800, 1300, 1900 Levothyroxine Sodium (Levoxyl) 112 Mcg Tablet, 112 MCG PO DAILY, (Reported) Pantoprazole Sodium (Pantoprazole Sodium) 40 Mg Tablet.dr, 40 MG PO DAILY, (Reported) Sertraline Hcl (Zoloft) 100 Mg Tablet, 100 MG PO DAILY, (Reported) Sucralfate (Carafate) 1 Gm Tablet, 1 TAB PO QID Tamsulosin HCl (Flomax) 0.4 Mg Capsule, 0.4 MG PO DAILY, (Reported) Scheduled PRN Acetaminophen (Tylenol) 325 Mg Tablet, 650 MG PO Q4H PRN for PAIN / FEVER, (Reported) Bisacodyl (Bisacodyl) 10 Mg Supp.rect, 10 MG [place] DAILY PRN for CONSTIPATION, (Reported) Milk Of Magnesia (Milk of Magnesia) 2,400 Mg/10 Ml Oral.susp, 10 ML PO DAILY PRN for CONSTIPATION, (Reported) Sodium Phosphate,[place]-Dibasic (Enema) 133 Ml Enema, 1 VASILE [place] DAILY PRN for C ONSTIPATION, (Reported) Allergies Coded Allergies: No Known Allergies (Verified , 09/14/20) PAVEL PEGUERO MD Sep 16, 2020 11:30
[2020-09-16] MEDS: SUCRALFATE 1 GM TAB PO SCH ×3 (12:21→21:31)
--- NOTE | 2020-09-16 14:38 | ECHO ---
DATE OF PROCEDURE: 09/15/2020 Age: 89 Gender: Female REFERRING PHYSICIAN: Sandy Celestin M.D. PATIENT LOCATION: Room 4226 REASON FOR STUDY: Edema. MEASUREMENTS: IVS 0.9 cm LV 4.5 cm LVPW 1.0 cm LA 2.6 cm Aorta 2.9 cm IVC 1.8 cm DOPPLER MEASUREMENT Peak velocity across the aortic valve 1.5 m/s Peak velocity across the LVOT 1.4 m/s Mitral E 1.3 Mitral A 1.1 with a ratio of 1.2 2D COMMENTS: 1. Normal left ventricular size, wall thickness, and normal global left ventricle systolic function. The estimated left ventricular systolic ejection fraction is 60% to 65%. 2. Normal left atrium. Normal right atrium and right ventricle. 3. The atrial septum appeared to be normal without evidence of defect or shunt. 4. Normal aortic root. 5. Probably moderate pericardial effusion noted in limited views. No evidence of cardiac tamponade. 6. Mildly calcified aortic valve with normal leaflet excursion. Normal mitral valve, tricuspid valve, and pulmonic valve. The proximal pulmonary artery branches were not well visualized. Doppler detects trace aortic regurgitation, trace mitral regurgitation. Pulmonary artery systolic pressure is probably normal. IMPRESSION: 1. Normal global left ventricular systolic function. Assessment of the left ventricular diastolic function appeared to be normal. 2. Aortic valve sclerosis with trace aortic regurgitation, but no aortic stenosis. 3. Trace mitral regurgitation. 4. Probably moderate pericardial effusion, no evidence of cardiac tamponade. This study was technically limited and for this reason, I will recommend a chest CT for further evaluation if not yet done. MTDD
[2020-09-16 22:00] VITALS: BP 121/46
[2020-09-17] MEDS: LEVOTHYROXINE 112MCG TABLET (0.112MG) PO SCH (05:43)
[2020-09-17] MEDS: HEPARIN SOD (PORCINE) 5000UNITS/ML 1ML VIAL/SYRINGE SC SCH ×3 (05:44→21:22)
[2020-09-17 06:00] VITALS: BP 111/53
[2020-09-17 06:39] LABS: BASO % 0.4 % (0.0-1.0); EOS # 0.6 10^3/uL (0.0-0.5); EOS % 7.9 % (0.0-3.0); HEMATOCRIT 25.1 % (36.0-47.0); HEMOGLOBIN 7.8 g/dl (12.0-15.5); LYMPH # 1.8 10^3/uL (1.5-5.0); LYMPH % 24.7 % (24.0-44.0); MEAN CORPUSCULAR HEMOGLOBIN 31.3 pg (27.0-33.0); MEAN CORPUSCULAR HGB CONC 31.1 g/dl (32.0-36.5); MEAN CORPUSCULAR VOLUME 100.8 fl (80.0-96.0); MONO # 0.6 10^3/uL (0.0-0.8); MONO % 8.4 % (2.0-8.0); NEUTROPHILS # 4.2 10^3/uL (1.5-8.5); NEUTROPHILS % 57.9 % (36.0-66.0); PLATELET COUNT, AUTOMATED 216 10^3/uL (150-450); RED BLOOD COUNT 2.49 10^6/uL (4.00-5.40); WHITE BLOOD COUNT 7.2 10^3/uL (4.0-10.0)
[2020-09-17 07:08] LABS: CALCIUM LEVEL 8.5 MG/DL (8.8-10.2); CREATININE FOR GFR 1.25 MG/DL (0.55-1.30); MAGNESIUM LEVEL 1.9 MG/DL (1.8-2.4); POTASSIUM SERUM 4.3 MEQ/L (3.5-5.1)
[2020-09-17] MEDS: SYMBICORT 160/4.5MCG INHALER 6GM INH SCH ×2 (07:27→19:54)
[2020-09-17] MEDS: ATORVASTATIN 20 MG TAB PO SCH (09:24)
[2020-09-17] MEDS: SUCRALFATE 1 GM TAB PO SCH ×4 (09:24→21:22)
[2020-09-17] MEDS: PANTOPRAZOLE 40MG TAB (PROTONIX) PO SCH (09:25)
[2020-09-17] MEDS: SINEMET 10-100 MG TAB PO SCH ×3 (09:25→17:47)
[2020-09-17] MEDS: ARIPiprazole 10 MG TAB PO SCH (09:25)
[2020-09-17] MEDS: SERTRALINE 100 MG TAB PO SCH (09:25)
[2020-09-17] MEDS: ASPIRIN 81 MG CHEW TABLET PO SCH (09:25)
[2020-09-17] MEDS: TAMSULOSIN 0.4 MG CAP PO SCH (09:26)
--- NOTE | 2020-09-17 11:25 | DS.PDOC ---
Discharge Summary General Date of Admission Sep 14, 2020 at 16:07 Date of Discharge Changed to 09/20/2020 - Patient remains an additional 1 day because of an incidentally positive, but has not 09/16 - Patient remained in additional 3 days because transportation could not be established on 09/17 - Patient has been discharged with the same plan as stated below Discharge Summary PROCEDURES PERFORMED DURING STAY: [None]. ADMITTING DIAGNOSES / DISCHARGE DIAGNOSES: s/p MARISSA on CKD3 Macrocytic anemia - family does not want to pursue EGD / Colonoscopy Generalized weakness - possibly 2/2 post-viral infection s/p Hypomagnesemia Leg swelling COVID19 positive (07/12/21) Urinary retention Chronic COPD HTN Parkinsons DLP Mood disorder DVT prophylaxis COMPLICATIONS/CHIEF COMPLAINT: Weakness / MARISSA HISTORY OF PRESENT ILLNESS: Patient is an 89-year-old female with a PMHx of COPD, HTN, CKD3 who presented to [facility] from [facility] area for generalized weakness. Upon arrival to ER, patient was found to have an elevated BUN and creatinine have been consistently worsening since her discharge in July. Patient has had a recent stay at [facility] for COVID19 infection from 07/09 to 07/28. Patient was transferred to [facility] where she remains there until she was transitioned to [facility]. Patient was admitted to hospital service for further evaluation and treatment of her acute kidney injury. She was seen and examined at the bedside. She has had no events overnight, appears comfortable sitting up in bed in no distress, and reporting no pain. HOSPITAL COURSE: s/p MARISSA on CKD3 - BUN / Cr baseline of 30-40 / 1.4-1.6 in the past - BUN disproportionately elevated compared to creatinine suggesting the possibility of GI bleed - FENA 0.3% - Imaging noted above - Will avoid nephrotoxic medications - s/p gentle IV fluid hydration - Will have outpatient follow-up with nephrology and primary care provider within the next 7 days Macrocytic anemia - Patient had reported GI bleed at [facility] and at that time it was decided that EGD / Colonoscopy would not be pursued given her age and comorbidities, at the family's request - Hemoglobin has remained stable - Occult stool positive - Anemia workup noted - Discussed possibility of EGD and colonoscopy with family; after discussion they would like to defer procedures and continue with medical management alone at this time - c/w Carafate and Protonix - Will have outpatient follow-up with gastroenterology Generalized weakness - possibly 2/ post-viral infection - Patient has been ambulatory with walker in the past; however now has regressed and required continued support - No focal deficit - CK normal - c/w PT / OT s/p Hypomagnesemia - Supplemented Leg swelling - Duplex US LE negative COVID19 positive (07/12/21) - Has been serially negative since Discharge from [facility] numerous times - Incidentally positive on 09/16 - Tested negative again on 09/17 - This has delayed discharge by an additional day Urinary retention - Vigil remains in place - Has been replaced Chronic COPD - No evidence of exacerbation - c/w inhaled therapy as ordered HTN - BP well controlled without medications - Will continue to hold Valsartan / HCTZ on discharge Parkinsons - c/w Aripiprazole, Levodopa / Carbidopa DLP - c/w Atorvastatin and ASA Mood disorder - c/w Sertraline and Aripiprazole DVT prophylaxis - c/w Heparin DISCHARGE MEDICATIONS: Please see below. ALLERGIES: Please see below. PHYSICAL EXAMINATION ON DISCHARGE: Vitals (See below) General: Sitting up in bed, appears to be comfortable, does not appear to be in any acute distress HEENT: NC, AT CVS: +S1S2 Lungs: There appears to be fair air entry bilaterally without any auscultated wheezing, crackles or rhonchi Abdomen: Soft, obese, nondistended and nontender Extremities: LE with 1+ edema (R>L), - Calf tenderness LABORATORY DATA: Please see below. IMAGING: CXR 09/14: No acute disease. No infiltrate seen. Renal US 09/14: No evidence of hydronephrosis. Vascular US 09/14: No evidence of deep vein thrombosis. ACTIVITY: [As tolerated]. DISCHARGE PLAN: [facility] skilled DISPOSITION: Follow up with PCP within 7 days Will have outpatient follow-up with nephrology and gastroenterology within the next 7 days Remain compliant with treatment plan and medications Return to the ER if you experience any problems CODE STATUS: DNR / DNI Limited medical interventions Goals of care: - Patient's family does not want to pursue any aggressive measures; at this point will continue with limited medical interventions - Patient's family is open to pursuing comfort measures when the need arises DISCHARGE CONDITION: [Stable]. TIME SPENT ON DISCHARGE: 35 minutes Vital Signs/I&Os Vital Signs Date Time Temp Pulse Resp B/P (MAP) Pulse Ox O2 Delivery O2 Flow Rate FiO2 09/17/20 06:00 97.8 66 19 111/53 (72) 91 09/16/20 22:22 1.0 09/16/20 22:00 Room Air I&O- Last 24 Hours up to 6 AM 09/17/20 06:00 Intake Total 1750 ml Output Total 1425 ml Balance 325 ml Laboratory Data Labs 24H Laboratory Tests 2 09/17/20 06:23: Anion Gap 6L, Glomerular Filtration Rate 43.0, Calcium Level 8.5L, Magnesium Level 1.9 09/17/20 06:27: Immature Granulocyte % (Auto) 0.7, Neutrophils (%) (Auto) 57.9, Lymphocytes (%) (Auto) 24.7, Monocytes (%) (Auto) 8.4H, Eosinophils (%) (Auto) 7.9H, Basophils (%) (Auto) 0.4, Neutrophils # (Auto) 4.2, Lymphocytes # (Auto) 1.8, Monocytes # (Auto) 0.6, Eosinophils # (Auto) 0.6H, Basophils # (Auto) 0.0, Nucleated Red Blood Cells % (auto) 0.0 09/17/20 09:35: Coronavirus (COVID-19)(PCR) NEGATIVE CBC/BMP Laboratory Tests 09/17/20 06:23 09/17/20 06:27 Microbiology Microbiology 09/15/20 Stool Occult Blood (SERENITY) - Final, Complete Discharge Medications Scheduled Aripiprazole (Aripiprazole) 10 Mg Tablet, 10 MG PO DAILY, (Reported) Aspirin (Aspirin) 81 Mg Tab.chew, 81 MG PO DAILY, (Reported) Atorvastatin Calcium (Atorvastatin Calcium) 40 Mg Tab, 40 MG PO DAILY, (Reported) Budesonide/Formoterol (Symbicort 160-4.5 Mcg Inhaler) 6 Gm Hfa.aer.ad, 1 PUFF INH BID, (Reported) PER MCC MAR, 1 PUFF BID Carbidopa/Levodopa (Sinemet 10-100 mg Tablet) 1 Each Tablet, 1 TAB PO TID, (Reported) TAKES AT 0800, 1300, 1900 Levothyroxine Sodium (Levoxyl) 112 Mcg Tablet, 112 MCG PO DAILY, (Reported) Pantoprazole Sodium (Pantoprazole Sodium) 40 Mg Tablet.dr, 40 MG PO DAILY, (Repo rted) Sertraline Hcl (Zoloft) 100 Mg Tablet, 100 MG PO DAILY, (Reported) Sucralfate (Carafate) 1 Gm Tablet, 1 TAB PO QID Tamsulosin HCl (Flomax) 0.4 Mg Capsule, 0.4 MG PO DAILY, (Reported) Scheduled PRN Acetaminophen (Tylenol) 325 Mg Tablet, 650 MG PO Q4H PRN for PAIN / FEVER, (Reported) Bisacodyl (Bisacodyl) 10 Mg Supp.rect, 10 MG CO DAILY PRN for CONSTIPATION, (Reported) Milk Of Magnesia (Milk of Magnesia) 2,400 Mg/10 Ml Oral.susp, 10 ML PO DAILY PRN for CONSTIPATION, (Reported) Sodium Phosphate,Randolph-Dibasic (Enema) 133 Ml Enema, 1 VASILE CO DAILY PRN for CONSTIPATION, (Reported) Allergies Coded Allergies: No Known Allergies (Verified , 09/14/20) PAVEL PEGUERO MD Sep 17, 2020 11:24
[2020-09-17 14:00] VITALS: BP 107/55
[2020-09-18] MEDS: LEVOTHYROXINE 112MCG TABLET (0.112MG) PO SCH (05:50)
[2020-09-18] MEDS: HEPARIN SOD (PORCINE) 5000UNITS/ML 1ML VIAL/SYRINGE SC SCH ×3 (05:51→22:00)
[2020-09-18 06:00] VITALS: BP 130/62
[2020-09-18 06:32] LABS: BASO % 0.3 % (0.0-1.0); EOS # 0.6 10^3/uL (0.0-0.5); EOS % 9.2 % (0.0-3.0); HEMATOCRIT 25.7 % (36.0-47.0); HEMOGLOBIN 7.8 g/dl (12.0-15.5); LYMPH # 1.8 10^3/uL (1.5-5.0); LYMPH % 25.2 % (24.0-44.0); MEAN CORPUSCULAR HEMOGLOBIN 30.6 pg (27.0-33.0); MEAN CORPUSCULAR HGB CONC 30.4 g/dl (32.0-36.5); MEAN CORPUSCULAR VOLUME 100.8 fl (80.0-96.0); MONO # 0.6 10^3/uL (0.0-0.8); MONO % 7.9 % (2.0-8.0); NEUTROPHILS # 3.9 10^3/uL (1.5-8.5); NEUTROPHILS % 56.4 % (36.0-66.0); PLATELET COUNT, AUTOMATED 219 10^3/uL (150-450); RED BLOOD COUNT 2.55 10^6/uL (4.00-5.40); WHITE BLOOD COUNT 6.9 10^3/uL (4.0-10.0)
[2020-09-18 06:51] LABS: CALCIUM LEVEL 8.7 MG/DL (8.8-10.2); CREATININE FOR GFR 1.17 MG/DL (0.55-1.30); GLOMERULAR FILTRATION RATE 46.4 (>32); MAGNESIUM LEVEL 1.6 MG/DL (1.8-2.4); POTASSIUM SERUM 4.3 MEQ/L (3.5-5.1)
[2020-09-18] MEDS: SYMBICORT 160/4.5MCG INHALER 6GM INH SCH ×2 (08:04→20:52)
[2020-09-18] MEDS ORDERED: MAGNESIUM OXIDE 400MG TAB (MAG-OX) PO SCH (09:00)
[2020-09-18] MEDS ORDERED: MAG SULF 1GM/100ML (MAG RUN) 1 GM in IV 1 EA IV ONE (09:00)
[2020-09-18] MEDS: SINEMET 10-100 MG TAB PO SCH ×3 (09:17→18:30)
[2020-09-18] MEDS: ARIPiprazole 10 MG TAB PO SCH (09:17)
[2020-09-18] MEDS: ASPIRIN 81 MG CHEW TABLET PO SCH (09:18)
[2020-09-18] MEDS: SERTRALINE 100 MG TAB PO SCH (09:18)
[2020-09-18] MEDS: PANTOPRAZOLE 40MG TAB (PROTONIX) PO SCH (09:18)
[2020-09-18] MEDS: SUCRALFATE 1 GM TAB PO SCH ×4 (09:18→22:00)
[2020-09-18] MEDS: ATORVASTATIN 20 MG TAB PO SCH (09:18)
[2020-09-18] MEDS: TAMSULOSIN 0.4 MG CAP PO SCH (09:20)
[2020-09-19 06:00] VITALS: BP 130/57
[2020-09-19] MEDS: LEVOTHYROXINE 112MCG TABLET (0.112MG) PO SCH (06:04)
[2020-09-19] MEDS: HEPARIN SOD (PORCINE) 5000UNITS/ML 1ML VIAL/SYRINGE SC SCH (06:05)
[2020-09-19 06:51] LABS: BASO % 0.3 % (0.0-1.0); EOS # 0.7 10^3/uL (0.0-0.5); EOS % 9.4 % (0.0-3.0); HEMATOCRIT 25.4 % (36.0-47.0); HEMOGLOBIN 7.8 g/dl (12.0-15.5); LYMPH # 1.8 10^3/uL (1.5-5.0); LYMPH % 25.2 % (24.0-44.0); MEAN CORPUSCULAR HEMOGLOBIN 30.5 pg (27.0-33.0); MEAN CORPUSCULAR HGB CONC 30.7 g/dl (32.0-36.5); MEAN CORPUSCULAR VOLUME 99.2 fl (80.0-96.0); MONO # 0.6 10^3/uL (0.0-0.8); MONO % 8.1 % (2.0-8.0); NEUTROPHILS # 4.1 10^3/uL (1.5-8.5); NEUTROPHILS % 56.2 % (36.0-66.0); PLATELET COUNT, AUTOMATED 223 10^3/uL (150-450); RED BLOOD COUNT 2.56 10^6/uL (4.00-5.40); WHITE BLOOD COUNT 7.3 10^3/uL (4.0-10.0)
[2020-09-19 07:09] LABS: CALCIUM LEVEL 8.4 MG/DL (8.8-10.2); CREATININE FOR GFR 1.14 MG/DL (0.55-1.30); GLOMERULAR FILTRATION RATE 47.8 (>32); MAGNESIUM LEVEL 1.5 MG/DL (1.8-2.4); POTASSIUM SERUM 4.5 MEQ/L (3.5-5.1)
[2020-09-19] MEDS: SYMBICORT 160/4.5MCG INHALER 6GM INH SCH ×2 (07:32→20:11)
[2020-09-19] MEDS: MAGNESIUM OXIDE 400MG TAB (MAG-OX) PO SCH ×3 (08:20→21:18)
[2020-09-19] MEDS: SINEMET 10-100 MG TAB PO SCH ×3 (08:20→18:13)
[2020-09-19] MEDS: ARIPiprazole 10 MG TAB PO SCH (08:20)
[2020-09-19] MEDS: ATORVASTATIN 20 MG TAB PO SCH (08:21)
[2020-09-19] MEDS: PANTOPRAZOLE 40MG TAB (PROTONIX) PO SCH (08:21)
[2020-09-19] MEDS: SUCRALFATE 1 GM TAB PO SCH ×4 (08:21→21:18)
[2020-09-19] MEDS: TAMSULOSIN 0.4 MG CAP PO SCH (08:21)
[2020-09-19] MEDS: SERTRALINE 100 MG TAB PO SCH (08:21)
[2020-09-19] MEDS: ASPIRIN 81 MG CHEW TABLET PO SCH (08:21)
[2020-09-19] MEDS: FERROUS SULFATE 325MG TAB PO SCH ×2 (09:06→21:18)
[2020-09-20 06:00] VITALS: BP 114/54
[2020-09-20] MEDS: LEVOTHYROXINE 112MCG TABLET (0.112MG) PO SCH (06:09)
[2020-09-20 06:23] LABS: BASO % 0.3 % (0.0-1.0); EOS # 0.7 10^3/uL (0.0-0.5); HEMATOCRIT 25.3 % (36.0-47.0); HEMOGLOBIN 7.8 g/dl (12.0-15.5); LYMPH # 2.1 10^3/uL (1.5-5.0); LYMPH % 28.9 % (24.0-44.0); MEAN CORPUSCULAR HEMOGLOBIN 30.7 pg (27.0-33.0); MEAN CORPUSCULAR HGB CONC 30.8 g/dl (32.0-36.5); MEAN CORPUSCULAR VOLUME 99.6 fl (80.0-96.0); MONO # 0.6 10^3/uL (0.0-0.8); MONO % 8.5 % (2.0-8.0); NEUTROPHILS # 3.8 10^3/uL (1.5-8.5); NEUTROPHILS % 52.3 % (36.0-66.0); PLATELET COUNT, AUTOMATED 227 10^3/uL (150-450); RED BLOOD COUNT 2.54 10^6/uL (4.00-5.40); WHITE BLOOD COUNT 7.3 10^3/uL (4.0-10.0)
[2020-09-20 06:49] LABS: CALCIUM LEVEL 8.5 MG/DL (8.8-10.2); CREATININE FOR GFR 1.13 MG/DL (0.55-1.30); GLOMERULAR FILTRATION RATE 48.3 (>32); MAGNESIUM LEVEL 1.7 MG/DL (1.8-2.4); POTASSIUM SERUM 4.9 MEQ/L (3.5-5.1)
[2020-09-20] MEDS: SYMBICORT 160/4.5MCG INHALER 6GM INH SCH (07:37)
[2020-09-20] MEDS: ASPIRIN 81 MG CHEW TABLET PO SCH (08:57)
[2020-09-20] MEDS: FERROUS SULFATE 325MG TAB PO SCH (08:58)
[2020-09-20] MEDS: SERTRALINE 100 MG TAB PO SCH (08:58)
[2020-09-20] MEDS: ATORVASTATIN 20 MG TAB PO SCH (08:58)
[2020-09-20] MEDS: PANTOPRAZOLE 40MG TAB (PROTONIX) PO SCH (08:58)
[2020-09-20] MEDS: SUCRALFATE 1 GM TAB PO SCH (08:58)
[2020-09-20] MEDS: ARIPiprazole 10 MG TAB PO SCH (08:58)
[2020-09-20] MEDS: TAMSULOSIN 0.4 MG CAP PO SCH (08:58)
[2020-09-20] MEDS: MAGNESIUM OXIDE 400MG TAB (MAG-OX) PO SCH (08:58)
[2020-09-20] MEDS: SINEMET 10-100 MG TAB PO SCH (08:58)
[2020-09-20] MEDS ORDERED: FERR325T18 PO (10:13)
--- NOTE | 2020-09-20 10:16 | IPNPDOC ---
Text Note Date of Service The patient was seen on 09/20/20. NOTE Subjective: Patient is an 89-year-old female with a PMHx of COPD, HTN, CKD3 who presented to [facility] from [facility] for generalized weakness. Upon arrival to ER, patient was found to have an elevated BUN and creatinine have been consistently worsening since her discharge in July. Patient has had a recent stay at [facility] for COVID19 infection from 07/09 to 07/28. Patient was transferred to [facility] where she remains there until she was transitioned to [facility]. Patient was admitted to hospital service for further evaluation and treatment of her acute kidney injury. Patient was seen and examined at the bedside. Sitting up in bed, appears to be comfortable, not in any acute distress. Denies any pain. Has not experience any problems overnight. Objective: Vitals (See below) General: Sitting up in bed, appears to be comfortable, is awake and alert HEENT: NC, AT CVS: +S1S2 Lungs: There appears to be fair air entry bilaterally without any evidence of crackles, wheezing or rhonchi Abdomen: Remains soft without distention or tenderness Extremities: 1+ pitting edema at right leg, no edema of left leg Assessment and plan: s/p MARISSA on CKD3 - BUN / Cr have improved since admission - BUN disproportionately elevated compared to creatinine suggesting the possibility of GI bleed - FENA 0.3% - Imaging noted above - Will avoid nephrotoxic medications - s/p gentle IV fluid hydration - Will have outpatient follow-up with nephrology and primary care provider within the next 7 days Macrocytic anemia - Patient had reported GI bleed at [facility] and at that time it was decided that EGD / Colonoscopy would not be pursued given her age and comorbidities, at the family's request - Patient's hemoglobin has remained stable over the last 4 days - no transfusions required - Occult stool positive - Anemia workup noted - Discussed possibility of EGD and colonoscopy with family; after discussion they would like to defer procedures and continue with medical management alone at this time - c/w Carafate and Protonix - Will have outpatient follow-up with gastroenterology - Will c/w Ferrous sulfate on discharge Generalized weakness - possibly 2/2 post-viral infection - Patient has been ambulatory with walker in the past; however now has regressed and required continued support - No focal deficit - CK normal - c/w PT / OT s/p Hypomagnesemia - Supplemented Leg swelling - Duplex US LE negative COVID19 positive (07/12/21) - Has been serially negative since Discharge from [facility] numerous times - Incidentally positive on 09/16 - Tested negative again on 09/17 Urinary retention - Vigil remains in place - Has been replaced Chronic COPD - No evidence of exacerbation - c/w inhaled therapy as ordered HTN - BP well controlled without medications - Dale continue to hold Valsartan / HCTZ on discharge Parkinsons - c/w Aripiprazole, Levodopa / Carbidopa DLP - c/w Atorvastatin and ASA Mood disorder - c/w Sertraline and Aripiprazole DVT prophylaxis - c/w TEDs/Sequentials Code status: - DNR / DNI Disposition: - Patient will be discharged back to [facility] today - Patient had remained an additional 1 day(s) in the hospital because of incidentally positive COVID19 test on 09/16 - Patient had remained an additional 3 day(s) in the hospital because transportation could not be established on 09/17 VSYessi, I+O VSYessi I+O Laboratory Tests 09/20/20 05:52 Vital Signs Date Time Temp Pulse Resp B/P (MAP) Pulse Ox O2 Delivery O2 Flow Rate FiO2 09/20/20 06:00 98.7 78 18 114/54 (74) 92 Room Air 09/16/20 22:22 1.0 I&O- Last 24 Hours up to 6 AM 09/20/20 06:00 Intake Total 510 ml Output Total 750 ml Balance -240 ml PAVEL PEGUERO MD Sep 20, 2020 10:16
== END 2020-09-20 12:36 | DRG 684 ==
LOC: EDBD 13:29 → M ED 13:29 → M ED INP 16:07 → M MSPAV 18:39
PROVIDERS: ADMIT Internal Medicine; ATTEND Internal Medicine
DX: N17.9 Acute kidney failure, unspecified (principal); Z86.16 Personal history of COVID-19; N18.30 Chronic kidney disease, stage 3 unspecified; E83.42 Hypomagnesemia; G20 Parkinson's disease; J44.9 Chronic obstructive pulmonary disease, unspecified; R31.9 Hematuria, unspecified; I12.9 Hypertensive chronic kidney disease with stage 1 through stage 4 chronic kidney disease, or unspecified chronic kidney disease; D53.9 Nutritional anemia, unspecified; Z66 Do not resuscitate; Z79.82 Long term (current) use of aspirin; Z79.899 Other long term (current) drug therapy

== ENCOUNTER → 2020-09-15 | Outpatient (REF) | payer MEDICAID, MEDICARE, OTHER ==
[~2020-09-15] MED LIST changes: +ACET-907 PO; +ASPI81CH33 PO; +BISA10SU4 PR; +CARA1TAB6 PO; +ENEMENE PR; +FERR325T18 PO; +MOM30SS PO; +PANT-23 PO
== END ==
PROVIDERS: ATTEND Internal Medicine
DX: N18.9 Chronic kidney disease, unspecified (principal)

== ENCOUNTER → 2020-09-22 | Outpatient (REF) ==
[2020-09-22 10:15] LABS: HEMATOCRIT 29.6 % (36.0-47.0); HEMOGLOBIN 8.7 g/dl (12.0-15.5); MEAN CORPUSCULAR HEMOGLOBIN 29.9 pg (27.0-33.0); MEAN CORPUSCULAR HGB CONC 29.4 g/dl (32.0-36.5); MEAN CORPUSCULAR VOLUME 101.7 fl (80.0-96.0); PLATELET COUNT, AUTOMATED 257 10^3/uL (150-450); RED BLOOD COUNT 2.91 10^6/uL (4.00-5.40); WHITE BLOOD COUNT 7.9 10^3/uL (4.0-10.0)
[2020-09-22 10:46] LABS: CREATININE FOR GFR 1.39 MG/DL (0.55-1.30); PERCENT SATURATION 34.1 % (13.2-45.0); POTASSIUM SERUM 4.2 MEQ/L (3.5-5.1)
== END ==
PROVIDERS: ATTEND Internal Medicine
DX: N18.9 Chronic kidney disease, unspecified (principal); K92.2 Gastrointestinal hemorrhage, unspecified; Z20.822 Contact with and (suspected) exposure to COVID-19

== ENCOUNTER → 2020-09-24 | Outpatient (REF) ==
[2020-09-24 11:33] LABS: HEMOGLOBIN 9.4 g/dl (12.0-15.5); MEAN CORPUSCULAR HEMOGLOBIN 31.2 pg (27.0-33.0); MEAN CORPUSCULAR HGB CONC 30.3 g/dl (32.0-36.5); PLATELET COUNT, AUTOMATED 262 10^3/uL (150-450); RED BLOOD COUNT 3.01 10^6/uL (4.00-5.40)
[2020-09-24 12:10] LABS: CREATININE FOR GFR 1.17 MG/DL (0.55-1.30); GLOMERULAR FILTRATION RATE 46.4 (>32); POTASSIUM SERUM 4.6 MEQ/L (3.5-5.1)
== END ==
PROVIDERS: ATTEND Internal Medicine
DX: I10 Essential (primary) hypertension (principal)

== ENCOUNTER → 2020-09-29 | Outpatient (REF) ==
[2020-09-29 12:13] LABS: HEMATOCRIT 33.2 % (36.0-47.0); HEMOGLOBIN 10.1 g/dl (12.0-15.5); MEAN CORPUSCULAR HEMOGLOBIN 30.7 pg (27.0-33.0); MEAN CORPUSCULAR HGB CONC 30.4 g/dl (32.0-36.5); MEAN CORPUSCULAR VOLUME 100.9 fl (80.0-96.0); PLATELET COUNT, AUTOMATED 310 10^3/uL (150-450); RED BLOOD COUNT 3.29 10^6/uL (4.00-5.40); WHITE BLOOD COUNT 6.2 10^3/uL (4.0-10.0)
[2020-09-29 12:42] LABS: CALCIUM LEVEL 9.6 MG/DL (8.8-10.2); CREATININE FOR GFR 1.27 MG/DL (0.55-1.30); GLOMERULAR FILTRATION RATE 42.2 (>32); POTASSIUM SERUM 3.9 MEQ/L (3.5-5.1)
== END ==
PROVIDERS: ATTEND Internal Medicine
DX: Z87.448 Personal history of other diseases of urinary system (principal); Z20.822 Contact with and (suspected) exposure to COVID-19

== ENCOUNTER → 2020-10-06 | Outpatient (REF) | payer MEDICARE, OTHER, MEDICAID ==
[2020-10-06 10:18] LABS: HEMATOCRIT 33.7 % (36.0-47.0); HEMOGLOBIN 10.3 g/dl (12.0-15.5); MEAN CORPUSCULAR HEMOGLOBIN 30.9 pg (27.0-33.0); MEAN CORPUSCULAR HGB CONC 30.6 g/dl (32.0-36.5); MEAN CORPUSCULAR VOLUME 101.2 fl (80.0-96.0); PLATELET COUNT, AUTOMATED 290 10^3/uL (150-450); RED BLOOD COUNT 3.33 10^6/uL (4.00-5.40); WHITE BLOOD COUNT 7.2 10^3/uL (4.0-10.0)
[2020-10-06 10:47] LABS: CALCIUM LEVEL 9.6 MG/DL (8.8-10.2); CREATININE FOR GFR 1.06 MG/DL (0.55-1.30); POTASSIUM SERUM 3.6 MEQ/L (3.5-5.1)
== END ==
PROVIDERS: ATTEND Internal Medicine
DX: K92.2 Gastrointestinal hemorrhage, unspecified (principal)

== ENCOUNTER → 2020-10-13 | Outpatient (REF) | payer MEDICARE, OTHER, MEDICAID ==
[2020-10-13 10:06] LABS: HEMATOCRIT 32.7 % (36.0-47.0); HEMOGLOBIN 9.9 g/dl (12.0-15.5); MEAN CORPUSCULAR HEMOGLOBIN 30.5 pg (27.0-33.0); MEAN CORPUSCULAR HGB CONC 30.3 g/dl (32.0-36.5); MEAN CORPUSCULAR VOLUME 100.6 fl (80.0-96.0); PLATELET COUNT, AUTOMATED 254 10^3/uL (150-450); RED BLOOD COUNT 3.25 10^6/uL (4.00-5.40); WHITE BLOOD COUNT 6.4 10^3/uL (4.0-10.0)
[2020-10-13 10:34] LABS: CALCIUM LEVEL 8.8 MG/DL (8.8-10.2); GLOMERULAR FILTRATION RATE 55.6 (>32); POTASSIUM SERUM 3.4 MEQ/L (3.5-5.1)
== END ==
PROVIDERS: ATTEND Internal Medicine
DX: K92.2 Gastrointestinal hemorrhage, unspecified (principal)

== ENCOUNTER → 2020-10-18 | Outpatient (REF) | payer MEDICARE, OTHER, MEDICAID ==
[2020-10-18 08:03] LABS: HEMATOCRIT 27.9 % (36.0-47.0); HEMOGLOBIN 8.7 g/dl (12.0-15.5); MEAN CORPUSCULAR HEMOGLOBIN 30.5 pg (27.0-33.0); MEAN CORPUSCULAR HGB CONC 31.2 g/dl (32.0-36.5); MEAN CORPUSCULAR VOLUME 97.9 fl (80.0-96.0); PLATELET COUNT, AUTOMATED 251 10^3/uL (150-450); RED BLOOD COUNT 2.85 10^6/uL (4.00-5.40); WHITE BLOOD COUNT 7.7 10^3/uL (4.0-10.0)
[2020-10-18 08:15] LABS: BLOOD UREA NITROGEN 43 MG/DL (7-18); CALCIUM LEVEL 8.4 MG/DL (8.8-10.2); CARBON DIOXIDE LEVEL 29 MEQ/L (21-32); CHLORIDE LEVEL 111 MEQ/L (98-107); CREATININE FOR GFR 0.86 MG/DL (0.55-1.30); GLOMERULAR FILTRATION RATE > 60.0 (>32); GLUCOSE, FASTING 87 MG/DL (70-100); POTASSIUM SERUM 3.7 MEQ/L (3.5-5.1); SODIUM LEVEL 143 MEQ/L (136-145)
== END ==
PROVIDERS: ATTEND Internal Medicine
DX: E87.6 Hypokalemia (principal)

== ENCOUNTER → 2020-10-22 | Outpatient (REF) | payer MEDICARE, OTHER, MEDICAID ==
[2020-10-22 22:17] LABS: INFLUENZA A AMPLIFICATION NEGATIVE (NEGATIVE); INFLUENZA B AMPLIFICATION NEGATIVE (NEGATIVE)
== END ==
PROVIDERS: ATTEND Internal Medicine
DX: Z11.59 Encounter for screening for other viral diseases (principal)

== ENCOUNTER → 2020-10-26 | Outpatient (REF) | payer MEDICAID, MEDICARE, OTHER ==
[2020-10-26 09:27] LABS: HEMATOCRIT 31.2 % (36.0-47.0); HEMOGLOBIN 9.8 g/dl (12.0-15.5); MEAN CORPUSCULAR HEMOGLOBIN 30.7 pg (27.0-33.0); MEAN CORPUSCULAR HGB CONC 31.4 g/dl (32.0-36.5); MEAN CORPUSCULAR VOLUME 97.8 fl (80.0-96.0); PLATELET COUNT, AUTOMATED 278 10^3/uL (150-450); RED BLOOD COUNT 3.19 10^6/uL (4.00-5.40); WHITE BLOOD COUNT 7.9 10^3/uL (4.0-10.0)
[2020-10-26 09:53] LABS: CALCIUM LEVEL 9.1 MG/DL (8.8-10.2); CREATININE FOR GFR 1.03 MG/DL (0.55-1.30); GLOMERULAR FILTRATION RATE 53.7 (>32)
== END ==
PROVIDERS: ATTEND Physician Assistant
DX: K92.2 Gastrointestinal hemorrhage, unspecified (principal)

== ENCOUNTER → 2020-11-02 | Outpatient (REF) | payer MEDICARE, OTHER, MEDICAID ==
[~2020-11-02] MED LIST changes: +CARB-88 PO; -[UNRECOGNIZED DRUG - CODE] PO
== END ==
PROVIDERS: ATTEND Internal Medicine
DX: Z20.822 Contact with and (suspected) exposure to COVID-19 (principal)

== ENCOUNTER → 2020-11-09 | Outpatient (REF) | payer MEDICARE, OTHER, MEDICAID ==
[2020-11-09 11:54] LABS: HEMATOCRIT 30.2 % (36.0-47.0); HEMOGLOBIN 9.4 g/dl (12.0-15.5); MEAN CORPUSCULAR HEMOGLOBIN 29.8 pg (27.0-33.0); MEAN CORPUSCULAR HGB CONC 31.1 g/dl (32.0-36.5); MEAN CORPUSCULAR VOLUME 95.9 fl (80.0-96.0); PLATELET COUNT, AUTOMATED 274 10^3/uL (150-450); RED BLOOD COUNT 3.15 10^6/uL (4.00-5.40); WHITE BLOOD COUNT 6.6 10^3/uL (4.0-10.0)
[2020-11-09 12:22] LABS: BLOOD UREA NITROGEN 25 MG/DL (7-18); CALCIUM LEVEL 8.1 MG/DL (8.8-10.2); CARBON DIOXIDE LEVEL 25 MEQ/L (21-32); CHLORIDE LEVEL 109 MEQ/L (98-107); CREATININE FOR GFR 0.88 MG/DL (0.55-1.30); GLOMERULAR FILTRATION RATE > 60.0 (>32); GLUCOSE, FASTING 98 MG/DL (70-100); POTASSIUM SERUM 3.9 MEQ/L (3.5-5.1); SODIUM LEVEL 143 MEQ/L (136-145)
== END ==
PROVIDERS: ATTEND Internal Medicine
DX: N18.9 Chronic kidney disease, unspecified (principal); Z20.822 Contact with and (suspected) exposure to COVID-19
CPT/HCPCS: 36415; 80048; 85027; U0003

== ENCOUNTER → 2020-12-08 | Outpatient (REF) | payer MEDICARE, OTHER, MEDICAID ==
[2020-12-08 11:09] LABS: HEMATOCRIT 35.6 % (36.0-47.0); HEMOGLOBIN 10.7 g/dl (12.0-15.5); MEAN CORPUSCULAR HEMOGLOBIN 27.8 pg (27.0-33.0); MEAN CORPUSCULAR HGB CONC 30.1 g/dl (32.0-36.5); MEAN CORPUSCULAR VOLUME 92.5 fl (80.0-96.0); PLATELET COUNT, AUTOMATED 322 10^3/uL (150-450); RED BLOOD COUNT 3.85 10^6/uL (4.00-5.40); WHITE BLOOD COUNT 9.4 10^3/uL (4.0-10.0)
[2020-12-08 11:36] LABS: CALCIUM LEVEL 8.7 MG/DL (8.8-10.2); CREATININE FOR GFR 1.25 MG/DL (0.55-1.30); POTASSIUM SERUM 3.1 MEQ/L (3.5-5.1)
== END ==
PROVIDERS: ATTEND Internal Medicine
DX: K92.2 Gastrointestinal hemorrhage, unspecified (principal)

== ENCOUNTER → 2020-12-14 | Outpatient (REF) | payer MEDICARE, OTHER, MEDICAID ==
[2020-12-14 12:25] LABS: HEMATOCRIT 35.1 % (36.0-47.0); HEMOGLOBIN 10.7 g/dl (12.0-15.5); MEAN CORPUSCULAR HEMOGLOBIN 27.8 pg (27.0-33.0); MEAN CORPUSCULAR HGB CONC 30.5 g/dl (32.0-36.5); MEAN CORPUSCULAR VOLUME 91.2 fl (80.0-96.0); PLATELET COUNT, AUTOMATED 300 10^3/uL (150-450); RED BLOOD COUNT 3.85 10^6/uL (4.00-5.40); WHITE BLOOD COUNT 9.2 10^3/uL (4.0-10.0)
[2020-12-14 12:47] LABS: CALCIUM LEVEL 9.3 MG/DL (8.8-10.2); CREATININE FOR GFR 1.27 MG/DL (0.55-1.30); GLOMERULAR FILTRATION RATE 42.2 (>32); POTASSIUM SERUM 3.7 MEQ/L (3.5-5.1)
== END ==
PROVIDERS: ATTEND Internal Medicine
DX: K92.2 Gastrointestinal hemorrhage, unspecified (principal)

== ENCOUNTER → 2020-12-29 | Outpatient (REF) | payer MEDICARE, OTHER, MEDICAID ==
[2020-12-29 10:11] LABS: BASO % 0.2 % (0.0-1.0); EOS # 0.2 10^3/uL (0.0-0.5); EOS % 1.9 % (0.0-3.0); HEMATOCRIT 33.3 % (36.0-47.0); HEMOGLOBIN 10.2 g/dl (12.0-15.5); LYMPH # 2.6 10^3/uL (1.5-5.0); LYMPH % 25.7 % (24.0-44.0); MEAN CORPUSCULAR HEMOGLOBIN 27.1 pg (27.0-33.0); MEAN CORPUSCULAR HGB CONC 30.6 g/dl (32.0-36.5); MEAN CORPUSCULAR VOLUME 88.3 fl (80.0-96.0); MONO # 0.7 10^3/uL (0.0-0.8); MONO % 7.5 % (2.0-8.0); NEUTROPHILS # 6.4 10^3/uL (1.5-8.5); NEUTROPHILS % 64.2 % (36.0-66.0); PLATELET COUNT, AUTOMATED 345 10^3/uL (150-450); RED BLOOD COUNT 3.77 10^6/uL (4.00-5.40); WHITE BLOOD COUNT 9.9 10^3/uL (4.0-10.0)
[2020-12-29 11:30] LABS: ALBUMIN 2.5 GM/DL (3.2-5.2); CALCIUM LEVEL 8.3 MG/DL (8.8-10.2); CREATININE FOR GFR 0.97 MG/DL (0.55-1.30); GLOMERULAR FILTRATION RATE 57.6 (>32); PERCENT SATURATION 25.6 % (13.2-45.0); POTASSIUM SERUM 3.5 MEQ/L (3.5-5.1)
== END ==
PROVIDERS: ATTEND Internal Medicine
DX: N18.9 Chronic kidney disease, unspecified (principal)

== ENCOUNTER 2021-01-10 18:22 | Emergency (ER) | payer MEDICARE, OTHER, MEDICAID ==
[~2021-01-10 18:22] MED LIST changes: -FERR1TAB8 PO; -XARE15TA PO
--- NOTE | 2021-01-10 19:42 | REP ---
INDICATION: CHEST PAIN. COMPARISON: Comparison chest x-ray September 14, 2020. TECHNIQUE: Portable upright AP chest radiograph. FINDINGS: EKG electrodes are seen. There is a granulomatous calcification in the right lower lobe of the lung unchanged from prior study. Lung dawson are otherwise clear. The heart is not enlarged. The aorta is calcific and tortuous. Pulmonary vasculature is not increased.. IMPRESSION: No active disease. <Electronically signed by Steven Cole > 01/10/21 [id number]
--- NOTE | 2021-01-10 20:46 | ECGEPIP ---
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
[2021-01-10] MEDS ORDERED: FERR1TAB8 PO (20:51)
[2021-01-10] MEDS ORDERED: CARA1TAB6 PO (20:51)
[2021-01-10 21:14] LABS: BASO % 0.3 % (0.0-1.0); EOS # 0.3 10^3/uL (0.0-0.5); EOS % 2.7 % (0.0-3.0); HEMATOCRIT 32.4 % (36.0-47.0); HEMOGLOBIN 9.8 g/dl (12.0-15.5); LYMPH # 2.9 10^3/uL (1.5-5.0); LYMPH % 26.7 % (24.0-44.0); MEAN CORPUSCULAR HGB CONC 30.2 g/dl (32.0-36.5); MEAN CORPUSCULAR VOLUME 89.3 fl (80.0-96.0); MONO # 0.7 10^3/uL (0.0-0.8); MONO % 6.6 % (2.0-8.0); NEUTROPHILS # 6.8 10^3/uL (1.5-8.5); NEUTROPHILS % 63.3 % (36.0-66.0); PLATELET COUNT, AUTOMATED 392 10^3/uL (150-450); RED BLOOD COUNT 3.63 10^6/uL (4.00-5.40); WHITE BLOOD COUNT 10.7 10^3/uL (4.0-10.0)
[2021-01-10 21:26] LABS: INR 1.07; PROTHROMBIN TIME 14.1 SECONDS (12.5-14.3)
[2021-01-10 21:27] LABS: PARTIAL THROMBOPLASTIN TIME 38.7 SECONDS (24.2-38.5)
[2021-01-10 21:46] LABS: CALCIUM LEVEL 8.3 MG/DL (8.8-10.2); CREATININE FOR GFR 0.94 MG/DL (0.55-1.30); GLOMERULAR FILTRATION RATE 59.7 (>32)
[2021-01-10] MEDS ORDERED: XARE15TA PO (22:42)
[2021-01-10] MEDS ORDERED: RIVAROXABAN 15 MG TAB (XARELTO) PO ONE (22:45)
[2021-01-11 00:30] VITALS: BP 158/72
== END 2021-01-11 00:37 | disposition home or self-care (01) ==
LOC: M ED 18:22
DX: I82.411 Acute embolism and thrombosis of right femoral vein (principal); I82.431 Acute embolism and thrombosis of right popliteal vein; I82.441 Acute embolism and thrombosis of right tibial vein; M18.2 Bilateral post-traumatic osteoarthritis of first carpometacarpal joints; I12.9 Hypertensive chronic kidney disease with stage 1 through stage 4 chronic kidney disease, or unspecified chronic kidney disease; J44.9 Chronic obstructive pulmonary disease, unspecified; J45.909 Unspecified asthma, uncomplicated; N18.9 Chronic kidney disease, unspecified; E78.5 Hyperlipidemia, unspecified; K21.9 Gastro-esophageal reflux disease without esophagitis; Z99.3 Dependence on wheelchair; Z79.899 Other long term (current) drug therapy; Z79.82 Long term (current) use of aspirin; Z79.01 Long term (current) use of anticoagulants

== ENCOUNTER → 2021-01-10 | Outpatient (CLI) | payer MEDICARE, OTHER, MEDICAID ==
[~2021-01-10] MED LIST changes: +ARIP10TA32 PO; -ARIP1TAB PO; +FERR1TAB8 PO; +XARE15TA PO
--- NOTE | 2021-01-10 17:16 | REP ---
INDICATION: RT LEG SWELLING IN LEGS, RO DVT/PT IN CT HOLDING AREA. COMPARISON: Comparison study September 14, 2020.. TECHNIQUE: Bilateral {lower extremity duplex venous scanning is performed from the groin to the ankle level. FINDINGS: The deep veins are anechoic and fully compressible from the groin to the popliteal fossa in the left lower extremity. Color flow imaging is homogeneous. Spectral Doppler interrogation demonstrates intact respiratory variation in flow and normal manual augmentation of flow. There is no evidence of deep vein thrombosis above the knee. There is no evidence of DVT in the visualized calf veins in the left lower extremity. However, the right lower extremity study is positive. There is extensive occlusive deep venous thrombosis from the right common femoral vein through the popliteal vein and extending into the posterior tibial veins. The peroneal veins are not seen.. IMPRESSION: Study of the right lower extremity is positive for extensive occlusive deep venous thrombosis from the common femoral vein through the popliteal vein and into the calf posterior tibial veins.. The left lower extremity deep venous study is negative. <Electronically signed by Steven Cole > 01/10/21 [id number]
== END ==
LOC: M RAD 16:17
PROVIDERS: ATTEND Internal Medicine Nephrology
DX: I82.411 Acute embolism and thrombosis of right femoral vein (principal); I82.431 Acute embolism and thrombosis of right popliteal vein; I82.441 Acute embolism and thrombosis of right tibial vein; N18.2 Chronic kidney disease, stage 2 (mild); R60.1 Generalized edema; Z99.3 Dependence on wheelchair

== ENCOUNTER → 2021-01-12 | Outpatient (REF) | payer MEDICARE, OTHER, MEDICAID ==
[~2021-01-12] MED LIST changes: +FERR1TAB8 PO; +XARE15TA PO
[2021-01-12 11:22] LABS: HEMATOCRIT 28.9 % (36.0-47.0); HEMOGLOBIN 8.8 g/dl (12.0-15.5); MEAN CORPUSCULAR HEMOGLOBIN 27.1 pg (27.0-33.0); MEAN CORPUSCULAR HGB CONC 30.4 g/dl (32.0-36.5); MEAN CORPUSCULAR VOLUME 88.9 fl (80.0-96.0); PLATELET COUNT, AUTOMATED 343 10^3/uL (150-450); RED BLOOD COUNT 3.25 10^6/uL (4.00-5.40); WHITE BLOOD COUNT 7.6 10^3/uL (4.0-10.0)
== END ==
PROVIDERS: ATTEND Internal Medicine
DX: K92.2 Gastrointestinal hemorrhage, unspecified (principal)

== ENCOUNTER → 2021-01-13 | Outpatient (REF) | payer MEDICARE, OTHER ==
[2021-01-13 10:08] LABS: HEMATOCRIT 30.6 % (36.0-47.0); HEMOGLOBIN 9.2 g/dl (12.0-15.5); MEAN CORPUSCULAR HEMOGLOBIN 27.2 pg (27.0-33.0); MEAN CORPUSCULAR HGB CONC 30.1 g/dl (32.0-36.5); MEAN CORPUSCULAR VOLUME 90.5 fl (80.0-96.0); PLATELET COUNT, AUTOMATED 364 10^3/uL (150-450); RED BLOOD COUNT 3.38 10^6/uL (4.00-5.40); WHITE BLOOD COUNT 8.3 10^3/uL (4.0-10.0)
== END ==
PROVIDERS: ATTEND Internal Medicine
DX: K92.2 Gastrointestinal hemorrhage, unspecified (principal)

== ENCOUNTER → 2021-01-14 | Outpatient (REF) | payer MEDICARE, OTHER ==
[2021-01-14 09:35] LABS: HEMATOCRIT 32.6 % (36.0-47.0); HEMOGLOBIN 9.5 g/dl (12.0-15.5); MEAN CORPUSCULAR HEMOGLOBIN 26.6 pg (27.0-33.0); MEAN CORPUSCULAR HGB CONC 29.1 g/dl (32.0-36.5); MEAN CORPUSCULAR VOLUME 91.3 fl (80.0-96.0); PLATELET COUNT, AUTOMATED 372 10^3/uL (150-450); RED BLOOD COUNT 3.57 10^6/uL (4.00-5.40); WHITE BLOOD COUNT 9.5 10^3/uL (4.0-10.0)
== END ==
PROVIDERS: ATTEND Internal Medicine
DX: K92.2 Gastrointestinal hemorrhage, unspecified (principal)

== ENCOUNTER → 2021-01-15 | Outpatient (REF) | payer MEDICARE, OTHER ==
[2021-01-15 08:59] LABS: HEMATOCRIT 28.7 % (36.0-47.0); HEMOGLOBIN 8.6 g/dl (12.0-15.5); MEAN CORPUSCULAR HEMOGLOBIN 26.8 pg (27.0-33.0); MEAN CORPUSCULAR VOLUME 89.4 fl (80.0-96.0); PLATELET COUNT, AUTOMATED 355 10^3/uL (150-450); RED BLOOD COUNT 3.21 10^6/uL (4.00-5.40); WHITE BLOOD COUNT 8.2 10^3/uL (4.0-10.0)
== END ==
PROVIDERS: ATTEND Internal Medicine
DX: I82.401 Acute embolism and thrombosis of unspecified deep veins of right lower extremity (principal); Z87.19 Personal history of other diseases of the digestive system

== ENCOUNTER → 2021-01-16 | Outpatient (REF) | payer MEDICARE, OTHER ==
[2021-01-16 11:56] LABS: HEMATOCRIT 28.6 % (36.0-47.0); HEMOGLOBIN 8.6 g/dl (12.0-15.5); MEAN CORPUSCULAR HEMOGLOBIN 27.3 pg (27.0-33.0); MEAN CORPUSCULAR HGB CONC 30.1 g/dl (32.0-36.5); MEAN CORPUSCULAR VOLUME 90.8 fl (80.0-96.0); PLATELET COUNT, AUTOMATED 347 10^3/uL (150-450); RED BLOOD COUNT 3.15 10^6/uL (4.00-5.40)
== END ==
PROVIDERS: ATTEND Internal Medicine
DX: I82.401 Acute embolism and thrombosis of unspecified deep veins of right lower extremity (principal); Z87.19 Personal history of other diseases of the digestive system

== ENCOUNTER → 2021-01-17 | Outpatient (REF) | payer MEDICARE, OTHER ==
[2021-01-17 09:50] LABS: HEMATOCRIT 31.3 % (36.0-47.0); HEMOGLOBIN 9.4 g/dl (12.0-15.5); MEAN CORPUSCULAR HEMOGLOBIN 26.9 pg (27.0-33.0); MEAN CORPUSCULAR VOLUME 89.7 fl (80.0-96.0); PLATELET COUNT, AUTOMATED 354 10^3/uL (150-450); RED BLOOD COUNT 3.49 10^6/uL (4.00-5.40); WHITE BLOOD COUNT 8.4 10^3/uL (4.0-10.0)
== END ==
PROVIDERS: ATTEND Internal Medicine
DX: K92.2 Gastrointestinal hemorrhage, unspecified (principal)

== ENCOUNTER → 2021-01-18 | Outpatient (REF) | payer MEDICARE, OTHER ==
[2021-01-18 08:56] LABS: HEMATOCRIT 27.7 % (36.0-47.0); HEMOGLOBIN 8.4 g/dl (12.0-15.5); MEAN CORPUSCULAR HEMOGLOBIN 27.2 pg (27.0-33.0); MEAN CORPUSCULAR HGB CONC 30.3 g/dl (32.0-36.5); MEAN CORPUSCULAR VOLUME 89.6 fl (80.0-96.0); PLATELET COUNT, AUTOMATED 321 10^3/uL (150-450); RED BLOOD COUNT 3.09 10^6/uL (4.00-5.40)
== END ==
PROVIDERS: ATTEND Internal Medicine
DX: I82.401 Acute embolism and thrombosis of unspecified deep veins of right lower extremity (principal); K92.89 Other specified diseases of the digestive system

== ENCOUNTER → 2021-01-19 | Outpatient (REF) | payer MEDICARE, OTHER ==
[2021-01-19 10:55] LABS: HEMOGLOBIN 9.6 g/dl (12.0-15.5); MEAN CORPUSCULAR HEMOGLOBIN 27.1 pg (27.0-33.0); MEAN CORPUSCULAR VOLUME 90.4 fl (80.0-96.0); PLATELET COUNT, AUTOMATED 339 10^3/uL (150-450); RED BLOOD COUNT 3.54 10^6/uL (4.00-5.40)
== END ==
PROVIDERS: ATTEND Internal Medicine
DX: I82.401 Acute embolism and thrombosis of unspecified deep veins of right lower extremity (principal); Z87.19 Personal history of other diseases of the digestive system

== ENCOUNTER → 2021-01-20 | Outpatient (REF) | payer MEDICARE, OTHER ==
[2021-01-20 11:23] LABS: CALCIUM LEVEL 8.2 MG/DL (8.8-10.2); CREATININE FOR GFR 1.05 MG/DL (0.55-1.30); GLOMERULAR FILTRATION RATE 52.5 (>32); POTASSIUM SERUM 3.5 MEQ/L (3.5-5.1)
== END ==
PROVIDERS: ATTEND Internal Medicine
DX: K92.2 Gastrointestinal hemorrhage, unspecified (principal)

== ENCOUNTER → 2021-01-20 | Outpatient (REF) | payer MEDICARE, OTHER ==
[2021-01-20 10:52] LABS: HEMATOCRIT 30.6 % (36.0-47.0); HEMOGLOBIN 9.1 g/dl (12.0-15.5); MEAN CORPUSCULAR HEMOGLOBIN 26.4 pg (27.0-33.0); MEAN CORPUSCULAR HGB CONC 29.7 g/dl (32.0-36.5); MEAN CORPUSCULAR VOLUME 88.7 fl (80.0-96.0); PLATELET COUNT, AUTOMATED 331 10^3/uL (150-450); RED BLOOD COUNT 3.45 10^6/uL (4.00-5.40); WHITE BLOOD COUNT 8.4 10^3/uL (4.0-10.0)
== END ==
PROVIDERS: ATTEND Internal Medicine
DX: I82.401 Acute embolism and thrombosis of unspecified deep veins of right lower extremity (principal); K92.89 Other specified diseases of the digestive system

== ENCOUNTER → 2021-01-21 | Outpatient (REF) | payer MEDICARE, OTHER ==
[2021-01-21 10:28] LABS: HEMATOCRIT 31.5 % (36.0-47.0); HEMOGLOBIN 9.4 g/dl (12.0-15.5); MEAN CORPUSCULAR HEMOGLOBIN 26.8 pg (27.0-33.0); MEAN CORPUSCULAR HGB CONC 29.8 g/dl (32.0-36.5); MEAN CORPUSCULAR VOLUME 89.7 fl (80.0-96.0); PLATELET COUNT, AUTOMATED 315 10^3/uL (150-450); RED BLOOD COUNT 3.51 10^6/uL (4.00-5.40); WHITE BLOOD COUNT 8.6 10^3/uL (4.0-10.0)
[2021-01-21 11:13] LABS: CALCIUM LEVEL 8.5 MG/DL (8.8-10.2); CREATININE FOR GFR 1.07 MG/DL (0.55-1.30); GLOMERULAR FILTRATION RATE 51.4 (>32); POTASSIUM SERUM 3.6 MEQ/L (3.5-5.1)
== END ==
PROVIDERS: ATTEND Internal Medicine
DX: K92.89 Other specified diseases of the digestive system (principal)

== ENCOUNTER → 2021-01-25 | Outpatient (REF) | payer MEDICARE, OTHER ==
[2021-01-25 12:23] LABS: HEMATOCRIT 32.3 % (36.0-47.0); HEMOGLOBIN 9.7 g/dl (12.0-15.5); MEAN CORPUSCULAR HEMOGLOBIN 27.2 pg (27.0-33.0); MEAN CORPUSCULAR VOLUME 90.5 fl (80.0-96.0); PLATELET COUNT, AUTOMATED 325 10^3/uL (150-450); RED BLOOD COUNT 3.57 10^6/uL (4.00-5.40); WHITE BLOOD COUNT 7.7 10^3/uL (4.0-10.0)
[2021-01-25 12:56] LABS: CALCIUM LEVEL 8.3 MG/DL (8.8-10.2); CREATININE FOR GFR 1.09 MG/DL (0.55-1.30); GLOMERULAR FILTRATION RATE 50.3 (>32); POTASSIUM SERUM 3.8 MEQ/L (3.5-5.1)
== END ==
PROVIDERS: ATTEND Internal Medicine
DX: N19 Unspecified kidney failure (principal)

== ENCOUNTER → 2021-01-28 | Outpatient (REF) | payer MEDICARE, OTHER ==
[2021-01-28 15:31] LABS: HEMATOCRIT 34.6 % (36.0-47.0); HEMOGLOBIN 10.3 g/dl (12.0-15.5); MEAN CORPUSCULAR HEMOGLOBIN 27.2 pg (27.0-33.0); MEAN CORPUSCULAR HGB CONC 29.8 g/dl (32.0-36.5); MEAN CORPUSCULAR VOLUME 91.3 fl (80.0-96.0); PLATELET COUNT, AUTOMATED 317 10^3/uL (150-450); RED BLOOD COUNT 3.79 10^6/uL (4.00-5.40); WHITE BLOOD COUNT 8.1 10^3/uL (4.0-10.0)
[2021-01-28 15:58] LABS: CALCIUM LEVEL 8.8 MG/DL (8.8-10.2); CREATININE FOR GFR 1.05 MG/DL (0.55-1.30); GLOMERULAR FILTRATION RATE 52.5 (>32); POTASSIUM SERUM 4.8 MEQ/L (3.5-5.1)
== END ==
PROVIDERS: ATTEND Internal Medicine
DX: K92.2 Gastrointestinal hemorrhage, unspecified (principal)